=== PATIENT | female | born 1995 | race Caucasian/White ===

== ENCOUNTER 2018-02-27 15:05 | Observation (INO) | payer SELFPAY ==
[2018-02-27] MEDS ORDERED: MORPHINE 4 MG/ML SYR ONE ×2 (15:43→16:41)
[2018-02-27] MEDS ORDERED: ONDANSETRON 4 MG/2 ML VIAL ONE ×2 (15:43→16:41)
[2018-02-27] MEDS ORDERED: NA CHLORIDE 0.9% 1,000 ML ONE ×2 (15:44→17:35)
[2018-02-27 16:03] LABS: Absolute Lymphocytes (CBC) 1.8 K/uL (0.7-4.9); Absolute Monocytes 1.6 K/uL (0.1-1.3); Absolute Neutrophil 11.1 K/uL (1.8-8.0); Basophils % 0.5 % (0-1.3); Eosinophils % 0.8 % (0-4.4); Hematocrit 38.4 % (36.0-45.0); Lymphocytes % 12.3 % (15.3-44.8); MCH 29.2 pg (27.0-35.0); MPV 7.9 fL (7.6-11.3); Monocytes % 11.1 % (3.3-12.3); RBC Red Blood Cell Count 4.51 M/uL (3.86-4.86)
[2018-02-27 16:16] LABS: Albumin 3.3 g/dL (3.4-5.0); Bilirubin Direct 0.2 mg/dL (0-0.2); Bilirubin Total 0.7 mg/dL (0.2-1.0); Potassium 3.7 mmol/L (3.5-5.1); Protein, Total 8.8 g/dL (6.4-8.2)
[2018-02-27 16:34] LABS: Urine Bacteria 20-50 /HPF (<20); Urine Culture Reflex Order NOT NEEDED; Urine RBC 20-50 /HPF (NONE SEEN)
[2018-02-27 16:54] LABS: Urine Blood 2+ (NEG); Urine Glucose TRACE (NEG); Urine Protein 2+ (NEG); Urine Specific Gravity 1.025 (1.005-1.030); Urine pH 6.5 (5.0-7.0)
[2018-02-27] MEDS ORDERED: KETOROLAC 30 MG/ML INJ ONE (18:36)
--- NOTE | 2018-02-27 18:55 | RAD REPORT ---
EXAM DESCRIPTION: CT - Abdomen Pelvis W Contrast - 02/27/2018 6:41 pm CLINICAL HISTORY: Right flank pain for 1 week, difficulty urinating COMPARISON: None. TECHNIQUE: Biphasic, helical CT imaging of the abdomen and pelvis was performed following 100 ml non -ionic IV contrast. Oral contrast was given. All CT scans are performed using dose optimization technique as appropriate and may include automated exposure control or mA/KV adjustment according to patient size. FINDINGS: No suspicious findings in the lung bases. The liver, spleen, and pancreas show no suspicious findings. Gallbladder and biliary tree are also wi thout suspicious finding. Renal parenchymal enhancement is somewhat heterogeneous but not definitive for pyelonephritis. Nonobs tructing calculi are present. Urinary bladder is distended without wall thickening, mass or bladder c alculus. IUD is in place in a normal-sized uterus. A 3.3 centimeter right ovarian cyst is present. Le ft ovary is unremarkable. No gastric dilatation or wall thickening. No dilated large or small bowel loop seen. Cecum is low-lyi ng in the anterior right pelvic floor. Appendix is not optimally imaged. Carrillo of the terminal ileum are mildly prominent. Patient does have some congestion or stranding in the right pericolic gutter ne ar the tip of the liver. This is distant from the appendix location. Small mesenteric lymph nodes are present. Physiologic quantity of free fluid is present in the cul de sac. No free air or pneumatosis . No hernia, mass or bulky lymphadenopathy. No adrenal abnormality. No suspicious bony findings. IMPRESSION: Appendix is not optimally visualized. No definitive evidence for acute appendicitis. Cor relation is needed with laboratory and clinical findings. There is nonspecific congestion or edema in the right pericolic gutter near the liver. The adjacent b owel is unremarkable. This finding is distant from the location of the appendix. Approximately 3.3 centimeter right ovarian cyst without hemorrhage or rupture finding. Renal parenchymal enhancement is somewhat heterogeneous but not definitive for pyelonephritis. Nonspecific mesenteric lymph nodes. Enteritis or mesenteric adenitis are possible.
[2018-02-27] MEDS ORDERED: CEFTRIAXONE/SWI 1gm 1 GM/10 ML SYR ONE (20:24)
--- NOTE | 2018-02-27 20:32 | RAD REPORT ---
EXAM DESCRIPTION: US - Pelvis Complete - 02/27/2018 8:19 pm CLINICAL HISTORY: Abdominal pain, pelvic pain Preliminary findings provided at the time of the study. COMPARISON: CT study August 13 TECHNIQUE: Transabdominal pelvic sonography was performed. FINDINGS: Endometrium is 4 mm in thickness. IUD is in place well positioned in the fundus of the [place]. No focal endometrial or myometrial abnormality. Uterus is 7.5 x 3.5 x 4.7 cm. Both ovaries are identifiable. Right ovary is enlarged due to a 3.6 centimeter cyst with septation. N o soft tissue mass component or hemorrhagic component. Additional small bilateral ovarian cysts are p resent. Doppler evaluation shows normal blood flow in each ovary. No abnormal free fluid. IMPRESSION: Minimally complex 3.6 centimeter right ovarian cyst. No other significant findings. IUD is well positioned in the fundus of the uterus. Follow-up sonography in 3 months could be performed to monitor the right ovarian cyst for growth or i nvolution.
--- NOTE | 2018-02-27 21:03 | ER ---
Nurse's Notes [facility] Name: Jagruti Argueta Age: 23 yrs Sex: Female : 1995 Arrival Date: 02/27/2018 Time: 15:06 Bed 7 Private MD: None, None Diagnosis: Other abdominal pain-Intractable, possible appendicitis Presentation: 02/27 15:12 Presenting complaint: Patient states: Right flank pain x 1 week, worse since last hb night. Denies difficulty urinating/pain with urination. Transition of care: patient was not received from another setting of care. Onset of symptoms is unknown. Risk Assessment: Do you want to hurt yourself or someone else? Patient reports no desire to harm self or others. Care prior to arrival: None. 15:12 Method Of Arrival: Ambulatory hb 15:12 Acuity: LISA 3 hb 22:17 Initial Sepsis Screen: Does the patient meet any 2 criteria? No. Patient's initial jd3 sepsis screen is negative. Does the patient have a suspected source of infection? No. Patient's initial sepsis screen is negative. [employer]: 15:13 LMP N/A - control method hb Historical: - Allergies: 15:14 No Known Allergies; hb - Home Meds: 15:14 None [Active]; hb - PMHx: 15:14 None; hb - PSHx: 15:14 None; hb - Immunization history:: Adult Immunizations up to date. - Social history:: Smoking status: Patient uses tobacco products, smokes one-half pack cigarettes per day. - Ebola Screening: : No symptoms or risks identified at this time. Screenin:00 Abuse screen: Denies threats or abuse. Denies injuries from another. Nutritional jl7 screening: No deficits noted. Tuberculosis screening: No symptoms or risk factors identified. Fall Risk IV access (20 points). Total Guzman Fall Scale indicates No Risk (0-24 pts). Assessment: 15:30 General: Appears in no apparent distress. uncomfortable, unkempt, Behavior is jl7 cooperative, anxious. Pain: Complains of pain in right upper quadrant and right lower quadrant Pain radiates to right scapular area Pain currently is 10 out of 10 on a pain scale. Quality of pain is described as pressure, sharp, Pain began 1 week ago Is intermittent. Neuro: Level of Consciousness is awake, alert, obeys commands, Oriented to person, place, time, situation. Cardiovascular: Patient's skin is warm and dry. Respiratory: Airway is patent Respiratory effort is even, unlabored, Respiratory pattern is regular, symmetrical. GI: Abdomen is flat, non-distended, Bowel sounds present X 4 quads. Abd is soft X 4 quads Abdomen is tender to palpation in right upper quadrant and right lower quadrant Reports nausea. : Urine is cloudy, Denies burning with urination, pain. EENT: No signs and/or symptoms were reported regarding the EENT system. Derm: Skin is pink, warm \T\ dry. Musculoskeletal: No signs and/or symptoms reported regarding the musculoskeletal system. 16:26 Reassessment: Pt finished drinking oral contrast, CT notified. jl7 16:35 Reassessment: Pt c/o increased nausea and pain, ERP notified, see MAR for orders. jl7 17:30 Reassessment: Patient appears in no apparent distress at this time. Patient and/or jl7 family updated on plan of care and expected duration. Pain level reassessed. Patient is alert, oriented x 3, equal unlabored respirations, skin warm/dry/pink. Reports decreased pain at this time. 18:25 Reassessment: Pt c/o increased pain, ERP notified, see MAR for orders. jl7 18:57 Reassessment: Pain rated 5/10 at this time Patient states feeling better. Patient jl7 states symptoms have improved. 19:05 General: Appears in no apparent distress. comfortable, Behavior is calm, cooperative, rr5 appropriate for age. Pain: Complains of pain in abdomen Pain currently is 5 out of 10 on a pain scale. Quality of pain is described as pressure, sharp, Pain began 1 week Is intermittent. Neuro: Level of Consciousness is awake, alert, obeys commands, Oriented to person, place, time, situation. Cardiovascular: Capillary refill < 3 seconds Patient's skin is warm and dry. Respiratory: Airway is patent Respiratory effort is even, unlabored, Respiratory pattern is regular, symmetrical. GI: Abdomen is flat, non-distended, Bowel sounds present X 4 quads. Abd is soft Abdomen is tender to palpation Reports lower abdominal pain, upper abdominal pain. : Denies burning with urination. EENT: No signs and/or symptoms were reported regarding the EENT system. Derm: Skin is pink, warm \T\ dry. Musculoskeletal: Capillary refill < 3 seconds, Range of motion: intact in all extremities. 19:48 Reassessment: Pelvic exam completed, awaiting US. tl2 20:45 Reassessment: patient became agitated awaiting for results, Carol ZHENG at bedside rr5 explaining the plan of care. patient requested to go out for a while accompanied by security staff. 21:30 Reassessment: Patient appears in no apparent distress at this time. Patient and/or rr5 family updated on plan of care and expected duration. Pain level reassessed. 22:38 Reassessment: Patient appears in no apparent distress at this time. Patient is alert, aa1 oriented x 3, equal unlabored respirations, skin warm/dry/pink. Report given to admitting nurse on 2nd floor. Vital Signs: 15:13 BP 126 / 78; Pulse 100; Resp 18; Temp 99.2; Pulse Ox 100% on R/A; Pain 10/10; hb 16:00 BP 127 / 91; Pulse 104; Resp 16 S; Pulse Ox 98% on R/A; Pain 10/10; jl7 16:35 BP 120 / 86; Pulse 115; Resp 18 S; Temp 99.6(O); Pulse Ox 99% on R/A; Pain 10/10; jl7 18:08 BP 128 / 87; Pulse 102; Resp 15; Pulse Ox 98% on R/A; mh5 19:05 BP 122 / 65; Pulse 84; Resp 16; Temp 99; Pulse Ox 98% ; Pain 5/10; rr5 19:47 BP 119 / 71; Pulse 84; Resp 18; Pulse Ox 100% on R/A; tl2 20:30 BP 126 / 70; Pulse 80; Resp 17; Pulse Ox 99% on R/A; rr5 21:20 BP 111 / 80; Pulse 89; Resp 17; Pulse Ox 98% on R/A; rr5 22:47 BP 109 / 89; Pulse 85; Resp 17; Temp 99.3; Pulse Ox 99% on R/A; rr5 ED Course: 15:06 Patient arrived in ED. mr 15:06 None, None is Private Physician. mr 15:13 Triage completed. hb 15:14 Arm band placed on right wrist. hb 15:17 Mac Medina PA is PHCP. cp 15:17 Daniel Schulz MD is Attending Physician. cp 15:30 Awais Devine RN is Primary Nurse. 7 15:52 Patient has correct armband on for positive identification. Bed in low position. Call [facility] light in reach. Side rails up X 1. Adult w/ patient. Warm blanket given. Pulse ox on. NIBP on. 15:52 Urine collected: clean catch specimen, cloudy. [facility] 15:53 Urine Microscopic Only Sent. [facility] 16:00 Initial lab(s) drawn, by ks, sent to lab. Inserted saline lock: 20 gauge in right jl7 antecubital area, using aseptic technique. Blood collected. 18:41 CT Abd/Pelvis - W/Contrast: give oral contrast In Process Unspecified. EDMS 19:47 Assist provider with pelvic exam: Set up pelvic tray. Performed by Mac ZHENG tl2 Specimens sent to lab. Patient tolerated well. 20:17 Ultrasound completed. Other: pt refused tv , pelvic completed. cy 20:21 Pelvis Complete In Process Unspecified. EDMS 21:01 Cholo Kohler MD is Hospitalizing Provider. cp 22:50 Patient admitted, IV remains in place. intact. rr5 Administered Medications: 15:51 Drug: Zofran 4 mg Route: IVP; Site: right antecubital; jl7 16:10 Follow up: Response: No adverse reaction; Nausea is decreased 7 15:52 Drug: NS 0.9% 1000 ml Route: IV; Rate: 1 bolus; Site: right antecubital; jl7 16:00 Follow up: IV Status: Completed infusion [facility] 15:53 Drug: morphine 4 mg Route: IVP; Site: right antecubital; jl7 16:00 Follow up: Response: No adverse reaction; Pain is decreased jl7 16:38 Drug: Zofran 4 mg Route: IVP; Site: right antecubital; jl7 17:00 Follow up: Response: No adverse reaction; Nausea is decreased jl7 16:40 Drug: morphine 4 mg Route: IVP; Site: right antecubital; jl7 17:00 Follow up: Response: No adverse reaction; Pain is decreased jl7 17:30 Drug: NS 0.9% 1000 ml Route: IV; Rate: 125 ml/hr; Site: right antecubital; jl7 18:30 Drug: TORadol 30 mg Route: IVP; Site: right antecubital; jl7 18:57 Follow up: Response: No adverse reaction; Pain is decreased jl7 20:20 Drug: Rocephin - (cefTRIAXone) 1 grams Route: IVPB; Infused Over: 30 mins; Site: right ea antecubital; 22:25 Follow up: Response: No adverse reaction rr5 20:47 CANCELLED (Physician Discretion): Cipro 400 mg 200 ml IVPB once over 60 mins cp 20:47 CANCELLED (Physician Discretion): metroNIDAZOLE 500 mg 100 ml IVPB once over 30 mins cp 21:18 Drug: morphine 4 mg Route: IVP; Site: right antecubital; ea 22:25 Follow up: Response: No adverse reaction rr5 21:19 Drug: Zofran 4 mg Route: IVP; Site: right antecubital; ea 22:25 Follow up: Response: No adverse reaction rr5 Outcome: 21:03 Decision to Hospitalize by Provider. cp 22:30 Admitted to Med/surg accompanied by tech, via wheelchair, with chart. rr5 22:30 Condition: stable rr5 22:30 Instructed on the need for admit. 22:51 Patient left the ED. rr5 Signatures: Dispatcher [facility] EDMI Rachel Reaves RN RN jieDickson Kylie Holman mr Mac Medina PA PA cp Baxter, Heather, RN RN hb Knox, Taylor, RN RN tl2 Dilia Kohler Jahala, RN RN jl7 Samantha Rothman RN RN ea Davies, Jonathon, RN RN jBrennan Hess Raymond RN RN rr5 Corrections: (The following items were deleted from the chart) 20:20 20:18 In radiology for Transvaginal Study (Probe)+US.RAD.BRZ. EVANGELISTMI EDMS 02/28 02:45 02:39 Reassessment: rr5 rr5
--- NOTE | 2018-02-27 21:03 | EDPHYS ---
Physician Documentation [facility] Name: Jagruti Argueta Age: 23 yrs Sex: Female : 1995 Arrival Date: 02/27/2018 Time: 15:06 Bed 7 Private MD: None, None ED Physician Daniel Schulz HPI: 02/27 15:30 This 23 yrs old Female presents to ER via Ambulatory with complaints of Flank cp Pain. 15:30 The patient presents with abdominal pain in the right upper quadrant, right lower cp quadrant. 15:30 Onset: The symptoms/episode began/occurred 1 week(s) ago. cp 15:30 The symptoms do not radiate. Associated signs and symptoms: Pertinent positives: cp anorexia, nausea, Pertinent negatives: blood in stools, chest pain, diarrhea, dysuria, fever, shortness of breath, vomiting. Modifying factors: the symptoms are aggravated by movement, pressure. 15:30 The symptoms are described as sharp, pressure. cp 15:30 Severity of pain: in the emergency department the pain is actually worse. cp [employer]OMAT[employer]MING [employer]ER: 15:13 LMP N/A - control method hb Historical: - Allergies: 15:14 No Known Allergies; hb - Home Meds: 15:14 None [Active]; hb - PMHx: 15:14 None; hb - PSHx: 15:14 None; hb - Immunization history:: Adult Immunizations up to date. - Social history:: Smoking status: Patient uses tobacco products, smokes one-half pack cigarettes per day. - Ebola Screening: : No symptoms or risks identified at this time. ROS: 15:35 Constitutional: Negative for body aches, chills, fever, poor PO intake. cp 15:35 Eyes: Negative for injury, pain, redness, and discharge. cp 15:35 ENT: Negative for drainage from ear(s), ear pain, sore throat, difficulty swallowing, difficulty handling secretions. 15:35 Cardiovascular: Negative for chest pain, palpitations. 15:35 Respiratory: Negative for cough, shortness of breath, wheezing. 15:35 Abdomen/GI: Positive for abdominal pain, nausea, anorexia, Negative for vomiting, diarrhea, constipation, black/tarry stool, rectal bleeding. 15:35 Back: Negative for radiated pain. 15:35 : Negative for urinary symptoms. 15:35 Skin: Negative for cellulitis, rash. 15:35 Neuro: Negative for altered mental status, headache, weakness. 15:35 All other systems are negative. Exam: 15:45 Head/Face: Normocephalic, atraumatic. cp 15:45 Constitutional: The patient appears alert, awake, non-toxic, well developed, well nourished, uncomfortable. 15:45 Eyes: Periorbital structures: appear normal, Conjunctiva: normal, no exudate, no injection, Sclera: no appreciated abnormality, Lids and lashes: appear normal, bilaterally. 15:45 ENT: External ear(s): are unremarkable, Nose: is normal, Mouth: Lips: moist, Oral mucosa: moist, Posterior pharynx: is normal, airway is patent, no erythema, no exudate, Voice: is normal. 15:45 Neck: External neck: is normal, ROM/movement: is normal, is supple, without pain, no range of motions limitations, no nuchal rigidity. 15:45 Chest/axilla: Inspection: normal, Palpation: is normal, no crepitus, no tenderness. 15:45 Cardiovascular: Rate: tachycardic, Rhythm: regular. 15:45 Respiratory: the patient does not display signs of respiratory distress, Respirations: normal, no use of accessory muscles, no retractions, no splinting, no tachypnea, labored breathing, is not present, Breath sounds: are clear throughout, no decreased breath sounds, no stridor, no wheezing. 15:45 Abdomen/GI: Inspection: abdomen appears normal, Bowel sounds: active, all quadrants, Palpation: soft, in all quadrants, severe abdominal tenderness, in the right upper quadrant and right lower quadrant, rebound tenderness, is not appreciated, voluntary guarding, is elicited in the right upper quadrant and right lower quadrant. 15:45 Back: CVA tenderness, is absent. 15:45 Skin: cellulitis, is not appreciated, no rash present. 19:43 : Pelvic Exam: External exam: is normal, Speculum exam: scant bleeding, no cp cervicitis, os that is closed, bimanual exam reveals no cervical motion tenderness, no uterine tenderness, no adnexa tenderness or masses bilaterally, discharge, malodorous, the nurse was present for the exam. Vital Signs: 15:13 BP 126 / 78; Pulse 100; Resp 18; Temp 99.2; Pulse Ox 100% on R/A; Pain 10/10; hb 16:00 BP 127 / 91; Pulse 104; Resp 16 S; Pulse Ox 98% on R/A; Pain 10/10; jl7 16:35 BP 120 / 86; Pulse 115; Resp 18 S; Temp 99.6(O); Pulse Ox 99% on R/A; Pain 10/10; jl7 18:08 BP 128 / 87; Pulse 102; Resp 15; Pulse Ox 98% on R/A; mh5 19:05 BP 122 / 65; Pulse 84; Resp 16; Temp 99; Pulse Ox 98% ; Pain 5/10; rr5 19:47 BP 119 / 71; Pulse 84; Resp 18; Pulse Ox 100% on R/A; tl2 20:30 BP 126 / 70; Pulse 80; Resp 17; Pulse Ox 99% on R/A; rr5 21:20 BP 111 / 80; Pulse 89; Resp 17; Pulse Ox 98% on R/A; rr5 22:47 BP 109 / 89; Pulse 85; Resp 17; Temp 99.3; Pulse Ox 99% on R/A; rr5 MDM: 15:17 Patient medically screened. cp 20:25 Data reviewed: vital signs, nurses notes, lab test result(s), radiologic studies, CT cp scan, ultrasound. Physician consultation: Cholo Kohler MD was called at 20:26, left message on voicemail. 20:45 Physician consultation: Cholo Kohler MD was contacted at 20:45, regarding admission, cp to the medical/surgical unit. patient's condition, wants patient to be npo, IV fluids and will reexamine in morning. No antibiotics to be given. 02/27 15:26 Order name: Basic Metabolic Panel; Complete Time: 16:30 cp 02/27 16:30 Interpretation: Normal except: GFR 78. cp 02/27 15:26 Order name: CBC with Diff; Complete Time: 16:30 cp 02/27 19:05 Interpretation: Normal except: WBC 14.7; PLT 472; DANO% 75.3; LYM% 12.3; NEUT A 11.1; cp MNA 1.6. 02/27 15:26 Order name: Creatinine for Radiology; Complete Time: 16:30 cp 02/27 15:26 Order name: Hepatic Function; Complete Time: 16:30 02/27 19:58 Interpretation: Normal except: AST 7; TP 8.8; ALB 3.3; GLOB 5.5; A/G 0.6. 02/27 15:26 Order name: Lipase; Complete Time: 16:30 02/27 20:47 Interpretation: Normal except: LIP 56. 02/27 15:26 Order name: Urine Microscopic Only; Complete Time: 17:18 02/27 17:18 Interpretation: Normal except: UWBC 5-10; URBC 20-50; UBACT 20-50; SQEPI 20-50. 02/27 15:49 Order name: CT Abd/Pelvis - W/Contrast: give oral contrast; Complete Time: 19:01 02/27 16:05 Order name: Urine Dipstick--Ancillary (enter results); Complete Time: 17:18 02/27 17:18 Interpretation: Normal except: UKET 1+; UBLD 2+; UPROT 2+; UESTR TRACE. 02/27 16:05 Order name: Urine --Ancillary (enter results); Complete Time: 17:18 02/27 19:18 Order name: GC (GONORR/CHLAMYDIA) Probe 02/27 19:18 Order name: Wet Prep; Complete Time: 20:05 02/27 20:05 Interpretation: Reviewed. 02/27 20:20 Order name: Pelvis Complete; Complete Time: 20:33 EDIL 02/27 20:34 Interpretation: Report reviewed. 02/27 15:26 Order name: IV Saline Lock; Complete Time: 15:54 02/27 15:26 Order name: Labs collected and sent; Complete Time: 15:53 02/27 15:26 Order name: Urine Dipstick-Ancillary (obtain specimen); Complete Time: 15:53 02/27 15:26 Order name: Urine Test (obtain specimen); Complete Time: 15:53 02/27 21:09 Order name: NPO EDMS 02/27 19:18 Order name: Pelvic Exam Setup; Complete Time: 19:23 cp Administered Medications: 15:51 Drug: Zofran 4 mg Route: IVP; Site: right antecubital; jl7 16:10 Follow up: Response: No adverse reaction; Nausea is decreased jl7 15:52 Drug: NS 0.9% 1000 ml Route: IV; Rate: 1 bolus; Site: right antecubital; jl7 16:00 Follow up: IV Status: Completed infusion jl7 15:53 Drug: morphine 4 mg Route: IVP; Site: right antecubital; jl7 16:00 Follow up: Response: No adverse reaction; Pain is decreased jl7 16:38 Drug: Zofran 4 mg Route: IVP; Site: right antecubital; jl7 17:00 Follow up: Response: No adverse reaction; Nausea is decreased jl7 16:40 Drug: morphine 4 mg Route: IVP; Site: right antecubital; jl7 17:00 Follow up: Response: No adverse reaction; Pain is decreased jl7 17:30 Drug: NS 0.9% 1000 ml Route: IV; Rate: 125 ml/hr; Site: right antecubital; jl7 18:30 Drug: TORadol 30 mg Route: IVP; Site: right antecubital; jl7 18:57 Follow up: Response: No adverse reaction; Pain is decreased jl7 20:20 Drug: Rocephin - (cefTRIAXone) 1 grams Route: IVPB; Infused Over: 30 mins; Site: right ea antecubital; 22:25 Follow up: Response: No adverse reaction rr5 20:47 CANCELLED (Physician Discretion): Cipro 400 mg 200 ml IVPB once over 60 mins cp 20:47 CANCELLED (Physician Discretion): metroNIDAZOLE 500 mg 100 ml IVPB once over 30 mins cp 21:18 Drug: morphine 4 mg Route: IVP; Site: right antecubital; ea 22:25 Follow up: Response: No adverse reaction rr5 21:19 Drug: Zofran 4 mg Route: IVP; Site: right antecubital; ea 22:25 Follow up: Response: No adverse reaction rr5 Disposition: 02/28 00:12 Co-signature as Attending Physician, Daniel Schulz MD I agree with the assessment and kdr plan of care. Disposition: 02/27/18 21:03 Hospitalization ordered by Cholo Kohler for Observation. Preliminary diagnosis is Other abdominal pain - Intractable, possible appendicitis. - Bed requested for Telemetry/MedSurg (observation). - Status is Observation. rr5 - Condition is Stable. - Problem is new. - Symptoms have improved. UTI on Admission? No Signatures: Dispatcher [employer] EDMS Rachel Reaves, RN RN aa1 Daniel Schulz MD MD [facility] Mac Medina PA PA cp Neha Baugh, RN RN Awais Devine, RN RN jl7 Samantha Rothman, RN RN Jeremy Presley, RN RN rr5 Corrections: (The following items were deleted from the chart) 02/27 19:05 19:04 Normal except: WBC 14.7; PLT 472; DANO% 75.3; LYM% 12.3; NEUT A 11.1. cp cp 20:20 19:28 Transvaginal Study (Probe)+US.RAD.BRZ ordered. EDMS EDMS 20:47 20:44 Cipro 400 mg 200 ml IVPB once over 60 mins ordered. cp cp 20:47 20:44 metroNIDAZOLE 500 mg 100 ml IVPB once over 30 mins ordered. cp cp 20:47 20:47 LIP 56. cp cp 21:06 21:03 Hospitalization Ordered by Cholo Kohler MD for Observation. Preliminary aa1 diagnosis is Other abdominal pain - Intractable, possible appendicitis. Bed requested for Telemetry/MedSurg (observation). Status is Observation. Condition is Stable. Problem is new. Symptoms have improved. UTI on Admission? No. cp 22:51 21:06 02/27/2018 21:03 Hospitalization Ordered by Cholo Kohler MD for Observation. rr5 Preliminary diagnosis is Other abdominal pain - Intractable, possible appendicitis. Bed requested for Telemetry/MedSurg (observation). Status is Observation. Condition is Stable. Problem is new. Symptoms have improved. UTI on Admission? No. aa1
[2018-02-27] MEDS ORDERED: ONDANSETRON 4 MG/2 ML VIAL IV PRN (21:08)
[2018-02-27] MEDS ORDERED: ACETAMINOPHEN 500 MG TAB PO PRN (21:08)
[2018-02-27] MEDS: D5 0.45 NS 1,000 ML IV SCH (23:37)
[2018-02-28] MEDS: MORPHINE 4 MG/ML SYR IV PRN ×6 (00:20→22:47)
[2018-02-28 01:13] VITALS: BMI 18.8
[2018-02-28 05:26] LABS: Absolute Lymphocytes (CBC) 1.3 K/uL (0.7-4.9); Basophils % 0.5 % (0-1.3); Eosinophils % 1.6 % (0-4.4); Hematocrit 31.2 % (36.0-45.0); MCH 29.4 pg (27.0-35.0); MCV 85.5 fL (80-100); MPV 7.9 fL (7.6-11.3); Monocytes % 9.8 % (3.3-12.3); RBC Red Blood Cell Count 3.65 M/uL (3.86-4.86)
[2018-02-28] MEDS: D5 0.45 NS 1,000 ML IV SCH ×3 (05:37→22:47)
[2018-02-28 05:43] LABS: Albumin 2.4 g/dL (3.4-5.0); Bilirubin Direct 0.1 mg/dL (0-0.2); Bilirubin Total 0.3 mg/dL (0.2-1.0); Potassium 3.8 mmol/L (3.5-5.1); Protein, Total 6.5 g/dL (6.4-8.2)
[2018-02-28] MEDS: Levofloxacin 750mg IV 750 MG/150 ML BAG IV SCH (11:20)
[2018-02-28 21:25] VITALS: O2SAT 94
--- NOTE | 2018-02-28 22:51 | HP ---
Date of Admission: 02/27/2018 Diagnosis: Abdominal pain, right upper quadrant. History Of Present Illness: This is a case of a 23-year-old patient comes to us with abdominal pain on and off. Initially, she said for 2 days, but now that she remembers about 2 weeks. She denies any dysuria, hematuria, hematochezia, or melena. Denies any recent traveling out of the country. Denies any family member sick at home. Since the pain was in the right side and sh e has some leukocytosis, even though the CAT scan could not define this properly, we did admit her fo r observation and hydration. She denies any vaginal discharge. Denies any bleeding. Denies any fal l. Denies any recent traveling out of the country. Allergies: NONE. Medications: None. Past Medical History: None. Past Surgical History: None. Social History: The patient smokes half pack a day. She does not drink alcohol. Review of Systems: Ten points otherwise unremarkable. Physical Examination: General: The patient is awake and alert. HEENT: Pupils are equal and reactive, anicteric. Neck: Supple. Chest: Clear. Abdomen: Right upper quadrant tenderness. No Cannon's sign. Mild distention in right lower quadran t and pelvic area with no tenderness. Most of the pain is in the right upper quadrant. Pelvic/Breast/Rectal: Deferred. Extremities: Good capillary refill. Neurologic: Cranial nerves 2 through 12 grossly within normal limits. Laboratory Data: WBC count initially 14.7, hemoglobin 13.2, neutrophils 75.3 with a lipase 56, bicar b 28, potassium 3.7. UA shows some bacteria 20 to 50 and urine rbc's 20-50, nitrite negative. CAT s can of abdomen and pelvis interpreted by Dr. Stephens as appendix is not optimally visualized, no defi nitive evidence of acute appendicitis. There is some congestion of the right paracolic gutter, but n o evidence of appendicitis. This is away from the appendix. This is also a 3-cm ovarian cyst. Assessment: This is a 23-year-old patient with an enteritis of unknown origin. Right now, the right lower quadrant is still negative. We have not given any antibiotics symptoms, but at thi s moment, we should treat the enteritis. So, we are going to give the antibiotics in the form of Cip ro and Flagyl and we are going to start some liquid diet and see how she does clinically and see how she improves. That not only help us with the enteritis, but also help with a urine infection. 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 RONNIE Voice ID: [id number]
[2018-03-01] MEDS: MORPHINE 4 MG/ML SYR IV PRN ×2 (02:26→11:42)
[2018-03-01] MEDS: D5 0.45 NS 1,000 ML IV SCH ×2 (05:53→13:33)
[2018-03-01] MEDS: Levofloxacin 750mg IV 750 MG/150 ML BAG IV SCH (11:31)
[2018-03-01 12:07] LABS: Absolute Lymphocytes (CBC) 1.7 K/uL (0.7-4.9); Absolute Monocytes 0.7 K/uL (0.1-1.3); Absolute Neutrophil 4.6 K/uL (1.8-8.0); Basophils % 0.7 % (0-1.3); Hematocrit 30.9 % (36.0-45.0); Lymphocytes % 22.8 % (15.3-44.8); MCH 29.4 pg (27.0-35.0); MCV 85.9 fL (80-100)
[2018-03-01 12:25] LABS: ALT/SGPT 14 U/L (12-78); AST/SGOT 10 U/L (15-37); Albumin 2.3 g/dL (3.4-5.0); Alkaline Phosphatase 41 U/L (45-117); BUN Blood Urea Nitrogen 1 mg/dL (7-18); Bicarbonate 29 mmol/L (21-32); Bilirubin Total 0.2 mg/dL (0.2-1.0); Glucose Level 100 mg/dL (74-106); Potassium 3.9 mmol/L (3.5-5.1); Protein, Total 6.6 g/dL (6.4-8.2); Sodium Level 140 mmol/L (136-145)
[2018-03-01 13:14] VITALS: BP 117/63; TEMP 97.4
--- NOTE | 2018-03-01 13:19 | P.DS ---
Admission Date: 02/27/18 Discharge Date: 03/01/18 Disposition: ROUTINE DISCHARGE Discharge Condition: GOOD Vital Signs/Physical Exam: Temp Pulse Resp BP Pulse Ox 97.4 F 82 18 117/63 95 03/01/18 12:00 03/01/18 12:00 03/01/18 12:00 03/01/18 12:00 03/01/18 12:00 General: Alert, In no apparent distress, Oriented x3, Cooperative HEENT: PERRLA, EOMI Neck: Supple Respiratory: Normal air movement Cardiovascular: Normal pulses Gastrointestinal: Soft and benign, No rebound, No guarding Integumentary: No erythema, No warmth, No cyanosis Neurological: Normal speech Laboratory Data at Discharge: WBC 7.4 K/uL (4.3-10.9) D 03/01/18 11:18 Hgb 10.6 g/dL (12.0-15.0) L 03/01/18 11:18 Hct 30.9 % (36.0-45.0) L 03/01/18 11:18 Plt Count 397 K/uL (152-406) 03/01/18 11:18 Sodium 140 mmol/L (136-145) 03/01/18 11:18 Potassium 3.9 mmol/L (3.5-5.1) 03/01/18 11:18 BUN 1 mg/dL (7-18) L 03/01/18 11:18 Creatinine 0.70 mg/dL (0.55-1.3) 03/01/18 11:18 Glucose 100 mg/dL (74-106) 03/01/18 11:18 Total Bilirubin 0.2 mg/dL (0.2-1.0) 03/01/18 11:18 AST 10 U/L (15-37) L 03/01/18 11:18 ALT 14 U/L (12-78) 03/01/18 11:18 Alkaline Phosphatase 41 U/L (45-117) L 03/01/18 11:18 Lipase 86 U/L (73-393) 02/28/18 04:57 Home Medications: levoFLOXacin [Levaquin] 750 mg PO DAILY #6 tab 03/01/18 New Medications: levoFLOXacin [Levaquin] 750 mg PO DAILY #6 tab Patient Discharge Instructions: low fat diet. no spicy food. f/u this week with primary and gastroenterologyst Diet: AHA Activity: Ad francisco Followup: Cholo Kohler MD [ACTIVE - CAN ADMIT] - 1 Week
[2018-03-04 10:01] LABS: C.trachomatis RNA,TMA Detected (Not Detected)
== END 2018-03-01 13:38 | disposition home or self-care (01) ==
LOC: ER 15:05 → ERHOLD 21:22 → 2ND 22:41
PROVIDERS: ADMIT Surgery; ATTEND Surgery
DX: K52.9 Noninfective gastroenteritis and colitis, unspecified (principal); N83.209 Unspecified ovarian cyst, unspecified side; F17.210 Nicotine dependence, cigarettes, uncomplicated
CPT/HCPCS: 36415; 74177; 76856; 80048; 80053; 80076; 81003; 81015; 81025; 83690; 85025; 87210; 87490; 87590; 96374; 96375; 99285; G0378; J0696; J2405; J7030; Q9967

== ENCOUNTER 2018-11-10 15:04 | Observation (INO) | payer SELFPAY ==
--- OUTSIDE RECORDS SUMMARY | 2018-11-10 15:07 | XMS REPORT | Continuity of Care Document ---
:1995 Author Organization [facility] Address [address] [place] [address] Phone Unavailable Care Team Providers Name Role Phone PHYSICIAN, NO Primary Care Physician Unavailable Insurance Providers Guarantor Jagruti Hill Address [address] [place] [address] Payer Self Pay Insurance Subscriber's Name Jagruti Hill Relationship Self / Same As Patient Group Number NA Group Name NA Advance Directives No advance directive information available. Chief Complaint and Reason for Visit Chief Complaint Chest Pain Reason for Visit Acute bacterial bronchitis Problems Active ProblemsNo active problem information available. Past Problems Medical Problem Onset Date Status Acute bacterial bronchitis Unknown Acute Medications Current Home Medications Medication Dose Units Route Directions Days Qty Instructions Start Date Doxycycline 100 Mg ORAL Every 12 Hours 7 Days 14 Tablet 10/31/18 Hyclate for Infection (Vibramycin *) 100 Mg Tab Social History Smoking Status Start Date Stop Date Current every day smoker Hospital Discharge Instructions No hospital discharge instruction information available. Plan of Care Discharge Date 10/31/18 1:22pm Instructions/Education Provided Acute Bronchitis, Adult, [id number] Forms Provided Portal Welcome Letter Prescriptions See Medication Section Referrals NO PHYSICIAN Additional Instructions/Education Home Return to ER as needed Follow-up with PASCUAL or tank officer of choice RX Doxcycline Functional Status No functional status information available. Allergies, Adverse Reactions, Alerts No allergy information available. Immunizations No immunization information available. Vital Signs Acute Vital Signs Vital Response Date/Time Blood Pressure 120/67 mm Hg 10/31/2018 1:21pm Pulse Pulse Rate (adult) 89 beats per minute (60 - 100) 10/31/2018 1:21pm Respiratory Rate 16 breaths per minute (10 - 24) 10/31/2018 1:21pm Temperature Source Oral 10/31/2018 1:21pm Height 5 ft 6 in 10/31/2018 11:07am Weight 132 lb 10/31/2018 11:07am Body Mass Index 21.3 kg/m^2 10/31/2018 11:07am Results Laboratory Results Test Name Result Units Flags Reference Collection Result Comments Date/Time Date/Time White Blood 8.8 K/ul 4.0-11.5 10/31/2018 10/31/2018 Count 11:17am 11:27am Red Blood Count 4.42 M/ul 3.80-5.20 10/31/2018 10/31/2018 11:17am 11:27am Hemoglobin 12.6 g/dL 10.5-15.7 10/31/2018 10/31/2018 11:17am 11:27am Hematocrit 39.2 % 34.0-50.0 10/31/2018 10/31/2018 11:17am 11:27am Mean 88.7 fl 86-100 10/31/2018 10/31/2018 Corpuscular 11:17am 11:27am Volume Mean 28.5 pg 26.2-33.4 10/31/2018 10/31/2018 Corpuscular 11:17am 11:27am Hemoglobin Mean 32.1 g/dL 30-34 10/31/2018 10/31/2018 Corpuscular 11:17am 11:27am Hemoglobin Concent Red Cell 12.1 % 12.0-15.5 10/31/2018 10/31/2018 Distribution 11:17am 11:27am Width Platelet Count 307 K/uL 165-450 10/31/2018 10/31/2018 11:17am 11:27am Mean Platelet 9.1 fL L 9.4-12.6 10/31/2018 10/31/2018 Volume 11:17am 11:27am Neutrophils (%) 66.4 % 44.4-80.1 10/31/2018 10/31/2018 (Auto) 11:17am 11:27am Immature 0.5 % H 0.0-0.4 10/31/2018 10/31/2018 Granulocyte % 11:17am 11:27am (Auto) Lymphocytes (%) 21.3 % 10.0-50.0 10/31/2018 10/31/2018 (Auto) 11:17am 11:27am Monocytes (%) 9.2 % 3.6-12.0 10/31/2018 10/31/2018 (Auto) 11:17am 11:27am Eosinophils (%) 1.9 % 0.0-5.4 10/31/2018 10/31/2018 (Auto) 11:17am 11:27am Basophils (%) 0.7 % 0.1-1.2 10/31/2018 10/31/2018 (Auto) 11:17am 11:27am Neutrophils # 5.88 K/uL 1.56-6.13 10/31/2018 10/31/2018 (Auto) 11:17am 11:27am Absolute 0.0 K/uL 0.0-0.03 10/31/2018 10/31/2018 Immature 11:17am 11:27am Granulocyte (auto Lymphocytes # 1.9 K/uL 1.18-3.74 10/31/2018 10/31/2018 (Auto) 11:17am 11:27am Monocytes # 0.81 K/uL 0.24-0.86 10/31/2018 10/31/2018 (Auto) 11:17am 11:27am Eosinophils # 0.17 K/uL 0.04-0.36 10/31/2018 10/31/2018 (Auto) 11:17am 11:27am Basophils # 0.06 K/uL 0.01-0.08 10/31/2018 10/31/2018 (Auto) 11:17am 11:27am Nucleated Red 0 /100 WBC 0-0.2 10/31/2018 10/31/2018 Blood Cells % 11:17am 11:27am Nucleated Red 0 K/uL 0 10/31/2018 10/31/2018 Blood Cells # 11:17am 11:27am Random Glucose 89 mg/dL 74-106 10/31/2018 10/31/2018 11:17am 12:26pm Blood Urea 12 mg/dL 6-20 10/31/2018 10/31/2018 Nitrogen 11:17am 12:26pm Serum 273 L 280-300 10/31/2018 10/31/2018 Osmolality 11:17am 12:26pm Creatinine 0.7 mg/dL 0.50-0.90 10/31/2018 10/31/2018 11:17am 12:26pm Glomerular > 60.00 10/31/2018 10/31/2018 GFR RESULTS ARE REPORTED IN mL/min/1.73m2. Filtration Rate 11:17am 12:26pm Calc Normal GFR: >60mL/min Moderately decreased GFR: 30-59 mL/min Severely decreased GFR: 15-29 mL/min Kidney Failure (or Dialysis): <15 mL/min The calculated eGFR is not valid for patients younger than 18 years or older than 75 years. BUN/Creatinine 17.1 12-10/31/2018 10/31/2018 Ratio 11:17am 12:26pm Sodium Level 137 mmol/L 135-145 10/31/2018 10/31/2018 11:17am 12:26pm Potassium Level 4.7 mmol/L 3.5-5.2 10/31/2018 10/31/2018 11:17am 12:26pm Chloride Level 100 mmol/L 98-108 10/31/2018 10/31/2018 11:17am 12:26pm Carbon Dioxide 26 mmol/L 21-32 10/31/2018 10/31/2018 Level 11:17am 12:26pm Anion Gap 15.7 mEq/L 12-10/31/2018 10/31/2018 11:17am 12:26pm Calcium Level 9.3 mg/dL 8.6-10.0 10/31/2018 10/31/2018 11:17am 12:26pm Procedures Procedure Status Date Provider(s) X-ray of chest, two views Completed 10/31/18 BRENNAN VELASCO MD Encounters Encounter Location Arrival/Admit Date Discharge/Depart Date Attending Provider Departed [place] 10/31/18 11:04am 10/31/18 1:22pm BRENNAN VELASCO Emergency Room José Luis Zaragoza MD [facility] Recent Diagnosis
[2018-11-10] MEDS ORDERED: NA CHLORIDE 0.9% 1,000 ML ONE ×3 (15:27→23:12)
[2018-11-10] MEDS ORDERED: KETOROLAC 30 MG/ML INJ ONE ×2 (15:27→22:53)
[2018-11-10] MEDS ORDERED: ONDANSETRON 4 MG/2 ML VIAL ONE (15:32)
[2018-11-10 15:51] LABS: Absolute Lymphocytes (CBC) 1.5 K/uL (0.7-4.9); Basophils % 0.2 % (0-1.3); Hematocrit 40.2 % (36.0-45.0); Lymphocytes % 7.3 % (15.3-44.8); MPV 7.9 fL (7.6-11.3); RBC Red Blood Cell Count 4.64 M/uL (3.86-4.86)
[2018-11-10] MEDS ORDERED: MORPHINE 4 MG/ML SYR ONE ×2 (15:54→16:57)
[2018-11-10 15:59] LABS: ALT/SGPT 70 U/L (12-78); AST/SGOT 18 U/L (15-37); Albumin 3.8 g/dL (3.4-5.0); Alkaline Phosphatase 54 U/L (45-117); BUN Blood Urea Nitrogen 10 mg/dL (7-18); Bicarbonate 29 mmol/L (21-32); Bilirubin Direct 0.1 mg/dL (0-0.2); Bilirubin Total 0.5 mg/dL (0.2-1.0); Glucose Level 99 mg/dL (74-106); Lipase 73 U/L (73-393); Potassium 3.9 mmol/L (3.5-5.1); Protein, Total 7.7 g/dL (6.4-8.2); Sodium Level 138 mmol/L (136-145)
--- NOTE | 2018-11-10 16:08 | RAD REPORT ---
EXAM DESCRIPTION: RAD - Chest Single View - 11/10/2018 3:43 pm CLINICAL HISTORY: Cough, chest pain COMPARISON: June 2013 TECHNIQUE: AP portable chest image was obtained 1539 hours . FINDINGS: Lungs are clear. Heart and vasculature are normal. No measurable pleural effusion and no p neumothorax. No acute bony abnormality seen. No acute aortic finding. Bilateral nipple shadows overli e lower lateral aspect of each lung field IMPRESSION: No acute cardiopulmonary process.
[2018-11-10 16:09] LABS: Urine Bacteria >50 /HPF (<20); Urine Culture Reflex Order REFLEXED; Urine RBC <5 /HPF (NONE SEEN)
[2018-11-10] MEDS ORDERED: CEFTRIAXONE/SWI 1gm 1 GM/10 ML SYR ONE ×2 (16:09→20:34)
[2018-11-10 16:12] LABS: Urine Blood NEGATIVE (NEG); Urine Glucose NEGATIVE (NEG); Urine Protein NEGATIVE (NEG); Urine Specific Gravity 1.015 (1.005-1.030); Urine pH 7.5 (5.0-7.0)
[2018-11-10 16:17] LABS: Blood Morphology Comment NOT SEEN (NOT SEEN); Platelet Estimate ADEQ
--- NOTE | 2018-11-10 16:44 | RAD REPORT ---
EXAM DESCRIPTION: CT - Abdomen Pelvis W Contrast - 11/10/2018 4:27 pm CLINICAL HISTORY: Cough, back pain, fever COMPARISON: CT study February 2018 TECHNIQUE: Biphasic, helical CT imaging of the abdomen and pelvis was performed following 100 ml non -ionic IV contrast. No oral contrast administered. All CT scans are performed using dose optimization technique as appropriate and may include automated exposure control or mA/KV adjustment according to patient size. FINDINGS: No suspicious findings in the lung bases. No pericardial thickening or effusion. The liver, spleen, and pancreas show no suspicious findings. Gallbladder and biliary tree are also wi thout suspicious finding. Gallstones can be occult on CT imaging. Renal parenchymal opacification is symmetric. It is somewhat heterogeneous but not typical for pyelon ephritis. There are 2 millimeter and 3 millimeter nonobstructing calyx calculi of the left kidney. No hydronephrosis. No obstructing calculus. No solid mass in the parenchyma. No thickening, edema or en hancement of the urinary bladder tyson. No adrenal abnormality seen. IUD is well positioned in a norm al-sized uterus. No left ovary abnormality seen. An involuting 2.5 centimeter right ovarian cyst is p resent. No gastric dilatation or wall thickening. Small bowel loops are not dilated. There are several fluid- filled distal small bowel loops. A normal appendix is not clearly defined. Cecum is low-lying in the midline pelvis. There is a tubular structure along the deep or posterior margin the cecum that shows some evidence for wall thickening or edema. This structure cannot be clearly defined as a loop of sma ll bowel and appendicitis cannot be excluded. In this location, appendicitis may have an atypical pre sentation. No colon wall thickening, mass or dilatation seen. No free air or pneumatosis. No abnormal free fluid collection. No hernia, mass or bulky lymphadenopathy. No suspicious bony findings. IMPRESSION: A normal appendix is not identified. There is a structure along the posterior wall of th e cecum which sits in the low midline pelvis potentially an enlarged abnormal appendix. It is difficu lt to distinguish this structure from the adjacent non opacified small bowel loops. Clinical correlation is needed with any clinical or laboratory findings that may indicate appendiciti s. Repeat imaging with the distal small bowel and proximal colon opacified by contrast may be helpfu l. No obstruction, free air or emergent finding otherwise noted. Incidental note of 2.5 centimeter involuting right ovarian cyst.
[2018-11-10] MEDS ORDERED: HYDROMORPHONE HCL 1 MG/ML INJ ONE ×2 (17:27→19:17)
--- NOTE | 2018-11-10 19:45 | RAD REPORT ---
EXAM DESCRIPTION: CT - Abdomen Pelvis Wo Contrast - 11/10/2018 7:29 pm CLINICAL HISTORY: Abdominal pain, fever, abnormal noncontrast CT study COMPARISON: None. TECHNIQUE: Axial 5 millimeter thick images of the abdomen and pelvis were obtained without IV contra st. Oral contrast was administered with delayed imaging to allow all optimal distal bowel opacificati on. Contrast in the system is from earlier examination. All CT scans are performed using dose optimization technique as appropriate and may include automated exposure control or mA/KV adjustment according to patient size. FINDINGS: No suspicious findings in the lung bases. No new findings to the solid abdominal viscera are of, gallbladder or biliary tree. No new findings to the system. 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 Oral contrast has reached the distal small bowel and extended into the right-side of the colon. Ileoc ecal bowel is normal. The suspicious tubular structure in the midline and right side of the pelvis is still present and continues to show findings suspicious for appendicitis. There is stranding in the adjacent fat. This structure has no contrast opacification were as the adjacent bowel loops are opaci fied. IMPRESSION: Follow-up imaging demonstrates findings of acute appendicitis. The cecum remains positioned low in the anterior pelvic floor with the abnormal appendix positioned p osterior and superior to the cecum. This is not a classic appendix location.
--- NOTE | 2018-11-10 19:58 | ER ---
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 Transition of care: patient was not received from another setting of care. Onset of symptoms was November 10, 2018. Risk Assessment: Do you want to hurt yourself or someone else? Patient reports no desire to harm self or others. Initial Sepsis Screen: Does the patient meet any 2 criteria? No. Patient's initial sepsis screen is negative. Does the patient have a suspected source of infection? No. Patient's initial sepsis screen is negative. Care prior to arrival: None. 15:06 Method Of Arrival: Ambulatory hj 15:06 Acuity: LISA 3 hj MANAGER ETL: 15:08 LMP N/A - control method hj Historical: - Allergies: 15:08 No Known Drug Allergies; hj - Home Meds: 15:08 Zoloft Oral [Active]; hj - PMHx: 15:08 Anxiety; Depression; hj - PSHx: 15:08 None; hj - Immunization history:: Adult Immunizations. - Family history:: not pertinent. - Social history:: Smoking status: Patient uses tobacco products, smokes one pack cigarettes per day. - Ebola Screening: : Patient denies travel to an Ebola-affected area in the 21 days before illness onset. - Hospitalizations: : No recent hospitalization is reported. Screenin:46 Abuse screen: Denies threats or abuse. Nutritional screening: No deficits noted. tw2 Tuberculosis screening: No symptoms or risk factors identified. Fall Risk None identified. Assessment: 15:12 General: Appears uncomfortable, slender, Behavior is cooperative, anxious, fussy, tw2 Smells of cigarette smoke. Pain: Complains of pain in abdomen and right low back. Neuro: Level of Consciousness is awake, alert, obeys commands, Oriented to person, place, time, situation. Cardiovascular: Heart tones S1 S2 Patient's skin is warm and dry. Respiratory: Airway is patent Respiratory effort is even, unlabored, Respiratory pattern is regular, symmetrical, Breath sounds are clear bilaterally. GI: Abdomen is flat, non-distended, Bowel sounds present X 4 quads. Abd is soft X 4 quads Abdomen is tender to palpation in right lower quadrant Reports lower abdominal pain, upper abdominal pain, nausea. : No signs and/or symptoms were reported regarding the genitourinary system. EENT: No signs and/or symptoms were reported regarding the EENT system. Derm: No signs and/or symptoms reported regarding the dermatologic system. Musculoskeletal: Range of motion: intact in all extremities. 16:15 Reassessment: No changes from previously documented assessment. Patient and/or family tw2 updated on plan of care and expected duration. Pain level reassessed. Patient is alert, oriented x 3, equal unlabored respirations, skin warm/dry/pink. Patient states symptoms have not improved. 17:31 Reassessment: Patient and/or family updated on plan of care and expected duration. Pain tw2 level reassessed. Patient is alert/active/playful, equal unlabored respirations, skin warm/dry/pink. pt moaning out in pain at this time, medicated as ordered. Patient states symptoms have not improved. 18:33 Reassessment: Patient and/or family updated on plan of care and expected duration. Pain tw2 level reassessed. Patient is alert, oriented x 3, equal unlabored respirations, skin warm/dry/pink. reports pain a better. 19:30 Reassessment: Patient and/or family updated on plan of care and expected duration. Pain tr5 level reassessed. Patient is alert, oriented x 3, equal unlabored respirations, skin warm/dry/pink. 20:30 Reassessment: Patient appears in no apparent distress at this time. Patient and/or tr5 family updated on plan of care and expected duration. Pain level reassessed. Vital Signs: 15:08 BP 111 / 75; Pulse 101; Resp 18; Temp 98.9(TE); Pulse Ox 100% on R/A; Weight 63.5 kg; hj Height 5 ft. 6 in. (167.64 cm); Pain 10/10; 16:15 BP 115 / 74; Pulse 89; Resp 17; Pulse Ox 100% on R/A; tw2 17:32 BP 118 / 83; Pulse 93; Resp 17; Temp 98(O); Pulse Ox 99% on R/A; Pain 10/10; tw2 18:32 BP 112 / 78; Pulse 99; Resp 17; Pulse Ox 95% on R/A; Pain 7/10; tw2 19:30 BP 126 / 98; Pulse 109; Resp 19; Pulse Ox 95% on R/A; tr5 20:45 BP 122 / 86; Pulse 110; Resp 18; Pulse Ox 97% on R/A; tr5 15:08 Body Mass Index 22.60 (63.50 kg, 167.64 cm) ED Course: 15:05 Patient arrived in ED. hj 15:07 Triage completed. hj 15:08 Arm band placed on right wrist. hj 15:15 Doug Rutledge MD is Attending Physician. rn 15:20 Delia Jaramillo RN is Primary Nurse. tw2 15:32 Patient has correct armband on for positive identification. Bed in low position. Call 5 light in reach. Adult w/ patient. Warm blanket given. Pulse ox on. NIBP on. 15:33 Initial lab(s) drawn, by me, sent to lab. Urine collected: clean catch specimen, renata mh5 colored. Inserted saline lock: 20 gauge in right antecubital area, using aseptic technique. Blood collected. 15:34 Basic Metabolic Panel Sent. 5 15:34 CBC with Diff Sent. 5 15:35 Creatinine for Radiology Sent. mh5 15:35 Hepatic Function Sent. mh5 15:35 Lipase Sent. mh5 15:42 Radiology exam delayed due to lab results not completed at this time. (BUN/Creatinine). sj 15:45 XRAY Chest (1 view) In Process Unspecified. EDMS 15:52 Radiology exam delayed due to lab results not completed at this time. (BUN/Creatinine). sj 16:00 First set of blood cultures drawn by me. mh5 16:00 Inserted saline lock: 22 gauge antecubital area, using aseptic technique. Blood mh5 collected. 16:15 Second set of blood cultures drawn. mh5 16:20 Blood Culture Adult (2) Sent. mh5 16:21 Urine Culture Sent. mh5 16:27 CT Abd/Pelvis - IV Contrast Only In Process Unspecified. EDMS 18:42 [facility] pm1 18:59 Report given to JED Ramos. tw2 19:[address] via wheelchair. tr5 19:33 Abdomen In Process Unspecified. EDMS 19:56 Chano Carrasco MD is Hospitalizing Provider. pm1 21:16 No provider procedures requiring assistance completed. Patient admitted, IV remains in tr5 place. Administered Medications: 15:28 Drug: TORadol - Ketorolac 15 mg Route: IVP; Site: right antecubital; tw2 15:52 Follow up: Response: No adverse reaction; Pain is unchanged, physician notified tw2 15:31 Drug: NS 0.9% 1000 ml Route: IV; Rate: 1000 ml; Site: right antecubital; tw2 16:20 Follow up: Response: No adverse reaction; IV Status: Completed infusion; IV Intake: tw2 1000ml 15:34 Drug: Zofran 4 mg Route: IVP; Site: right antecubital; tw2 17:01 Follow up: Response: No adverse reaction; Nausea is decreased tw2 15:56 Drug: morphine 4 mg {Note: RASS 0.} Route: IVP; Site: right antecubital; tw2 16:37 Follow up: Response: No adverse reaction; Pain is decreased; Pain is decreased "but tw2 only just a little bit, i keep getting sharp pain in my back" 16:37 Follow up: Response: RASS: Alert and Calm (0) tw2 16:36 Drug: Rocephin - (cefTRIAXone) 1 grams {Note: ivp available only.} Route: IVPB; Infused tw2 Over: 5 mins; Site: right antecubital; 16:41 Follow up: Response: No adverse reaction; IV Status: Completed infusion tw2 17:01 Drug: morphine 4 mg {Note: RASS 0.} Route: IVP; Site: right antecubital; tw2 17:25 Follow up: Response: No adverse reaction; Pain is unchanged, physician notified; RASS: tw2 Alert and Calm (0) 17:31 Drug: Dilaudid 1 mg {Note: RASS 0.} Route: IVP; Site: right antecubital; tw2 18:33 Follow up: Response: No adverse reaction; Pain is decreased; RASS: Alert and Calm (0) tw2 19:21 Drug: Dilaudid 1 mg {Note: RAAS: 0.} Route: IVP; Site: right antecubital; tr5 20:43 Follow up: Response: Pain is decreased; RASS: Alert and Calm (0) tr5 20:15 Drug: NS 0.9% 1000 ml Route: IV; Rate: 125 ml/hr; Site: right antecubital; tr5 21:15 Follow up: Response: Medication administered at discharge.; IV Status: Infusion tr5 continued upon admission 20:16 Drug: Flagyl 500 mg Volume: 100 ml; Route: IVPB; Rate: 200 ml/hr; Infused Over: 30 tr5 mins; Site: right antecubital; 21:15 Follow up: Response: No adverse reaction; IV Status: Infusion continued upon admission tr5 20:42 Drug: Rocephin 1 grams Route: IV; Rate: calculated rate; Site: right antecubital; tr5 21:13 Follow up: Response: No adverse reaction; IV Status: Completed infusion tr5 Intake: 16:20 IV: 1000ml; Total: 1000ml. tw2 Outcome: 19:56 Decision to Hospitalize by Provider. pm1 21:16 Admitted to OR accompanied by nurse, via stretcher, with chart. tr5 21:16 Condition: stable tr5 21:16 Instructed on the need for admit. 21:17 Patient left the ED. tr5 Signatures: Dispatcher [employer] Nasima Decker Roman, MD MD rn Joaquin, Henry, RN RN hj Marinas, Patrick, NP SUPERVISOR [employer] pm1 Delia Jaramillo RN RN [address] 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 6 in.; BMI: 22.6; Pain 10/10; hj 20:43 20:00 Response: Pain is unchanged, physician notified tr5 tr5 20:54 20:45 BP 130 / 89; Pulse 81bpm; Resp 18bpm; Pulse Ox 97% RA; tr5 tr5
--- NOTE | 2018-11-10 19:58 | EDPHYS ---
Physician Documentation [facility] Name: Jagruti Argueta Age: 23 yrs Sex: Female : 1995 Arrival Date: 11/10/2018 Time: 15:05 Bed 19 Private MD: ED Physician Doug Rutledge HPI: 11/10 15:23 This 23 yrs old Female presents to ER via Ambulatory with complaints of rn Abdominal Pain. 15:23 The patient complains of pain in the right low back. The pain radiates to the abdomen. rn Onset: The symptoms/episode began/occurred last night. Modifying factors: The symptoms are alleviated by nothing. the symptoms are aggravated by movement, palpation/percussion. Severity of pain: At its worst the pain was moderate in the emergency department the pain is unchanged. The patient has experienced similar episodes in the past. Reports low back/flank pain, radiates around to abdomen, + hx of UTIs, no trauma, also reports subjective fever and nausea. NO diarrhea. Reports cough. . 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 - Family history:: not pertinent. - Social history:: Smoking status: Patient uses tobacco products, smokes one pack cigarettes per day. - Ebola Screening: : Patient denies travel to an Ebola-affected area in the 21 days before illness onset. - Hospitalizations: : No recent hospitalization is reported. 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 Exam: 15:23 Constitutional: This is a well developed, well nourished patient who is awake, alert, rn moaning Head/Face: Normocephalic, atraumatic. Eyes: Pupils equal round and reactive to light, extra-ocular motions intact. Lids and lashes normal. Conjunctiva and sclera are non-icteric and not injected. Cornea within normal limits. Periorbital areas with no swelling, redness, or edema. ENT: Poor dentition and missing teeth Neck: Trachea midline, no thyromegaly or masses palpated, and no cervical lymphadenopathy. Supple, full range of motion without nuchal rigidity, or vertebral point tenderness. No Meningismus. Cardiovascular: Regular rate and rhythm. No pulse deficits. Respiratory: Lungs have equal breath sounds bilaterally, clear to auscultation. No increased work of breathing, no retractions or nasal flaring. Abdomen/GI: Soft, + tender RLQ/suparpubic/LLQ/epigastric area Back: No spinal tenderness. No costovertebral tenderness. Full range of motion. MS/ Extremity: Pulses equal, no cyanosis. Neurovascular intact. Full, normal range of motion. Equal circumference. Neuro: Awake and alert, GCS 15, oriented to person, place, time, and situation. Cranial nerves II-XII grossly intact. Motor strength 5/5 in all extremities. Sensory grossly intact. Cerebellar exam normal. Vital Signs: 15:08 BP 111 / 75; Pulse 101; Resp 18; Temp 98.9(TE); Pulse Ox 100% on R/A; Weight 63.5 kg; hj Height 5 ft. 6 in. (167.64 cm); Pain 10/10; 16:15 BP 115 / 74; Pulse 89; Resp 17; Pulse Ox 100% on R/A; tw2 17:32 BP 118 / 83; Pulse 93; Resp 17; Temp 98(O); Pulse Ox 99% on R/A; Pain 10/10; tw2 18:32 BP 112 / 78; Pulse 99; Resp 17; Pulse Ox 95% on R/A; Pain 7/10; tw2 19:30 BP 126 / 98; Pulse 109; Resp 19; Pulse Ox 95% on R/A; tr5 20:45 BP 122 / 86; Pulse 110; Resp 18; Pulse Ox 97% on R/A; tr5 15:08 Body Mass Index 22.60 (63.50 kg, 167.64 cm) hj MDM: 15:16 Patient medically screened. rn 17:12 ED course: Pt with nitrate positive urine but pain out of proportion for UTI, ct does rn not show appendix and shows possible inflamed structure that could be appendicitis, will repeat with oral contrast. . 19:55 Data reviewed: vital signs. Data interpreted: Pulse oximetry: on room air is 95 %. pm1 Interpretation: normal. Counseling: I had a detailed discussion with the patient and/or guardian regarding: the historical points, exam findings, and any diagnostic results supporting the discharge/admit diagnosis, radiology results, the need for further work-up and treatment in the hospital. 11/10 15:21 Order name: Basic Metabolic Panel; Complete Time: 16:11 rn 11/10 15:21 Order name: CBC with Diff; Complete Time: 16:19 rn 11/10 15:21 Order name: Creatinine for Radiology; Complete Time: 16:11 rn 11/10 15:21 Order name: Hepatic Function; Complete Time: 16:11 rn 11/10 15:21 Order name: Lipase; Complete Time: 16:11 rn 11/10 15:21 Order name: Urine Microscopic Only; Complete Time: 16:11 rn 11/10 15:21 Order name: XRAY Chest (1 view); Complete Time: 18:01 rn 11/10 15:21 Order name: CT Abd/Pelvis - IV Contrast Only; Complete Time: 18:01 rn 11/10 15:28 Order name: Urine Dipstick--Ancillary (enter results); Complete Time: 16:19 bd 11/10 15:28 Order name: Urine --Ancillary (enter results); Complete Time: 16:19 bd 11/10 15:54 Order name: Urine Culture rn 11/10 15:54 Order name: Blood Culture Adult (2) rn 11/10 15:54 Order name: Manual Differential; Complete Time: 16:19 EDMS 11/10 15:21 Order name: IV Saline Lock; Complete Time: 15:35 rn 11/10 15:21 Order name: Labs collected and sent; Complete Time: 15:35 rn 11/10 15:21 Order name: Urine Test (obtain specimen); Complete Time: 15:35 rn 11/10 15:21 Order name: Urine Dipstick-Ancillary (obtain specimen); Complete Time: 15:35 rn 11/10 19:16 Order name: Abdomen ; Complete Time: 19:55 EDMS 11/10 19:59 Order name: NPO; Complete Time: 20:16 pm1 Administered Medications: 15:28 Drug: TORadol - Ketorolac 15 mg Route: IVP; Site: right antecubital; tw2 15:52 Follow up: Response: No adverse reaction; Pain is unchanged, physician notified tw2 15:31 Drug: NS 0.9% 1000 ml Route: IV; Rate: 1000 ml; Site: right antecubital; tw2 16:20 Follow up: Response: No adverse reaction; IV Status: Completed infusion; IV Intake: tw2 1000ml 15:34 Drug: Zofran 4 mg Route: IVP; Site: right antecubital; tw2 17:01 Follow up: Response: No adverse reaction; Nausea is decreased tw2 15:56 Drug: morphine 4 mg {Note: RASS 0.} Route: IVP; Site: right antecubital; tw2 16:37 Follow up: Response: No adverse reaction; Pain is decreased; Pain is decreased "but tw2 only just a little bit, i keep getting sharp pain in my back" 16:37 Follow up: Response: RASS: Alert and Calm (0) tw2 16:36 Drug: Rocephin - (cefTRIAXone) 1 grams {Note: ivp available only.} Route: IVPB; Infused tw2 Over: 5 mins; Site: right antecubital; 16:41 Follow up: Response: No adverse reaction; IV Status: Completed infusion tw2 17:01 Drug: morphine 4 mg {Note: RASS 0.} Route: IVP; Site: right antecubital; tw2 17:25 Follow up: Response: No adverse reaction; Pain is unchanged, physician notified; RASS: tw2 Alert and Calm (0) 17:31 Drug: Dilaudid 1 mg {Note: RASS 0.} Route: IVP; Site: right antecubital; tw2 18:33 Follow up: Response: No adverse reaction; Pain is decreased; RASS: Alert and Calm (0) tw2 19:21 Drug: Dilaudid 1 mg {Note: RAAS: 0.} Route: IVP; Site: right antecubital; tr5 20:43 Follow up: Response: Pain is decreased; RASS: Alert and Calm (0) tr5 20:15 Drug: NS 0.9% 1000 ml Route: IV; Rate: 125 ml/hr; Site: right antecubital; tr5 21:15 Follow up: Response: Medication administered at discharge.; IV Status: Infusion tr5 continued upon admission 20:16 Drug: Flagyl 500 mg Volume: 100 ml; Route: IVPB; Rate: 200 ml/hr; Infused Over: 30 tr5 mins; Site: right antecubital; 21:15 Follow up: Response: No adverse reaction; IV Status: Infusion continued upon admission tr5 20:42 Drug: Rocephin 1 grams Route: IV; Rate: calculated rate; Site: right antecubital; tr5 21:13 Follow up: Response: No adverse reaction; IV Status: Completed infusion tr5 Disposition: 11/11 07:10 Co-signature as Attending Physician, Doug Rutledge MD. rn Disposition: 11/10/18 19:56 Hospitalization ordered by Chano Carrasco for Observation. Preliminary diagnosis is Acute appendicitis. - Bed requested for Telemetry/MedSurg (observation). - Status is Observation. tr5 - Condition is Stable. - Problem is new. - Symptoms have improved. UTI on Admission? No Signatures: Dispatcher [employer] EDDE Doug Rutledge MD MD rn Joaquin, Henry, RN Tomym Berger NP TECHNOLOGY ADVISOR pm1 Delia Jaramillo RN RN tw2 Jeremy Mathews, JED RN rr5 Tim Sotelo, JED RN tr5 Corrections: (The following items were deleted from the chart) 11/10 19:16 17:10 Abdomen Pelvis W Con+CT.RAD.BRZ ordered. [facility] EDDE 20:11 19:56 Hospitalization Ordered by Chano Carrasco MD for Observation. Preliminary pm1 diagnosis is Acute appendicitis. Bed requested for Telemetry/MedSurg (observation). Status is Observation. Condition is Stable. Problem is new. Symptoms have improved. UTI on Admission? No. pm1 21:03 20:11 11/10/2018 19:56 Hospitalization Ordered by Chano Carrasco MD for Observation. rr5 Preliminary diagnosis is Acute appendicitis. Bed requested for Operating Room. Status is Observation. Condition is Stable. Problem is new. Symptoms have improved. UTI on Admission? No. pm1 21:17 21:03 11/10/2018 19:56 Hospitalization Ordered by Chano Carrasco MD for Observation. tr5 Preliminary diagnosis is Acute appendicitis. Bed requested for Telemetry/MedSurg (observation). Status is Observation. Condition is Stable. Problem is new. Symptoms have improved. UTI on Admission? No. rr5
[2018-11-10] MEDS ORDERED: METRONIDAZOLE 500mg IVPB 500 MG/100 ML BAG IV ONE (20:06)
[2018-11-10] MEDS ORDERED: SUCCINYLCHOLINE 20 MG/ML (10 ML) IV ONE (21:31)
[2018-11-10] MEDS ORDERED: MIDAZOLAM HCL 2 MG/2 ML INJ ONE (21:34)
[2018-11-10] MEDS ORDERED: FENTANYL CITR 250 MCG/5 ML ONE (21:34)
[2018-11-10] MEDS ORDERED: PROPOFOL 200 MG/20 ML VIAL IV ONE (21:34)
--- NOTE | 2018-11-10 21:41 | P.HP ---
Date of Service: 11/10/18 PC: This 23-year-old female presents emergency room with severe abdominal pain for diagnosis and treatment. HPC: Patient has been having pain since this morning. Describes it as severe. Was located in her back and lower down in her pelvis. Has intensified throughout the day. PMH: Denies any medical problems PSHx: Denies any prior surgeries SOC: No known allergies SYS REVIEW: No cough, wheeze, shortness of breath. No chest pain or palpitations. Denies any urinary complaints. O/E awake alert vital signs are stable HEENT: Not jaundice Chest: Chest movement equal bilateral ABD: Patient is markedly tender in the lower abdomen has peritoneal signs on the right LOCO: Intact DATA: The white cell count, CT scan demonstrates acute appendicitis IMPRESSION: Acute abdomen with appendicitis PLAN: I will take her to the operating room for laparoscopic possible open appendectomy. The risks of this piece then discussed. The possibility of bleeding, infection, injury to bowel ureters and blood vessels have been described. The possible need for a open and/or further surgeries and procedures was discussed. She understands and wants us to proceed.
[2018-11-10] MEDS ORDERED: ROCURONIUM 50 MG/5 ML VIAL IV ONE (21:49)
[2018-11-10] MEDS ORDERED: GLYCOPYRROLATE 0.2 MG/ML SYR ONE (22:32)
[2018-11-10] MEDS ORDERED: NEOSTIGMINE 1 MG/ML -10 ML VIAL ONE (22:32)
[2018-11-10] MEDS: MORPHINE 4 MG/ML SYR ONE ×4 (22:53→23:17)
--- NOTE | 2018-11-10 22:59 | P.OP ---
Preoperative diagnosis: Acute abdomen Postoperative diagnosis: Acute appendicitis Primary procedure: Laparoscopic appendectomy Anesthesia: General Estimated blood loss: Less than 10 cc Specimen: 1 appendix Operative Technique: The patient was brought to the operating room, placed supine on the table. After the induction of adequate general endotracheal anesthesia, the area of the abdomen was prepped with a DuraPrep solution, and she was draped in the usual aseptic manner. A subumbilical incision was made. This was brought down through the skin and subcutaneous tissue. The Visiport was cavity and created pneumoperitoneum to approximately 12 mm of mercury. Under direct vision a 5 mm trocar was placed in the lower midline and another 5 mm in the right upper quadrant. The patient was then positioned in Trendelenburg and rolled to the left side. We were able to visualize right lower quadrant. We could see that the cecum extended over the pelvic rim and was well down into the true pelvis. A that area there was an inflammatory process and the appendix was identified. It was adherent to the posterior wall of the true pelvis. Gentle dissection allowed us to mobilize this as well as the cecum back up to the brim of the pelvis. The appendix was showed evidence of acute and chronic inflammation with fibrinous exudate. This was freed up and the appendix was identified at its base to the cecum. The cecum was noted be large and somewhat patulous. The appendix was then gently dissected from the surrounding structures. The junction of the appendix with the with the cecum was identified. An opening was made in the mesentery of the appendix. The 10 mm trocar was now converted to a 12 with the camera moved to the right upper port with a 5 mm view. The linear Stapler was introduced into the peritoneal cavity. It was placed across the base of the appendix and fired. A vascular reload was then placed into the Stapler. The mesentery of the appendix was then taken down. The appendix having been was placed into an Endo-Catch, brought out through the umbilical port site. Attention was turned back towards the right lower quadrant. The area was gently irrigated with the saline solution. The effluent was aspirated. 0.25% Marcaine was aerosolize into the right lower quadrant. We were now also able to visualize the pelvis itself. Both left and right ovaries were identified. They were not involved in this inflammatory process. Attention was turned towards the umbilical trocar. Using the endo-close absorbable sutures were placed to close the defect. The patient was now returned to the neutral position on the OR table. The pneumoperitoneum was collapsed, the umbilical sutures tied, and mack applied to the skin. At the end of the procedure the patient was in stable condition and sent to the recovery room. Needle sponge and instrument count were correct. 1 specimen was sent for histopathology. Sterile dressings had been applied. Complications: None Transferred to: Recovery Room Condition: Good
[2018-11-10] MEDS ORDERED: ONDANSETRON 4 MG/2 ML VIAL IV PRN (23:01)
[2018-11-10] MEDS ORDERED: NA CHLORIDE 0.9% 1,000 ML IV SCH (23:01)
[2018-11-10 23:19] VITALS: O2SAT 96
[2018-11-10] MEDS: MEPERIDINE HCL 25 MG/0.5 ML ONE ×2 (23:22→23:27)
[2018-11-10 23:54] VITALS: BMI 22.6
[2018-11-11] MEDS: HYDROCODONE/APAP 7.5/325 MG TAB PO PRN ×3 (00:16→11:57)
[2018-11-11] MEDS ORDERED: PIPER/TAZO/NS 3.375gm 3.375 GM/100 ML BAG ONE (00:37)
[2018-11-11] MEDS: PIPER/TAZO/NS 3.375gm 3.375 GM/100 ML BAG IVPB SCH ×2 (00:42→09:13)
[2018-11-11] MEDS: MORPHINE 4 MG/ML SYR IV PRN ×2 (03:51→07:52)
[2018-11-11 12:37] VITALS: BP 109/56; TEMP 99
== END 2018-11-11 14:04 | disposition home or self-care (01) ==
LOC: ER 15:04 → ERHOLD 20:20 → 2ND 21:19
PROVIDERS: ADMIT Surgery; ATTEND Surgery
PROC: 0DTJ4ZZ Resection of Appendix, Percutaneous Endoscopic Approach (ICD-10-PCS; principal; 2018-11-10 20:50)
DX: K35.80 Unspecified acute appendicitis (principal)
CPT/HCPCS: 36415; 71045; 74176; 74177; 80048; 80076; 81003; 81015; 81025; 83690; 85025; 87040; 87077; 87086; 87088; 87186; 88304; 96361; 96365; 96368; 96375; 99285; G0378; J0330; J0696; J1170; J2175; J2250; J2405; J2543; J2704; J2710; J3010; J7030; Q9967

== ENCOUNTER 2018-11-19 12:01 | Emergency (ER) | payer SELFPAY ==
--- NOTE | 2018-11-19 20:12 | ER ---
Nurse's Notes [facility] Name: Jagruti Argueta Age: 23 yrs Sex: Female : 1995 Arrival Date: 11/19/2018 Time: 12:06 Bed Waiting Private MD: None, None Diagnosis: ED Course: 11/19 12:06 Patient arrived in ED. mr 12:06 None, None is Private Physician. mr 12:30 Patient's name was called from ER lobby. No response. aj1 12:44 Patient's name was called from ER lobby. No response. aj1 13:03 Patient's name was called from ER lobby. No response. Unable to locate patient. Will aj1 disposition as left without being seen by a provider. Administered Medications: No medications were administered Outcome: 13:03 Patient left the ED. aj1 Signatures: Alyce Oquendo RN RN aj1 Kylie Holman mr
== END 2018-11-19 13:03 | disposition left against medical advice (07) ==
LOC: ER 12:01
DX: Z02.9 Encounter for administrative examinations, unspecified (principal)

== ENCOUNTER 2019-09-17 16:50 | Emergency (ER) | payer SELFPAY ==
[2019-09-17] MEDS ORDERED: LORazepam 2 MG/ML VIAL ONE (17:22)
[2019-09-17 17:26] LABS: Absolute Lymphocytes (CBC) 1.7 K/uL (0.7-4.9); Basophils % 0.4 % (0-1.3); Hematocrit 38.9 % (36.0-45.0); Lymphocytes % 12.6 % (15.3-44.8); MPV 8.2 fL (7.6-11.3); RBC Red Blood Cell Count 4.53 M/uL (3.86-4.86)
[2019-09-17 17:42] LABS: Urine Glucose NEGATIVE (NEG)
[2019-09-17 17:43] LABS: Urine Blood 3+ (NEG); Urine Protein 2+ (NEG)
[2019-09-17 17:53] LABS: BUN Blood Urea Nitrogen 8 mg/dL (7-18); Bicarbonate 26 mmol/L (21-32); Glucose Level 108 mg/dL (74-106); Potassium 4.1 mmol/L (3.5-5.1); Sodium Level 139 mmol/L (136-145)
--- NOTE | 2019-09-17 17:57 | RAD REPORT ---
EXAM DESCRIPTION: CT - Stone Protocol - 09/17/2019 5:38 pm CLINICAL HISTORY: Abdominal pain. COMPARISON: 2018 TECHNIQUE: Computed axial tomography of the abdomen pelvis was obtained without oral or IV contrast. Lack of IV and oral contrast limits evaluation of solid organs, bowel, and vessels. Coronal reformat karl images were obtained and reviewed. All CT scans are performed using dose optimization technique as appropriate and may include automated exposure control or mA/KV adjustment according to patient size. FINDINGS: Left renal calculi. 14 millimeter calculus left renal pelvis Hounsfield unit 880. 3 millim eter calculus distal left ureter. Faint parenchymal calcifications within each kidney. The liver,, adrenals and pancreas appear grossly normal. Splenic granulomata. There is no evidence of diverticulitis. IUD place The cecum is distended with stool measuring 6 centimeters IMPRESSION: 3 millimeter calculus distal left ureter. 14 millimeter calculus left renal pelvis with mild left hydronephrosis Nephrocalcinosis
[2019-09-17] MEDS ORDERED: SIMETHICONE 80 MG TAB ONE (18:06)
[2019-09-17] MEDS ORDERED: NA CHLORIDE 0.9% 1,000 ML ONE (18:06)
[2019-09-17] MEDS ORDERED: MORPHINE 4 MG/ML SYR ONE (18:06)
[2019-09-17 18:16] LABS: Urine Bacteria 20-50 /HPF (<20); Urine Culture Reflex Order NOT NEEDED; Urine Mucus MOD /HPF (NONE SEEN); Urine RBC >50 /HPF (NONE SEEN)
--- NOTE | 2019-09-17 18:33 | ER ---
Nurse's Notes [facility] Name: Jagruti Hill Age: 24 yrs Sex: Female : 1995 Arrival Date: 09/17/2019 Time: 16:51 Bed 20 Private MD: Diagnosis: Hydronephrosis with renal and ureteral calculous obstruction Presentation: 09/16 16:51 Chief complaint: Patient states: left low back pain radiating to lower abd since last iw night, worse today, no hx of kidney stones, feels pressure when she urinates, currently on control , +vomiting. Coronavirus screen: Proceed with normal triage. Patient denies a cough. Patient denies shortness of breath or difficulty breathing. Patient denies measured and/or subjective temperature greater than 100.4F prior to today's visit. Patient denies travel on a cruise ship or to a country the [facility] currently lists as an affected area. Patient denies contact with known and/or suspected case of COVID-19. Ebola Screen: Patient negative for fever greater than or equal to 101.5 degrees Fahrenheit, and additional compatible Ebola Virus Disease symptoms Patient denies exposure to infectious person. Patient denies travel to an Ebola-affected area in the 21 days before illness onset. No symptoms or risks identified at this time. Initial Sepsis Screen: Does the patient meet any 2 criteria? No. Patient's initial sepsis screen is negative. Does the patient have a suspected source of infection? No. Patient's initial sepsis screen is negative. Risk Assessment: Do you want to hurt yourself or someone else? Patient reports no desire to harm self or others. Onset of symptoms was September 16, 2019. 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 - Social history:: Smoking status: Patient reports the use of cigarette tobacco products, smokes one-half pack cigarettes per day. Screenin:55 Abuse screen: Denies threats or abuse. Denies injuries from another. Nutritional iw screening: No deficits noted. Tuberculosis screening: No symptoms or risk factors identified. Fall Risk IV access (20 points). Assessment: 16:54 General: Appears uncomfortable, Behavior is calm, cooperative. Pain: Complains of pain iw in left low back. Neuro: Level of Consciousness is awake, alert, obeys commands, Oriented to person, place, time, situation. Cardiovascular: Patient's skin is warm and dry. GI: Reports nausea, vomiting. : Reports pain in left in suprapubic area flank(s), lower quadrant(s) in lower back with urination. Derm: Skin is intact, is healthy with good turgor. Musculoskeletal: Range of motion: intact in all extremities. 18:12 Reassessment: pt still c/o pain 10/10, RONNI Yoder notified, new orders given. iw Vital Signs: 16:51 BP 89 / 75; Pulse 82; Resp 16; Temp 97.8; Pulse Ox 99% on R/A; Weight 77.11 kg; Height iw 5 ft. 6 in. (167.64 cm); Pain 10/10; 18:00 BP 131 / 85; Pulse 84; Resp 16; Pulse Ox 98% on R/A; iw 18:26 BP 115 / 78; Pulse 64; Resp 19; Pulse Ox 100% ; jl7 16:51 Body Mass Index 27.44 (77.11 kg, 167.64 cm) iw ED Course: 16:45 Patient has correct armband on for positive identification. iw 16:51 Patient arrived in ED. iw 16:53 Triage completed. iw 16:54 Yessenia Leal, RN is Primary Nurse. iw 16:54 Arm band placed on. iw 16:55 Maintain EMS IV. Dressing intact. Good blood return noted. Gauge \T\ site: 20 RAC. iw 16:56 Beba Castillo, [facility]. snw 16:56 Mac Vang MD is Attending Physician. snw 17:12 Initial lab(s) drawn, by me, sent to lab. Urine collected: clean catch specimen, cloudy.ca1 17:38 CT Stone Protocol In Process Unspecified. EDMS 19:31 No provider procedures requiring assistance completed. IV discontinued, intact, iw bleeding controlled, No redness/swelling at site. Pressure dressing applied. Administered Medications: 17:18 Drug: Ativan 1 mg Route: IVP; Site: right antecubital; ca1 18:05 Drug: morphine 4 mg Route: IVP; Site: right antecubital; iw 18:06 Drug: Simethicone 240 mg Route: PO; iw 18:06 Drug: NS 0.9% 1000 ml Route: IV; Rate: 1 bolus; Site: right antecubital; iw 19:17 Drug: Flomax 0.4 mg Route: PO; iw 19:32 Drug: Drummonds 10 mg-325 mg 1 tabs Route: PO; iw 19:32 Drug: Rocephin 1 grams Route: IV; Rate: per protocol; Site: right antecubital; iw Outcome: 18:33 Discharge ordered by . snsandi 19:31 Discharged to home ambulatory, with family. iw 19:31 Condition: good 19:31 Discharge instructions given to patient, family, Instructed on discharge instructions, follow up and referral plans. medication usage, Demonstrated understanding of instructions, follow-up care, medications, Prescriptions given X 3. 19:32 Patient left the ED. iw Signatures: Dispatcher [employer] EDMS Beba Castillo, DIRECTOR TREASURER-C DIRECTOR TREASURER-Csnw Yessenia Leal, RN RN iw Awais Devine RN RN jl7 Carolyn Sanford RN RN ca1
--- NOTE | 2019-09-17 18:33 | EDPHYS ---
Physician Documentation [facility] Name: Jagruti Hill Age: 24 yrs Sex: Female : 1995 Arrival Date: 09/17/2019 Time: 16:51 Bed 20 Private MD: ED Physician Mac Vang HPI: 09/16 17:01 This 24 yrs old Female presents to ER via EMS with complaints of Back Pain, snw Abdominal Pain. 17:01 The patient presents with pain that is acute, with no known mechanism of injury. The snw symptoms are located in the low back. Onset: The symptoms/episode began/occurred suddenly, and became worse and became persistent. The pain radiates to the left lower quadrant. The problem was sustained from unknown cause. Severity of symptoms: At their worst the symptoms were incapacitating, in the emergency department the symptoms are unchanged. The patient has not experienced similar symptoms in the past. It is unknown whether or not the patient has recently seen a physician. 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 - Social history:: Smoking status: Patient reports the use of cigarette tobacco products, smokes one-half pack cigarettes per day. ROS: 17:01 Constitutional: Negative for fever, chills, and weight loss, Eyes: Negative for injury, snw pain, redness, and discharge, ENT: Negative for injury, pain, and discharge, Neck: Negative for injury, pain, and swelling, Cardiovascular: Negative for chest pain, palpitations, and edema, Respiratory: Negative for shortness of breath, cough, wheezing, and pleuritic chest pain, : Negative for injury, bleeding, discharge, and swelling, MS/Extremity: Negative for injury and deformity, Skin: Negative for injury, rash, and discoloration, Neuro: Negative for headache, weakness, numbness, tingling, and seizure, Psych: Negative for depression, anxiety, suicide ideation, homicidal ideation, and hallucinations. 17:01 Abdomen/GI: Positive for abdominal pain. 17:01 Back: Positive for flank pain, on the left. Exam: 17:00 Constitutional: This is a well developed, well nourished patient who is awake, alert, snw and in no acute distress. Head/Face: Normocephalic, atraumatic. Eyes: Pupils equal round and reactive to light, extra-ocular motions intact. Lids and lashes normal. Conjunctiva and sclera are non-icteric and not injected. Cornea within normal limits. Periorbital areas with no swelling, redness, or edema. ENT: Nares patent. No nasal discharge, no septal abnormalities noted. Tympanic membranes are normal and external auditory canals are clear. Oropharynx with no redness, swelling, or masses, exudates, or evidence of obstruction, uvula midline. Mucous membranes moist. Neck: Trachea midline, no thyromegaly or masses palpated, and no cervical lymphadenopathy. Supple, full range of motion without nuchal rigidity, or vertebral point tenderness. No Meningismus. Chest/axilla: Normal chest wall appearance and motion. Nontender with no deformity. No lesions are appreciated. Cardiovascular: Regular rate and rhythm with a normal S1 and S2. No gallops, murmurs, or rubs. Normal PMI, no JVD. No pulse deficits. Respiratory: Lungs have equal breath sounds bilaterally, clear to auscultation and percussion. No rales, rhonchi or wheezes noted. No increased work of breathing, no retractions or nasal flaring. Skin: Warm, dry with normal turgor. Normal color with no rashes, no lesions, and no evidence of cellulitis. MS/ Extremity: Pulses equal, no cyanosis. Neurovascular intact. Full, normal range of motion. Neuro: Awake and alert, GCS 15, oriented to person, place, time, and situation. Cranial nerves II-XII grossly intact. Motor strength 5/5 in all extremities. Sensory grossly intact. Cerebellar exam normal. Normal gait. Psych: Awake, alert, with orientation to person, place and time. Behavior, mood, and affect are within normal limits. 17:00 Abdomen/GI: Inspection: abdomen appears normal, Bowel sounds: normal, Palpation: moderate abdominal tenderness, in the left lower quadrant. 17:00 Back: pain, that is moderate, of the left mid back, ROM is painful, with all movement. Vital Signs: 16:51 BP 89 / 75; Pulse 82; Resp 16; Temp 97.8; Pulse Ox 99% on R/A; Weight 77.11 kg; Height iw 5 ft. 6 in. (167.64 cm); Pain 10/10; 18:00 BP 131 / 85; Pulse 84; Resp 16; Pulse Ox 98% on R/A; iw 18:26 BP 115 / 78; Pulse 64; Resp 19; Pulse Ox 100% ; jl7 16:51 Body Mass Index 27.44 (77.11 kg, 167.64 cm) iw MDM: 16:58 Patient medically screened. humberto 18:23 Data reviewed: vital signs, nurses notes. Data interpreted: Pulse oximetry: on room air snw is 98 %. Interpretation: normal. Counseling: I had a detailed discussion with the patient and/or guardian regarding: the historical points, exam findings, and any diagnostic results supporting the discharge/admit diagnosis, the presence of at least one elevated blood pressure reading (>120/80) during this emergency department visit, lab results, radiology results, the need for outpatient follow up, to return to the emergency department if symptoms worsen or persist or if there are any questions or concerns that arise at home. Response to treatment: the patient's symptoms have markedly improved after treatment. Special discussion: Based on the patient's Hx, exam, and Dx evaluation, there is no indication for emergent surgery or inpatient Tx. It is understood by the patient/guardian that if the Sx's persist or worsen they need to return immediately for re-evaluation. I have referred the patient to see his PCP for further evaluation of high blood pressure. Based on the history and exam findings, there is no indication for further emergent testing or inpatient evaluation. I discussed with the patient/guardian the need to see the primary care provider for further evaluation of the symptoms. I discussed with the patient/guardian the need to see the urologist for further evaluation of the symptoms. 09/16 16:57 Order name: CBC with Diff; Complete Time: 17:38 snw 09/16 16:57 Order name: Chem 7; Complete Time: 17:57 snw 09/16 16:57 Order name: Test, Serum; Complete Time: 17:38 snw 09/16 16:59 Order name: Urine Culture snw 09/16 16:59 Order name: Urine Microscopic Only; Complete Time: 18:21 snw 09/16 16:57 Order name: CT Stone Protocol; Complete Time: 18:00 snw 09/16 17:20 Order name: GC (Aditya/Chl) Probe URINE EDMS 09/16 17:33 Order name: Urine Dipstick--Ancillary (enter results); Complete Time: 17:44 eb 09/16 16:59 Order name: Urine Test (obtain specimen); Complete Time: 17:11 snw 09/16 16:59 Order name: Urine Dipstick-Ancillary (obtain specimen); Complete Time: 17:11 snw Administered Medications: 17:18 Drug: Ativan 1 mg Route: IVP; Site: right antecubital; ca1 18:05 Drug: morphine 4 mg Route: IVP; Site: right antecubital; iw 18:06 Drug: Simethicone 240 mg Route: PO; iw 18:06 Drug: NS 0.9% 1000 ml Route: IV; Rate: 1 bolus; Site: right antecubital; iw 19:17 Drug: Flomax 0.4 mg Route: PO; iw 19:32 Drug: [place] 10 mg-325 mg 1 tabs Route: PO; iw 19:32 Drug: Rocephin 1 grams Route: IV; Rate: per protocol; Site: right antecubital; iw Disposition: 09/17 07:14 Co-signature as Attending Physician, Mac Vang MD I agree with the assessment and humberto plan of care. Disposition: 09/17/19 18:33 Discharged to Home. Impression: Hydronephrosis with renal and ureteral calculous obstruction. - Condition is Stable. - Discharge Instructions: Kidney Stones, Renal Colic, Hydronephrosis, Dietary Guidelines to Help Prevent Kidney Stones, Rehydration, Adult. - Prescriptions for Diclofenac Sodium 75 mg Oral Tablet Sustained Release - take 1 tablet by ORAL route 2 times per day; 30 tablet. promethazine 25 mg Oral Tablet - take 1 tablet by ORAL route every 6 hours As needed; 20 tablet. Miralax 17 gram/dose Oral - take 1 packet by ORAL route once daily dilute powder in 8 ounces of water or juice; 1 box. Augmentin 500- 125 mg Oral Tablet - take 1 tablet by ORAL route every 8 hours for 10 days; 30 tablet. - Medication Reconciliation Form, Thank You Letter, Antibiotic Education, Prescription Opioid Use form. - Follow up: Emergency Department; When: As needed; Reason: Worsening of condition. Follow up: Private Physician; When: 2 - 3 days; Reason: Recheck today's complaints, Continuance of care, Re-evaluation by your physician. Signatures: Dispatcher [employer] EDMO Mac Vang MD MD cha Therrien, Shelly, COMPLAINT EVALUATION SUPERVISOR-C COMPLAINT EVALUATION SUPERVISOR-Csnw Yessenia Leal, JED RN iw Carolyn Sanford RN RN ca1 Corrections: (The following items were deleted from the chart) 09/16 17:01 16:58 TEST, SERUM+SC.LAB.BRZ ordered. EDMO EDMS 17:20 16:59 Miscellaneous Lab Test+R.LAB.BRZ ordered. EDMO EDMS 19:32 18:33 09/17/2019 18:33 Discharged to Home. Impression: Hydronephrosis with renal and iw ureteral calculous obstruction. Condition is Stable. Discharge Instructions: Kidney Stones, Renal Colic, Hydronephrosis, Dietary Guidelines to Help Prevent Kidney Stones, Rehydration, Adult. Prescriptions for Diclofenac Sodium 75 mg Oral Tablet Sustained Release - take 1 tablet by ORAL route 2 times per day; 30 tablet, promethazine 25 mg Oral Tablet - take 1 tablet by ORAL route every 6 hours As needed; 20 tablet, Miralax 17 gram/dose Oral - take 1 packet by ORAL route once daily dilute powder in 8 ounces of water or juice; 1 box. and Forms are Medication Reconciliation Form, Thank You Letter, Antibiotic Education, Prescription Opioid Use. Follow up: Emergency Department; When: As needed; Reason: Worsening of condition. Follow up: Private Physician; When: 2 - 3 days; Reason: Recheck today's complaints, Continuance of care, Re-evaluation by your physician. snw
[2019-09-17] MEDS ORDERED: TAMSULOSIN 0.4 MG SR CAP ONE (19:16)
[2019-09-17] MEDS ORDERED: CEFTRIAXONE/SWI 1gm 1 GM/10 ML SYR ONE (19:27)
[2019-09-17] MEDS ORDERED: HYDROCODONE/APAP 10/325 TAB ONE (19:27)
[2019-09-17 20:22] VITALS: TEMP 97.8
[2019-09-17 20:24] VITALS: BP 115/78; O2SAT 100
[2019-09-22 13:37] LABS: C.trachomatis RNA,TMA Not Detected (Not Detected)
== END 2019-09-17 19:32 | disposition home or self-care (01) ==
LOC: ER 16:50
DX: N13.2 Hydronephrosis with renal and ureteral calculous obstruction (principal); F17.210 Nicotine dependence, cigarettes, uncomplicated
CPT/HCPCS: 36415; 74176; 76377; 80048; 81003; 81015; 84703; 85025; 87086; 87088; 87490; 87590; 96374; 96375; 99284; J0696; J7030

== ENCOUNTER 2019-11-15 12:41 | Emergency (ER) | payer SELFPAY ==
--- OUTSIDE RECORDS SUMMARY | 2019-11-15 12:44 | XMS REPORT | Continuity of Care Document ---
:1995 Author Organization [facility] t Address [address] [place] [address] Care Team Providers Name Role Phone Membreno DO Attending Clinician Doctor Unassigned, Name Attending Clinician Unavailable Problems This patient has no known problems. Allergies, Adverse Reactions, Alerts This patient has no known allergies or adverse reactions. Medications This patient has no known medications. Procedures This patient has no known procedures. Encounters Start End Encounter Admission Attending Care Care Encounter Source Date/Time Date/Time Type Type Clinicians Facility Department ID 2018-11-19 2018-11-19 Emergency Singer [facility] [id number] 16:42:19 18:58:00 Aubrey Holloway [id number] [place] [id number] [place] [id number] 2018-11-19 2018-11-19 Orders Doctor MARRERO [id number] 00:00:00 00:00:00 Only UnassignedSAURABH [id number] [place] [facility] [id number] 2018-11-10 2018-11-10 Emergency [facility] [id number] 14:58:26 15:00:00 [place] [id number] [place] [id number] [place] [id number] Results This patient has no known results.
[2019-11-15] MEDS ORDERED: MORPHINE 4 MG/ML SYR ONE (13:05)
[2019-11-15] MEDS ORDERED: NA CHLORIDE 0.9% 1,000 ML ONE (13:05)
[2019-11-15] MEDS ORDERED: ONDANSETRON 4 MG/2 ML VIAL ONE ×3 (13:05→17:45)
[2019-11-15 13:10] LABS: Absolute Lymphocytes (CBC) 2.9 K/uL (0.7-4.9); Basophils % 0.5 % (0-1.3); Hematocrit 42.6 % (36.0-45.0); Lymphocytes % 19.2 % (15.3-44.8); MPV 8.4 fL (7.6-11.3); RBC Red Blood Cell Count 5.06 M/uL (3.86-4.86)
[2019-11-15 13:28] LABS: ALT/SGPT 16 U/L (12-78); AST/SGOT 13 U/L (15-37); Albumin 3.8 g/dL (3.4-5.0); Alkaline Phosphatase 73 U/L (45-117); BUN Blood Urea Nitrogen 16 mg/dL (7-18); Bicarbonate 24 mmol/L (21-32); Bilirubin Direct < 0.1 mg/dL (0-0.2); Bilirubin Total 0.4 mg/dL (0.2-1.0); Glucose Level 101 mg/dL (74-106); Lipase 45 U/L (73-393); Potassium 3.6 mmol/L (3.5-5.1); Protein, Total 8.2 g/dL (6.4-8.2); Sodium Level 137 mmol/L (136-145)
[2019-11-15] MEDS ORDERED: KETOROLAC 30 MG/ML INJ ONE (13:40)
--- NOTE | 2019-11-15 14:16 | RAD REPORT ---
EXAM DESCRIPTION: CT - Stone Protocol - 11/15/2019 1:45 pm CLINICAL HISTORY: Abdominal pain. Left flank pain COMPARISON: August 2019 TECHNIQUE: Computed axial tomography of the abdomen pelvis was obtained without oral or IV contrast. Lack of IV and oral contrast limits evaluation of solid organs, bowel, and vessels. Coronal reformat karl images were obtained and reviewed. All CT scans are performed using dose optimization technique as appropriate and may include automated exposure control or mA/KV adjustment according to patient size. FINDINGS: Multiple left renal calculi. 13 millimeter calculus left UPJ [place]oun[place] unit 802. Mild to moderate hydronephrosis. A right renal calculus is not seen . 2 millimeter calculus proximal left ure ter The liver,, adrenals and pancreas appear grossly normal. Splenic granulomata. There is no evidence of diverticulitis. IUD place IMPRESSION: 13 millimeter calculus left UPJ resulting in mild to moderate hydronephrosis
[2019-11-15 14:47] LABS: Urine Blood NEGATIVE (NEG); Urine Glucose NEGATIVE (NEG); Urine Protein TRACE (NEG)
--- NOTE | 2019-11-15 15:25 | EDPHYS ---
Physician Documentation [facility] Name: Jagruti Hill Age: 24 yrs Sex: Female : 1995 Arrival Date: 11/15/2019 Time: 12:42 Bed 7 Private MD: ED Physician Daniel Schulz HPI: 11/14 16:11 This 24 yrs old Female presents to ER via EMS with complaints of Possible kdr Kidney Stone. 16:11 The patient presents with abdominal pain Left flank pain. Onset: The symptoms/episode kdr began/occurred gradually, yesterday. The symptoms radiate to the left flank. Associated signs and symptoms: Pertinent positives: nausea and vomiting, Pertinent negatives: blood in stools, chest pain, constipation, diarrhea, dysuria, fever, headache, hematuria, palpitations, shortness of breath, vaginal discharge. The symptoms are described as achy, constant, sharp, shooting. Modifying factors: The symptoms are alleviated by nothing, the symptoms are aggravated by nothing. Severity of pain: At its worst the pain was incapacitating in the emergency department the pain is unchanged. The patient has experienced similar episodes in the past, a few times. The patient has been recently seen by a physician: The patient has been recently seen at the [facility] Emergency Department, last month. Historical: - Allergies: 12:47 No Known Allergies; ph - PMHx: 12:47 Anxiety; Depression; Kidney stones; ph - PSHx: 12:47 Appendectomy; ph - Immunization history:: Adult Immunizations unknown. - Social history:: Smoking status: unknown. ROS: 16:11 Constitutional: Negative for fever, chills, and weight loss, Eyes: Negative for injury, kdr pain, redness, and discharge, Neck: Negative for injury, pain, and swelling, Cardiovascular: Negative for chest pain, palpitations, and edema, Respiratory: Negative for shortness of breath, cough, wheezing, and pleuritic chest pain, : Negative for injury, bleeding, discharge, and swelling, MS/Extremity: Negative for injury and deformity, Skin: Negative for injury, rash, and discoloration, Neuro: Negative for headache, weakness, numbness, tingling, and seizure activity. Psych: Negative for depression, anxiety, suicide ideation, homicidal ideation, and hallucinations, Allergy/Immunology: Negative for hives, rash, and allergies, Endocrine: Negative for neck swelling, polydipsia, polyuria, polyphagia, and marked weight changes, Hematologic/Lymphatic: Negative for swollen nodes, abnormal bleeding, and unusual bruising. 16:11 Abdomen/GI: Positive for abdominal pain, nausea and vomiting. 16:11 Back: Positive for pain at rest, pain with movement, of the left mid back. Exam: 16:11 Constitutional: This is a well developed, well nourished patient who is awake, alert, kdr and in severe distress. Head/Face: Normocephalic, atraumatic. Eyes: Pupils equal round and reactive to light, extra-ocular motions intact. Lids and lashes normal. Conjunctiva and sclera are non-icteric and not injected. Cornea within normal limits. Periorbital areas with no swelling, redness, or edema. Neck: Trachea midline, no thyromegaly or masses palpated, and no cervical lymphadenopathy. Supple, full range of motion without nuchal rigidity, or vertebral point tenderness. No Meningismus. Chest/axilla: Normal chest wall appearance and motion. Nontender with no deformity. No lesions are appreciated. Cardiovascular: Regular rate and rhythm with a normal S1 and S2. No gallops, murmurs, or rubs. Normal PMI, no JVD. No pulse deficits. Respiratory: Lungs have equal breath sounds bilaterally, clear to auscultation and percussion. No rales, rhonchi or wheezes noted. No increased work of breathing, no retractions or nasal flaring. Skin: Warm, dry with normal turgor. Normal color with no rashes, no lesions, and no evidence of cellulitis. MS/ Extremity: Pulses equal, no cyanosis. Neurovascular intact. Full, normal range of motion. Neuro: Awake and alert, GCS 15, oriented to person, place, time, and situation. Cranial nerves II-XII grossly intact. Motor strength 5/5 in all extremities. Sensory grossly intact. Cerebellar exam normal. Normal gait. Psych: Awake, alert, with orientation to person, place and time. Behavior, mood, and affect are within normal limits. 16:11 Abdomen/GI: Inspection: abdomen appears normal, Bowel sounds: normal, Palpation: soft, in the posterior aspect of left lateral abdomen and anterior aspect of left lateral abdomen. Vital Signs: 12:43 BP 116 / 89; Pulse 114; Resp 20; Temp 98.9; Pulse Ox 99% on R/A; Weight 72.57 kg; ph Height 5 ft. 6 in. (167.64 cm); Pain 10/10; 14:24 BP 127 / 101; Pulse 104; Resp 18; Pulse Ox 99% on R/A; ph 15:30 BP 129 / 99; Pulse 96; Resp 18; Pulse Ox 98% on R/A; ph 16:30 BP 118 / 92; Pulse 99; Resp 18; Pulse Ox 98% on R/A; ph 17:38 BP 117 / 86; Pulse 97; Resp 18; Temp 98.7; Pulse Ox 99% on R/A; ph 12:43 Body Mass Index 25.82 (72.57 kg, 167.64 cm) ph MDM: 15:25 Patient medically screened. kdr 16:11 Data reviewed: vital signs, lab test result(s), radiologic studies. Counseling: I had a kdr detailed discussion with the patient and/or guardian regarding: the historical points, exam findings, and any diagnostic results supporting the discharge/admit diagnosis, lab results, radiology results, the need for outpatient follow up. 11/14 12:54 Order name: Basic Metabolic Panel; Complete Time: 15:17 kdr 11/14 12:54 Order name: CBC with Diff; Complete Time: 15:17 kdr 11/14 12:54 Order name: Hepatic Function; Complete Time: 15:17 kdr 11/14 12:54 Order name: Lipase; Complete Time: 15:17 kdr 11/14 14:36 Order name: Urine Dipstick--Ancillary (enter results); Complete Time: 15:17 bd 11/14 14:36 Order name: Urine --Ancillary (enter results); Complete Time: 15:17 bd 11/14 12:54 Order name: CT Stone Protocol; Complete Time: 15:17 kdr 11/14 12:54 Order name: IV Saline Lock; Complete Time: 13:00 kdr 11/14 12:54 Order name: Labs collected and sent; Complete Time: 13:00 kdr 11/14 12:54 Order name: Urine Dipstick-Ancillary (obtain specimen); Complete Time: 14:21 kdr 11/14 12:54 Order name: Urine Test (obtain specimen); Complete Time: 14:21 kdr Administered Medications: 12:59 Drug: morphine 4 mg Route: IVP; Site: right antecubital; ph 13:10 Follow up: Response: No adverse reaction; Pain is decreased; RASS: Alert and Calm (0) ph 12:59 Drug: Zofran (Ondansetron) 4 mg Route: IVP; Site: right antecubital; ph 13:15 Follow up: Response: No adverse reaction; Nausea is decreased ph 13:36 Drug: TORadol - Ketorolac 15 mg Route: IVP; Site: right antecubital; ph 13:45 Follow up: Response: No adverse reaction; Pain is decreased ph 15:32 Drug: Zofran (Ondansetron) 4 mg Route: IVP; Site: right antecubital; ph 15:45 Follow up: Response: No adverse reaction; Nausea is decreased ph 15:34 Drug: fentaNYL (PF) 25 mcg Route: IVP; Site: right antecubital; ph 16:00 Follow up: Response: No adverse reaction; Pain is decreased; RASS: Alert and Calm (0) ph 15:35 Drug: Rocephin - (cefTRIAXone) 1 grams Route: IVPB; Infused Over: 30 mins; Site: right ph antecubital; 15:45 Follow up: Response: No adverse reaction; IV Status: Completed infusion ph 17:38 Drug: Zofran (Ondansetron) 4 mg Route: IVP; Site: right antecubital; ph 17:48 Follow up: Response: No adverse reaction ph Disposition: 11/15/19 15:25 Transfer ordered to [facility]. Diagnosis is Left UPJ stone (13mm) left distal ureter (3mm), mild hydronephrosis, intractabvle pain. - Reason for transfer: Higher level of care. - Accepting physician is URology. - Condition is Fair. - Problem is an acute exacerbation. - Symptoms have improved. Signatures: Dispatcher [employer] Daniel Trinidad MD MD kdr Munoz, Edgar, RN RN em Gregoria Angel RN RN ph Corrections: (The following items were deleted from the chart) 18:02 15:25 11/15/2019 15:25 Transfer ordered to [facility]. ph Diagnosis is Left UPJ stone (13mm) left distal ureter (3mm), mild hydronephrosis, intractabvle pain. Reason for transfer: Higher level of care. Accepting physician is URology. Condition is Fair. Problem is an acute exacerbation. Symptoms have improved. kdr
--- NOTE | 2019-11-15 15:25 | ER ---
Nurse's Notes [facility] Name: Jagruti Hill Age: 24 yrs Sex: Female : 1995 Arrival Date: 11/15/2019 Time: 12:42 Bed 7 Private MD: Diagnosis: Left UPJ stone (13mm) left distal ureter (3mm), mild hydronephrosis, intractabvle pain Presentation: 11/14 12:43 Chief complaint: EMS states: States that she was seen here recently and dx w/ kidney ph stones, reports that she was told that she would need sx to pass them, c/o L lower back and flank pain, also reports N/V, VSS. Coronavirus screen: Client denies travel out of the [place] in the last 14 days. Ebola Screen: No symptoms or risks identified at this time. Initial Sepsis Screen: Does the patient meet any 2 criteria? No. Patient's initial sepsis screen is negative. Does the patient have a suspected source of infection? Yes: Dysuria/Frequency/Urgency/UTI. Risk Assessment: Do you want to hurt yourself or someone else? Patient reports no desire to harm self or others. Onset of symptoms was November 15, 2019. 12:43 Method Of Arrival: EMS: [facility] ph 12:43 Acuity: LISA 3 ph Historical: - Allergies: 12:47 No Known Allergies; ph - PMHx: 12:47 Anxiety; Depression; Kidney stones; ph - PSHx: 12:47 Appendectomy; ph - Immunization history:: Adult Immunizations unknown. - Social history:: Smoking status: unknown. Screenin:47 Abuse screen: Denies threats or abuse. Denies injuries from another. Nutritional ph screening: No deficits noted. Tuberculosis screening: No symptoms or risk factors identified. Fall Risk None identified. Assessment: 13:00 General: Appears in no apparent distress. uncomfortable, slender, well groomed, ph Behavior is cooperative, appropriate for age, anxious, crying, restless. Pain: Complains of pain in left low back and left mid back Pain radiates to posterior aspect of left lateral abdomen and anterior aspect of left lateral abdomen Pain currently is 10 out of 10 on a pain scale. Neuro: Level of Consciousness is awake, alert, obeys commands, Oriented to person, place, time, situation. Cardiovascular: Capillary refill < 3 seconds in bilateral fingers Patient's skin is warm and dry. Respiratory: Airway is patent Respiratory effort is even, unlabored, Respiratory pattern is regular, symmetrical. GI: Abdomen is non-distended, Reports lower abdominal pain, nausea, vomiting. : Reports pain in left in lower back decreased urination. Derm: Skin is intact, Skin is pink, warm \T\ dry. Musculoskeletal: Circulation, motion, and sensation intact. Range of motion: intact in all extremities. 14:00 Reassessment: Patient appears in no apparent distress at this time. Patient and/or ph family updated on plan of care and expected duration. Pain level reassessed. Patient is alert, oriented x 3, equal unlabored respirations, skin warm/dry/pink. 15:00 Reassessment: Patient appears in no apparent distress at this time. Patient and/or ph family updated on plan of care and expected duration. Pain level reassessed. Patient is alert, oriented x 3, equal unlabored respirations, skin warm/dry/pink. 16:00 Reassessment: Patient appears in no apparent distress at this time. Patient and/or ph family updated on plan of care and expected duration. Pain level reassessed. Patient is alert, oriented x 3, equal unlabored respirations, skin warm/dry/pink. 17:15 Reassessment: Report given to Cherrie ADKINS at [facility]. ph 17:53 Reassessment: Patient appears in no apparent distress at this time. Patient and/or ph family updated on plan of care and expected duration. Pain level reassessed. Patient is alert, oriented x 3, equal unlabored respirations, skin warm/dry/pink. [facility] at bedside, report given to Neda, EMT, pt transferred to [facility]. Vital Signs: 12:43 BP 116 / 89; Pulse 114; Resp 20; Temp 98.9; Pulse Ox 99% on R/A; Weight 72.57 kg; ph Height 5 ft. 6 in. (167.64 cm); Pain 10/10; 14:24 BP 127 / 101; Pulse 104; Resp 18; Pulse Ox 99% on R/A; ph 15:30 BP 129 / 99; Pulse 96; Resp 18; Pulse Ox 98% on R/A; ph 16:30 BP 118 / 92; Pulse 99; Resp 18; Pulse Ox 98% on R/A; ph 17:38 BP 117 / 86; Pulse 97; Resp 18; Temp 98.7; Pulse Ox 99% on R/A; ph 12:43 Body Mass Index 25.82 (72.57 kg, 167.64 cm) ph ED Course: 12:42 Patient arrived in ED. ph 12:45 Daniel Schulz MD is Attending Physician. kdr 12:46 Triage completed. ph 12:47 Arm band placed on Patient placed in an exam room, on a stretcher. ph 12:50 Inserted saline lock: 20 gauge in right antecubital area, using aseptic technique. dh3 Blood collected. 12:50 Initial lab(s) drawn, by me, sent to lab. dh3 12:59 Gregoria Angel, RN is Primary Nurse. ph 13:46 CT Stone Protocol In Process Unspecified. EDMS 14:16 Patient has correct armband on for positive identification. Placed in gown. Bed in low ph position. Call light in reach. Pulse ox on. NIBP on. Door closed. Noise minimized. Warm blanket given. 14:21 Urine collected: clean catch specimen, cloudy. dh3 18:00 No provider procedures requiring assistance completed. Patient transferred, IV remains ph in place. Administered Medications: 12:59 Drug: morphine 4 mg Route: IVP; Site: right antecubital; ph 13:10 Follow up: Response: No adverse reaction; Pain is decreased; RASS: Alert and Calm (0) ph 12:59 Drug: Zofran (Ondansetron) 4 mg Route: IVP; Site: right antecubital; ph 13:15 Follow up: Response: No adverse reaction; Nausea is decreased ph 13:36 Drug: TORadol - Ketorolac 15 mg Route: IVP; Site: right antecubital; ph 13:45 Follow up: Response: No adverse reaction; Pain is decreased ph 15:32 Drug: Zofran (Ondansetron) 4 mg Route: IVP; Site: right antecubital; ph 15:45 Follow up: Response: No adverse reaction; Nausea is decreased ph 15:34 Drug: fentaNYL (PF) 25 mcg Route: IVP; Site: right antecubital; ph 16:00 Follow up: Response: No adverse reaction; Pain is decreased; RASS: Alert and Calm (0) ph 15:35 Drug: Rocephin - (cefTRIAXone) 1 grams Route: IVPB; Infused Over: 30 mins; Site: right ph antecubital; 15:45 Follow up: Response: No adverse reaction; IV Status: Completed infusion ph 17:38 Drug: Zofran (Ondansetron) 4 mg Route: IVP; Site: right antecubital; ph 17:48 Follow up: Response: No adverse reaction ph Outcome: 15:25 ER care complete, transfer ordered by . clayton 18:01 Transferred by ground EMS [facility] to [facility], Transfer form ph completed. X-rays sent w/ patient. 18:01 Condition: stable 18:01 Instructed on the need for transfer. 18:02 Patient left the ED. ph Signatures: Dispatcher [employer] EDMS Daniel Schulz MD MD kdr Hall, Patricia, RN RN Slime Galvan [facility]
[2019-11-15] MEDS ORDERED: CEFTRIAXONE/SWI 1gm 1 GM/10 ML SYR ONE (15:36)
[2019-11-15] MEDS ORDERED: FENTANYL CITR 100 MCG/2 ML ONE (15:36)
== END 2019-11-15 18:02 | disposition short-term general hospital (02) ==
LOC: ER 12:41
DX: N13.0 Hydronephrosis with ureteropelvic junction obstruction (principal); Z87.442 Personal history of urinary calculi
CPT/HCPCS: 36415; 74176; 76377; 80048; 80076; 81003; 81025; 83690; 85025; 96374; 96375; 99285; J0696; J2405; J3010; J7030

== ENCOUNTER 2019-12-08 15:10 | Inpatient (IN) | payer SELFPAY ==
--- OUTSIDE RECORDS SUMMARY | 2019-12-08 15:13 | XMS REPORT | Clinical Summary ---
:1995 Author Organization [facility] Address [address] [place] [address] Care Team Providers Name Role Phone Unavailable Primary Care Provider Unavailable Allergies No Known Allergies Medications Medication Sig Dispensed Refills Start Date End Date Status tamsulosin (FLOMAX) Take 1 capsule 30 capsule 0 11/20/2019 Active 0.4 mg Cap 24 hr (0.4 mg total) by 0 capsule mouth daily for 30 days. sulfamethoxazole-trim Take 1 tablet (80 10 tablet 0 11/20/2019 ethoprim mg of trimethoprim 0 (BACTRIM,SEPTRA) total) by mouth 2 400-80 mg per tablet (two) times daily for 5 days. oxybutynin Take 2 tablets (10 15 tablet 0 11/20/2019 (DITROPAN-XL) 5 MG 24 mg total) by mouth 0 hr tablet every night as needed (Bladder spasms/stent pain) for up to 15 days. phenazopyridine Take 1 tablet (100 15 tablet 0 11/20/20190 (PYRIDIUM) 100 MG mg total) by mouth 0 tablet 3 (three) times daily as needed for up to 5 days. acetaminophen-codeine Take 1 tablet by 30 tablet 0 11/20/2019 (TYLENOL-CODEINE #3) mouth every 4 0 300-30 mg per tablet (four) hours as needed for Pain for up to 10 days. 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 11/19/2019 Surgery Toni Huang LITHOTRIPSY,PE REJI Banda MD 11/18/2019 Travel 11/15/2019 - Hospital Encounter General Internal [place], Nephr olithiasis (Primary Dx); 11/20/2019 Medicine MD Delvis SANTANA (acute kidney injury) (HCC); Lg Ch Hydronephros is, unspecified hydronephrosis type MD Jeannine Kingston, Sugar Deras MD after 12/07/2018 Social History Tobacco Use Types Packs/Day Years Used Date Never Assessed Sex Assigned at Date Recorded Not on file Job Start Date Occupation Industry Not on file Not on file Not on file Travel History Travel Start Travel End No recent travel history available. Last Filed Vital Signs Vital Sign Reading Time Taken Blood Pressure 112/64 11/20/2019 4:04 PM CDT Pulse 99 11/20/2019 4:04 PM CDT Temperature 37.3 C (99.1 F) 11/20/2019 4:04 PM CDT Respiratory Rate 18 11/20/2019 4:04 PM CDT Oxygen Saturation 95% 11/20/2019 4:04 PM CDT Inhaled Oxygen Concentration - - Weight 73.2 kg (161 lb 6.4 oz) 11/18/2019 2:00 PM CDT Height 167.6 cm (5' 6") 11/18/2019 2:00 PM CDT Body Mass Index 26.05 11/18/2019 2:00 PM CDT Plan of Treatment Health Maintenance Due Date Last Done Comments CERVICAL CANCER SCREENING PAP ONLY (Age 21-65) 02/25/2016 INFLUENZA VACCINE (#1) 2019 Implants Implanted Type Area Box Office Agent Device Shelf Model / Identifier Expiration Serial / Date Lot Stent Nephuretstmy 8.5fr 26 Cm [id number] - [id number] IMPLANTS Left: COOK:PERIPHERAL [id number] 01/09/2020 [id number] / Implanted: Qty: 1 on 11/19/2019 by Toni Huang MD Ureter INTERVENTION / [id number] Explanted Type Area Box Office Agent Device Identifier Shelf Model / Expiration Serial / Date Lot Stent Uret Ult Glynn 7frx24 192-142 - [id number] IMPLANTS Left: [place]ON [id number] 11/17/2021 192-142 / Implanted: Qty: 1 Ureter SCI:UROLOGY/ENDLESS BELT FINISHER / Explanted: Qty: 1 on 11/19/2019 [facility] [id number] Procedures Procedure Name Priority Date/Time Associated Comments Diagnosis VANCOMYCIN LEVEL, Timed 11/19/2019 9:50 Result s for this TROUGH PM CDT procedure are i n the results section. CT ABDOMEN/PELVIS DHEERAJ 11/19/2019 8:20 Result s for this WITHOUT IV CONTRAST PM CDT procedur e are in the results section. HEMOGLOBIN AND STAT 11/19/2019 6:45 Results f or this HEMATOCRIT PM CDT procedure are i n the results section. BASIC METABOLIC PANEL STAT 11/19/2019 6:45 Re sults for this (7) PM CDT procedure are i n the results section. TRANSFUSION SERVICE 11/19/2019 6:00 REPORT - SCAN PM CDT STONE ANALYSIS Routine 11/19/2019 5:51 Results f or this PM CDT procedure are i n the results section. FL FLUORO STAT 11/19/2019 5:35 Results for this NON-SPECIFIC UP TO 1 PM CDT procedu re are in HOUR the results section. POCT , URINE Routine 11/19/2019 2:34 Re sults for this PM CDT procedure are i n the results section. PROCEDURE W/ C-ARM 11/19/2019 1:00 Kidney stone PM CDT Special Needs (C-ARM, FOOT LEG TABLE, AND PRONE POSITION) CYSTOSCOPY,INSERTION URETERAL STENTS 11/19/2019 1:00 PM CDT Kidney stone Special Needs (C-ARM, FOOT LEG TABLE, AND PRONE POSITION) LITHOTRIPSY,PERCUTANEOUS 11/19/2019 1:00 PM CDT Kidne y stone Special Needs (C-ARM, FOOT LEG TABLE, AND PRONE POSITION) APTT Routine 11/19/2019 4:13 AM CDT Resu lts for this procedure are i n the results section . PROTHROMBIN TIME/INR Routine 11/19/2019 4:13 AM CDT Results for this procedure are i n the results section . CBC W/PLT COUNT & AUTO Routine 11/18/2019 6:05 AM CDT Results for this DIFFERENTIAL procedure are i n the results section . CBC W/PLT COUNT & AUTO Routine 11/18/2019 6:05 AM CDT Results for this DIFFERENTIAL procedure are i n the results section . TYPE AND SCREEN, AUTOMATED Routine 11/18/2019 6:04 AM CDT Results for this procedure are i n the results section . BASIC METABOLIC PANEL (7) Routine 11/18/2019 6:04 AM CDT Results for this procedure are i n the results section . CBC W/PLT COUNT & AUTO Routine 11/17/2019 4:36 AM CDT Results for this DIFFERENTIAL procedure are i n the results section . BASIC METABOLIC PANEL (7) Routine 11/17/2019 4:36 AM CDT Results for this procedure are i n the results section . CBC W/PLT COUNT & AUTO Routine 11/17/2019 4:36 AM CDT Results for this DIFFERENTIAL procedure are i n the results section . URINE CULTURE Routine 11/16/2019 6:48 PM CDT Res ults for this procedure are i n the results section . TRANSFUSION SERVICE REPORT 11/16/2019 6:22 PM CDT - SCAN IR PERCUTANEOUS Routine 11/16/2019 11:17 AM CDT R esults for this NEPHROSTOMY TUBE PLACEMENT p rocedure are in the results section . CBC W/PLT COUNT & AUTO Routine 11/16/2019 5:12 AM CDT Results for this DIFFERENTIAL procedure are i n the results section . BASIC METABOLIC PANEL (7) Routine 11/16/2019 5:12 AM CDT Results for this procedure are i n the results section . CBC W/PLT COUNT & AUTO Routine 11/16/2019 5:12 AM CDT Results for this DIFFERENTIAL procedure are i n the results section . ABORH, MANUAL STAT 11/15/2019 9:36 PM CDT Res ults for this procedure are i n the results section . SARS-COV2/RT-PCR ([facility] & Routine 11/15/2019 9:35 PM CDT Results for this REF LABS) procedure are i n the results section . SCREEN, URINE Routine 11/15/2019 9:28 PM CDT Results for this procedure are i n the results section . CBC W/PLT COUNT & AUTO Routine 11/15/2019 9:24 PM CDT Results for this DIFFERENTIAL procedure are i n the results section . TYPE AND SCREEN, AUTOMATED Routine 11/15/2019 9:24 PM CDT Results for this procedure are i n the results section . PROTHROMBIN TIME/INR STAT Add-on 11/15/2019 9:24 PM CDT Results for this procedure are i n the results section . BASIC METABOLIC PANEL (7) Routine 11/15/2019 9:24 PM CDT Results for this procedure are i n the results section . CBC W/PLT COUNT & AUTO Routine 11/15/2019 9:24 PM CDT Results for this DIFFERENTIAL procedure are i n the results section . PT/APTT Routine 11/15/2019 9:24 PM CDT Resu lts for this procedure are i n the results section . after 12/07/2018 Results Vancomycin level, trough (11/19/2019 9:50 PM CDT) Vancomycin Tr 18.2 10.0 - 20.0 ug/mL [facility] Specimen Blood Narrative Performed At Weather Reporter ID - DB [facility] Performing Organization Address City/State/Zipcode Phone Number [facility] [address] [place] [address] abdomen/pelvis without iv contrast (11/19/2019 8:20 PM CDT) Specimen Narrative Performed At FINAL REPORT Retidoc RIS EXAM: CT of the abdomen and pelvis, with out contrast CLINICAL HISTORY:Flank pain, kidney stone suspected TECHNIQUE: CT of the abdomen and pelvis was performed without the intravenous administration of contrast. This exam was performed according to our departmental dose optim ization program which includes automated exposure control, adj ustment of the mA and/or kV according to patient's size and/or use o f iterative reconstructive technique. COMPARISON:Outside CT abdomen and pe lvis 11/15/2019. FINDINGS: Please note study is limited due to lack of intravenous contrast. LOWER CHEST: Bilateral lower lobe depend ent and discoid atelectasis. LIVER: Within normal limits. BILE DUCTS: Within normal limits. GALL BLADDER: Within normal limits. PANCREAS: Within normal limits. SPLEEN: Punctate granulomas. ADRENALS: Within normal limits. KIDNEYS/URETERS: Status post left percut aneous nephroureteral stent placement. Small foci of air within the left collecting system may be due to recent instrumentation. Diffuse l eft perinephric stranding. Contrast is noted within the bilateral r enal collecting systems, due to recent fluoroscopy/nephrostomy placem ent. Small hyperdense fluid in the left pararenal space and left ret roperitoneum, which may represent a urinoma and/or hematoma. Pun ctate nonobstructing left renal stones. URINARY BLADDER: Decompressed around a F oley catheter balloon. Air in the urinary bladder may be due to Nixon instrumentation or infection. REPRODUCTIVE ORGANS: Intrauterine device in place. No adnexal mass. BOWEL/MESENTERY: No bowel obstruction or abnormal wall thickening. Appendix not visualized. PERITONEUM/RETROPERITONEUM: Trace pelvic free fluid. No free air. VESSELS: Within normal limits. LYMPH NODES: No abdominal or pelvic lymp hadenopathy. SOFT TISSUES: Within normal limits. BONES: Within normal limits. IMPRESSION: Status post placement of left percutaneo us nephroureteral stent. Small hyperdense fluid in the left parar enal space and left retroperitoneum, which may represent a u rinoma and/or hematoma. Punctate nonobstructing left renal stone s. Trace pelvic free fluid. The hematoma findings were relayed to Dr Sandy Cunha at 10:35 PM 11/19/2019. Signed: Jean Driscoll MD Report Verified Date/Time:11/19/2019 22:39:03 Procedure Note Interface, External Ris In - 11/19/2019 10:41 PM CDT FINAL REPORT EXAM: CT of the abdomen and pelvis, with out contrast CLINICAL HISTORY: Flank pain, kidney st one suspected TECHNIQUE: CT of the abdomen and pelvis was performed without the intravenous administration of contrast. This exam was performed according to our departmental dose optim ization program which includes automated exposure control, adj ustment of the mA and/or kV according to patient's size and/or use o f iterative reconstructive technique. COMPARISON: Outside CT abdomen and pelv is 11/15/2019. FINDINGS: Please note study is limited due to lack of intravenous contrast. LOWER CHEST: Bilateral lower lobe depend ent and discoid atelectasis. LIVER: Within normal limits. BILE DUCTS: Within normal limits. GALL BLADDER: Within normal limits. PANCREAS: Within normal limits. SPLEEN: Punctate granulomas. ADRENALS: Within normal limits. KIDNEYS/URETERS: Status post left percut aneous nephroureteral stent placement. Small foci of air within the left collecting system may be due to recent instrumentation. Diffuse l eft perinephric stranding. Contrast is noted within the bilateral r enal collecting systems, due to recent fluoroscopy/nephrostomy placem ent. Small hyperdense fluid in the left pararenal space and left ret roperitoneum, which may represent a urinoma and/or hematoma. Pun ctate nonobstructing left renal stones. URINARY BLADDER: Decompressed around a F oley catheter balloon. Air in the urinary bladder may be due to Nixon instrumentation or infection. REPRODUCTIVE ORGANS: Intrauterine device in place. No adnexal mass. BOWEL/MESENTERY: No bowel obstruction or abnormal wall thickening. Appendix not visualized. PERITONEUM/RETROPERITONEUM: Trace pelvic free fluid. No free air. VESSELS: Within normal limits. LYMPH NODES: No abdominal or pelvic lymp hadenopathy. SOFT TISSUES: Within normal limits. BONES: Within normal limits. IMPRESSION: Status post placement of left percutaneo us nephroureteral stent. Small hyperdense fluid in the left parar enal space and left retroperitoneum, which may represent a u rinoma and/or hematoma. Punctate nonobstructing left renal stone s. Trace pelvic free fluid. The hematoma findings were relayed to Dr Sandy Cunha at 10:35 PM 11/19/2019. Signed: Jean Driscoll MD Report Verified Date/Time: 11/19/2019 2 2:39:03 Performing Organization Address City/State/Zipcode Phone Number GE RIS Hemoglobin and hematocrit (11/19/2019 6:45 PM CDT) Hemoglobin 13.3 11.2 - 15.7 GM/DL [facility] Hematocrit 41.7 34.1 - 44.9 % [facility] Specimen Blood Narrative Performed At Weather Reporter ID - [id number] [facility] Performing Organization Address City/State/Zipcode Phone Number [facility] [address] [place] [address] CENTER Basic Metabolic Panel (11/19/2019 6:45 PM CDT)Only the most recent of5 results within the time period is included. Sodium 139 136 - 145 meq/L [facility] Potassium 4.0 3.5 - 5.1 meq/L [facility] Chloride 106 98 - 107 meq/L [facility] CO2 24 22 - 29 meq/L [facility] BUN 6 (L) 7 - 21 mg/dL [facility] Creatinine 0.79 0.57 - 1.25 mg/dL [facility] Glucose 143 (H) 70 - 105 mg/dL [facility] Calcium 8.9 8.4 - 10.2 mg/dL [facility] EGFR 89Comment: ESTIMATED GFR IS mL/min/1.73 sq m [facility] NOT ACCURATE CREATININE [facility] CLEARANCE IN PREDICTING GLOMERULAR FILTRATION RATE. ESTIMATED GFR IS NOT APPLICABLE FOR DIALYSIS PATIENTS. Specimen Blood Narrative Performed At Weather Reporter ID - [id number] B [facility] Performing Organization Address City/State/Zipcode Phone Number [facility] [address] [place] [address] CENTER TRANSFUSION SERVICE REPORT - SCAN (11/19/2019 6:00 PM CDT)Only the most recent of2 resultswithin the time period is included. Narrative Performed At This result has an attachment that is no t available. STONE ANALYSIS (11/19/2019 5:51 PM CDT) SPECIMEN SOURCE([facility]) STONE [facility] COMPONENT 1 (QUEST) See Below [facility] Comment: [facility] Cystine 80% Carbonate Apatite (Dahllite) 20% This test was developed and its analytical perfo rmance characteristics have been determined by [employer]. It has not been cleared or approved by the FDA. This assay has been validated pursuant to he CLIA regulations and is used for clinical purposes. COMPONENT 2 ([facility]) DNR [facility] Stone Weight 0.267 g [facility] Specimen Tissue Narrative Performed At Performing Lab [facility] *KELSIE [employer] [facility], [address] [place] [phone] Miquel Smith MD, PhD Performing Organization Address City/State/Zipcode Phone Number [facility] [facility], [place] [address] INC[facility]PORATED [id number] [facility] fluoro non-specific up to 1 hour (11/19/2019 5:35 PM CDT) Specimen Narrative Performed At Fluoroscopic unit utilized for a procedure performed i n the OR.No GE RIS interpretation was requested.Refer to the operativ e report for findings.Refer to PACS for patient radiation dose information. Procedure Note Interface, External Ris In - 11/19/2019 6:10 PM CDT Fluoroscopic unit utilized for a procedu re performed in the OR. No interpretation was requested. Refer to the operative r eport for findings. Refer to PACS for patient radiation dose information. Performing Organization Address City/State/Zipcode Phone Number GE RIS POCT , urine (11/19/2019 2:34 PM CDT) Test Urine, POC Negative Control line present?, POC Yes Background clear?, POC Yes UPT Cassette Lot #, POC [id number] UPT Cassette Expiration Date, POC 2021-02-20 Specimen Urine aPTT (11/19/2019 4:13 AM CDT) PTT 31.8 22.5 - 36.0 seconds [facility] Specimen Blood Performing Organization Address City/State/Zipcode Phone Number [place] [phone] [place] [address] CENTER Prothrombin time/INR (11/19/2019 4:13 AM CDT)Only the most recent of2 results within the time period is included. Protime 13.2 11.9 - 14.2 seconds [facility] INR 1.03 <=5.90 [facility] Specimen Blood Narrative Performed At Effective 08/19/2018: PT Reference Range [facility] Change New: 11.9-14.2Previous: 11.7-14.7 RECOMMENDED COUMADIN/WARFARIN INR THERAPY RANGES STANDARD DOSE: 2.0-3.0Includes: PROPHYLAXIS for venous thrombosis, systemic embolization; TREATMENT for venous thrombosis and/or pulmonary embolus. HIGH RISK: Target INR is 2.5-3.5 for patients wiht mechanical heart valves. Performing Organization Address City/State/Zipcode Phone Number [facility] [address] [place] [address] CENTER CBC with platelet count + automated diff (11/18/2019 6:05 AM CDT)Only the most recent of4 resultswithin the time period is included. WBC 6.8 3.5 - 10.5 K/L [facility] RBC 4.10 3.93 - 5.22 M/L [facility] Hemoglobin 11.4 11.2 - 15.7 GM/DL [facility] Hematocrit 36.2 34.1 - 44.9 % [facility] MCV 88.3 79.4 - 94.8 fL [facility] MCH 27.8 25.6 - 32.2 pg [facility] MCHC 31.5 (L) 32.2 - 35.5 GM/DL [facility] RDW 13.2 11.7 - 14.4 % [facility] Platelets 284 150 - 450 K/CU MM [facility] MPV 9.5 9.4 - 12.3 fL [facility] nRBC 0 0 - 0 /100 WBC [facility] % Neutros 54 % [facility] % Lymphs 32 % [facility] % Monos 10 % [facility] % Eos 3 % [facility] % Baso 1 % [facility] # Neutros 3.66 1.56 - 6.13 K/L [facility] # Lymphs 2.21 1.18 - 3.74 K/L [facility] # Monos 0.67 (H) 0.24 - 0.36 K/L [facility] # Eos 0.23 0.04 - 0.36 K/L [facility] # Baso 0.05 0.01 - 0.08 K/L [facility] Immature Granulocytes-Relative 0 0 - 1 % C [facility] Specimen Blood Performing Organization Address City/[facility] Cent[facility] Phone Number [address] [address] CENTER Type and screen, automated (11/18/2019 6:04 AM CDT)Only the most recent of2 resultswithin the time period is included. ABO/RH AUTOMATED (BEAKER) A POSITIVE [facility] Ab Scrn NEGATIVE [facility] Specimen Blood Performing Organization Address City/[facility] Centercode Phone Number [address] [phone] Urine culture (11/16/2019 6:48 PM CDT) Result No growth [facility] Specimen Urine - Urine, Nephrostomy Performing Organization Address [facility] Centercofl Phone Number [address] [phone] CENTER IR Percutaneous Nephrostomy - Ext. Drain Placement (11/16/2019 11:17 AM CDT) Specimen Narrative Performed At FINAL REPORT [facility] Fluoroscopic guided left nephrostomy tub e placement. Clinical History: Left UPJ obstructing s tone. Modality: Sonography and fluoroscopy Concrete Curer:Dio Elmore MD. Velvet Cutter:Luis Colby. Sedation: Versed 3.5 mg and fentanyl 75 mcg was given intravenously for conscious sedation.Vital signs w ere monitored throughout the procedure by a nurse, and remained stabl e. Physician intra-service time was 30 minutes. Estimated Blood Loss:Less than 5 cc. Specimen: None. Fluoroscopy Time: 5.5 min. Reference Air Kerma (Ka, r): 127.4 mGy. Technique: Discussion of risks, benefits, and alter natives were made with the patient. The patient expressed understan ding and agreed to proceed. After informed consent was obtained, whi ch included the risks of bleeding, infection, injury to adjacent structures/bowel, adverse medication reaction, the patient's abdom en was prepped and draped in the usual sterile manner. All elements m aximal sterile barrier technique was utilized for this procedur e, including utilization of sterile scrub solution for skin prep, a large sterile sheet to cover the areas of the patient that were not p repped, and hand hygiene, mask, head covering, and sterile gown fo r performing radiologist and scrub technologist. Local anesthesia was achieved with 1% li docaine, the left lower lower pole calyx was visualized with ultrasoun d. Using ultrasound guidance, a 21-gauge Accustick needle was advanced into the calyx. Contrast injection confirmed placement within the calyx. A 0.018 inch wire was advanced through the needle a curled wit hin the pelvis. The Accustick sheath was advanced over the wire and an Amplatz wire was advanced down the ureter. After a small skin inci marilyn was made, the soft tissue tract was dilated with 8 Tunisian d ilators. A 8.5 Tunisian drainage catheter was placed into the le ft renal pelvis. The wire was then removed, and the pigtail of the cat heter was locked.The catheter was then secured onto the skin with 2-0 Prolene. The patient tolerated the procedure well, without im mediate complications. The patient's vital signs remained stable th roughout the procedure. Patient disposition: The patient was dis charged from the department in stable condition. Impression: Successful and uncomplicated fluoroscopi c guided left nephrostomy tube placement. Signed: Dio Elmore MD Report Verified Date/Time:11/16/2019 12:32:44 Reading Location: [place] [address] Angio Body Reading Room Procedure Note Interface, External Ris In - 11/16/2019 12:34 PM CDT FINAL REPORT Fluoroscopic guided left nephrostomy tub e placement. Clinical History: Left UPJ obstructing s tone. Modality: Sonography and fluoroscopy Concrete Curer: Dio Elmore MD. Velvet Cutter: Luis Colby. Sedation: Versed 3.5 mg and fentanyl 75 mcg was given intravenously for conscious sedation. Vital signs wer e monitored throughout the procedure by a nurse, and remained stabl e. Physician intra-service time was 30 minutes. Estimated Blood Loss: Less than 5 cc. Specimen: None. Fluoroscopy Time: 5.5 min. Reference Air Kerma (Ka, r): 127.4 mGy. Technique: Discussion of risks, benefits, and alter natives were made with the patient. The patient expressed understan ding and agreed to proceed. After informed consent was obtained, whi ch included the risks of bleeding, infection, injury to adjacent structures/bowel, adverse medication reaction, the patient's abdom en was prepped and draped in the usual sterile manner. All elements m aximal sterile barrier technique was utilized for this procedur e, including utilization of sterile scrub solution for skin prep, a large sterile sheet to cover the areas of the patient that were not p repped, and hand hygiene, mask, head covering, and sterile gown fo r performing radiologist and scrub technologist. Local anesthesia was achieved with 1% li docaine, the left lower lower pole calyx was visualized with ultrasoun d. Using ultrasound guidance, a 21-gauge Accustick needle was advanced into the calyx. Contrast injection confirmed placement within the calyx. A 0.018 inch wire was advanced through the needle a curled wit hin the pelvis. The Accustick sheath was advanced over the wire and an Amplatz wire was advanced down the ureter. After a small skin inci marilyn was made, the soft tissue tract was dilated with 8 Tunisian d ilators. A 8.5 Tunisian drainage catheter was placed into the le ft renal pelvis. The wire was then removed, and the pigtail of the cat heter was locked. The catheter was then secured onto the skin with 2-0 Prolene. The patient tolerated the procedure well, without im mediate complications. The patient's vital signs remained stable th roughout the procedure. Patient disposition: The patient was dis charged from the department in stable condition. Impression: Successful and uncomplicated fluoroscopi c guided left nephrostomy tube placement. Signed: Dio Elmore MD Report Verified Date/Time: 11/16/2019 1 2:32:44 Reading Location: [facility] B1 P048 Angio Body Reading Room Performing Organization Address City/State/Zipcode Phone Number monalisa MATA (11/15/2019 9:36 PM CDT) Rh Factor POS [facility] ABO Grouping A [facility] Specimen Blood Performing Organization Address City/[facility]/Zipcode Phone Number [facility] [address] [place] [address] SARS-CoV2/RT-PCR (Asymptomatic ONLY) (11/15/2019 9:35 PM CDT) SARS-COV2/RT-PCR Negative Not Detected, Negative, [facility] See external report for MEDICAL CENTER linked test SARS-COV-2 PERFORMING LAB [facility] Specimen Other Narrative Performed At Negative result for this test determines that [facility] SARS-CoV-2 RNA was not present in the specimen above the Limit of Detection (LOD).However, Negative results do not preclude SARS-CoV-2 infection and should not be used as the sole basis for treatment or patient management decisions. Negative results must be combined with clinical observations, patient history, and epidemiological information. A false negative result may occur if a specimen is improperly collected, transported or handled.A false negative result should be considered if patient's recent exposures or clinical presentation indicate that COVID-19 (SARS-CoV-2) is likely and diagnostic tests for other causes of illness are negative.Re-testing should be considered in cases of suspected false negatives. The limit of detection for this assay is 800 copies/mL. This SARS CoV-2 test is a real-time RT-PCR test intended for the qualitative detection of nucleic acid from SARS-CoV-2 in a nasopharyngeal swab specimen collected from individuals suspected of COVID-19 by their healthcare provider. This test has not been Food and Drug Administration (FDA) cleared or approved.This is a modified version of an approved Emergency Use Authorization (EUA) and is in the process of review by the FDA. Once authorized by the FDA, the issued EUA will be effective until the declaration that circumstances exist justifying the authorization of the emergency use of in vitro diagnostic tests for detection and/or diagnosis of COVID-19 is terminated under Section 564(b)(2) of the Act or the EUA is revoked under Section 564(g) of the Act. Fact Sheet for Healthcare Providers: https://www.Channel[employer]/sites/default/files/pro duct/documents/Fact_Sheet_HC_Providers_Lyra_SA RS-CoV-2.pdf Fact Sheet for Healthcare Patients: https://www.Channelkit/sites/default/files/pro duct/documents/Fact_Sheet_Patients_Lyra_SARS-C oV-2.pdf Performing Laboratory: [address] [place] [address] Performing Organization Address City/[facility]/[place] [address] AMENIA Screen, urine (11/15/2019 9:28 PM CDT) Preg Test, Ur Negative [facility] Specimen Urine Performing Organization Address [facility]/Zipcode Phone Number [address] [address] AMENIA PT/aPTT (11/15/2019 9:24 PM CDT) Protime 14.5 (H) 11.9 - 14.2 seconds [facility] INR 1.16 <=5.90 [facility] PTT 31.1 22.5 - 36.0 seconds [facility] Specimen Blood Narrative Performed At Effective 08/19/2018: PT Reference Range [facility] Change New: 11.9-14.2Previous: 11.7-14.7 RECOMMENDED COUMADIN/WARFARIN INR THERAPY RANGES STANDARD DOSE: 2.0-3.0Includes: PROPHYLAXIS for venous thrombosis, systemic embolization; TREATMENT for venous thrombosis and/or pulmonary embolus. HIGH RISK: Target INR is 2.5-3.5 for patients wiht mechanical heart valves. Performing Organization Address City/State/Zipcode Phone Number [facility] [address] [place], [place] [phone] CENTER after 12/07/2018 Insurance Payer Benefit Plan / Group Subscriber ID Type Phone A ddress CDC REVIEW CDC REVIEW xxxxxxxx [address], [place] [phone] Guarantor Name Account Type Relation to Date of Phone Billing Address Patient Jagruti Edouard Personal/Family Self 1995 [address] ([place]) [address] [place] [phone] Advance Directives For more information, please contact:[place] [phone] [place], [place] [phone] Code Status Date Activated Date Inactivated Comments Full Code 11/15/2019 8:01 PM 11/20/2019 8:39 PM This code status was determined by: Patient
--- OUTSIDE RECORDS SUMMARY | 2019-12-08 15:13 | XMS REPORT | Continuity of Care Document ---
:1995 Author Organization [facility] t Address [address] [place] [address] Care Team Providers Name Role Phone Grey ARMAS Attending Clinician Thee Ch MD Attending Clinician Augusta Hector MD Attending Clinician [phone] Keke Mi CRNA Attending Clinician Solo Huang MD Attending Clinician GREY Attending Clinician Unavailable Singer GUDINO Attending Clinician Doctor Unassigned, Name Attending Clinician Unavailable THEE CH Admitting Clinician Unavailable Payers Payer Name Policy Type Policy Number Effective Date Expiration Date S chayo CDC REVIEWCDC xxxxxxxx [facility] REVIEW[facility] [id number] Center Problems Condition Condition Condition Status Onset Resolution Last Treating Co mments Source Name Details Category Date Date Treatment Clinician Date Nephrolith Nephrolith Disease Active C [facility] Allergies, Adverse Reactions, Alerts This patient has no known allergies or adverse reactions. Social History Social Habit Start Date Stop Date Quantity Comments Source Sex Assigned At [facility] Medications Ordered Filled Start Stop Current Ordering Indication Dosage Frequency Signature Comments Components Source Medication Medication Date Date Medication? Clinician (SIG) Name Name tamsulosin 2020- Yes .4mg QD Take [address] [facility] (FLOMAX) 11-19 capsule [facility] - 0.4 mg Cap 00:00: 23:59 (0.4 mg Med ical 24 hr 00 :00 total) by Center capsule mouth daily for 30 days. oxybutynin 2019- No 10mg Take [address] [facility] (DITROPAN-X 11-19 tablets Luke s - L) 5 MG 24 00:00: 23:59 (10 mg Medi leny hr tablet 00 :00 total) by Cente r mouth every night as needed (Bladder spasms/ibeth nt pain) for up to 15 days. acetaminoph 2019- No 1{tbl} Take [address] en-codeine 11-19 tablet by [facility] es - (TYLENOL-CO 00:00: 23:59 mouth Medi leny DEINE #3) 00 :00 every 4 Center 300-30 mg (four) per tablet hours as needed for Pain for up to 10 days. Max Daily Amount: 6 tablets sulfamethox 2019- No 80mg{tr Q.5D Take [address] azole-trime 11-19 imethop tablet (80 [facility] - thoprim 00:00: 23:59 rim} mg of Medical (BACTRIM,SE 00 :00 trimethopr Ce nter PTRA) im total) 400-80 mg by mouth 2 per tablet (two) times daily for 5 days. phenazopyri 2019- No 100mg Take [address] dine 11-19 tablet [facility] - (PYRIDIUM) 00:00: 23:59 (100 mg Med ical 100 MG 00 :00 total) by Center tablet mouth 3 (three) times daily as needed for up to 5 days. Vital Signs Vital Name Observation Time Observation Value Comments Source Systolic blood 2019-11-20 16:04:00 112 mm[Hg] [facility] Diastolic blood 2019-11-20 16:04:00 64 mm[Hg] [facility] Heart rate 2019-11-20 16:04:00 99 /min [facility] Body temperature 2019-11-20 16:04:00 37.28 Shea [facility] Respiratory rate 2019-11-20 16:04:00 18 /min [facility] Oxygen saturation in 2019-11-20 16:04:00 95 /min [facility] Arterial blood by Medical Ce nter Pulse oximetry Body height 2019-11-18 14:00:00 167.6 cm [facility] Body weight Measured 2019-11-18 14:00:00 73.211 kg [facility] BMI 2019-11-18 14:00:00 26.05 kg/m2 [facility] Procedures Procedure Date / Time Performed Performing Clinician Sourc e VANCOMYCIN LEVEL, TROUGH 2019-11-19 21:50:00 Eleni Urrutia [facility] CT ABDOMEN/PELVIS 2019-11-19 20:20:00 [facility] es - WITHOUT IV CONTRAST Medical Cent er BASIC METABOLIC PANEL 2019-11-19 18:45:00 [facility] (7) [facility] HEMOGLOBIN AND 2019-11-19 18:45:00 [facility] HEMATOCRIT [facility] TRANSFUSION SERVICE 2019-11-19 18:00:41 Provider, Default [facility] - REPORT - SCAN Scanning [facility] STONE ANALYSIS 2019-11-19 17:51:53 Toni Huang [facility] [place] FLUORO NON-SPECIFIC 2019-11-19 17:35:00 T[address] [facility] - UP TO 1 HOUR [facility] POCT , URINE 2019-11-19 14:34:00 Adolph Saldivar [facility] LITHOTRIPSY,PERCUTANEOUS 2019-11-19 13:00:00 Toni Huang [facility] CYSTOSCOPY,INSERTION 2019-11-19 13:00:[address] [facility] URETERAL STENTS [facility] PROCEDURE W/ C-ARM 2019-11-19 13:00:00 HuangToni [facility] PROTHROMBIN TIME/INR 2019-11-19 04:13:00 Jocelynn Coello [facility] APTT 2019-11-19 04:13:00 Jocelynn Coello [facility] CBC W/PLT COUNT & AUTO 2019-11-18 06:05:[address] [facility] DIFFERENTIAL [facility] BASIC METABOLIC PANEL 2019-11-18 06:04:00 Estrella Cunha [facility] () [facility] TYPE AND SCREEN, 2019-11-18 06:04:[address] [facility] AUTOMATED [facility] BASIC METABOLIC PANEL 2019-11-17 04:36:00 Estrella Cunha [facility] () [facility] CBC W/PLT COUNT & AUTO 2019-11-17 04:36:[address] [facility] DIFFERENTIAL [facility] URINE CULTURE 2019-11-16 18:48:00 PopFatoumata mei [facility] TRANSFUSION SERVICE 2019-11-16 18:22:[address] [facility] REPORT - SCAN Scanning [facility] IR PERCUTANEOUS 2019-11-16 11:17:[address] [facility] NEPHROSTOMY TUBE [facility] PLACEMENT BASIC METABOLIC PANEL 2019-11-16 05:12:00 Estrella Cunha [facility] () [facility] CBC W/PLT COUNT & AUTO 2019-11-16 05:12:[address] [facility] DIFFERENTIAL [facility] ABORH, MANUAL 2019-11-15 21:36:00 Dorene Snow [facility] SARS-COV2/RT-PCR ([facility] & 2019-11-15 21:35:00 Estrella Cunha [facility] - REF LABS) [facility] SCREEN, URINE 2019-11-15 21:28:00 Estrella Cunha [facility] BASIC METABOLIC PANEL 2019-11-15 21:24:00 Estrella Cunha [facility] - (7) Medical Center PROTHROMBIN TIME/INR 2019-11-15 21:24:00 Amrik Pedro [facility] TYPE AND SCREEN, 2019-11-15 21:24:[address] [facility] AUTOMATED [facility] CBC W/PLT COUNT & AUTO 2019-11-15 21:24:[address] [facility] DIFFERENTIAL [facility] Plan of Care Planned Activity Planned Date Details Comments Source Future Scheduled 2019-11-23 [facility] (#1[facility] [code = Medical Center INFLUENZA VACCINE (#1)] Future Scheduled 2016-02-25 Screening for [facility] es - Test 00:00:00 malignant neoplasm Medical C enter of cervix (procedure) [code = 781849362] Encounters Start End Encounter Admission Attending Care Care Encounter Source Date/Time Date/Time Type Type Clinicians Facility Department ID 2018-11-19 2018-11-19 Emergency [facility] [id number] 16:42:19 18:58:00 Aubrey Holloway [id number] [place] [id number] [place] [id number] 2018-11-19 2018-11-19 Orders Doctor ELIDA [id number] 00:00:00 00:00:00 Only Unassigned, SAURABH [id number] [place] [id number] 2018-11-10 2018-11-10 Emergency [facility] [id number] 14:58:26 15:00:00 Amie [id number] [place] [id number] [place] [id number] Results Test Description Test Time Test Comments Results Result Comments Source STONE ANALYSIS 2019-11-25 10:22:00 Test Item Value Reference Range Interpretation Comme nts SPECIMEN SOURCE(QUEST) MARGARITA (test code = 7628314) COMPONENT 1 (QUEST) (test See Below Cy shruthi 80% Carbonate code = 1597070) Apatite (Dah llite) 20% This test was d eveloped and its analytical performance characteristics have been determined by [employer]. It has not been cleared or appr deanna by theFDA. This as say has been validated pursu ant to the CLIA regulation s and is used for clinical pu rposes. COMPONENT 2 (QUEST) (test DNR code = 2498) Stone Weight (test code = 0.267 g 2654) SAPPHIRE (test code = SAPPHIRE) Performing Lab *KELSIE [employer] [facility], [address] [place] [phone] Miquel Smith MD, PhD [facility], [id number] 22:39:00Unlisted Reason for Exam - Click Yes and Enter Reason Below->NoPlease specify:->Renal Stone ProtocolFINAL REPORT EXAM: CT of the abdomen and pelvis, without contrast CLINICAL HISTORY: Flank pain, kidney stone suspected TECHNIQUE: CT of the abdomen and pelvis was performed without the intravenous administration of contrast. This exam was performed according to our departmental dose optimization program which includes automated exposure control, adjustment of the mA and/or kVaccording to patient's size and/or use of iterative reconstructive technique. COMPARISON: Outside CT abdomen and pelvis 11/15/2019. FINDINGS: Please note study is limited due to lack of intravenous contrast. LOWER CHEST: Bilateral lower lobe dependent and discoid atelectasis.LIVER: Within normal limits.BILE DUCTS: Within normal limits.GALL BLADDER: Within normal limits.PANCREAS: Within normal limits.SPLEEN: Punctate granulomas.ADRENALS: Within normal limits.KIDNEYS/URETERS: Status post left percutaneous nephroureteral stent placement. Small foci of air within the left collecting system may be due to recent instrumentation. Diffuse left perinephric stranding. Contrast is noted within the bilateral renal collecting systems, due to recent fluoroscopy/nephrostomy placement. Small hyperdense fluid in the left pararenal space and left retroperitoneum, which may represent a urinoma and/or hematoma. Punctate nonobstructing left renal stones. URINARY BLADDER: Decompressed around a Nixon catheter balloon. Air in the urinary bladder may be due to Nixon instrumentation or infection. REPRODUCTIVE ORGANS: Intrauterine device in place. No adnexal mass. BOWEL/MESENTERY: No bowel obstruction or abnormal wall thickening. Appendix not visualized.PERITONEUM/RETROPERITONEUM: Trace pelvic free fluid. No free air. VESSELS: Within normal limits. LYMPH NODES: No abdominal or pelvic lymphadenopathy.SOFT TISSUES: Within normal limits.BONES: Within normal limits. IMPRESSION:Status post placement of left percutaneous nephroureteral stent. Small hyperdense fluid in the left pararenal space and left retroperitoneum,which may represent a urinoma and/or hematoma. Punctate nonobstructing left renal stones. Trace pelvic free fluid. The hematoma findings were relayed to Dr. Cunha at 10:35 PM 11/19/2019. Signed: Jean Driscoll MDReport Verified Date/Time: 11/19/2019 22:39:03 CT abdomen/pelvis without iv [id number] 22:39:00Interface, External Ris In - 11/19/2019 10:41 PM CDTFINAL REPORT EXAM: CT of the abdomen and pelvis, without contrast CLINICAL HISTORY: Flank pain, kidney stone suspected TECHNIQ UE: CT of the abdomen and pelvis was performed without the intravenous administration of contrast. This exam was performed according to our departmental dose optimization program which includes automated exposure control, adjustment of the mA and/or kV according to patient's size and/or use of iterative reconstructive technique. COMPARISON: Outside CT abdomen and pelvis 11/15/2019. FINDINGS: Please note study is limited due to lack of intravenous contrast. LOWER CHEST: Bilateral lower lobe dependent and discoid atelectasis.LIVER: Within normal limits.BILE DUCTS: Within normal limits.GALL BLADDER: Within normal limits.PANCREAS: Within normal limits.SPLEEN: Punctate granulomas.ADRENALS: Within normal limits.KIDNEYS/URETERS: Status post left percutaneous nephroureteral stent placement. Small foci of air within the left collecting system may be due to recent instrumentation. Diffuse left perinephric stranding. Contrast is noted within the bilateral renal collecting systems, due to recent fluoroscopy/nephrostomy placement. Small hyperdense fluid in the left pararenal space and left retroperitoneum, which may represent a urinoma and/or hematoma. Punctate nonobstructing left renal stones. URINARY BLADDER: Decompressed around a Nixon catheter balloon. Air in the urinary bladder may be due to Nixon instrumentation or infection. REPRODUCTIVE ORGANS: Intrauterine device in place. No adnexal mass. BOWEL/MESENTERY: No bowel obstruction or abnormal wall thickening. Appendix not visualized.PERITONEUM/RETROPERITONEUM: Trace pelvic free fluid. No free air. VESSELS: Within normal limits. LYMPH NODES: No abdominal or pelvic lymphadenopathy.SOFT TISSUES: Within normal limits.BONES: Within normal limits. IMPRESSION:Status post placement of left percutaneous nephroureteral stent. Small hyperdense fluid in the left pararenal space and left retroperitoneum, which may represent a urinoma and/or hematoma. Punctate nonobstructing left renal stones. Trace pelvic free fluid. The hematoma findings were relayedto Dr. Cunha at 10:35 PM 11/19/2019. Signed: Jean Driscolleport Verified Date/Time: 11/19/2019 22:39:03 [facility] Vancomycin level, [id number] 22:23:00 Test Item Value Reference Range Interpretation Comments Vancomycin Tr (test code = 18.2 ug/mL 10-20 4092-3) SAPPHIRE (test code = SAPPHIRE) Polish [employer]ounder ID - DB Lab Interpretation (test Normal code = 22273-4) [facility] CenterVANCOMYCIN LEVEL, [id number] 22:23:00 Test Item Value Reference Range Interpretation Comments VANCOMYCIN TROUGH (BEAKER) (test 18.2 ug/mL 10.0-20.0 code = 522) [employer] ID - DBBasic Metabolic [id number] 19:16:00 Test Item Value Reference Range Interpretation Comments Sodium (test code = 139 meq/L 116-681 2935-2) Potassium (test code = 4.0 meq/L 3.5-5.1 2823-3) Chloride (test code = 106 meq/L 98-107 2075-0) CO2 (test code = 24 meq/L 22-29 8-9) BUN (test code = 6 mg/dL 7-21 L 3094-0) Creatinine (test code 0.79 mg/dL 0.57-1.25 = 2160-0) Glucose (test code = 143 mg/dL 70-105 H 2345-7) Calcium (test code = 8.9 mg/dL 8.4-10.2 14476-8) EGFR (test code = 89 mL/min/1.73 [place] [address]-6) NOT ACCURATE CREATININE CLEARANCE IN PREDICTING GLOMERULAR FILTRATION RATE . ESTIMATED GFR I S NOT APPLICABLE FOR DIALYSIS PATIENTS. SAPPHIRE (test code = SAPPHIRE) [employer]ounder ID - NEREYDA B Lab Interpretation Abnormal (test code = 63424-0) [facility] CenterBASIC METABOLIC [id number] 19:16:00 Test Item Value Reference Range Interpretation Comments SODIUM (BEAKER) 139 meq/L 136-145 (test code = 381) POTASSIUM (BEAKER) 4.0 meq/L 3.5-5.1 (test code = 379) CHLORIDE (BEAKER) 106 meq/L 98-107 (test code = 382) CO2 (BEAKER) (test 24 meq/L 22-29 code = 355) BLOOD UREA NITROGEN 6 mg/dL 7-21 L (BEAKER) (test code = 354) CREATININE (BEAKER) 0.79 mg/dL 0.57-1.25 (test code = 358) GLUCOSE RANDOM 143 mg/dL 70-105 H (BEAKER) (test code = 652) CALCIUM (BEAKER) 8.9 mg/dL 8.4-10.2 (test code = 697) EGFR (BEAKER) (test 89 mL/min/1.73 ESTIMA ANGIE GFR IS code = 1092) sq m NOT ACCURATE CREATININE CLEARANCE IN PREDICTING GLOMERULAR FILTRATION RATE . ESTIMATED GFR I S NOT APPLICABLE FOR DIALYSIS PATIEN TS. Polish Compounder ID - NEREYDA BHemoglobin and [id number] 18:58:00 Test Item Value Reference Range Interpretation Comments Hemoglobin (test code = 13.3 11.2- 15.7 GM/DL 786-4) Hematocrit (test code = 41.7 % 34.1-44.9 4544-3) SAPPHIRE (test code = SAPPHIRE) Polish Compounder ID - [id number] Lab Interpretation (test Normal code = 21259-8) [facility] CenterHEMOGLOBIN AND [id number] 18:58:00 Test Item Value Reference Range Interpretation Comments HEMOGLOBIN (BEAKER) (test code = 13.3 GM/DL 11.2-15.7 410) HEMATOCRIT (BEAKER) (test code = 41.7 % 34.1-44.9 411) Polish Compounder ID - [id number], FLUORO, NON-SPECIFIC, UP TO 1 [id number] 17:35:00 Reason for exam:->Percutaneous LithotripsyFluoroscopic unit utilized for a procedure performed in the OR. No interpretation was requested. Refer to the operative report for findings. Refer to PACS for patient radiation dose information.FL fluoro non-specific up to 1 [id number] 17:35:00Interface, External Ris In - 11/19/2019 6:10 PM CDTFluoroscopic unit utilized for a procedure performed in the OR. No interpretation was requested. Refer to the operative report for findings. [place]erto PACS for patient radiation dose information.[facility] CenterPOCT , [id number] 14:34:00 Test Item Value Reference Range Interpretation Comments Test Urine, POC (test Negative code = 3536499) Control line present?, POC (test Yes code = 2928514) Background clear?, POC (test code Yes = 8823542) UPT Cassette Lot #, POC (test code [id number] = 7917595) UPT Cassette Expiration Date, POC 2021-02-20 (test code = 5869599) [facility] CenterProthrombin time/[id number] 05:20:00 Test Item Value Reference Range Interpretation Comments Protime (test code = 13.2 11.9- 14.2 5902-2) seconds INR (test code = 1.03 <=5.90 6301-6) SAPPHIRE (test code = SAPPHIRE) Effective 08/19/2018: PT Reference Range ChangeNew: 11.9-14.2 Previous: 11.7-14.7 RECOMMENDED COUMADIN/WARFARIN INR THERAPY RANGESSTANDARD DOSE: 2.0-3.0 Includes: PROPHYLAXIS for venous thrombosis, systemic embolization; TREATMENT for venous thrombosis and/or pulmonary embolus.HIGH RISK: Target INR is 2.5-3.5 for patients wiht mechanical heart valves. Lab Interpretation Normal (test code = 50471-5) [facility] CenterPROTHROMBIN TIME/[id number] 05:20:00 Test Item Value Reference Range Interpretation Comments PROTIME (BEAKER) (test code = 13.2 seconds 11.9-14.2 759) INR (BEAKER) (test code = 370) 1.03 <=5.90 Effective 08/19/2018: PT Reference Range ChangeNew: 11.9-14.2 Previous: 11.7- 14.7RECOMMENDED COUMADIN/WARFARIN INR THERAPY RANGESSTANDARD DOSE: 2.0-3.0 Includes: PROPHYLAXIS for venous thrombosis, systemic embolization; TREATMENT for venous thrombosis and/or pulmonary embolus.HIGH RISK: Target INR is2.5-3.5 for patients wiht mechanical heart valves.[id number] 05:14:00 Test Item Value Reference Range Interpretation Comments PTT (test code = 70172-4) 31.8 22.5- 36.0 seconds Lab Interpretation (test code = Normal 17414-8) [facility] [id number] 05:14:00 Test Item Value Reference Range Interpretation Comments PARTIAL THROMBOPLASTIN TIME 31.8 seconds 22.5-36.0 (BEAKER) (test code = 760) Urine [id number] 12:38:00 Test Item Value Reference Range Interpretation Comments Result (test code = 6463-4) No growth [facility] CenterURINE [id number] 12:38:00 Test Item Value Reference Range Interpretation Comments CULTURE (BEAKER) (test code = 1095) No growth Type and screen, [id number] 07:07:00 Test Item Value Reference Range Interpretation Comments ABO/RH AUTOMATED (BEAKER) (test A POSITIVE code = 2260) Ab Scrn (test code = 890-4) NEGATIVE [facility] CenterBASIC METABOLIC [id number] 06:53:00 Test Item Value Reference Range Interpretation Comments SODIUM (BEAKER) 139 meq/L 136-145 (test code = 381) POTASSIUM (BEAKER) 4.0 meq/L 3.5-5.1 (test code = 379) CHLORIDE (BEAKER) 106 meq/L 98-107 (test code = 382) CO2 (BEAKER) (test 28 meq/L 22-29 code = 355) BLOOD UREA NITROGEN 6 mg/dL 7-21 L (BEAKER) (test code = 354) CREATININE (BEAKER) 0.81 mg/dL 0.57-1.25 (test code = 358) GLUCOSE RANDOM 98 mg/dL 70-105 (BEAKER) (test code = 652) CALCIUM (BEAKER) 8.8 mg/dL 8.4-10.2 (test code = 697) EGFR (BEAKER) (test 87 mL/min/1.73 ESTIMA ANGIE GFR IS code = 1092) sq m NOT ACCURATE CREATININE CLEARANCE IN PREDICTING GLOMERULAR FILTRATION RATE . ESTIMATED GFR I S NOT APPLICABLE FOR DIALYSIS PATIEN TS. Polish Compounder ID - NTPCBC with platelet count + automated [id number] 06:25:00 Test Item Value Reference Range Interpretation Comments WBC (test code = 6690-2) 6.8 3.5- 10.5 K/L RBC (test code = 789-8) 4.10 3.93- 5.22 M/L MCHC (test code = 786-4) 31.5 32.2- 35.5 GM/DL L Hematocrit (test code = 4544-3) 36.2 % 34.1-44.9 MCV (test code = 787-2) 88.3 fL 79.4-94.8 MCH (test code = 785-6) 27.8 pg 25.6-32.2 RDW (test code = 788-0) 13.2 % 11.7-14.4 Platelets (test code = 777-3) 284 150- 450 K/CU MM MPV (test code = 92572-8) 9.5 fL 9.4-12.3 nRBC (test code = 413) 0 0- 0 /100 WBC % Neutros (test code = 429) 54 % % Lymphs (test code = 430) 32 % % Monos (test code = 431) 10 % % Eos (test code = 432) 3 % % Baso (test code = 437) 1 % # Neutros (test code = 670) 3.66 1.56- 6.13 K/L # Lymphs (test code = 414) 2.21 1.18- 3.74 K/L # Monos (test code = 415) 0.67 0.24- 0.36 K/L H # Eos (test code = 416) 0.23 0.04- 0.36 K/L # Baso (test code = 417) 0.05 0.01- 0.08 K/L Immature Granulocytes-Relative 0 % 0-1 (test code = 2801) Lab Interpretation (test code = Abnormal 38138-3) [facility] W/PLT COUNT & AUTO [id number] 06:25:00 Test Item Value Reference Range Interpretation Comments WHITE BLOOD CELL COUNT (BEAKER) 6.8 K/ L 3.5-10.5 (test code = 775) RED BLOOD CELL COUNT (BEAKER) 4.10 M/ L 3.93-5.22 (test code = 761) HEMOGLOBIN (BEAKER) (test code = 11.4 GM/DL 11.2-15.7 410) HEMATOCRIT (BEAKER) (test code = 36.2 % 34.1-44.9 411) MEAN CORPUSCULAR VOLUME (BEAKER) 88.3 fL 79.4-94.8 (test code = 753) MEAN CORPUSCULAR HEMOGLOBIN 27.8 pg 25.6-32.2 (BEAKER) (test code = 751) MEAN CORPUSCULAR HEMOGLOBIN CONC 31.5 GM/DL 32.2-35.5 L (BEAKER) (test code = 752) RED CELL DISTRIBUTION WIDTH 13.2 % 11.7-14.4 (BEAKER) (test code = 412) PLATELET COUNT (BEAKER) (test 284 K/CU MM 150-450 code = 756) MEAN PLATELET VOLUME (BEAKER) 9.5 fL 9.4-12.3 (test code = 754) NUCLEATED RED BLOOD CELLS 0 /100 WBC 0-0 (BEAKER) (test code = 413) NEUTROPHILS RELATIVE PERCENT 54 % (BEAKER) (test code = 429) LYMPHOCYTES RELATIVE PERCENT 32 % (BEAKER) (test code = 430) MONOCYTES RELATIVE PERCENT 10 % (BEAKER) (test code = 431) EOSINOPHILS RELATIVE PERCENT 3 % (BEAKER) (test code = 432) BASOPHILS RELATIVE PERCENT 1 % (BEAKER) (test code = 437) NEUTROPHILS ABSOLUTE COUNT 3.66 K/ L 1.56-6.13 (BEAKER) (test code = 670) LYMPHOCYTES ABSOLUTE COUNT 2.21 K/ L 1.18-3.74 (BEAKER) (test code = 414) MONOCYTES ABSOLUTE COUNT (BEAKER) 0.67 K/ L 0.24-0.36 H (test code = 415) EOSINOPHILS ABSOLUTE COUNT 0.23 K/ L 0.04-0.36 (BEAKER) (test code = 416) BASOPHILS ABSOLUTE COUNT (BEAKER) 0.05 K/ L 0.01-0.08 (test code = 417) IMMATURE GRANULOCYTES-RELATIVE 0 % 0-1 PERCENT (BEAKER) (test code = 2801) BASIC METABOLIC [id number] 05:53:00 Test Item Value Reference Range Interpretation Comments SODIUM (BEAKER) 137 meq/L 136-145 (test code = 381) POTASSIUM (BEAKER) 3.6 meq/L 3.5-5.1 (test code = 379) CHLORIDE (BEAKER) 106 meq/L 98-107 (test code = 382) CO2 (BEAKER) (test 26 meq/L 22-29 code = 355) BLOOD UREA NITROGEN 6 mg/dL 7-21 L (BEAKER) (test code = 354) CREATININE (BEAKER) 0.77 mg/dL 0.57-1.25 (test code = 358) GLUCOSE RANDOM 101 mg/dL 70-105 (BEAKER) (test code = 652) CALCIUM (BEAKER) 8.0 mg/dL 8.4-10.2 L (test code = 697) EGFR (BEAKER) (test 92 mL/min/1.73 ESTIMA ANGIE GFR IS code = 1092) sq m NOT ACCURATE CREATININE CLEARANCE IN PREDICTING GLOMERULAR FILTRATION RATE . ESTIMATED GFR I S NOT APPLICABLE FOR DIALYSIS PATIEN TS. Polish Compounder ID - PIAYA LCBC W/PLT COUNT & AUTO [id number] 05:18:00 Test Item Value Reference Range Interpretation Comments WHITE BLOOD CELL COUNT (BEAKER) 6.3 K/ L 3.5-10.5 (test code = 775) RED BLOOD CELL COUNT (BEAKER) 4.08 M/ L 3.93-5.22 (test code = 761) HEMOGLOBIN (BEAKER) (test code = 11.5 GM/DL 11.2-15.7 410) HEMATOCRIT (BEAKER) (test code = 36.2 % 34.1-44.9 411) MEAN CORPUSCULAR VOLUME (BEAKER) 88.7 fL 79.4-94.8 (test code = 753) MEAN CORPUSCULAR HEMOGLOBIN 28.2 pg 25.6-32.2 (BEAKER) (test code = 751) MEAN CORPUSCULAR HEMOGLOBIN CONC 31.8 GM/DL 32.2-35.5 L (BEAKER) (test code = 752) RED CELL DISTRIBUTION WIDTH 13.1 % 11.7-14.4 (BEAKER) (test code = 412) PLATELET COUNT (BEAKER) (test 267 K/CU MM 150-450 code = 756) MEAN PLATELET VOLUME (BEAKER) 9.6 fL 9.4-12.3 (test code = 754) NUCLEATED RED BLOOD CELLS 0 /100 WBC 0-0 (BEAKER) (test code = 413) NEUTROPHILS RELATIVE PERCENT 49 % (BEAKER) (test code = 429) LYMPHOCYTES RELATIVE PERCENT 35 % (BEAKER) (test code = 430) MONOCYTES RELATIVE PERCENT 12 % (BEAKER) (test code = 431) EOSINOPHILS RELATIVE PERCENT 3 % (BEAKER) (test code = 432) BASOPHILS RELATIVE PERCENT 1 % (BEAKER) (test code = 437) NEUTROPHILS ABSOLUTE COUNT 3.09 K/ L 1.56-6.13 (BEAKER) (test code = 670) LYMPHOCYTES ABSOLUTE COUNT 2.21 K/ L 1.18-3.74 (BEAKER) (test code = 414) MONOCYTES ABSOLUTE COUNT (BEAKER) 0.74 K/ L 0.24-0.36 H (test code = 415) EOSINOPHILS ABSOLUTE COUNT 0.19 K/ L 0.04-0.36 (BEAKER) (test code = 416) BASOPHILS ABSOLUTE COUNT (BEAKER) 0.05 K/ L 0.01-0.08 (test code = 417) IMMATURE GRANULOCYTES-RELATIVE 0 % 0-1 PERCENT (BEAKER) (test code = 2801) SARS-CoV2/RT-PCR (Asymptomatic ONLY)2019-11-16 17:16:00 Test Item Value Reference Range Interpretation Comments SARS-COV2/RT-PCR Negative Not Detected, (test code = Negative, See 24638-6) external report for linked test SARS-COV-2 [facility] PERFORMING LAB (test code = 35507-3) SAPPHIRE (test code = Negative result for this SAPPHIRE) test determines that SARS-CoV-2 RNA was not present in the specimen above the Limit of Detection (LOD). However, Negative results do not preclude SARS-CoV-2 infection and should not be used as the sole basis for treatment or patient management decisions. Negative results must be combined with clinical observations, patient history, and epidemiological information. A false negative result may occur if a specimen is improperly collected, transported or handled. A false negative result should be considered if patient's recent exposures or clinical presentation indicate that COVID-19 (SARS-CoV-2) is likely and diagnostic tests for other causes of illness are negative. Re-testing should be considered in cases of suspected [...] Food and Drug Administration (FDA) cleared or approved. This is a modified version of an approved [...] of the Act. Fact Sheet for Healthcare Providers:https://www.[employer]/sites/default/f raven/product/documents/F act_Sheet_HC_Providers_L pzx_ZYHP-UrR-3.pdf Fact Sheet for Healthcare Patients:https://www.[employer]/sites/default/fi les/product/documents/Fa ct_Sheet_Patients_Lyra_S ARS-CoV-2.pdf Performing Laboratory:[facility] [place] [address] [facility] ([facility])2019-11-16 17:16:00 Test Item Value Reference Range Interpretation Comments SARS-COV2/RT-PCR (test Negative Not Detected, Negative, code = 3742375) See external report for linked test SARS-COV-2 PERFORMING LAB [facility] (test code = 7846566) Negative result for this test determines that SARS-CoV-2 RNA was not present in the specimen above the Limit of Detection (LOD). However, Negative results do not preclude SARS-CoV-2 infection and should not be used as the sole basis for treatment or patient management decisions. Negative results mustbe combined with clinical observations, patient history, and epidemiological information. A false negative result may occur if a specimen is improperly collected, transported or handled. A false negative result should be considered if patient's recent exposures or clinical presentation indicate that COVID-19 (SARS-CoV-2) is likely and diagnostic tests for other causes of illness are negative. Re-testing should be considered in cases of suspected false negatives.The limit of detection for this assay is 800 copies/mL.This SARS CoV-2 test is a real-time RT-PCR test intended for the qualitative detection of nucleic acid from SARS-CoV-2 in a nasopharyngeal swab specimen collected from individuals susp ected of COVID-19 by their healthcare provider.This test has not been Food and Drug Administration (FDA) cleared or approved. This is a modified version of an approved [...] is revoked under Section 564(g) of the Act.Fact Sheet for Healthcare Providers:https://www.[employer]/sites/default/files/product/documents/Fact_Shee j_ZF_Nuyzakwtx_Zjhk_SRAL-TvM-3.pdfFact Sheet for Healthcare Patients:https://www.[employer]/sites/default/files/product/ documents/Scvr_Ocrnh_Gwhlfhyj_Njei_COYE-UsR-7.pdfPerforming Laboratory:[facility], [place] [address]KTD, NEPHROSTOMY, PERC, EXTERNAL [id number] 12:32:00Reason for exam:->Left Obstructing Kidney Stone - Recommend Left PCN placementFINAL REPORT Fluoroscopic guided left nephrostomy tube placement. Clinical History: Left UPJ obstructing stone. Modality: Sonography and fluoroscopy Frame Cleaner: Dio Elmore MD. Production Staff Worker: Luis Colby. Sedation: Versed 3.5 mg and fentanyl 75 mcg was given intravenously for conscious sedation. Vital signs were monitored throughout the procedure by a nurse, and remained stable. Physician intra-service time was 30 minutes. Estimated Blood Loss: Less than 5 cc. Specimen: None. Fluoroscopy Time: 5.5 min.Reference Air Kerma (Ka, r): 127.4 mGy. Technique:Discussion of risks, benefits, and alternatives were made with the patient. The patient expressed understanding and agreed to proceed. After informed consent was obtained, which included the risks of bleeding, infection, injury to adjacent structures/bowel, adverse medication reaction, the patient's abdomen was prepped and draped in the usual sterile manner. All elements maximal sterile barrier technique was utilized for this procedure, including utilization of sterile scrub solution for skinprep, a large sterile sheet to cover the areas of the patient that were not prepped, and hand hygiene, mask, head covering, and sterile gown for performing radiologist and scrub technologist. Local anesthesia was achieved with 1% lidocaine, the left lower lower pole calyx was visualized with ultrasound. Using ultrasound guidance, a 21-gauge Accustick needle was advanced into the calyx. Contrast inj ection confirmed placement within the calyx. A 0.018 inch wire was advanced through the needle a curled within the pelvis. The Accustick sheath was advanced over the wire and an Amplatz wire was advanced down the ureter. After a small skin incision was made, the soft tissue tract was dilated with 8 Faroese dilators. A 8.5 Faroese drainage catheter was placed into the left renal pelvis. The wire was then removed, and the pigtail of the catheter was locked. The catheter was then secured onto the skin with 2-0 Prolene. The patient tolerated the procedure well, without immediate complications. The patient's vital signs remained stable throughout the procedure. Patient disposition: The patient was discharged from the department in stable condition. Impression:Successful and uncomplicated fluoroscopicguided left nephrostomy tube placement. Signed: Dio Elmore MDReport Verified Date/Time: 11/16/2019 12:32:44 Reading Location: [address] Body Reading Room IR Percutaneous Nephrostomy - Ext. Drain Placement 2019-11-16 12:32:00Interface, External Ris In - 11/16/2019 12:34 PM CDTFINAL REPORT Fluoroscopic guided left nephrostomy tube placement. Clinical History: Left UPJ obstructing stone. Modality: Sonography and fluoroscopy Frame Cleaner: Dio Elmore MD. Production Staff Worker: Luis Colby. Sedation: Versed 3.5 mg and fentanyl 75 mcg was given intravenously for conscious sedation. Vitalsigns were monitored throughout the procedure by a nurse, and remained stable. Physician intra-service time was 30 minutes. Estimated Blood Loss: Less than 5 cc. Specimen: None. Fluoroscopy Time:5.5 min.Reference Air Kerma (Ka, r): 127.4 mGy. Technique:Discussion of risks, benefits, and alternatives were made with the patient. The patient expressed understanding and agreed to proceed. After informed consent was obtained, which included the risks of bleeding, infection, injury to adjacent structures/bowel, adverse medication reaction, the patient's abdomen was prepped and draped in the usualsterile manner. All elements maximal sterile barrier technique was utilized for this procedure, including utilization of sterile scrub solution for skin prep, a large sterile sheet to cover the areas of the patient that were not prepped, and hand hygiene, mask, head covering, and sterile gown for performing radiologist and scrub technologist. Local anesthesia was achieved with 1% lidocaine, the left lower lower pole calyx was visualized with ultrasound. Using ultrasound guidance, a 21-gauge Accustick needle was advanced into the calyx. Contrast injection confirmed placement within the calyx. A 0.018 inch wire was advanced through the needle a curled within the pelvis. The Accustick sheath was advanced over the wire and an Amplatz wire was advanced down the ureter. After a small skin incision was made, the soft tissue tract was dilated with 8 Faroese dilators. A 8.5 Faroese drainage catheter wasplaced into the left renal pelvis. The wire was then removed, and the pigtail of the catheter was locked. The catheter was then secured onto the skin with 2-0 Prolene. The patient tolerated the procedure well, without immediate complications. The patient's vital signs remained stable throughout the procedure. Patient disposition: The patient was discharged from the department in stable condition. Impression:Successful and uncomplicated fluoroscopic guided left nephrostomy tube placement. Signed: Dio Elmore MDReport Verified Date/Time: 11/16/2019 12:32:44 Reading Location: [facility] P[address] Angio Body Reading Room [facility] [id number] 06:52:00 Test Item Value Reference Range Interpretation Comments SODIUM (BEAKER) 136 meq/L 136-145 (test code = 381) POTASSIUM (BEAKER) 3.8 meq/L 3.5-5.1 (test code = 379) CHLORIDE (BEAKER) 107 meq/L 98-107 (test code = 382) CO2 (BEAKER) (test 22 meq/L 22-29 code = 355) BLOOD UREA NITROGEN 14 mg/dL 7-21 (BEAKER) (test code = 354) CREATININE (BEAKER) 1.22 mg/dL 0.57-1.25 (test code = 358) GLUCOSE RANDOM 81 mg/dL 70-105 (BEAKER) (test code = 652) CALCIUM (BEAKER) 8.0 mg/dL 8.4-10.2 L (test code = 697) EGFR (BEAKER) (test 54 mL/min/1.73 ESTIMA ANGIE GFR IS code = 1092) sq m NOT ACCURATE CREATININE CLEARANCE IN PREDICTING GLOMERULAR FILTRATION RATE . ESTIMATED GFR I S NOT APPLICABLE FOR DIALYSIS PATIEN TS. Polish Compounder ID - JACIEL WCBC W/PLT COUNT & AUTO [id number] 05:59:00 Test Item Value Reference Range Interpretation Comments WHITE BLOOD CELL COUNT (BEAKER) 8.6 K/ L 3.5-10.5 (test code = 775) RED BLOOD CELL COUNT (BEAKER) 4.30 M/ L 3.93-5.22 (test code = 761) HEMOGLOBIN (BEAKER) (test code = 11.9 GM/DL 11.2-15.7 410) HEMATOCRIT (BEAKER) (test code = 37.8 % 34.1-44.9 411) MEAN CORPUSCULAR VOLUME (BEAKER) 87.9 fL 79.4-94.8 (test code = 753) MEAN CORPUSCULAR HEMOGLOBIN 27.7 pg 25.6-32.2 (BEAKER) (test code = 751) MEAN CORPUSCULAR HEMOGLOBIN CONC 31.5 GM/DL 32.2-35.5 L (BEAKER) (test code = 752) RED CELL DISTRIBUTION WIDTH 13.2 % 11.7-14.4 (BEAKER) (test code = 412) PLATELET COUNT (BEAKER) (test 277 K/CU MM 150-450 code = 756) MEAN PLATELET VOLUME (BEAKER) 9.7 fL 9.4-12.3 (test code = 754) NUCLEATED RED BLOOD CELLS 0 /100 WBC 0-0 (BEAKER) (test code = 413) NEUTROPHILS RELATIVE PERCENT 54 % (BEAKER) (test code = 429) LYMPHOCYTES RELATIVE PERCENT 31 % (BEAKER) (test code = 430) MONOCYTES RELATIVE PERCENT 12 % (BEAKER) (test code = 431) EOSINOPHILS RELATIVE PERCENT 2 % (BEAKER) (test code = 432) BASOPHILS RELATIVE PERCENT 1 % (BEAKER) (test code = 437) NEUTROPHILS ABSOLUTE COUNT 4.66 K/ L 1.56-6.13 (BEAKER) (test code = 670) LYMPHOCYTES ABSOLUTE COUNT 2.70 K/ L 1.18-3.74 (BEAKER) (test code = 414) MONOCYTES ABSOLUTE COUNT (BEAKER) 1.05 K/ L 0.24-0.36 H (test code = 415) EOSINOPHILS ABSOLUTE COUNT 0.14 K/ L 0.04-0.36 (BEAKER) (test code = 416) BASOPHILS ABSOLUTE COUNT (BEAKER) 0.05 K/ L 0.01-0.08 (test code = 417) IMMATURE GRANULOCYTES-RELATIVE 0 % 0-1 PERCENT (BEAKER) (test code = 2801) BASIC METABOLIC [id number] 22:02:00 Test Item Value Reference Range Interpretation Comments SODIUM (BEAKER) 136 meq/L 136-145 (test code = 381) POTASSIUM (BEAKER) 3.8 meq/L 3.5-5.1 (test code = 379) CHLORIDE (BEAKER) 104 meq/L 98-107 (test code = 382) CO2 (BEAKER) (test 23 meq/L 22-29 code = 355) BLOOD UREA NITROGEN 16 mg/dL 7-21 (BEAKER) (test code = 354) CREATININE (BEAKER) 1.29 mg/dL 0.57-1.25 H (test code = 358) GLUCOSE RANDOM 85 mg/dL 70-105 (BEAKER) (test code = 652) CALCIUM (BEAKER) 8.6 mg/dL 8.4-10.2 (test code = 697) EGFR (BEAKER) (test 51 mL/min/1.73 ESTIMA ANGIE GFR IS code = 1092) sq m NOT ACCURATE CREATININE CLEARANCE IN PREDICTING GLOMERULAR FILTRATION RATE . ESTIMATED GFR I S NOT APPLICABLE FOR DIALYSIS PATIEN TS. Polish Compounder ID - [id number] 21:57:00 Test Item Value Reference Range Interpretation Comments Protime (test code = 14.5 11.9- 14.2 H 5902-2) seconds INR (test code = 1.16 <=5.90 6301-6) PTT (test code = 31.1 22.5- 36.0 99306-4) seconds SAPPHIRE (test code = SAPPHIRE) Effective 08/19/2018: PT Reference Range ChangeNew: 11.9-14.2 Previous: 11.7-14.7 RECOMMENDED COUMADIN/WARFARIN INR THERAPY RANGESSTANDARD DOSE: 2.0-3.0 Includes: PROPHYLAXIS for venous thrombosis, systemic embolization; TREATMENT for venous thrombosis and/or pulmonary embolus.HIGH RISK: Target INR is 2.5-3.5 for patients wiht mechanical heart valves. Lab Interpretation Abnormal (test code = 35448-2) [facility][id number] 21:57:00 Test Item Value Reference Range Interpretation Comments PROTIME (BEAKER) (test code = 14.5 seconds 11.9-14.2 H 759) INR (BEAKER) (test code = 370) 1.16 <=5.90 PARTIAL THROMBOPLASTIN TIME 31.1 seconds 22.5-36.0 (BEAKER) (test code = 760) Effective 08/19/2018: PT Reference Range ChangeNew: 11.9-14.2 Previous: 11.7- 14.7RECOMMENDED COUMADIN/WARFARIN INR THERAPY RANGESSTANDARD DOSE: 2.0-3.0 Includes: PROPHYLAXIS for venous thrombosis, systemic embolization; TREATMENT for venous thrombosis and/or pulmonary embolus.HIGH RISK: Target INR is2.5-3.5 for patients wiht mechanical heart valves.PROTHROMBIN TIME/[id number] 21:57:00 Test Item Value Reference Range Interpretation Comments PROTIME (BEAKER) (test code = 14.5 seconds 11.9-14.2 H 759) INR (BEAKER) (test code = 370) 1.16 <=5.90 Effective 08/19/2018: PT Reference Range ChangeNew: 11.9-14.2 Previous: 11.7- 14.7RECOMMENDED COUMADIN/WARFARIN INR THERAPY RANGESSTANDARD DOSE: 2.0-3.0 Includes: PROPHYLAXIS for venous thrombosis, systemic embolization; TREATMENT for venous thrombosis and/or pulmonary embolus.HIGH RISK: Target INR is2.5-3.5 for patients wiht mechanical heart valves.ABORH, [id number] 21:54:00 Test Item Value Reference Range Interpretation Comments Rh Factor (test code = 2589) POS ABO Grouping (test code = 2588) A [facility] CenterPregnancy Screen, [id number] 21:46:00 Test Item Value Reference Range Interpretation Comments Preg Test, Ur (test code = 2112-1) Negative [facility] CenterPREGNANCY SCREEN, [id number] 21:46:00 Test Item Value Reference Range Interpretation Comments TEST URINE (BEAKER) (test Negative code = 583) CBC W/PLT COUNT & AUTO [id number] 21:41:00 Test Item Value Reference Range Interpretation Comments WHITE BLOOD CELL COUNT (BEAKER) 11.2 K/ L 3.5-10.5 H (test code = 775) RED BLOOD CELL COUNT (BEAKER) 4.50 M/ L 3.93-5.22 (test code = 761) HEMOGLOBIN (BEAKER) (test code = 12.8 GM/DL 11.2-15.7 410) HEMATOCRIT (BEAKER) (test code = 39.3 % 34.1-44.9 411) MEAN CORPUSCULAR VOLUME (BEAKER) 87.3 fL 79.4-94.8 (test code = 753) MEAN CORPUSCULAR HEMOGLOBIN 28.4 pg 25.6-32.2 (BEAKER) (test code = 751) MEAN CORPUSCULAR HEMOGLOBIN CONC 32.6 GM/DL 32.2-35.5 (BEAKER) (test code = 752) RED CELL DISTRIBUTION WIDTH 13.2 % 11.7-14.4 (BEAKER) (test code = 412) PLATELET COUNT (BEAKER) (test 339 K/CU MM 150-450 code = 756) MEAN PLATELET VOLUME (BEAKER) 9.7 fL 9.4-12.3 (test code = 754) NUCLEATED RED BLOOD CELLS 0 /100 WBC 0-0 (BEAKER) (test code = 413) NEUTROPHILS RELATIVE PERCENT 56 % (BEAKER) (test code = 429) LYMPHOCYTES RELATIVE PERCENT 31 % (BEAKER) (test code = 430) MONOCYTES RELATIVE PERCENT 11 % (BEAKER) (test code = 431) EOSINOPHILS RELATIVE PERCENT 1 % (BEAKER) (test code = 432) BASOPHILS RELATIVE PERCENT 1 % (BEAKER) (test code = 437) NEUTROPHILS ABSOLUTE COUNT 6.25 K/ L 1.56-6.13 H (BEAKER) (test code = 670) LYMPHOCYTES ABSOLUTE COUNT 3.46 K/ L 1.18-3.74 (BEAKER) (test code = 414) MONOCYTES ABSOLUTE COUNT (BEAKER) 1.22 K/ L 0.24-0.36 H (test code = 415) EOSINOPHILS ABSOLUTE COUNT 0.15 K/ L 0.04-0.36 (BEAKER) (test code = 416) BASOPHILS ABSOLUTE COUNT (BEAKER) 0.07 K/ L 0.01-0.08 (test code = 417) IMMATURE GRANULOCYTES-RELATIVE 0 % 0-1 PERCENT (BEAKER) (test code = 6584)
[2019-12-08] MEDS ORDERED: PIPER/TAZO/NS 3.375gm 3.375 GM/100 ML BAG ONE (15:42)
[2019-12-08] MEDS ORDERED: PROMETHAZINE INJ 25 MG/ML AMP ONE ×2 (15:42→17:57)
[2019-12-08] MEDS ORDERED: NA CHLORIDE 0.9% 500 ML ONE ×2 (15:42→23:05)
[2019-12-08 15:52] LABS: Basophils % 0.3 % (0-1.3); Hematocrit 33.9 % (36.0-45.0); Lymphocytes % 4.8 % (15.3-44.8); MPV 7.5 fL (7.6-11.3); RBC Red Blood Cell Count 4.09 M/uL (3.86-4.86)
[2019-12-08 16:12] LABS: Blood Morphology Comment NOT SEEN (NOT SEEN); Platelet Estimate ADEQ; White Blood Cell Scan OK (OK)
[2019-12-08] MEDS ORDERED: FENTANYL CITR 100 MCG/2 ML ONE ×2 (16:12→17:57)
[2019-12-08 16:16] LABS: BUN Blood Urea Nitrogen 9 mg/dL (7-18); Bicarbonate 23 mmol/L (21-32); Glucose Level 96 mg/dL (74-106); Magnesium 1.9 mg/dL (1.8-2.4); Phosphorus 2.2 mg/dL (2.5-4.9); Potassium 3.6 mmol/L (3.5-5.1); Sodium Level 135 mmol/L (136-145); Thyroid Stimulating Hormone 0.606 uIU/mL (0.360-3.740)
[2019-12-08 16:34] LABS: Urine Blood TRACE (NEG); Urine Glucose NEGATIVE (NEG); Urine Protein NEGATIVE (NEG); Urine pH 6.5 (5.0-7.0)
--- NOTE | 2019-12-08 16:48 | RAD REPORT ---
EXAM DESCRIPTION: CT - Stone Protocol - 12/08/2019 4:26 pm CLINICAL HISTORY: Abdominal pain. COMPARISON: October 2019 TECHNIQUE: Computed axial tomography of the abdomen pelvis was obtained without oral or IV contrast. Lack of IV and oral contrast limits evaluation of solid organs, bowel, and vessels. Coronal reformat karl images were obtained and reviewed. All CT scans are performed using dose optimization technique as appropriate and may include automated exposure control or mA/KV adjustment according to patient size. FINDINGS: Left nephrostomy tube and ureteral stent have been placed. No hydronephrosis. Tiny left re nal calculi. A ureteral calculus is not seen. A bladder calculus is not noted. No right sided calculus. The liver, spleen, pancreas and adrenals appear grossly normal There is no evidence of diverticulitis. ICD in place IMPRESSION: Placement of a left nephrostomy tube/left ureteral stent. No hydronephrosis
[2019-12-08 16:58] LABS: Urine Bacteria >50 /HPF (<20); Urine Culture Reflex Order NOT NEEDED; Urine RBC <5 /HPF (NONE SEEN)
[2019-12-08] MEDS ORDERED: ONDANSETRON 4 MG/2 ML VIAL ONE (18:58)
[2019-12-08] MEDS ORDERED: NA CHLORIDE 0.9% 1,000 ML ONE (18:58)
[2019-12-08] MEDS ORDERED: HYDROMORPHONE HCL 1 MG/ML INJ ONE (19:03)
--- NOTE | 2019-12-08 19:32 | EDPHYS ---
Physician Documentation [facility] [place] Name: Jagruti Hill Age: 24 yrs Sex: Female : 1995 Arrival Date: 12/08/2019 Time: 15:16 Bed 3 Private MD: ED Physician Doug Rutledge HPI: 12/07 15:30 This 24 yrs old Female presents to ER via EMS with complaints of low abd pain.snw 15:30 The patient presents with abdominal pain right lower quadrant, abdominal distention snw that is diffuse. mild. Onset: The symptoms/episode began/occurred gradually, 2 day(s) ago. The symptoms do not radiate. Associated signs and symptoms: Pertinent positives: nausea and vomiting. The symptoms are described as constant. Modifying factors: the symptoms are aggravated by movement. Severity of pain: At its worst the pain was incapacitating in the emergency department the pain is unchanged despite EMS interventions. The patient has not experienced similar symptoms in the past. pt had left nephrostomy tube placed 2 weeks ago at [facility]. Was supposed to have removed yesterday but urine was infected and they were awaiting culture results prior to abx and removal. Pt right lower quad pain intense x 2 days. +N/V since nephrostomy placed. 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 - Social history:: Smoking status: Patient denies any tobacco usage or history of. ROS: 15:25 Constitutional: Negative for fever, chills, and weight loss, Eyes: Negative for injury, snw pain, redness, and discharge, ENT: Negative for injury, pain, and discharge, Neck: Negative for injury, pain, and swelling, Cardiovascular: Negative for chest pain, palpitations, and edema, Respiratory: Negative for shortness of breath, cough, wheezing, and pleuritic chest pain, Back: Negative for injury and pain, : Negative for injury, bleeding, discharge, and swelling, MS/Extremity: Negative for injury and deformity, Skin: Negative for injury, rash, and discoloration, Neuro: Negative for headache, weakness, numbness, tingling, and seizure, Psych: Negative for depression, anxiety, suicide ideation, homicidal ideation, and hallucinations. 15:25 Abdomen/GI: Positive for abdominal pain, nausea, vomiting, of the right lower quadrant. Exam: 15:25 Head/Face: Normocephalic, atraumatic. Eyes: Pupils equal round and reactive to light, snw extra-ocular motions intact. Lids and lashes normal. Conjunctiva and sclera are non-icteric and not injected. Cornea within normal limits. Periorbital areas with no swelling, redness, or edema. ENT: Nares patent. No nasal discharge, no septal abnormalities noted. Tympanic membranes are normal and external auditory canals are clear. Oropharynx with no redness, swelling, or masses, exudates, or evidence of obstruction, uvula midline. Mucous membranes moist. Neck: Trachea midline, no thyromegaly or masses palpated, and no cervical lymphadenopathy. Supple, full range of motion without nuchal rigidity, or vertebral point tenderness. No Meningismus. Chest/axilla: Normal chest wall appearance and motion. Nontender with no deformity. No lesions are appreciated. 15:25 Respiratory: Lungs have equal breath sounds bilaterally, clear to auscultation and percussion. No rales, rhonchi or wheezes noted. No increased work of breathing, no retractions or nasal flaring. 15:25 Skin: Warm, dry with normal turgor. Normal color with no rashes, no lesions, and no evidence of cellulitis. MS/ Extremity: Pulses equal, no cyanosis. Neurovascular intact. Full, normal range of motion. Neuro: Awake and alert, GCS 15, oriented to person, place, time, and situation. Cranial nerves II-XII grossly intact. Motor strength 5/5 in all extremities. Sensory grossly intact. Cerebellar exam normal. Normal gait. Psych: Awake, alert, with orientation to person, place and time. Behavior, mood, and affect are within normal limits. 15:25 Constitutional: The patient appears alert, awake, anxious, in obvious pain. 15:25 Cardiovascular: Rate: tachycardic, Rhythm: regular, Pulses: no pulse deficits are appreciated, Heart sounds: normal, Edema: mild facial edema. 15:25 Abdomen/GI: Inspection: abdomen appears normal, Bowel sounds: diminished, Palpation: severe abdominal tenderness, in the right lower quadrant, Indicators: McBurney's point is tender, nephrostomy tube to left flank draining mildly cloudy, yellow urine. 15:25 Back: nephrostomy tube intact to left flank. Vital Signs: 15:24 BP 122 / 42; Pulse 110; Resp 20; Temp 99.0; Pulse Ox 97% ; Pain 8/10; ll1 16:00 BP 111 / 71; Pulse 106; Resp 20; Pulse Ox 97% ; sv 17:45 BP 109 / 76; Pulse 116; Resp 15; Pulse Ox 97% on R/A; Pain 8/10; hb 18:27 BP 107 / 76; Pulse 107; Resp 15; Pulse Ox 97% ; hb 20:00 BP 93 / 79; Pulse 118; Resp 15; Pulse Ox 98% on R/A; vc 20:09 Weight 72.57 kg; rr5 20:51 BP 106 / 76; Pulse 115; Resp 15; Pulse Ox 95% on R/A; vc 20:53 Weight 72.57 kg (R); Height 5 ft. 6 in. (167.64 cm) (R); bb 20:53 Body Mass Index 25.82 (72.57 kg, 167.64 cm) bb MDM: 15:17 Patient medically screened. snw 16:03 Data reviewed: vital signs, nurses notes. Data interpreted: Pulse oximetry: on room air snw is 97 %. Interpretation: acceptable. Counseling: I had a detailed discussion with the patient and/or guardian regarding: the historical points, exam findings, and any diagnostic results supporting the discharge/admit diagnosis, lab results. Response to treatment: nausea resolved, pain continues, will medicate with fentanyl. WBC 20, pt already rec'd Zosyn. 18:31 Physician consultation: Dr Graham was called at 18:31, was contacted at 18:32, regarding snw consult, would like medications started, Potassium Citrate 10meq po BID, hyperhydration, broad spectrum abx, please have hard copy of scan given to pt so she can bring to f/u. 18:50 Physician consultation: Brendon NEWMAN was called at 18:50, was contacted at 18:50, snw regarding admission, to the telemetry unit. 12/07 15:20 Order name: Urine Culture [facility] 12/07 15:20 Order name: Urine Microscopic Only [facility] 12/07 15:20 Order name: CBC with Diff [facility] 12/07 15:20 Order name: Chem 7 [facility] 12/07 15:20 Order name: Blood Culture Adult (2) [facility] 12/07 15:20 Order name: Calcium [facility] 12/07 15:20 Order name: Magnesium; Complete Time: 16:20 [facility] 12/07 15:20 Order name: Phosphorus; Complete Time: 16:20 [facility] 12/07 15:21 Order name: Pth,Intact; Complete Time: 17:24 [facility] 12/07 15:21 Order name: TSH; Complete Time: 16:20 [facility] 12/07 15:22 Order name: Urine Culture [facility] 12/07 15:22 Order name: Urine Microscopic Only; Complete Time: 17:23 [facility] 12/07 15:22 Order name: CBC with Automated Diff; Complete Time: 16:14 [facility] 12/07 15:22 Order name: Basic Metabolic Panel; Complete Time: 16:20 [facility] 12/07 15:20 Order name: CT Stone Protocol; Complete Time: 17:24 [facility] 12/07 15:22 Order name: Blood Culture [facility] 12/07 16:12 Order name: CBC Smear Scan; Complete Time: 16:14 [facility] 12/07 16:21 Order name: Urine Dipstick--Ancillary (enter results); Complete Time: 17:24 12/07 16:21 Order name: Urine --Ancillary (enter results); Complete Time: 17:24 12/07 19:47 Order name: Procalcitonin [facility] 12/07 19:47 Order name: Lactate [facility] 12/07 15:20 Order name: Urine Test (obtain specimen); Complete Time: 16:04 [facility] 12/07 15:20 Order name: Urine Dipstick-Ancillary (obtain specimen); Complete Time: 16:04 snw Administered Medications: 15:40 Drug: NS 0.9% 500 ml Route: IV; Rate: bolus; Site: left antecubital; hb 16:12 Follow up: Response: No adverse reaction; IV Status: Completed infusion; IV Intake: hb 500ml 15:40 Drug: Phenergan 12.5 mg Route: IVP; Site: left antecubital; hb 16:10 Follow up: Response: No adverse reaction hb 16:03 Drug: fentaNYL (PF) 50 mcg {Note: RASS +2.} Route: IVP; Site: left antecubital; hb 16:31 Follow up: Response: No adverse reaction hb 16:30 Drug: Zosyn 3.375 grams Route: IVPB; Infused Over: 60 mins; Site: left antecubital; hb 17:35 Follow up: Response: No adverse reaction; IV Status: Completed infusion; IV Intake: hb 100ml 17:50 Drug: fentaNYL (PF) 50 mcg Route: IVP; Site: left antecubital; hb 18:28 Follow up: Response: No adverse reaction hb 17:50 Drug: Phenergan 12.5 mg Route: IVP; Site: left antecubital; hb 18:28 Follow up: Response: No adverse reaction hb 18:55 Drug: Zofran (Ondansetron) 4 mg Route: IVP; Site: left antecubital; hb 20:52 Follow up: Response: No adverse reaction vc 18:55 Drug: Dilaudid 1 mg Route: IM; Site: left deltoid; hb 20:52 Follow up: Response: No adverse reaction; Pain is decreased vc 20:25 Drug: NS 0.9% (30 ml/kg) 30 ml/kg Route: IV; Rate: bolus; Site: left antecubital; rr5 20:52 Follow up: IV Status: Completed infusion; Infusion continued upon transfer vc Disposition: 12/08/19 19:31 Hospitalization ordered by Jassi Neal for Inpatient Admission. Preliminary diagnosis is Acute pyelonephritis, urosepsis. - Bed requested for Telemetry/MedSurg (Inpatient). - Status is Inpatient Admission. vc - Condition is Stable. - Problem is an acute exacerbation. - Symptoms have worsened. Addendum: 12/13/2019 07:03 Co-signature as Attending Physician, Doug Rutledge MD. r n Signatures: Dispatcher [employer] Beba Boss, STEAM CLEAN MACHINE OPERATOR-C STEAM CLEAN MACHINE OPERATOR-Csnw Doug Rutledge MD MD rn Lasagna, Tonya, RN RN tl1 Neha Baugh RN RN Jeremy Goss RN RN rr5 Temi Collazo RN RN vc Corrections: (The following items were deleted from the chart) 12/07 19:38 19:31 Hospitalization Ordered by Jassi Neal DO for Inpatient Admission. Preliminary tl1 diagnosis is Acute pyelonephritis, urosepsis. Bed requested for Telemetry/MedSurg (Inpatient). Status is Inpatient Admission. Condition is Stable. Problem is an acute exacerbation. Symptoms have worsened. snw 21:07 19:38 12/08/2019 19:31 Hospitalization Ordered by Jassi Neal DO for Inpatient vc Admission. Preliminary diagnosis is Acute pyelonephritis, urosepsis. Bed requested for Telemetry/MedSurg (Inpatient). Status is Inpatient Admission. Condition is Stable. Problem is an acute exacerbation. Symptoms have worsened. tl1
--- NOTE | 2019-12-08 19:32 | ER ---
Nurse's Notes [facility] Name: Jagruti Hill Age: 24 yrs Sex: Female : 1995 Arrival Date: 12/08/2019 Time: 15:16 Bed 3 Private MD: Diagnosis: Acute pyelonephritis, urosepsis Presentation: 12/07 15:16 Chief complaint: Patient states: Right lower back pain for 2 days. + N/V. Has had a hb nephrostomy tube to left kidney for calcium build-up. States it feels similar to this problem. EMS states: Fentanyl 50mcg and zofran 4mg IV given en route. 20 L AC. Coronavirus screen: Client denies travel out of the [place] in the last 14 days. At this time, the client does not indicate any symptoms associated with coronavirus-19. Ebola Screen: Patient denies travel to an Ebola-affected area in the 21 days before illness onset. Risk Assessment: Do you want to hurt yourself or someone else? Patient reports no desire to harm self or others. Onset of symptoms was December 07, 2019. 15:16 Method Of Arrival: EMS: [facility] hb 15:16 Acuity: LISA 3 hb 15:31 Initial Sepsis Screen: Does the patient meet any 2 criteria? HR > 90 bpm. No. Patient's hb initial sepsis screen is negative. Does the patient have a suspected source of infection? No. Patient's initial sepsis screen is negative. 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 - Social history:: Smoking status: Patient denies any tobacco usage or history of. Screenin:10 Abuse screen: Denies threats or abuse. Denies injuries from another. Nutritional hb screening: No deficits noted. Tuberculosis screening: No symptoms or risk factors identified. Fall Risk None identified. Assessment: 15:20 General: Appears in no apparent distress. uncomfortable, Behavior is cooperative, hb crying, restless. Pain: Pain currently is 10 out of 10 on a pain scale. Neuro: Level of Consciousness is awake, alert, obeys commands, Oriented to person, place, time, situation. Cardiovascular: Capillary refill < 3 seconds Patient's skin is warm and dry. Respiratory: Airway is patent Respiratory effort is even, unlabored, Respiratory pattern is regular, symmetrical. GI: No signs and/or symptoms were reported involving the gastrointestinal system. : Reports pain in lower back recent kidney sx + urostomy, appliance is intact with cloudy pale yellow output in bag noted. EENT: No signs and/or symptoms were reported regarding the EENT system. Derm: Skin is pink, warm \\T\\ dry. Musculoskeletal: Reports mid and low back pain that radiates to legs. 16:00 Reassessment: No changes from previously documented assessment. Patient and/or family hb updated on plan of care and expected duration. Pain level reassessed. 16:21 Reassessment: Pt to CT via stretcher. hb 16:54 Reassessment: Patient appears in no apparent distress at this time. Patient and/or hb family updated on plan of care and expected duration. Pain level reassessed. Patient is alert, oriented x 3, equal unlabored respirations, skin warm/dry/pink. 17:51 Reassessment: Pt c/o nausea and pain 8/10. TEACHER LIP READING Beba notified, repeat phenergan and hb fentanyl administered as ordered. VSS, awaiting CT reread at this time. 18:27 Reassessment: Patient appears in no apparent distress at this time. Patient and/or hb family updated on plan of care and expected duration. Pain level reassessed. Patient is alert, oriented x 3, equal unlabored respirations, skin warm/dry/pink. 19:02 Reassessment: Pt actively vomiting, reports pain 9/10. TEACHER LIP READING Beba notified, zofran and hb dilaudid administered as ordered. 20:30 Reassessment: Patient states she's nauseous but it feels different, " I think it is vc because I'm hungry." Patient given jello and a sprite, will monitor nauseousness. 20:40 Reassessment: Called 2nd floor for report, receiving nurse JED Vickers to return call vc for report. Vital Signs: 15:24 BP 122 / 42; Pulse 110; Resp 20; Temp 99.0; Pulse Ox 97% ; Pain 8/10; ll1 16:00 BP 111 / 71; Pulse 106; Resp 20; Pulse Ox 97% ; sv 17:45 BP 109 / 76; Pulse 116; Resp 15; Pulse Ox 97% on R/A; Pain 8/10; hb 18:27 BP 107 / 76; Pulse 107; Resp 15; Pulse Ox 97% ; hb 20:00 BP 93 / 79; Pulse 118; Resp 15; Pulse Ox 98% on R/A; vc 20:09 Weight 72.57 kg; rr5 20:51 BP 106 / 76; Pulse 115; Resp 15; Pulse Ox 95% on R/A; vc 20:53 Weight 72.57 kg (R); Height 5 ft. 6 in. (167.64 cm) (R); bb 20:53 Body Mass Index 25.82 (72.57 kg, 167.64 cm) bb ED Course: 15:16 Patient arrived in ED. hb 15:17 Beba Mendoza FNP-C [facility]. snw 15:17 Doug Rutledge MD is Attending Physician. snw 15:18 Triage completed. hb 15:18 Arm band placed on Patient placed in an exam room, on a stretcher. hb 15:44 Maintain EMS IV. Dressing intact. Good blood return noted. Site clean \\T\\ dry. Gauge \\T\\ hb site: 20g LAC. 15:52 Radiology exam delayed due to test not completed at this time. vm2 16:03 Neha Baugh, RN is Primary Nurse. hb 16:10 Patient has correct armband on for positive identification. Bed in low position. Call light in reach. Side rails up X 1. 16:26 CT Stone Protocol In Process Unspecified. EDMS 16:30 Urine Culture Sent. hb 16:30 Urine Microscopic Only Sent. hb 19:09 Primary Nurse role handed off by Neha Baugh, RN vc 19:09 Temi Collazo, JED is Primary Nurse. vc 19:31 Jassi Neal DO is Hospitalizing Provider. snw 21:06 No provider procedures requiring assistance completed. Patient admitted, IV remains in vc place. Administered Medications: 15:40 Drug: NS 0.9% 500 ml Route: IV; Rate: bolus; Site: left antecubital; hb 16:12 Follow up: Response: No adverse reaction; IV Status: Completed infusion; IV Intake: hb 500ml 15:40 Drug: Phenergan 12.5 mg Route: IVP; Site: left antecubital; hb 16:10 Follow up: Response: No adverse reaction hb 16:03 Drug: fentaNYL (PF) 50 mcg {Note: RASS +2.} Route: IVP; Site: left antecubital; hb 16:31 Follow up: Response: No adverse reaction hb 16:30 Drug: Zosyn 3.375 grams Route: IVPB; Infused Over: 60 mins; Site: left antecubital; hb 17:35 Follow up: Response: No adverse reaction; IV Status: Completed infusion; IV Intake: hb 100ml 17:50 Drug: fentaNYL (PF) 50 mcg Route: IVP; Site: left antecubital; hb 18:28 Follow up: Response: No adverse reaction hb 17:50 Drug: Phenergan 12.5 mg Route: IVP; Site: left antecubital; hb 18:28 Follow up: Response: No adverse reaction hb 18:55 Drug: Zofran (Ondansetron) 4 mg Route: IVP; Site: left antecubital; hb 20:52 Follow up: Response: No adverse reaction vc 18:55 Drug: Dilaudid 1 mg Route: IM; Site: left deltoid; hb 20:52 Follow up: Response: No adverse reaction; Pain is decreased vc 20:25 Drug: NS 0.9% (30 ml/kg) 30 ml/kg Route: IV; Rate: bolus; Site: left antecubital; rr5 20:52 Follow up: IV Status: Completed infusion; Infusion continued upon transfer vc Intake: 16:12 IV: 500ml; Total: 500ml. hb 17:35 IV: 100ml; Total: 600ml. hb Outcome: 19:31 Decision to Hospitalize by Provider. snw 21:06 Admitted to Med/surg accompanied by tech, via stretcher, room 206. vc 21:06 Condition: good 21:06 Instructed on the need for admit. 21:07 Patient left the ED. vc Signatures: Dispatcher [facility] Adriane Mccabe RN RN sv Waters, Shelly, BLOW MOLD MACHINE OPERATOR-C BLOW MOLD MACHINE OPERATOR-Shonw Hayde Tolbert RN RN bb Baxter, Heather, RN RN hb McGuire, [facility] Jeremy Mathews RN RN rr5 Temi Collazo RN RN vc Lewis, Lynsay, RN RN ll1 Corrections: (The following items were deleted from the chart) 15:26 15:16 Chief complaint: Patient states: Right lower back pain for 2 days. Has had a ll1 nephrostomy tube to left kidney for calcium build-up. States it feels similar to this problem. hb
[2019-12-08] MEDS ORDERED: NA CHLORIDE 0.9% 2,000 ML ONE (20:22)
[2019-12-08] MEDS: NA CHLORIDE 0.9% 1,000 ML IV SCH (20:27)
--- NOTE | 2019-12-08 20:27 | P.HP ---
Certification for Inpatient Patient admitted to: Inpatient With expected LOS: >2 Midnights Patient will require the following post-hospital care: None Practitioner: I am a practitioner with admitting privileges, knowledge of patient current condition, hospital course, and medical plan of care. Services: Services provided to patient in accordance with Admission requirements found in Title 42 Section 412.3 of the Code of Federal Regulations <Brendon Falk - Last Filed: 12/08/19 20:22> Patient History Date of Service: 12/08/19 Primary Care Provider: Urology- Dr. Graham [phone] Reason for admission: Urosepsis History of Present Illness: 24-year-old female with history of kidney stones and cystinuria presents emergency department for back pain and vomiting. Patient reports that approximately 2 weeks ago she had a percutaneous nephrostomy tube placed to left kidney for treatment of cystinuria stone. Patient had a follow up appointment yesterday, a culture was obtained the results are not back. Urologist stated that patient had not been taking great care of her nephrostomy tube and at that time he capped it. Patient was empirically prescribed Levaquin at that time. Today patient reports that pain became much worse and she began having uncontrollable vomiting. Patient presented to the emergency department for further evaluation. During her evaluation in the emergency department patient is found to have elevated white blood cell count at 20.6, patient was tachycardic around 120, blood pressure within normal limits at this time. CT was obtained which showed no hydronephrosis or obstruction. No complications with nephrostomy tube at this time. Dr. Graham urologist from [facility] was contacted by ER provider and recommended at this time that she can be kept here for management of urosepsis. Urologist stated that if patient becomes unstable or is requiring aggressive vasopressor therapy he will gladly accept her to [facility]. ED provider wishes to admit patient for further evaluation and management. When I saw the patient in the emergency department she is awake, alert, oriented x4. Patient blood pressure within normal limits, was tachycardic around 115. Patient with low-grade fever at this time. Lactate and pro calcitonin currently pending. I again call the urologist Dr. Graham to discuss plan of care. Urologist recommended vancomycin and meropenem at this time until cultures from urine and blood have returned. Recommending continuation of Flomax for toleration of stent placement and pain control. Also recommended hyper hydration with IV fluids. Urology also recommended potassium citrate 10 mEq twice daily but unfortunately we do not have this medication. Patient be admitted for further evaluation and management. Case was also discussed with attending hospitalist. - Past Medical/Surgical History Diabetic: No -: depression -: anxiety -: Cystinuria -: Kidney stones -: Left nephrostomy tube with stent placement -: Appendectomy Psychosocial/ Personal History: Patient lives at home with the family and is emp loyed. - Family History Mother -: Heart disease, Diabetes, Stroke, Cancer Sister -: Heart disease Father -: Heart disease, Stroke - Social History Smoking Status: Current every day smoker Alcohol use: No CD- Drugs: No Caffeine use: Yes Place of Residence: Home <Brendon Falk - Last Filed: 12/08/19 20:22> Date of Service: 12/09/19 <Jassi Neal - Last Filed: 12/09/19 14:10> Allergies No Known Drug Allergies Allergy (Verified 02/28/18 01:04) Unknown Home Medications: Unobtainable 11/10/18 Review of Systems 10-point ROS is otherwise unremarkable General: Fever, Chills, Malaise Gastrointestinal: Nausea, Vomiting Musculoskeletal: Back Pain <Brendon Falk - Last Filed: 12/08/19 20:22> Physical Examination - Physical Exam General: Alert, In no apparent distress, Oriented x3 HEENT: Atraumatic, Normocephalic, PERRLA, Other (Mucous membranes dry) Neck: Supple Respiratory: Clear to auscultation bilaterally, Normal air movement Cardiovascular: No edema, Regular rate/rhythm (Sinus tachycardia), Normal S1 S2 Capillary refill: <2 Seconds Gastrointestinal: Normal bowel sounds, Soft and benign Musculoskeletal: No contractures, No erythema, No tenderness Integumentary: No breakdown, No significant lesion, No tenderness/swelling Neurological: Normal speech, Normal strength at 5/5 x4 extr, Normal tone, Normal affect - Studies Laboratory Data (last 24 hrs) 12/08/19 15:39: Sodium 135 L, Potassium 3.6, BUN 9, Creatinine 0.78, Glucose 96, Phosphorus 2.2 L, Magnesium 1.9 12/08/19 15:39: WBC 20.6 H*, Hgb 11.3 L, Hct 33.9 L, Plt Count 341 <Brendon Falk - Last Filed: 12/08/19 20:22> - Studies Laboratory Data (last 24 hrs) 12/08/19 15:39: Sodium 135 L, Potassium 3.6, BUN 9, Creatinine 0.78, Glucose 96, Phosphorus 2.2 L, Magnesium 1.9 12/08/19 15:39: WBC 20.6 H*, Hgb 11.3 L, Hct 33.9 L, Plt Count 341 <Jassi Neal - Last Filed: 12/09/19 14:10> Assessment and Plan - Plan Assessment Urosepsis complicated by indwelling left percutaneous nephrostomy tube with ureteral stent Plan Urosepsis complicated by indwelling left percutaneous nephrostomy tube with ureteral stent: Blood in urine cultures obtained in the emergency department, patient did receive sepsis fluids in the emergency department. Case discussed with urologist Dr. Graham [phone] who states that he will be available by phone any time to discuss case as needed. Continue with vancomycin and meropenem as recommended by a urologist given recent hospital stay while cultures are pending. Continue patient's Flomax. Pain and nausea medications as needed. Will obtain morning labs including CBC, pro calcitonin, lactate. Continue with aggressive fluid hydration. Urologist recommended the potassium citrate 10 mEq p.o. b.i.d. for the purpose of alkalinization the urine, unfortunately this medication is not available at our facility. Will need to discuss this further with pharmacy/nephrology. Plan will be to treat patient here for urosepsis. If patient develops any complications or becomes critically ill requiring ICU or vasopressor therapy Dr. Graham will gladly accept the patient to [facility]. Discharge Plan: Home Plan to discharge in: Greater than 2 days - Advance Directives Does patient have a Living Will: No Does patient have a Durable POA for Healthcare: No - Code Status/Comfort Care Code Status Assessed: Yes (Patient is full code) Critical Care: No Time Spent Managing Pts Care (In Minutes): 55 <Brendon Falk - Last Filed: 12/08/19 20:22> - Plan Discuss with Brendon Falk NP. Agree with evaluation and plan of care. Patient has done well. Continue broad-spectrum antibiotic therapy. Await urine and blood culture results. Please review progress note for details. <Jassi Neal - Last Filed: 12/09/19 14:10>
[2019-12-08] MEDS: HYDROMORPHONE HCL 1 MG/ML INJ IV PRN (21:57)
[2019-12-08] MEDS ORDERED: VANCOMYCIN 1 GM in NA CHLORIDE 0.9% 500 ML IVPB SCH (22:00)
[2019-12-08] MEDS ORDERED: VANCOMYCIN 1 GM/VIAL ONE (22:54)
[2019-12-08] MEDS: Meropenem 1,000 MG in NA CHLORIDE 0.9% 100 ML IV SCH (23:18)
[2019-12-08] MEDS: PROMETHAZINE INJ 25 MG/ML AMP IV PRN (23:26)
[2019-12-09] MEDS ORDERED: Meropenem 1000 MG/VIAL IV SCH (01:00)
[2019-12-09] MEDS: HYDROMORPHONE HCL 1 MG/ML INJ IV PRN ×5 (02:41→20:48)
[2019-12-09] MEDS: NA CHLORIDE 0.9% 1,000 ML IV SCH ×5 (02:44→23:07)
[2019-12-09] MEDS: ACETAMINOPHEN 500 MG TAB PO PRN ×2 (02:52→13:47)
[2019-12-09 04:36] VITALS: BMI 26.6
[2019-12-09] MEDS: Meropenem 1,000 MG in NA CHLORIDE 0.9% 100 ML IV SCH ×3 (05:30→20:48)
--- NOTE | 2019-12-09 05:36 | P.INFCA ---
Sepsis Focused Assessment - Focused Assessment Complete? Sepsis Focused Assessment Completed?: Yes - Sepsis Screen Result Severe Sepsis: Negative Septic Shock: Negative - Evaluation Current stage of sepsis: Ruled out Reason for ruling out sepsis: Tachycardia, fever, elev. WBC - Vital Signs Reviewed: Yes Temperature: 98.6 F Heart rate: 101 Blood Pressure: 118/61 Respiratory Rate: 18 O2 Sat by Pulse Oximetry: 99 - Examination Date exam was performed: 12/09/19 Time exam was performed: 01:00 Heart: Regular rate/rhythm, Tachycardia Lungs: Clear bilaterally Peripheral pulses: 3+ Normal Peripheral pulse location: Radial Capillary refill: <2 Seconds Skin examination: Normal turgor
[2019-12-09 05:42] LABS: Absolute Lymphocytes (CBC) 1.6 K/uL (0.7-4.9); Basophils % 0.3 % (0-1.3); Hematocrit 29.6 % (36.0-45.0); Lymphocytes % 10.1 % (15.3-44.8); MPV 7.7 fL (7.6-11.3); RBC Red Blood Cell Count 3.55 M/uL (3.86-4.86)
[2019-12-09 05:49] LABS: BUN Blood Urea Nitrogen 5 mg/dL (7-18); Bicarbonate 22 mmol/L (21-32); Glucose Level 101 mg/dL (74-106); Magnesium 1.9 mg/dL (1.8-2.4); Potassium 3.3 mmol/L (3.5-5.1); Sodium Level 140 mmol/L (136-145)
[2019-12-09] MEDS ORDERED: POTASSIUM 25 MEQ EFFERV TAB PO ONE ×2 (06:30→19:00)
[2019-12-09] MEDS: PROMETHAZINE INJ 25 MG/ML AMP IV PRN ×3 (07:02→20:49)
[2019-12-09] MEDS: TAMSULOSIN 0.4 MG SR CAP PO SCH (09:14)
[2019-12-09] MEDS: ENOXAPARIN 40 MG/0.4 ML SQ SCH (09:15)
[2019-12-09] MEDS: VANCOMYCIN 1.25 GM in NA CHLORIDE 0.9% 250 ML IVPB SCH ×2 (10:31→23:18)
[2019-12-09] MEDS: ONDANSETRON 4 MG/2 ML VIAL IV PRN (11:05)
--- NOTE | 2019-12-09 14:09 | P.PN ---
Subjective Date of Service: 12/09/19 Primary Care Provider: Urology- Dr. Graham [phone] Chief Complaint: Urosepsis Subjective: Improving, Doing well Physical Examination - Vital Signs Temperature: 100.9 F Blood Pressure: 107/63 Pulse: 116 Respirations: 18 Pulse Ox (%): 99 - Physical Exam General: Alert, Cooperative HEENT: Atraumatic Neck: Supple Respiratory: Clear to auscultation bilaterally, Normal air movement Cardiovascular: Normal pulses, Regular rate/rhythm Gastrointestinal: Normal bowel sounds, Soft and benign, Non-distended, No masses, No rebound, No guarding Integumentary: Other (Nephrostomy tube in place) Neurological: Normal speech, Normal strength at 5/5 x4 extr, Normal tone, Normal affect - Studies Laboratory Data (last 24 hrs) 12/08/19 15:39: Sodium 135 L, Potassium 3.6, BUN 9, Creatinine 0.78, Glucose 96, Phosphorus 2.2 L, Magnesium 1.9 12/08/19 15:39: WBC 20.6 H*, Hgb 11.3 L, Hct 33.9 L, Plt Count 341 Medications List Reviewed: Yes Assessment & Plan Discharge Plan: Home Plan to discharge in: 48 Hours Physician Review Additional Text: Assessment Urosepsis complicated by indwelling left percutaneous nephrostomy tube with ureteral stent due to recent kidney stone Anemia Plan Urosepsis complicated by indwelling left percutaneous nephrostomy tube with ureteral stent due to recent kidney stone: Continue with IV fluids and antibiotic therapy. Continue monitor closely. Continue electrolyte protocol. Continue with plan of care. Await urine culture results. Will discuss further with Urology once cultures have come back. Encourage ambulation. Will provide incentive spirometer. Will monitor lab closely. Patient sees urologist Dr. Graham [phone] Anemia: Etiology unknown. Will check iron and B12 studies. Will monitor closely. Time Spent Managing Pts Care (In Minutes): 55
[2019-12-09] MEDS ORDERED: IBUPROFEN 400 MG TAB PO PRN (14:18)
[2019-12-09] MEDS ORDERED: NA CHLORIDE 0.9% 500 ML IV ONE (15:00)
[2019-12-09 17:04] LABS: Ferritin 148.5 ng/mL (8-388); Transferrin 143 mg/dL (200-360)
[2019-12-09] MEDS: HYDROCODONE/APAP 7.5/325 MG TAB PO PRN (18:33)
[2019-12-10] MEDS: HYDROMORPHONE HCL 1 MG/ML INJ IV PRN ×2 (02:20→20:54)
[2019-12-10] MEDS: PROMETHAZINE INJ 25 MG/ML AMP IV PRN ×3 (04:02→16:47)
[2019-12-10] MEDS: NA CHLORIDE 0.9% 1,000 ML IV SCH ×3 (04:07→20:55)
[2019-12-10] MEDS: ACETAMINOPHEN 500 MG TAB PO PRN ×2 (04:07→09:47)
[2019-12-10] MEDS: Meropenem 1,000 MG in NA CHLORIDE 0.9% 100 ML IV SCH (04:08)
[2019-12-10 05:20] LABS: Absolute Lymphocytes (CBC) 1.7 K/uL (0.7-4.9); Basophils % 0.5 % (0-1.3); Hematocrit 28.1 % (36.0-45.0); Lymphocytes % 14.7 % (15.3-44.8); MPV 7.9 fL (7.6-11.3); RBC Red Blood Cell Count 3.31 M/uL (3.86-4.86)
[2019-12-10 05:24] LABS: BUN Blood Urea Nitrogen 6 mg/dL (7-18); Bicarbonate 25 mmol/L (21-32); Glucose Level 105 mg/dL (74-106); Magnesium 1.9 mg/dL (1.8-2.4); Potassium 3.6 mmol/L (3.5-5.1); Sodium Level 138 mmol/L (136-145)
[2019-12-10] MEDS: HYDROCODONE/APAP 7.5/325 MG TAB PO PRN ×2 (07:19→13:10)
[2019-12-10] MEDS: ONDANSETRON 4 MG/2 ML VIAL IV PRN ×2 (07:19→20:54)
[2019-12-10] MEDS: TAMSULOSIN 0.4 MG SR CAP PO SCH (07:35)
[2019-12-10] MEDS: ENOXAPARIN 40 MG/0.4 ML SQ SCH (07:35)
[2019-12-10 07:40] VITALS: O2SAT 98
[2019-12-10] MEDS ORDERED: KCL 20 MEQ/100 mL IVPB 20 MEQ/100 ML BAG IV SCH (08:00)
--- NOTE | 2019-12-10 08:34 | P.PN ---
Subjective Date of Service: 12/10/19 Primary Care Provider: Urology- Dr. Graham [phone] Chief Complaint: Urosepsis Subjective: Improving Physical Examination - Vital Signs Temperature: 98.0 F Blood Pressure: 118/61 Pulse: 102 Respirations: 16 Pulse Ox (%): 97 - Physical Exam General: Alert, In no apparent distress, Cooperative HEENT: Atraumatic Neck: Supple Respiratory: Clear to auscultation bilaterally, Normal air movement Cardiovascular: Normal pulses, Regular rate/rhythm Gastrointestinal: Normal bowel sounds, No tenderness, No masses, No rebound, No guarding Musculoskeletal: No erythema, No tenderness, No warmth Integumentary: No erythema, No warmth, No cyanosis Neurological: Normal speech, Normal strength at 5/5 x4 extr, Normal tone, Normal affect - Studies Microbiology Data (last 24 hrs): 12/08/19 16:06 Catheterized Urine [place] Count - Final >100,000 CFU/ML. 12/08/19 16:06 Catheterized Urine - Final Enterobacter Cloacae Medications List Reviewed: Yes Assessment & Plan Discharge Plan: Home Plan to discharge in: 24 Hours Physician Review Additional Text: Assessment Urosepsis complicated by indwelling left percutaneous nephrostomy tube with ureteral stent due to recent kidney stone, Urine culture-E. coli Anemia with Iron/B12 def Plan Urosepsis complicated by indwelling left percutaneous nephrostomy tube with ureteral stent due to recent kidney stone, Urine culture-E. coli: Continue with IV fluids. Will change to Levaquin PO. If doing better and no fever for 34 hours then DC home tomorrow. Encourage ambulation. Will provide incentive spirom eter. Will monitor lab closely. Patient sees urologist Dr. Graham [phone] Anemia with Iron/B12 def: Start Iron and B12. Will monitor closely. Time Spent Managing Pts Care (In Minutes): 55
[2019-12-10] MEDS: levoFLOXacin 750 MG TAB PO SCH (09:00)
[2019-12-10] MEDS: CYANOCOBALAMIN 1,000 MCG TAB PO SCH (09:44)
[2019-12-10] MEDS: FERROUS SULFATE 325 MG TAB PO SCH ×2 (09:49→20:55)
[2019-12-10] MEDS: TRAMADOL HCL 50 MG TAB PO PRN (16:46)
[2019-12-11] MEDS: ACETAMINOPHEN 500 MG TAB PO PRN (01:41)
[2019-12-11] MEDS: PROMETHAZINE INJ 25 MG/ML AMP IV PRN (01:50)
[2019-12-11] MEDS: NA CHLORIDE 0.9% 1,000 ML IV SCH (03:23)
[2019-12-11 05:05] VITALS: BP 118/62; TEMP 97.9
[2019-12-11] MEDS: TRAMADOL HCL 50 MG TAB PO PRN (06:10)
[2019-12-11 06:34] LABS: Absolute Lymphocytes (CBC) 1.9 K/uL (0.7-4.9); Basophils % 0.7 % (0-1.3); Hematocrit 26.2 % (36.0-45.0); Lymphocytes % 26.3 % (15.3-44.8); MPV 7.5 fL (7.6-11.3); RBC Red Blood Cell Count 3.16 M/uL (3.86-4.86)
[2019-12-11 06:47] LABS: BUN Blood Urea Nitrogen 3 mg/dL (7-18); Bicarbonate 24 mmol/L (21-32); Glucose Level 83 mg/dL (74-106); Potassium 3.7 mmol/L (3.5-5.1); Sodium Level 140 mmol/L (136-145)
--- NOTE | 2019-12-11 07:31 | P.DS ---
Admission Date: 12/08/19 Discharge Date: 12/11/19 Primary Care Provider: Urology- Dr. Graham [phone] Disposition: ROUTINE DISCHARGE Discharge Condition: GOOD Reason for Admission: Urosepsis Consultations: none Procedures: CT AB(11/15/2019): FINDINGS: Multiple left renal calculi. 13 millimeter calculus left UPJ [place] unit 802. Mild to moderate hydronephrosis. A right renal calculus is not seen . 2 millimeter calculus proximal left ureter The liver,, adrenals and pancreas appear grossly normal. Splenic granulomata. There is no evidence of diverticulitis. IUD place IMPRESSION: 13 millimeter calculus left UPJ resulting in mild to moderate hydronephrosis CT AB: FINDINGS: Left nephrostomy tube and ureteral stent have been placed. No hydronephrosis. Tiny left renal calculi. A ureteral calculus is not seen. A bladder calculus is not noted. No right sided calculus. The liver, spleen, pancreas and adrenals appear grossly normal There is no evidence of diverticulitis. ICD in place IMPRESSION: Placement of a left nephrostomy tube/left ureteral stent. No hydronephrosis Medical Problem List: Severe Sepsis secondary to left pyelonephritis complicated with recent hospitalization related to 13 mm calculus to the left UPJ status post left nephrostomy tube/left ureteral stent, urine culture positive for Enterobacter cloacae Chronic Anemia with Iron/B12 deficiency Brief History of Present Illness: 24-year-old female presented with increased flank pain, nausea and vomiting. Patient also had fever. Patient recently hospitalized at [facility] due to a 13 mm calculus to the left UPJ with noted hydronephrosis on 11/15/2019. The patient had a nephrostomy tube and left ureteral stent placed. Patient had recent follow up. Patient had reported some complaints at that time. Patient was empirically started on Levaquin. Her flank plain increased. Patient was seen in the ER. She was found to have severe sepsis. Case was discussed with Neurology. Patient admitted to further treat. Sepsis protocol initiated. Hospital Course: Patient presented with severe sepsis secondary to left pyelonephritis complicated with recent hospitalization(11/15/2019) at [facility] for 13 mm calculus to the left UPJ. Hydronephrosis was noted at that time. Patient was hospitalized at that time. Left percutaneous nephrostomy tube and ureteral stent was placed. Prior to this admission patient reported left flank pain, nausea, vomiting and fever. Patient had recently seen Urology. Her symptoms persisted. Patient was seen in the ER for further evaluation. Patient found to have left pyelonephritis. Patient was in severe sepsis. Sepsis protocol initiated. Case was discussed with urology. Urology felt patient could remain in the hospital to continue her care. CT scan upon admission showed no hydronephrosis. Left nephrostomy tube and left ureteral stent in place. Patient has done well. Sepsis resolved. Urine culture positive for Enterobacter cloacae. Patient without significant pain, nausea or vomiting. No fever for greater than 32 hr. Patient transitioned to oral medication without problems. Nephrostomy tube in place. At discharge patient will continue with Levaquin 750 mg daily for 7 days. Patient may continue with Flomax 0.4 mg daily. Patient will also be provided lactobacillus 1 pill twice daily for 14 days. A limited supply of tramadol 50 mg 1 pill twice daily as needed for pain will be provided. Patient may take Tylenol or ibuprofen as needed over the counter for pain. Patient has follow up with urology tomorrow. Information on hospitalization will be provided. Education on left pyelonephritis noted. Recommend follow up with PCP within 1 week to follow up this hospitalization. Patient also found to be anemic. This is likely chronic. Patient noted to have iron and B12 deficiency. Supplementation has been added. At discharge she will continue with iron 325 mg 1 pill twice daily and vitamin-B 12 1000 mg daily. Recommend to recheck lab-CBC in 1-2 weeks to monitor her progress. Vital Signs/Physical Exam: Temp Pulse Resp BP Pulse Ox 97.9 F 86 16 118/62 94 12/11/19 04:00 12/11/19 04:00 12/11/19 04:00 12/11/19 04:00 12/11/19 04:00 General: Alert, In no apparent distress, Oriented x3, Cooperative HEENT: Atraumatic Neck: Supple Respiratory: Clear to auscultation bilaterally, Normal air movement Cardiovascular: Normal pulses, Regular rate/rhythm Gastrointestinal: Normal bowel sounds, Soft and benign, Non-distended, No masses, No rebound, No guarding Neurological: Normal speech, Normal strength at 5/5 x4 extr, Normal tone, Normal affect Other Physical/Emotional Findings: Nephrostomy tube in place Laboratory Data at Discharge: WBC 7.4 K/uL (4.3-10.9) D 12/11/19 06:23 Hgb 9.0 g/dL (12.0-15.0) L 12/11/19 06:23 Hct 26.2 % (36.0-45.0) L 12/11/19 06:23 Plt Count 261 K/uL (152-406) 12/11/19 06:23 Sodium 140 mmol/L (136-145) 12/11/19 06:23 Potassium 3.7 mmol/L (3.5-5.1) 12/11/19 06:23 BUN 3 mg/dL (7-18) L 12/11/19 06:23 Creatinine 0.54 mg/dL (0.55-1.3) L 12/11/19 06:23 Glucose 83 mg/dL (74-106) 12/11/19 06:23 Phosphorus 2.2 mg/dL (2.5-4.9) L 12/08/19 15:39 Magnesium 2.0 mg/dL (1.8-2.4) 12/11/19 06:23 Home Medications: Tamsulosin [Flomax*] 1 cap PO DAILY 12/09/19 Cyanocobalamin [Vitamin B-12*] 1,000 mcg PO DAILY #90 tab 12/11/19 Ferrous Sulfate [Ferrous Sulfate*] 325 mg PO BID #60 tab 12/11/19 Lactobacillus Acidophilus [Acidophilus Lactobacilli] 1 each PO BID #14 capsule 12/11/19 levoFLOXacin [Levaquin*] 750 mg PO DAILY #7 tab 12/11/19 traMADol HCL [Ultram*] 50 mg PO TID PRN #10 tab 12/11/19 New Medications: Lactobacillus Acidophilus [Acidophilus Lactobacilli] 1 each PO BID #14 capsule Ferrous Sulfate [Ferrous Sulfate*] 325 mg PO BID #60 tab levoFLOXacin [Levaquin*] 750 mg PO DAILY #7 tab traMADol HCL [Ultram*] 50 mg PO TID PRN #10 tab PRN Reason: PAIN Cyanocobalamin [Vitamin B-12*] 1,000 mcg PO DAILY #90 tab Patient Discharge Instructions: 1. Recommend follow up with PCP in 1 week to follow up this hospitalization. 2. Patient presented with severe sepsis secondary to left pyelonephritis complicated with recent hospitalization(11/15/2019) at [facility] for 13 mm calculus to the left UPJ. Hydronephrosis was noted at that time. Patient was hospitalized at that time. Left percutaneous nephrostomy tube and ureteral stent was placed. Prior to this admission patient reported left flank pain, nausea, vomiting and fever. Patient had recently seen Urology. Her symptoms persisted. Patient was seen in the ER for further evaluation. Patient found to have left pyelonephritis. Patient was in severe sepsis. Sepsis protocol initiated. Case was discussed with urology. Urology felt patient could remain in the hospital to continue her care. CT scan upon admission showed no hydronephrosis. Left nephrostomy tube and left ureteral stent in place. Patient has done well. Sep sis resolved. Urine culture positive for Enterobacter cloacae. Patient without significant pain, nausea or vomiting. No fever for greater than 32 hr. Patient transitioned to oral medication without problems. Nephrostomy tube in place. At discharge patient will continue with Levaquin 750 mg daily for 7 days. Patient may continue with Flomax 0.4 mg daily. Patient will also be provided lactobacillus 1 pill twice daily for 14 days. A limited supply of tramadol 50 mg 1 pill twice daily as needed for pain will be provided. Patient may take Tylenol or ibuprofen as needed over the counter for pain. Patient has follow up with urology tomorrow. Information on hospitalization will be provided. Education on left pyelonephritis noted. Recommend follow up with PCP within 1 week to follow up this hospitalization. 3. Patient also found to be anemic. This is likely chronic. Patient noted to have iron and B12 deficiency. Supplementation has been added. At discharge she will continue with iron 325 mg 1 pill twice daily and vitamin-B 12 1000 mg daily. Recommend to recheck lab-CBC in 1-2 weeks to monitor her progress. Diet: Regular Activity: Ad francisco Time spent managing pt's care (in minutes): 55
[2019-12-11] MEDS: FERROUS SULFATE 325 MG TAB PO SCH (08:25)
[2019-12-11] MEDS: HYDROCODONE/APAP 7.5/325 MG TAB PO PRN (08:25)
[2019-12-11] MEDS: TAMSULOSIN 0.4 MG SR CAP PO SCH (08:26)
[2019-12-11] MEDS: CYANOCOBALAMIN 1,000 MCG TAB PO SCH (08:26)
[2019-12-11] MEDS: levoFLOXacin 750 MG TAB PO SCH (08:27)
[2019-12-11] MEDS: ENOXAPARIN 40 MG/0.4 ML SQ SCH (08:27)
== END 2019-12-11 09:10 | disposition home or self-care (01) | DRG 698 ==
LOC: ER 15:10 → ERHOLD 19:27 → 2ND 20:58
PROVIDERS: ADMIT Family Medicine; ATTEND Family Medicine
DX: T83.592A Infection and inflammatory reaction due to indwelling ureteral stent, initial encounter (principal); A41.9 Sepsis, unspecified organism; R65.20 Severe sepsis without septic shock; N12 Tubulo-interstitial nephritis, not specified as acute or chronic; D50.9 Iron deficiency anemia, unspecified; D51.9 Vitamin B12 deficiency anemia, unspecified; B96.89 Other specified bacterial agents as the cause of diseases classified elsewhere; F17.200 Nicotine dependence, unspecified, uncomplicated; Z90.49 Acquired absence of other specified parts of digestive tract
CPT/HCPCS: 36415; 74176; 76377; 80048; 80202; 81003; 81015; 81025; 82607; 82728; 83540; 83605; 83735; 83970; 84100; 84132; 84145; 84443; 84466; 85025; 87040; 87077; 87086; 87088; 87186; 96361; 96365; 96367; 96372; 96375; 99285; J1170; J1650; J2185; J2405; J2543; J2550; J3010; J3370; J3480; J7030; J7040; J7050

== ENCOUNTER 2020-07-03 00:43 | Emergency (ER) | payer SELFPAY ==
--- OUTSIDE RECORDS SUMMARY | 2020-07-03 00:48 | XMS REPORT | Continuity of Care Document ---
:1995 Author Organization [facility] t Address [address] [place] [address] Care Team Providers Name Role Phone Grey ARMAS Attending Clinician Thee Ch MD Attending Clinician Jeannine Mi MD, [place] Attending Clinician [phone] Jarret ARMAS, Cheikh Attending Clinician Keke Mi CRNA Attending Clinician Solo Huang MD Attending Clinician GREY Attending Clinician Unavailable Singer GUDINO Attending Clinician Doctor Unassigned, Name Attending Clinician Unavailable THEE CH Admitting Clinician Unavailable Problems Condition Condition Condition Status Onset Resolution Last Treating Co mments Source Name Details Category Date Date Treatment Clinician Date Nephrolith Nephrolith Disease Active [facility] Allergies, Adverse Reactions, Alerts This patient has no known allergies or adverse reactions. Social History Social Habit Start Date Stop Date Quantity Comments Source Sex Assigned At [facility] Medications Ordered Filled Start Stop Current Ordering Indication Dosage Frequency Signature Comments Components Source Medication Medication Date Date Medication? Clinician (SIG) Name Name tamsulosin 2019-2019- No .4mg QD Take [address] [facility] [address] (FLOMAX) [...] pain) for up to 15 days. acetaminoph 2019-2019- No 1{tbl} Take [address] [...] (two) times daily for 5 days. phenazopyri 2019-2019- No 100mg Take [address] [facility] 11-19 tablet [facility] - (PYRIDIUM) 00:00: 23:59 (100 mg Med ical 100 MG 00 :00 total) by Center tablet mouth 3 (three) times daily as needed for up to 5 days. Vital Signs Vital Name Observation Time Observation Value Comments Source Systolic blood 2019-11-20 16:04:00 112 mm[Hg] [facility] Diastolic blood 2019-11-20 16:04:00 64 mm[Hg] [facility] Heart rate 2019-11-20 16:04:00 99 /min [facility] Body temperature 2019-11-20 16:04:00 37.28 Shea [facility] Respiratory rate 2019-11-20 16:04:00 18 /min [facility] Oxygen saturation in 2019-11-20 16:04:00 95 /min [facility] Arterial blood by Medical Ce nter Pulse oximetry Body height 2019-11-18 14:00:[address] [facility] Body weight 2019-11-18 14:00:[address] [facility] BMI 2019-11-18 14:00:00 26.05 kg/m2 [facility] Procedures Procedure Date / Time Performed Performing Clinician Sour e VANCOMYCIN LEVEL, TROUGH 2019-11-19 21:50:00 Eleni Urrutia [facility] CT ABDOMEN/PELVIS 2019-11-19 20:20:00 [facility] es - WITHOUT IV CONTRAST Medical Cent er BASIC METABOLIC PANEL 2019-11-19 18:45:00 [facility] (7) [facility] HEMOGLOBIN AND 2019-11-19 18:45:00 [facility] HEMATOCRIT [facility] TRANSFUSION SERVICE 2019-11-19 18:00:41 Provider, Default [facility] - REPORT - SCAN Scanning [facility] STONE ANALYSIS 2019-11-19 17:51:53 Toni Huang [facility] FL FLUORO NON-SPECIFIC 2019-11-19 17:35:00 Toni Huang [facility] - UP TO 1 HOUR [facility] Center POCT , URINE 2019-11-19 14:34:00 Adolph Saldivar [facility] LITHOTRIPSY,PERCUTANEOUS 2019-11-19 14:21:00 Toni Huang [facility] CYSTOSCOPY,INSERTION 2019-11-19 14:21:00 Toni Huang [facility] URETERAL STENTS [facility] PROCEDURE W/ C-ARM 2019-11-19 14:21:00 Toni Huang [facility] APTT 2019-11-19 04:13:[address] [facility] PROTHROMBIN TIME/INR 2019-11-19 04:13:00 Jocelynn Coello [facility] CBC W/PLT COUNT & AUTO 2019-11-18 06:05:00 Estrella Cunha [facility] BASIC METABOLIC PANEL 2019-11-18 06:04:00 Estrella Cunha [facility] () [facility] TYPE AND SCREEN, 2019-11-18 06:04:00 Jocelynn Coello [facility] AUTOMATED [facility] CBC W/PLT COUNT & AUTO 2019-11-17 04:36:00 sEtrella Cunha [facility] BASIC METABOLIC PANEL 2019-11-17 04:36:00 Estrella Cunha [facility] () [facility] URINE CULTURE 2019-11-16 18:48:00 Fatoumata Eric [facility] TRANSFUSION SERVICE 2019-11-16 18:22:24 ProviderQuita [facility] REPORT - SCAN Scanning [facility] IR PERCUTANEOUS 2019-11-16 11:17:00 KyleunDelvis mccarty [facility] NEPHROSTOMY TUBE [facility] PLACEMENT CBC W/PLT COUNT & AUTO 2019-11-16 05:12:00 Estrella Cunha [facility] BASIC METABOLIC PANEL 2019-11-16 05:12:00 Estrella Cunha [facility] () [facility] ABORH, MANUAL 2019-11-15 21:36:00 Dorene Snow [facility] SARS-COV2/RT-PCR ([facility] & 2019-11-15 21:35:00 Estrella Cunha [facility] - REF LABS) [facility] SCREEN, URINE 2019-11-15 21:28:00 Estrella Cunha [facility] PT/APTT 2019-11-15 21:24:00 Estrella Cunha [facility] CBC W/PLT COUNT & AUTO 2019-11-15 21:24:00 Estrella Cunha [facility] BASIC METABOLIC PANEL 2019-11-15 21:24:00 Estrella Cunha [facility] - (7) Medical Center TYPE AND SCREEN, 2019-11-15 21:24:00 Estrella Cunha [facility] Plan of Care Planned Activity Planned Date Details Comments Source Future Scheduled 2019-11-[address] [facility] - Test 00:00:00 (#1) [code = [facility] INFLUENZA VACCINE (#1)] Future Scheduled 2019-03-[address] [facility] - Test 00:00:00 (12+) [code = [facility] DEPRESSION SCREENING (12+)] Future Scheduled 2016-02-25 Screening for [facility] - Test 00:00:00 malignant neoplasm of Medica l Center cervix (procedure) [code = 246979519] Encounters Start End Encounter Admission Attending Care Care Encounter Source Date/Time Date/Time Type Type Clinicians Facility Department ID 2018-11-19 2018-11-19 Emergency , [facility] [id number] 16:42:19 18:58:00 Aubrey Holloway [id number] [place] 4.2.7.2.686 [place] [id number] 2018-11-19 2018-11-19 Orders Doctor ELIDA [id number] 00:00:00 00:00:00 Only Unassigned, SAURABH 350.1.13.10 [place] [facility] [id number] 2018-11-10 2018-11-10 Emergency [facility] [id number] 14:58:26 15:00:00 Amie 350.1.13.10 [place] 4.2.7.2.686 [place] [address] [id number] Results Test Description Test Time Test Comments Results Result Comments Source STONE ANALYSIS 2019-11-25 10:22:00 Test Item Value Reference Range Interpretation Comme nts SPECIMEN SOURCE(QUEST) MARGARITA (test code = 5839203) COMPONENT 1 (QUEST) (test See Below Cy shruthi 80% Carbonate code = 0043083) Apatite (Dah llite) 20% This test was d eveloped and its analytical performance characteristics have been determined by [employer]. It has not been cleared or appr deanna by theFDA. This as say has been validated pursu ant to the CLIA regulation s and is used for clinical pu rposes. COMPONENT 2 (QUEST) (test DNR code = 2498) Stone Weight (test code = 0.267 g 2654) SAPPHIRE (test code = SAPPHIRE) Performing Lab *KELSIE Sle[facility], [address] [place] [phone] Miquel Smith MD, PhD [facility], [id number] 22:39:00Unlisted Reason for Exam - Click Yes [...] Date/Time: 11/19/2019 22:39:03 CT abdomen/pelvis without iv [id number] 22:39:00Interface, External Ris In - 11/19/2019 10:41 [...] Signed: Jean Driscolleport Verified Date/Time: 11/19/2019 22:39:03 [facility] Vancomycin level, [id number] 22:23:00 Test Item Value Reference Range Interpretation Comments Vancomycin Tr (test code = 18.2 ug/mL 10-20 4092-3) SAPPHIRE (test code = SAPPHIRE) Food Service Ambassador ID - DB Lab Interpretation (test Normal code = 11614-7) [facility] L[facility], [id number] 22:23:00 Test Item Value Reference Range Interpretation Comments VANCOMYCIN TROUGH (BEAKER) (test 18.2 ug/mL 10.0-20.0 code = 522) [employer] Service Ambassador ID - DBBasic Metabolic [id number] 19:16:00 Test Item Value Reference Range Interpretation Comments Sodium (test code = 139 meq/L 421-512 2933-2) Potassium (test code = 4.0 meq/L 3.5-5.1 2823-3) Chloride (test code = 106 meq/L 98-107 2075-0) CO2 (test code = 24 meq/L 22-29 8-9) BUN (test code = 6 mg/dL 7-21 L 3094-0) Creatinine (test code 0.79 mg/dL 0.57-1.25 = 2160-0) Glucose (test code = 143 mg/dL 70-105 H 2345-7) Calcium (test code = 8.9 mg/dL 8.4-10.2 07351-0) EGFR (test code = 89 mL/min/1.73 [place] [address]-0) NOT ACCURATE CREATININE CLEARANCE IN PREDICTING GLOMERULAR FILTRATION RATE . ESTIMATED GFR I S NOT APPLICABLE FOR DIALYSIS PATIENTS. SAPPHIRE (test code = SAPPHIRE) Food Service Ambassador ID - NEREYDA B Lab Interpretation Abnormal (test code = 20455-9) [facility] METABOLIC [id number] 19:16:00 Test Item Value Reference Range Interpretation [...] S NOT APPLICABLE FOR DIALYSIS PATIEN TS. Food Service Ambassador ID - NEREYDA BHemoglobin and [id number] 18:58:00 Test Item Value Reference Range Interpretation Comments Hemoglobin (test code 13.3 See_Comment [Auto mated = 786-4) message] The system which generated this result transmit angie reference range : 11.2 - 15.7 GM/ DL. The reference range was not u sed to interpret th is result as normal/abnormal . Hematocrit (test code 41.7 % 34.1-44.9 = 4544-3) SAPPHIRE (test code = SAPPHIRE) Food Service Ambassador ID - [id number] Lab Interpretation Normal (test code = 74866-8) [facility] CenterHEMOGLOBIN AND [id number] 18:58:00 Test Item Value Reference Range Interpretation Comments HEMOGLOBIN (BEAKER) (test code = 13.3 GM/DL 11.2-15.7 410) HEMATOCRIT (BEAKER) (test code = 41.7 % 34.1-44.9 411) Food Service Ambassador ID - [id number], FLUORO, NON-SPECIFIC, UP TO 1 [id number] 17:35:00 Reason for exam:->Percutaneous LithotripsyFluoroscopic unit utilized for a procedure performed in the OR. No interpretation was requested. Refer to the operative report for findings. Refer to PACS for patient radiation dose information.FL fluoro non-specific up to 1 [id number] 17:35:00Interface, External Ris In - 11/19/2019 6:10 PM CDTFluoroscopic unit utilized for a procedure performed in the OR. No interpretation was requested. Refer to the operative report for findings. Referto PACS for patient radiation dose information.[facility] CenterPOCT , [id number] 14:34:00 Test Item Value Reference Range Interpretation Comments Test Urine, POC (test Negative code = 2637990) Control line present?, POC (test Yes code = 1960986) Background clear?, POC (test code Yes = 3392624) UPT Cassette Lot #, POC (test code ixe1222528 = 4594361) UPT Cassette Expiration Date, POC 2021-02-20 (test code = 3191332) [facility] CenterProthrombin time/[id number] 05:20:00 Test Item Value Reference Interpretation Comments Range Protime (test code = 13.2 See_Comment [Autom ated 2532-2) message] The system which generated this result transmitted reference range : 11.9 - 14.2 seconds. The reference range was not used to interpret this result as normal/abnormal . INR (test code = 1.03 See_Comment [Automated 8691-6) message] The system which generated this result transmitted reference range : <=5.90. The reference range was not used to interpret this result as normal/abnormal . SAPPHIRE (test code = Effective 08/19/2018: SAPPHIRE) PT Reference Range ChangeNew: 11.9-14.2 Previous: 11.7-14.7 RECOMMENDED COUMADIN/WARFARIN INR THERAPY RANGESSTANDARD DOSE: 2.0-3.0 Includes: PROPHYLAXIS for venous thrombosis, systemic embolization; TREATMENT for venous thrombosis and/or pulmonary embolus.HIGH RISK: Target INR is 2.5-3.5 for patients wiht mechanical heart valves. Lab Interpretation Normal (test code = 47720-8) [facility] CenterPROTHROMBIN TIME/[id number] 05:20:00 Test Item Value Reference Range Interpretation [...] INR is2.5-3.5 for patients wiht mechanical heart valves.[id number] 05:14:00 Test Item Value Reference Range Interpretation Comments PTT (test code = 15152-0) 31.8 See_Comment [ Automated message] The system [employer] generated this result transmitted ref erence range: 22.5 - 3 6.0 seconds. The re ference range was not u sed to interpret this result as normal/abnor mal. Lab Interpretation (test Normal code = 21974-6) [facility] CenterAPTT2020-08-28 05:14:00 Test Item Value Reference Range Interpretation Comments PARTIAL THROMBOPLASTIN TIME 31.8 seconds 22.5-36.0 (BEAKER) (test code = 760) Urine [id number] 12:38:00 Test Item Value Reference Range Interpretation Comments Result (test code = 6463-4) No growth [facility] CenterURINE [id number] 12:38:00 Test Item Value Reference Range Interpretation Comments CULTURE (BEAKER) (test code = 1095) No growth Type and screen, [id number] 07:07:00 Test Item Value Reference Range Interpretation Comments ABO/RH AUTOMATED (BEAKER) (test A POSITIVE code = 2260) Ab Scrn (test code = 890-4) NEGATIVE [facility] METABOLIC [id number] 06:53:00 Test Item Value Reference Range Interpretation [...] S NOT APPLICABLE FOR DIALYSIS PATIEN TS. Food Service Ambassador ID - NTPCBC with platelet count + automated [id number] 06:25:00 Test Item Value Reference Range Interpretation Comments WBC (test code = 6690-2) 6.8 See_Comment [A utomated message] The system [employer] generated this result transmitted ref erence range: 3.5 - 10 .5 K/L. The refe rence range was not u sed to interpret this result as normal/abnor mal. RBC (test code = 789-8) 4.10 See_Comment [Au tomated message] The system [employer] generated this result transmitted ref erence range: 3.93 - 5 .22 M/L. The refe rence range was not u sed to interpret this result as normal/abnor mal. MCHC (test code = 786-4) 31.5 See_Comment L [A utomated message] The system [employer] generated this result transmitted ref erence range: 32.2 - 3 5.5 GM/DL. The refe rence range was not u sed to interpret this result as normal/abnor mal. Hematocrit (test code = 36.2 % 34.1-44.9 4544-3) MCV (test code = 787-2) 88.3 fL 79.4-94.8 MCH (test code = 785-6) 27.8 pg 25.6-32.2 RDW (test code = 788-0) 13.2 % 11.7-14.4 Platelets (test code = 284 See_Comment [Aut omated message] 777-3) The system [employer] generated this result transmitted ref erence range: 150 - 45 0 K/CU MM. The referen ce range was not u sed to interpret this result as normal/abnor mal. MPV (test code = 9.5 fL 9.4-12.3 29690-9) nRBC (test code = 413) 0 See_Comment [Aut omated message] The system [employer] generated this result transmitted ref erence range: 0 - 0 /1 00 WBC. The refere nce range was not u sed to interpret this result as normal/abnor mal. % Neutros (test code = 54 % 429) % Lymphs (test code = 32 % 430) % Monos (test code = 10 % 431) % Eos (test code = 432) 3 % % Baso (test code = 437) 1 % # Neutros (test code = 3.66 See_Comment [Aut omated message] 670) The system [employer] generated this result transmitted ref erence range: 1.56 - 6 .13 K/L. The refe rence range was not u sed to interpret this result as normal/abnor mal. # Lymphs (test code = 2.21 See_Comment [Auto mated message] 414) The system [employer] generated this result transmitted ref erence range: 1.18 - 3 .74 K/L. The refe rence range was not u sed to interpret this result as normal/abnor mal. # Monos (test code = 0.67 See_Comment H [Autom ated message] 415) The system [employer] generated this result transmitted ref erence range: 0.24 - 0 .36 K/L. The refe rence range was not u sed to interpret this result as normal/abnor mal. # Eos (test code = 416) 0.23 See_Comment [Au tomated message] The system [employer] generated this result transmitted ref erence range: 0.04 - 0 .36 K/L. The refe rence range was not u sed to interpret this result as normal/abnor mal. # Baso (test code = 417) 0.05 See_Comment [A utomated message] The system [employer] generated this result transmitted ref erence range: 0.01 - 0 .08 K/L. The refe rence range was not u sed to interpret this result as normal/abnor mal. Immature 0 % 0-1 Granulocytes-Relative (test code = 2801) Lab Interpretation (test Abnormal code = 25571-7) [facility] W/PLT COUNT & AUTO [id number] 06:25:00 Test Item Value Reference Range Interpretation [...] (BEAKER) (test code = 2801) BASIC METABOLIC [id number] 05:53:00 Test Item Value Reference Range Interpretation [...] S NOT APPLICABLE FOR DIALYSIS PATIEN TS. Food Service Ambassador ID - PIAYA LCBC W/PLT COUNT & AUTO [id number] 05:18:00 Test Item Value Reference Range Interpretation [...] 417) IMMATURE GRANULOCYTES-RELATIVE 0 % 0-1 PERCENT (DICK) (test code = 2801) SARS-CoV2/RT-PCR (Asymptomatic ONLY)2019-11-16 17:16:00 Test Item Value Reference Range Interpretation Comments SARS-COV2/RT-PCR Negative Not Detected, (test code = Negative, See 07861-0) external report for linked test SARS-COV-2 [facility] PERFORM[facility] (test code = 90031-2) SAPPHIRE (test code = Negative result for [...] of the Act. Fact Sheet for Healthcare Providers:https://www.POS on CLOUD.Opara/sites/default/f raven/product/documents/F act_Sheet_HC_Providers_L cwx_RLFL-UaP-0.pdf Fact Sheet for Healthcare Patients:https://www.SnapTell.com/sites/default/fi les/product/documents/Fa ct_Sheet_Patients_Lyra_S ARS-CoV-2.pdf Performing Laboratory:[facility] [place] [address] [facility] ([facility] REF [facility])2019-11-16 17:16:00 Test Item Value Reference Range Interpretation Comments SARS-COV2/RT-PCR (test Negative Not Detected, Negative, code = 3404177) See external report for linked test SARS-COV-2 PERFORMING LAB [facility] (test code = 8554796) Negative result for this test determines that [...] 564(g) of the Act.Fact Sheet for Healthcare Providers:https://www.Xdynia.Opara/sites/default/files/product/documents/Fact_Shee d_CD_Cghomslwk_Sxcn_HSOV-GsR-1.pdfFact Sheet for Healthcare Patients:https://www.Xdynia.Opara/sites/default/files/product/ documents/Ycul_Dfltt_Lmeglspu_Dyfs_KWIY-VrX-0.pdfPerforming Laboratory:[facility], [place] [address]YJF, NEPHROSTOMY, PERC, EXTERNAL [id number] 12:32:00Reason for exam:->Left Obstructing Kidney Stone - Recommend Left PCN placementFINAL REPORT Fluoroscopic guided left nephrostomy tube placement. Clinical History: Left UPJ obstructing stone. Modality: Sonography and fluoroscopy Housing Installer: Dio Elmore MD. Safety Glass Installer: Luis Cobly. Sedation: Versed 3.5 mg and fentanyl 75 [...] soft tissue tract was dilated with 8 Mongolian dilators. A 8.5 Mongolian drainage catheter was placed into the left [...] MDReport Verified Date/Time: 11/16/2019 12:32:44 Reading Location: [place] [address] Angio Body Reading Room IR Percutaneous Nephrostomy - Ext. Drain Placement 2019-11-16 12:32:00Interface, External Ris In - 11/16/2019 12:34 PM CDTFINAL REPORT Fluoroscopic guided left nephrostomy tube placement. Clinical History: Left UPJ obstructing stone. Modality: Sonography and fluoroscopy Housing Installer: Dio Elmore MD. Safety Glass Installer: Luis Colby. Sedation: Versed 3.5 mg and [...] soft tissue tract was dilated with 8 Mongolian dilators. A 8.5 Mongolian drainage catheter wasplaced into the left renal [...] MDReport Verified Date/Time: 11/16/2019 12:32:44 Reading Location: [place] [address] Angio Body Reading Room [facility] [id number] 06:52:00 Test Item Value Reference Range Interpretation [...] S NOT APPLICABLE FOR DIALYSIS PATIEN TS. Food Service Ambassador ID - JACIEL WCBC W/PLT COUNT & AUTO [id number] 05:59:00 Test Item Value Reference Range Interpretation [...] (BEAKER) (test code = 2801) BASIC METABOLIC [id number] 22:02:00 Test Item Value Reference Range Interpretation [...] S NOT APPLICABLE FOR DIALYSIS PATIEN TS. Food Service Ambassador ID - [id number] 21:57:00 Test Item Value Reference Interpretation Comments Range Protime (test code = 14.5 See_Comment H [Autom ated 4002-2) message] The system which generated this result transmitted reference range : 11.9 - 14.2 seconds. The reference range was not used to interpret this result as normal/abnormal . INR (test code = 1.16 See_Comment [Automated 1881-6) message] The system which generated this result transmitted reference range : <=5.90. The reference range was not used to interpret this result as normal/abnormal . PTT (test code = 31.1 See_Comment [Automated 73050-7) message] The system which generated this result transmitted reference range : 22.5 - 36.0 seconds. The reference range was not used to interpret this result as normal/abnormal . SAPPHIRE (test code = Effective 08/19/2018: SAPPHIRE) PT Reference Range ChangeNew: 11.9-14.2 Previous: 11.7-14.7 RECOMMENDED COUMADIN/WARFARIN INR THERAPY RANGESSTANDARD DOSE: 2.0-3.0 Includes: PROPHYLAXIS for venous thrombosis, systemic embolization; TREATMENT for venous thrombosis and/or pulmonary embolus.HIGH RISK: Target INR is 2.5-3.5 for patients wiht mechanical heart valves. Lab Interpretation Abnormal (test code = 59596-4) [facility] Center[facility]/[id number] 21:57:00 Test Item Value Reference Range Interpretation [...] is2.5-3.5 for patients wiht mechanical heart valves.PROTHROMBIN TIME/[id number] 21:57:00 Test Item Value Reference Range Interpretation [...] is2.5-3.5 for patients wiht mechanical heart valves.ABORH, [id number] 21:54:00 Test Item Value Reference Range Interpretation Comments Rh Factor (test code = 2589) POS ABO Grouping (test code = 2588) A [facility] CenterPregnancy Screen, [id number] 21:46:00 Test Item Value Reference Range Interpretation Comments Preg Test, Ur (test code = 2112-1) Negative [facility], [id number] 21:46:00 Test Item Value Reference Range Interpretation Comments TEST URINE (BEAKER) (test Negative code = 583) CBC W/PLT COUNT & AUTO [id number] 21:41:00 Test Item Value Reference Range Interpretation [...]
[2020-07-03] MEDS ORDERED: CEFTRIAXONE/SWI 1gm 1 GM/10 ML SYR ONE (01:16)
[2020-07-03] MEDS ORDERED: MORPHINE 4 MG/ML SYR ONE (01:16)
[2020-07-03] MEDS ORDERED: LORazepam 2 MG/ML VIAL ONE (01:16)
[2020-07-03] MEDS ORDERED: NA CHLORIDE 0.9% 1,000 ML ONE (01:16)
[2020-07-03] MEDS ORDERED: ONDANSETRON 4 MG/2 ML VIAL ONE (01:16)
[2020-07-03 01:19] LABS: Absolute Lymphocytes (CBC) 2.4 K/uL (0.7-4.9); Basophils % 0.5 % (0-1.3); Hematocrit 41.2 % (36.0-45.0); MPV 7.7 fL (7.6-11.3); RBC Red Blood Cell Count 4.78 M/uL (3.86-4.86)
[2020-07-03 01:28] LABS: Albumin 3.6 g/dL (3.4-5.0); Bilirubin Direct 0.1 mg/dL (0-0.2); Bilirubin Total 0.4 mg/dL (0.2-1.0); Potassium 3.6 mmol/L (3.5-5.1); Protein, Total 7.6 g/dL (6.4-8.2)
[2020-07-03 02:48] LABS: Urine Blood Negative (Negative); Urine Glucose Negative (Negative); Urine Protein 1+ (Negative); Urine Specific Gravity >=1.030 (1.005-1.030)
[2020-07-03 02:58] LABS: Urine Bacteria <20 /HPF (<20)
[2020-07-03 02:59] LABS: Urine RBC NONE SEEN /HPF (NONE SEEN)
[2020-07-03 03:24] LABS: Urine Specific Gravity/Preg >1.030 (1.005-1.030)
--- NOTE | 2020-07-03 03:46 | ER ---
Nurse's Notes [facility] Name: Jagruti Hill Age: 25 yrs Sex: Female : 1995 Arrival Date: 07/03/2020 Time: 00:45 Bed 2 Private MD: Diagnosis: Cystitis, unspecified without hematuria-right pyelonephritis Presentation: 07/03 00:45 Chief complaint: EMS states: C/O low back pain, Pt states Hx of kidney stones and wh kidney infection. Coronavirus screen: Client denies travel out of the [place] in the last 14 days. nausea, Client presents with at least one sign or symptom that may indicate coronavirus-19. Ebola Screen: Patient negative for fever greater than or equal to 101.5 degrees Fahrenheit, and additional compatible Ebola Virus Disease symptoms Patient denies exposure to infectious person. Initial Sepsis Screen: Does the patient meet any 2 criteria? No. Patient's initial sepsis screen is negative. Does the patient have a suspected source of infection? No. Patient's initial sepsis screen is negative. Risk Assessment: Do you want to hurt yourself or someone else? Patient reports no desire to harm self or others. Onset of symptoms was July 03, 2020. 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 - Social history:: Patient/guardian denies using alcohol, street drugs, The patient lives with spouse, Smoking status: Patient/guardian denies using. Screenin:45 Abuse screen: Denies threats or abuse. Denies injuries from another. Nutritional screening: No deficits noted. Tuberculosis screening: No symptoms or risk factors identified. Fall Risk None identified. Assessment: 01:12 General: Appears in no apparent distress. uncomfortable, Behavior is crying. Pain: Complains of pain in right mid back Pain currently is 9 out of 10 on a pain scale. Neuro: Level of Consciousness is awake, alert, obeys commands, Oriented to person, place, time, situation, Appropriate for age. Cardiovascular: Capillary refill < 3 seconds. Respiratory: Airway is patent Respiratory effort is even, unlabored, Respiratory pattern is regular, symmetrical. GI: Abdomen is flat, non-distended. : No signs and/or symptoms were reported regarding the genitourinary system. EENT: No signs and/or symptoms were reported regarding the EENT system. Derm: Skin is intact, is healthy with good turgor, Skin is pink, warm \T\ dry. normal. Musculoskeletal: Circulation, motion, and sensation intact. 02:22 Reassessment: Patient appears in no apparent distress at this time. No changes from previously documented assessment. Patient and/or family updated on plan of care and expected duration. Pain level reassessed. Patient is alert, oriented x 3, equal unlabored respirations, skin warm/dry/pink. 03:30 Reassessment: Patient appears in no apparent distress at this time. Patient and/or family updated on plan of care and expected duration. Pain level reassessed. Patient is alert, oriented x 3, equal unlabored respirations, skin warm/dry/pink. Patient states feeling better. Patient states symptoms have improved. Vital Signs: 00:45 BP 110 / 78; Pulse 66; Resp 18; Temp 98.2; Pulse Ox 98% ; Weight 63.5 kg; Height 5 ft. 6 in. (167.64 cm); Pain 9/10; 02:22 BP 97 / 66; Pulse 59; Resp 18; Pulse Ox 99% on R/A; 03:30 BP 103 / 75; Pulse 86; Resp 18; Pulse Ox 99% on R/A; 00:45 Body Mass Index 22.60 (63.50 kg, 167.64 cm) ED Course: 00:45 Patient arrived in ED. mw2 00:45 Dieudonne Hart MD is Attending Physician. ma2 00:45 Haven Zapata, JED is Primary Nurse. 00:50 Patient has correct armband on for positive identification. Bed in low position. Call light in reach. Side rails up X 1. Pulse ox on. NIBP on. 00:50 Inserted saline lock: 20 gauge in right antecubital area, using aseptic technique. Blood collected. 01:11 Triage completed. 01:13 Arm band placed on right wrist. 03:10 CT Stone Protocol In Process Unspecified. EDSD 04:01 No provider procedures requiring assistance completed. IV discontinued, intact, bleeding controlled, No redness/swelling at site. Administered Medications: 00:56 Drug: NS 0.9% 1000 ml Route: IV; Rate: 1000 ml; Site: right antecubital; 01:59 Follow up: Response: No adverse reaction; IV Status: Completed infusion 00:58 Drug: morphine 4 mg Route: IVP; Site: right antecubital; 01:59 Follow up: Response: No adverse reaction; Pain is decreased; RASS: Alert and Calm (0) 01:00 Drug: Zofran (Ondansetron) 4 mg Route: IVP; Site: right antecubital; 01:59 Follow up: Response: No adverse reaction; Nausea is decreased 01:02 Drug: Ativan 1 mg {Note: RASS 0.} Route: IVP; Site: right antecubital; 01:58 Follow up: Response: No adverse reaction; Pain is decreased; RASS: Alert and Calm (0) 01:04 Drug: Rocephin (cefTRIAXone) 1 grams Route: IV; Rate: calculated rate; Site: right antecubital; :58 Follow up: Response: No adverse reaction; IV Status: Completed infusion Outcome: 03:46 Discharge ordered by MD. jin 04:01 Discharged to home via wheelchair, with family. 04:01 Condition: stable 04:01 Discharge instructions given to patient, family, Instructed on discharge instructions, follow up and referral plans. medication usage, POC Demonstrated understanding of instructions, follow-up care, medications, POC Prescriptions given X 2. 04:02 Patient left the ED. Signatures: Dispatcher [employer] EDMS Haven Zapata RN RN Dieudonne Hart MD MD ma2 Bhargavi Massey mw2
--- NOTE | 2020-07-03 03:47 | EDPHYS ---
Physician Documentation [facility] Name: Jagruti Hill Age: 25 yrs Sex: Female : 1995 Arrival Date: 07/03/2020 Time: 00:45 Bed 2 Private MD: ED Physician Dieudonne Hart HPI: 07/03 00:52 This 25 yrs old Female presents to ER via Unassigned with complaints of right ma2 flank pain. 00:52 The patient complains of pain in the right mid back. Onset: The symptoms/episode ma2 began/occurred gradually, 1 day(s) ago. Associated signs and symptoms: Pertinent negatives: dizziness, fever, headache, nausea. Severity of pain: At its worst the pain was moderate in the emergency department the pain is unchanged. The patient has experienced similar episodes in the past. 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 - Social history:: Patient/guardian denies using alcohol, street drugs, The patient lives with spouse, Smoking status: Patient/guardian denies using. ROS: 00:52 Constitutional: Negative for fever, chills, and weight loss. ma2 00:52 All other systems are negative. Exam: 00:52 Constitutional: This is a well developed, well nourished patient who is awake, alert, ma2 and in no acute distress. Chest/axilla: Normal chest wall appearance and motion. Nontender with no deformity. No lesions are appreciated. Cardiovascular: Regular rate and rhythm with a normal S1 and S2. No gallops, murmurs, or rubs. Normal PMI, no JVD. No pulse deficits. Respiratory: Lungs have equal breath sounds bilaterally, clear to auscultation and percussion. No rales, rhonchi or wheezes noted. No increased work of breathing, no retractions or nasal flaring. Abdomen/GI: Soft, non-tender, with normal bowel sounds. No distension or tympany. No guarding or rebound. No evidence of tenderness throughout. Back: no spinal tenderness. right costovertebral tenderness. Full range of motion. Skin: Warm, dry with normal turgor. Normal color with no rashes, no lesions, and no evidence of cellulitis. MS/ Extremity: Pulses equal, no cyanosis. Neurovascular intact. Full, normal range of motion. Vital Signs: 00:45 BP 110 / 78; Pulse 66; Resp 18; Temp 98.2; Pulse Ox 98% ; Weight 63.5 kg; Height 5 ft. wh 6 in. (167.64 cm); Pain 9/10; 02:22 BP 97 / 66; Pulse 59; Resp 18; Pulse Ox 99% on R/A; wh 03:30 BP 103 / 75; Pulse 86; Resp 18; Pulse Ox 99% on R/A; wh 00:45 Body Mass Index 22.60 (63.50 kg, 167.64 cm) MDM: 00:52 Patient medically screened. [facility] 00:52 Differential diagnosis: nephrolithiasis, pyelonephritis, UTI. [facility] 03:45 Data reviewed: vital signs, nurses notes. Counseling: I had a detailed discussion with [facility] the patient and/or guardian regarding: the historical points, exam findings, and any diagnostic results supporting the discharge/admit diagnosis, the presence of at least one elevated blood pressure reading (>120/80) during this emergency department visit, the need for outpatient follow up. Response to treatment: the patient's symptoms have markedly improved after treatment. 07/03 00:46 Order name: Basic Metabolic Panel; Complete Time: 01:52 [facility] 07/03 00:46 Order name: CBC with Diff; Complete Time: :52 la2 07/03 00:46 Order name: Hepatic Function; Complete Time: :52 la2 07/03 00:46 Order name: Lipase; Complete Time: :52 la2 07/03 00:46 Order name: Urine Microscopic Only; Complete Time: 03:40 ma2 07/03 02:48 Order name: Urine Dipstick-Ancillary; Complete Time: 03:40 EDMD 07/03 00:46 Order name: Urine Test (obtain specimen); Complete Time: 02:19 la2 07/03 00:46 Order name: CT Stone Protocol [facility] 07/03 02:49 Order name: Urine --Ancillary (enter results); Complete Time: 03:40 oe 04 00:46 Order name: IV Saline Lock; Complete Time: 00:53 ma2 07/03 00:46 Order name: NPO; Complete Time: 00:53 ma2 07/03 00:46 Order name: Urine Dipstick-Ancillary (obtain specimen); Complete Time: 02:19 ma2 Administered Medications: 00:56 Drug: NS 0.9% 1000 ml Route: IV; Rate: 1000 ml; Site: right antecubital; 01:59 Follow up: Response: No adverse reaction; IV Status: Completed infusion 00:58 Drug: morphine 4 mg Route: IVP; Site: right antecubital; 01:59 Follow up: Response: No adverse reaction; Pain is decreased; RASS: Alert and Calm (0) 01:00 Drug: Zofran (Ondansetron) 4 mg Route: IVP; Site: right antecubital; 01:59 Follow up: Response: No adverse reaction; Nausea is decreased 01:02 Drug: Ativan 1 mg {Note: RASS 0.} Route: IVP; Site: right antecubital; 01:58 Follow up: Response: No adverse reaction; Pain is decreased; RASS: Alert and Calm (0) 01:04 Drug: Rocephin (cefTRIAXone) 1 grams Route: IV; Rate: calculated rate; Site: right antecubital; 01:58 Follow up: Response: No adverse reaction; IV Status: Completed infusion Disposition: 07/03/20 03:46 Discharged to Home. Impression: Cystitis, unspecified without hematuria - right pyelonephritis. - Condition is Stable. - Discharge Instructions: Urinary Tract Infection, Adult. - Prescriptions for Diclofenac Sodium 75 mg Oral Tablet Sustained Release - take 1 tablet by ORAL route 2 times per day; 30 tablet. Bactrim DS 800- 160 mg Oral Tablet - take 1 tablet by ORAL route every 12 hours for 10 days; 20 tablet. - Medication Reconciliation Form, Thank You Letter, Antibiotic Education, Prescription Opioid Use form. - Follow up: Private Physician; When: Tomorrow; Reason: If symptoms return, Continuance of care. Signatures: Dispatcher [employer] Haven Garza RN RN Dieudonne Hart MD MD ma2 Corrections: (The following items were deleted from the chart) 04:02 03:46 07/03/2020 03:46 Discharged to Home. Impression: Cystitis, unspecified without wh hematuria - right pyelonephritis. Condition is Stable. Prescriptions for Flomax 0.4 mg Oral Capsule, Sust. Release 24 hr - take 1 capsule by ORAL route once daily 1/2 hour following the same meal each day; 30 capsule, Diclofenac Sodium 75 mg Oral Tablet Sustained Release - take 1 tablet by ORAL route 2 times per day; 30 tablet, Bactrim DS 800-160 mg Oral Tablet - take 1 tablet by ORAL route every 12 hours for 10 days; 20 tablet. and Forms are Medication Reconciliation Form, Thank You Letter, Antibiotic Education, Prescription Opioid Use. Follow up: Private Physician; When: Tomorrow; Reason: If symptoms return, Continuance of care. ma2
--- NOTE | 2020-07-03 12:42 | RAD REPORT ---
EXAM DESCRIPTION: CT - Stone Protocol - 07/03/2020 3:33 am CLINICAL HISTORY: The patient is 25 years old and is Female; FLANK PAIN TECHNIQUE: Axial computed tomography images of the abdomen and pelvis without intravenous contrast. Sagittal and coronal reformatted images were created and reviewed. This CT exam was performed usi ng one or more of the following dose reduction techniques: automated exposure control, adjustment o f the mA and/or kV according to patient size, and/or use of iterative reconstruction technique. COMPARISON: No relevant prior studies available. FINDINGS: Lung bases: Unremarkable. No mass. No consolidation. ABDOMEN: Liver: Unremarkable. Gallbladder and bile ducts: Unremarkable. No calcified stones. No ductal dilation. Pancreas: Unremarkable. No ductal dilation. Spleen: Unremarkable. No splenomegaly. Adrenals: Unremarkable. No mass. Kidneys and ureters: Unremarkable. No obstructing stones. No hydronephrosis. Stomach and bowel: Unremarkable. No obstruction. No mucosal thickening. PELVIS: Appendix: Evidence of prior appendectomy. Bladder: Unremarkable. No stones. Reproductive: IUD in the uterus. ABDOMEN and PELVIS: Intraperitoneal space: Unremarkable. No free air. No significant fluid collection. Bones/joints: No acute fracture. No dislocation. Soft tissues: Unremarkable. Vasculature: Unremarkable. No abdominal aortic aneurysm. Lymph nodes: Unremarkable. No enlarged lymph nodes. IMPRESSION: No acute findings in the abdomen or pelvis. Electronically signed by: Rhys Valdez MD 07/03/2020 3:26 AM CDT Due to temporary technical issues with the PACS/Fluency reporting system, reports are being signed by the in house radiologist without review as a courtesy to ensure prompt reporting. The interpreting r adiologist is fully responsible for the content of the report.
== END 2020-07-03 04:02 | disposition home or self-care (01) ==
LOC: ER 00:43
DX: N30.90 Cystitis, unspecified without hematuria (principal); N12 Tubulo-interstitial nephritis, not specified as acute or chronic; Z88.8 Allergy status to other drugs, medicaments and biological substances
CPT/HCPCS: 36415; 74176; 76377; 80048; 80076; 81003; 81015; 81025; 83690; 85025; 96365; 96375; 99284; J0696; J2405; J7030

== ENCOUNTER 2020-09-12 19:50 | Emergency (ER) | payer SELFPAY ==
--- OUTSIDE RECORDS SUMMARY | 2020-09-12 19:53 | XMS REPORT | Continuity of Care Document ---
:1995 Author Organization [facility] t Address [address] [place] [address] Care Team Providers Name Role Phone Rico ARMAS Attending Clinician RICO Attending Clinician Unavailable Grey ARMAS Attending Clinician Thee Ch MD Attending Clinician Augusta Hector MD Attending Clinician [phone] Jarret ARMAS, Cheikh Attending Clinician Keke [...] Disease Active C [facility]24 [facility] 00 Center Allergies, Adverse Reactions, Alerts This patient has no known allergies or adverse reactions. Social History Social Habit Start Date Stop Date Quantity Comments Source [facility] Std Drinks Medica l Center History [facility] - Alcohol Binge Medical Ivan [facility] Sex Assigned At [facility] Tobacco use and 2020-07-03 2020-07-03 Never used [facility] - exposure 00:00:00 00:00:00 [facility] Alcohol intake 2020-07-03 2020-07-03 [facility] - 00:00:00 00:00:00 non-drinker Medical Cente r (finding) History [facility] 2020-07-03 2020-07-03 1 [facility] - Alcohol Frequency 00:00:00 00:00:00 [facility] Smoking Status Start Date Stop Date Source Current every day smoker 2020-07-03 00:00:00 [facility] Medications Ordered Filled Start Stop Current Ordering Indication Dosage Frequency Signature Comments Components Source Medication Medication Date Date Medication? Clinician (SIG) Name Name levoFLOXaci 2020- No 500mg Take [address] [facility] [address] [facility] 9-16 04-12 mg by [facility] - (LEVAQUIN) 00:00: 00:00 mouth. Medi leny 500 MG 00 :00 [place] tablet oxybutynin Yes 10mg Take [address] (DITROPAN-X 9-15 by mouth. Ambar es - L) 10 MG 24 00:00: Medica l hr tablet 00 Center phenazopyri 2020- No 100mg Take [address] dine 9-15 04-12 mg by [facility] - (PYRIDIUM) 00:00: 00:00 mouth. Medi leny 100 MG 00 :00 Center tablet tamsulosin 2019- No .4mg QD Take [address] (FLOMAX) 11-19 09-28 capsule [facility] - 0.4 mg Cap 00:00: [...] Time Observation Value Comments Source Systolic blood 2020-07-03 18:12:00 141 mm[Hg] [facility] Diastolic blood 2020-07-03 18:12:00 86 mm[Hg] [facility] Heart rate 2020-07-03 18:12:00 116 /min [facility] Body temperature 2020-07-03 18:12:00 36.78 Shea [facility] Respiratory rate 2020-07-03 18:12:00 20 /min [facility] Body weight 2020-07-03 18:12:00 47.628 kg [facility] BMI 2020-07-03 18:12:00 16.95 kg/m2 [facility] Oxygen saturation in 2020-07-03 18:12:00 99 /min [facility] - Arterial blood by Medical Ce nter Pulse oximetry Body height 2019-11-18 14:00:00 167.6 cm [facility] Procedures Procedure Date / Time Performed Performing Clinician Sour e URINALYSIS W/ REFLEX 2020-07-03 18:27:00 [facility] SCREEN, URINE 2020-07-03 18:27[facility] V[facility]EV[facility], TROUGH 2019-11-19 21:50:[address] [facility] CT ABDOMEN/PELVIS 2019-11-19 20:20:00 Mayela [facility] - WITHOUT IV CONTRAST Medical Cent er BASIC METABOLIC PANEL 2019-11-19 18:45:00 [facility] (7) [facility] HEMOGLOBIN AND 2019-11-19 18:45:00 [facility] HEMATOCRIT [facility] TRANSFUSION SERVICE 2019-11-19 18:00:41 Provider, Default [facility] - REPORT - SCAN Scanning [facility] STONE ANALYSIS 2019-11-19 17:51:53 Toni Huang [facility] FL FLUORO NON-SPECIFIC 2019-11-19 17:35:00 Toni Huang [facility] - UP TO 1 HOUR [facility] POCT , URINE 2019-11-19 14:34:00 Adolph Saldivar [facility] LITHOTRIPSY,PERCUTANEOUS 2019-11-19 14:21:00 Toni Huang [facility] CYSTOSCOPY,INSERTION 2019-11-19 14:21:00 Toni Huang [facility] URETERAL STENTS [facility] PROCEDURE W/ C-ARM 2019-11-19 14:21:00 Toni Huang [facility] PROTHROMBIN TIME/INR 2019-11-19 04:13:00 Jocelynn Coello [facility] APTT 2019-11-19 04:13:00 Jocelynn Coello [facility] CBC W/PLT COUNT & AUTO 2019-11-18 06:05:00 Estrella Cunha [facility] BASIC METABOLIC PANEL 2019-11-18 06:04:00 Estrella Cunha [facility] () [facility] TYPE AND SCREEN, 2019-11-18 06:04:00 Jocelynn Coellole [facility] AUTOMATED [facility] CBC W/PLT COUNT & AUTO 2019-11-17 04:36:00 Estrella Cunha [facility] BASIC METABOLIC PANEL 2019-11-17 04:36:00 Estrella Cunha [facility] () [facility] URINE CULTURE 2019-11-16 18:48:00 Fatoumata Eric [facility] TRANSFUSION SERVICE 2019-11-16 18:22:24 ProviderQuita [facility] REPORT - SCAN Scanning [facility] IR PERCUTANEOUS 2019-11-16 11:17:00 KyleunromeontDelvis figueroa [facility] NEPHROSTOMY TUBE [facility] PLACEMENT CBC W/PLT COUNT & AUTO 2019-11-16 05:12:00 Estrella Cunha [facility] BASIC METABOLIC PANEL 2019-11-16 05:12:00 Estrella Cunha [facility] () [facility] ABORH, MANUAL 2019-11-15 21:36:00 Dorene Snow [facility] SARS-COV2/RT-PCR ([facility] & 2019-11-15 21:35:00 Estrella Cunha [facility] - REF LABS) [facility] SCREEN, URINE 2019-11-15 21:28:00 Estrella Cunha [facility] PT/APTT 2019-11-15 21:24:00 Estrella Cunha [facility] CBC W/PLT COUNT & AUTO 2019-11-15 21:24:00 Estrella Cunha [facility] BASIC METABOLIC PANEL 2019-11-15 21:24:00 Estrella Cunha [facility] () [facility] TYPE AND SCREEN, 2019-11-15 21:24:[address] [facility] - AUTOMATED Medical Center Plan of Care Planned Activity Planned Date Details Comments Source Future Scheduled 2025-01-03 DTAP/TDAP/TD VACCINES [facility] Test 00:00:00 (2 - Td) [code = Medical Ivan ter DTAP/TDAP/TD VACCINES (2 - Td)] Future Scheduled 2020-11-[address] [facility] - Test 00:00:00 (Season Ended) [code = Medic sc Center INFLUENZA VACCINE (Season Ended)] Future Scheduled 2020-03-[address] [facility] - Test 00:00:00 (12+) [code = Medical Center DEPRESSION SCREENING (12+)] Future Scheduled 2016-02-[address] [facility] - Test 00:00:00 malignant neoplasm of [facility] cervix (procedure) [code = 541988908] Future Scheduled [address] [facility] - Test 00:00:00 (procedure) [code = Medical Center 31111757] Future Scheduled 2013 HEPATITIS C SCRE[facility]ING [facility] Test 00:00:00 [code = HEPATITIS C Medical Center SCREENING] Future Scheduled [address] [facility] - Test 00:00:00 0-64 YRS (1 of 1 - Medical C enter PPSV23) [code = PNEUMOCOCCAL VACCINE 0-64 YRS (1 of 1 - PPSV23)] Encounters Start End Encounter Admission Attending Care Care Encounter Source Date/Time Date/Time Type Type Clinicians Facility Department ID 2018-11-19 2018-11-19 Emergency [facility] [id number] 16:42:19 18:58:00 Aubrey Holloway [id number] [place] [id number] [place] [id number] 2018-11-19 2018-11-19 Orders Doctor MARRERO [id number] 00:00:00 00:00:00 Only Unassigned, SAURABH [id number] [place] [facility] [id number] 2018-11-10 2018-11-10 Emergency [facility] [id number] 14:58:26 15:00:00 [place] [id number] [place] [id number] [place] [id number] Results Test Description Test Time Test Comments Results Result Comments Source Urinalysis w/Microscopic + Reflex to Culture 2020-07-03 18:4 0:00 Test Item Value Reference Range Interpretation Comme nts Color, UA (test code = Yellow 5778-6) Clarity, UA (test code = Slightly Cloudy 5767-9) Specific [place], UA (test 1.025 1.001-1.035 code = 5811-5) pH, UA (test code = 5803-2) 6.0 5.0-8.0 Protein, UA (test code = 30 mg/dL Negative A 37177-7) Glucose, UA (test code = 365) Negative Negative Ketones, UA (test code = 40 mg/dL Negative A 2514-8) Bilirubin, UA (test code = Negative Negative 98501-5) Blood, UA (test code = Negative Negative 13109-5) Nitrite, UA (test code = Negative Negative 5802-4) Leukocytes, UA (test code = Negative Negative 5799-2) Urobilinogen, UA (test code = 1.0 mg/dL 0.2-1 72006-1) Bacteria, UA (test code = Few 37804-4) Mucus (test code = 8247-9) Occasional RBC, UA (test code = 799-7) <5 See_Comment [Automated message] The system which ge nerated this result tra nsmitted reference range : /HPF. The reference range was not used to interpr et this result as sergio l/abnormal. WBC, UA (test code = 63737-3) 5-10 See_Comment [Automated message] The system which ge nerated this result tra nsmitted reference range : /HPF. The reference range was not used to interpr et this result as sergio l/abnormal. SQUAMOUS EPITHELIAL (test 10-20 See_Comment [ Automated message] The code = 95639-9) system which generated this result tra nsmitted reference range : /HPF. The reference range was not used to interpr et this result as sergio l/abnormal. Specimen Source (test code = 2795) Lab Interpretation (test code Abnormal = 74657-9) [facility] REFLEX URINE [id number] 18:40:00 Test Item Value Reference Range Interpretation Comments COLOR (BEAKER) (test code = Yellow 470) CLARITY (BEAKER) (test code = Slightly Cloudy 469) SPECIFIC GRAVITY UA (BEAKER) 1.025 1.001-1.035 (test code = 468) PH UA (BEAKER) (test code = 6.0 5.0-8.0 467) PROTEIN UA (BEAKER) (test 30 mg/dL Negative A code = 464) GLUCOSE UA (BEAKER) (test Negative Negative code = 365) KETONES UA (BEAKER) (test 40 mg/dL Negative A code = 371) BILIRUBIN UA (BEAKER) (test Negative Negative code = 462) BLOOD UA (BEAKER) (test code Negative Negative = 461) NITRITE UA (BEAKER) (test Negative Negative code = 465) LEUKOCYTE ESTERASE UA Negative Negative (BEAKER) (test code = 466) UROBILINOGEN UA (BEAKER) 1.0 mg/dL 0.2-1.0 (test code = 463) BACTERIA (BEAKER) (test code Few = 517) MUCUS (BEAKER) (test code = Occasional 1574) RBC UA-MANUAL (BEAKER) (test <5 /HPF code = 1659) WBC UA-MANUAL (BEAKER) (test 5-10 /HPF code = 1661) SQUAMOUS EPITHELIAL MANUAL 10-20 /HPF (BEAKER) (test code = 1663) SOURCE(BEAKER) (test code = 2795) Screen, [id number] 18:36:00 Test Item Value Reference Range Interpretation Comments Preg Test, Ur (test code = 2112-1) Negative [facility] S[facility], [id number] 18:36:00 Test Item Value Reference Range Interpretation Comments TEST URINE (BEAKER) (test Negative code = 583) STONE [id number] 10:22:00 Test Item Value Reference Range Interpretation Comments SPECIMEN STONE SOURCE(QUEST) (test code = 4205471) COMPONENT 1 See Below Cystine 80% (QUEST) (test Carbonate Apat ite code = 2863121) ([place]) 2 0% This test was developed and i ts analytical performance characteristics have been determined by [employer]. It has not been cl eared or approved by theA. This as say has been valida angie pursuant to the CLIA regulations and is used for clinic al purposes. COMPONENT 2 DNR (QUEST) (test code = 2498) Stone Weight 0.267 g (test code = 2654) SAPPHIRE (test code = Performing Lab SAPPHIRE) *KEL[employer]E [employer] [facility], [address] [place] [phone] Miquel Smith MD, PhD [facility] DiegoCT, [id number] 22:39:00Unlisted Reason for Exam - Click Yes [...] Date/Time: 11/19/2019 22:39:03 CT abdomen/pelvis without iv [id number] 22:39:00Interface, External Ris In - 11/19/2019 10:41 [...] Signed: Jean Driscolleport Verified Date/Time: 11/19/2019 22:39:03 [facility] Vancomycin level, [id number] 22:23:00 Test Item Value Reference Range Interpretation Comments Vancomycin Tr (test code = 18.2 ug/mL 10-20 4092-3) SAPPHIRE (test code = SAPPHIRE) [employer] Soft Sugar Operator ID - DB Lab Interpretation (test Normal code = 38701-1) [facility] Diego[facility]ANCOMYCIN LEVEL, [id number] 22:23:00 Test Item Value Reference Range Interpretation Comments VANCOMYCIN TROUGH (BEAKER) (test 18.2 ug/mL 10.0-20.0 code = 522) Head Soft Sugar Operator ID - DBBasic Metabolic [id number] 19:16:00 Test Item Value Reference Range Interpretation Comments Sodium (test code = 139 meq/L 706-517 6654-2) Potassium (test code = 4.0 meq/L 3.5-5.1 2823-3) Chloride (test code = 106 meq/L 98-107 5-0) CO2 (test code = 24 meq/L -29 8-9) BUN (test code = 6 mg/dL 7-21 L 3094-0) Creatinine (test code 0.79 mg/dL 0.57-1.25 = 2160-0) Glucose (test code = 143 mg/dL 70-105 H 2345-7) Calcium (test code = 8.9 mg/dL 8.4-10.2 28255-6) EGFR (test code = 89 mL/min/1.73 [place] [address]-7) NOT ACCURATE CREATININE CLEARANCE IN PREDICTING GLOMERULAR FILTRATION RATE . ESTIMATED GFR I S NOT APPLICABLE FOR DIALYSIS PATIENTS. SAPPHIRE (test code = SAPPHIRE) Head Soft Sugar Operator ID - NEREYDA B Lab Interpretation Abnormal (test code = 53965-4) [facility] Diego[facility]IC METABOLIC [id number] 19:16:00 Test Item Value Reference Range Interpretation [...] S NOT APPLICABLE FOR DIALYSIS PATIEN TS. Head Soft Sugar Operator ID - NEREYDA BHemoglobin and [id number] 18:58:00 Test Item Value Reference Range Interpretation Comments Hemoglobin (test code 13.3 See_Comment [Auto mated = 786-4) message] The system which generated this result transmit angie reference range : 11.2 - 15.7 GM/ DL. The reference range was not u sed to interpret th is result as normal/abnormal . Hematocrit (test code 41.7 % 34.1-44.9 = 4544-3) SAPPHIRE (test code = SAPPHIRE) Head Soft Sugar Operator ID - [id number] Lab Interpretation Normal (test code = 25657-5) [facility] DiegoHEMOGLOBIN AND [id number] 18:58:00 Test Item Value Reference Range Interpretation Comments HEMOGLOBIN (BEAKER) (test code = 13.3 GM/DL 11.2-15.7 410) HEMATOCRIT (BEAKER) (test code = 41.7 % 34.1-44.9 411) Head Soft Sugar Operator ID - [id number], FLUORO, NON-SPECIFIC, UP TO 1 [id number] 17:35:00 Reason for exam:->Percutaneous LithotripsyFluoroscopic unit utilized for a procedure performed in the OR. No interpretation was requested. Refer to the operative report for findings. Refer to PACS for patient radiation dose information.FL fluoro non-specific up to 1 [id number] 17:35:00Interface, External Ris In - 11/19/2019 6:10 PM CDTFluoroscopic unit utilized for a procedure performed in the OR. No interpretation was requested. Refer to the operative report for findings. Referto PACS for patient radiation dose information.[facility] DiegoPOCT , [id number] 14:34:00 Test Item Value Reference Range Interpretation Comments Test Urine, POC (test Negative code = 0599683) Control line present?, POC (test Yes code = 3779464) Background clear?, POC (test code Yes = 7100055) UPT Cassette Lot #, POC (test code [id number] = 9956790) UPT Cassette Expiration Date, POC 2021-02-20 (test code = 9913665) [facility] DiegoProthrombin time/[id number] 05:20:00 Test Item Value Reference Interpretation Comments Range Protime (test code = 13.2 See_Comment [Autom ated 5902-2) message] The system which generated this result transmitted reference range : 11.9 - 14.2 seconds. The reference range was not used to interpret this result as normal/abnormal . INR (test code = 1.03 See_Comment [Automated 6301-6) message] The system which generated this result [...] valves. Lab Interpretation Normal (test code = 43401-0) [facility] DiegoPROTHROMBIN TIME/[id number] 05:20:00 Test Item Value Reference Range Interpretation [...] INR is2.5-3.5 for patients wiht mechanical heart valves.[id number] 05:14:00 Test Item Value Reference Range Interpretation Comments PTT (test code = 19438-9) 31.8 See_Comment [ Automated message] The system [employer] generated this result transmitted ref erence range: 22.5 - 3 6.0 seconds. The re ference range was not u sed to interpret this result as normal/abnor mal. Lab Interpretation (test Normal code = 85463-9) [facility] DiegoAPTT2020-08-28 05:14:00 Test Item Value Reference Range Interpretation Comments PARTIAL THROMBOPLASTIN TIME 31.8 seconds 22.5-36.0 (BEAKER) (test code = 760) Urine [id number] 12:38:00 Test Item Value Reference Range Interpretation Comments Result (test code = 6463-4) No growth [facility] DiegoURINE [id number] 12:38:00 Test Item Value Reference Range Interpretation Comments CULTURE (BEAKER) (test code = 1095) No growth Type and screen, [id number] 07:07:00 Test Item Value Reference Range Interpretation Comments ABO/RH AUTOMATED (BEAKER) (test A POSITIVE code = 2260) Ab Scrn (test code = 890-4) NEGATIVE [facility] METABOLIC [id number] 06:53:00 Test Item Value Reference Range Interpretation [...] S NOT APPLICABLE FOR DIALYSIS PATIEN TS. Head Soft Sugar Operator ID - NTPCBC with platelet count + automated [id number] 06:25:00 Test Item Value Reference Range Interpretation Comments WBC (test code = 6690-2) 6.8 See_Comment [A utomated message] The system [employer] generated this result transmitted ref erence range: 3.5 - 10 .5 K/L. The refe rence range was not u sed to interpret this result as normal/abnor mal. RBC (test code = 789-8) 4.10 See_Comment [Au tomated message] The system [employer] generated this result transmitted ref erence range: 3.93 - 5 .22 M/L. The refe rence range was not u sed to interpret this result as normal/abnor mal. MCHC (test code = 786-4) 31.5 See_Comment L [A utomated message] The system [employer] generated this result transmitted ref erence range: [...] See_Comment [Aut omated message] 777-3) The system [employer] generated this result transmitted ref erence range: 150 - 45 0 K/CU MM. The referen ce range was not u sed to interpret this result as normal/abnor mal. MPV (test code = 9.5 fL 9.4-12.3 76685-7) nRBC (test code = 413) 0 See_Comment [Aut omated message] The system [employer] generated this result transmitted ref erence range: [...] See_Comment [Aut omated message] 670) The system [employer] generated this result transmitted ref erence range: 1.56 - 6 .13 K/L. The refe rence range was not u sed to interpret this result as normal/abnor mal. # Lymphs (test code = 2.21 See_Comment [Auto mated message] 414) The system [employer] generated this result transmitted ref erence range: 1.18 - 3 .74 K/L. The refe rence range was not u sed to interpret this result as normal/abnor mal. # Monos (test code = 0.67 See_Comment H [Autom ated message] 415) The system [employer] generated this result transmitted ref erence range: 0.24 - 0 .36 K/L. The refe rence range was not u sed to interpret this result as normal/abnor mal. # Eos (test code = 416) 0.23 See_Comment [Au tomated message] The system [employer] generated this result transmitted ref erence range: 0.04 - 0 .36 K/L. The refe rence range was not u sed to interpret this result as normal/abnor mal. # Baso (test code = 417) 0.05 See_Comment [A utomated message] The system [employer] generated this result transmitted ref erence range: 0.01 - 0 .08 K/L. The refe rence range was not u sed to interpret this result as normal/abnor mal. Immature 0 % 0-1 Granulocytes-Relative (test code = 2801) Lab Interpretation (test Abnormal code = 63549-7) [facility] W/PLT COUNT & AUTO [id number] 06:25:00 Test Item Value Reference Range Interpretation [...] (BEAKER) (test code = 2801) BASIC METABOLIC [id number] 05:53:00 Test Item Value Reference Range Interpretation [...] S NOT APPLICABLE FOR DIALYSIS PATIEN TS. Head Soft Sugar Operator ID - PIAYA LCBC W/PLT COUNT & AUTO [id number] 05:18:00 Test Item Value Reference Range Interpretation [...] Not Detected, (test code = Negative, See 06948-7) external report for linked test SARS-COV-2 [facility] PERFORMING LAB (test code = 51148-7) SAPPHIRE (test code = Negative result for [...] of the Act. Fact Sheet for Healthcare Providers:https://www.[employer] ideWeLab[employer]/sites/default/f raven/product/documents/F act_Sheet_HC_Providers_L kmz_AMJG-WjO-9.pdf Fact Sheet for Healthcare Patients:https://www.KeepIdeas.[employer]/sites/default/fi les/product/documents/Fa ct_Sheet_Patients_Lyra_S ARS-CoV-2.pdf Performing Laboratory:[place] [address] [place] [address] [facility])2019-11-16 17:16:00 Test Item Value Reference Range Interpretation Comments SARS-COV2/RT-PCR (test Negative Not Detected, Negative, code = 4116969) See external report for linked test SARS-COV-2 PERFORMING LAB [facility]ITA (test code = 3193196) Negative result for this test determines that [...] 564(g) of the Act.Fact Sheet for Healthcare Providers:https://www.[employer]/sites/default/files/product/documents/Fact_Shee q_EY_Lzoiuzcye_Egjc_PWED-QjD-0.pdfFact Sheet for Healthcare Patients:https://www.[employer].com/sites/default/files/product/ documents/Bydr_Zyitq_Zmjblrbb_Udoa_ODXR-EsX-6.pdfPerforming Laboratory:[facility], [place] [address]SDI, NEPHROSTOMY, PERC, EXTERNAL [id number] 12:32:00Reason for exam:->Left Obstructing Kidney Stone - Recommend Left PCN placementFINAL REPORT Fluoroscopic guided left nephrostomy tube placement. Clinical History: Left UPJ obstructing stone. Modality: Sonography and fluoroscopy Change Attendant: Dio Elmore MD. Loan Officer Assistant: Luis Colby. Sedation: Versed 3.5 mg and [...] soft tissue tract was dilated with 8 Sri Lankan dilators. A 8.5 Sri Lankan drainage catheter was placed into the left [...] MDReport Verified Date/Time: 11/16/2019 12:32:44 Reading Location: [place] [address] Angio Body Reading Room IR Percutaneous Nephrostomy - Ext. Drain Placement 2019-11-16 12:32:00Interface, External Ris In - 11/16/2019 12:34 PM CDTFINAL REPORT Fluoroscopic guided left nephrostomy tube placement. Clinical History: Left UPJ obstructing stone. Modality: Sonography and fluoroscopy Change Attendant: Dio Elmore MD. Loan Officer Assistant: Luis Colby. Sedation: Versed 3.5 mg and [...] soft tissue tract was dilated with 8 Sri Lankan dilators. A 8.5 [place]ankan drainage catheter wasplaced into the left renal [...] MDReport Verified Date/Time: 11/16/2019 12:32:44 Reading Location: [place] [id number] Angio Body Reading Room [facility] METABOLIC [id number] 06:52:00 Test Item Value Reference Range Interpretation [...] S NOT APPLICABLE FOR DIALYSIS PATIEN TS. Head Soft Sugar Operator ID - JACIEL WCBC W/PLT COUNT & AUTO [id number] 05:59:00 Test Item Value Reference Range Interpretation [...] (BEAKER) (test code = 2801) BASIC METABOLIC [id number] 22:02:00 Test Item Value Reference Range Interpretation Comments SODIUM (BEAKER) 136 meq/L 136-145 (test code = 381) POTASSIUM (BEAKER) 3.8 meq/L 3.5-5.1 (test code = 379) CHLORIDE (BEAKER) 104 meq/L 98-107 (test code = 382) CO2 (BEAKER) (test 23 meq/L - code = 355) BLOOD UREA NITROGEN 16 [...] S NOT APPLICABLE FOR DIALYSIS PATIEN TS. Head Soft Sugar Operator ID - DBPT/[id number] 21:57:00 Test Item Value Reference Interpretation Comments Range Protime (test code = 14.5 See_Comment H [Autom ated 1992-2) message] The system which generated this result transmitted reference range : 11.9 - 14.2 seconds. The reference range was not used to interpret this result as normal/abnormal . INR (test code = 1.16 See_Comment [Automated 1726-6) message] The system which generated this result transmitted reference range : <=5.90. The reference range was not used to interpret this result as normal/abnormal . PTT (test code = 31.1 See_Comment [Automated 47454-3) message] The system which generated this result [...] valves. Lab Interpretation Abnormal (test code = 32441-5) [id number]:57[facility]00 Test Item Value Reference Range Interpretation [...] is2.5-3.5 for patients wiht mechanical heart valves.PROTHROMBIN TIME/[id number] 21:57:00 Test Item Value Reference Range Interpretation [...] is2.5-3.5 for patients wiht mechanical heart valves.ABORH, [id number] 21:54:00 Test Item Value Reference Range Interpretation Comments Rh Factor (test code = 2589) POS ABO Grouping (test code = 2588) [facility] S[facility], [id number] 21:46:00 Test Item Value Reference Range Interpretation Comments TEST URINE (BEAKER) (test Negative code = 583) CBC W/PLT COUNT & AUTO [id number] 21:41:00 Test Item Value Reference Range Interpretation [...]
[2020-09-12 21:06] LABS: Urine Blood Negative (Negative); Urine Glucose Negative (Negative); Urine Protein Negative (Negative); Urine Specific Gravity 1.025 (1.005-1.030)
[2020-09-12] MEDS ORDERED: NA CHLORIDE 0.9% 1,000 ML ONE ×2 (21:09→22:21)
[2020-09-12] MEDS ORDERED: ONDANSETRON 4 MG/2 ML VIAL ONE (21:09)
[2020-09-12] MEDS ORDERED: MORPHINE 4 MG/ML SYR ONE ×2 (21:09→22:21)
[2020-09-12 21:26] LABS: Absolute Lymphocytes (CBC) 1.7 K/uL (0.7-4.9); Basophils % 0.2 % (0-1.3); MPV 8.4 fL (7.6-11.3); RBC Red Blood Cell Count 3.87 M/uL (3.86-4.86)
[2020-09-12 21:41] LABS: ALT/SGPT 31 U/L (12-78); AST/SGOT 15 U/L (15-37); Albumin 3.6 g/dL (3.4-5.0); Alkaline Phosphatase 51 U/L (45-117); BUN Blood Urea Nitrogen 13 mg/dL (7-18); Bicarbonate 26 mmol/L (21-32); Bilirubin Direct 0.1 mg/dL (0-0.2); Bilirubin Total 0.5 mg/dL (0.2-1.0); Glucose Level 96 mg/dL (74-106); Lipase 80 U/L (73-393); Potassium 3.7 mmol/L (3.5-5.1); Protein, Total 7.2 g/dL (6.4-8.2); Sodium Level 139 mmol/L (136-145)
[2020-09-12 22:10] LABS: Barbiturates NEGATIVE (NEGATIVE); Benzodiazepines NEGATIVE (NEGATIVE); Cocaine NEGATIVE (NEGATIVE); METHAMPHETAM NEGATIVE (NEGATIVE); Methadone NEGATIVE (NEGATIVE); Opiates NEGATIVE (NEGATIVE); Phencyclidine NEGATIVE (NEGATIVE); THC Cannibis NEGATIVE (NEGATIVE)
[2020-09-12 22:19] LABS: Urine Specific Gravity/Preg 1.025 (1.005-1.030)
[2020-09-12] MEDS ORDERED: CLINDAMYCIN 600MG/D5W 600 MG/50 ML BAG IV ONE (23:46)
[2020-09-12] MEDS ORDERED: KETOROLAC 30 MG/ML INJ ONE (23:46)
--- NOTE | 2020-09-13 00:29 | EDPHYS ---
Physician Documentation [facility] Name: Jagruti Hill Age: 25 yrs Sex: Female : 1995 Arrival Date: 09/12/2020 Time: 19:53 Bed 14 Private MD: ED Physician Sarmad Ochoa HPI: 09/12 22:00 This 25 yrs old Female presents to ER via EMS with complaints of Right Facial mh7 Pain. Abdominal Pain. 22:07 The patient presents with abdominal pain right lower quadrant. Onset: The mh7 symptoms/episode began/occurred 2 week(s) ago, Intermittent for 2-3 months. The symptoms radiate to the right flank. 22:08 Associated signs and symptoms: Pertinent positives: nausea, Pertinent negatives: mh7 anorexia, blood in stools, chest pain, constipation, diarrhea, dysuria, fever, headache, hematuria, palpitations, shortness of breath, vomiting, vomiting blood. The symptoms are described as intermittent, vague, waxing/waning. Modifying factors: The symptoms are alleviated by nothing, the symptoms are aggravated by movement. Severity of pain: At its worst the pain was moderate 4 day(s) ago, in the emergency department the pain is unchanged. Also states right facial pain and swelling that started yesterday. Denies any injuries.. [employer]: 20:10 LMP 08/13/2020 [facility] Historical: - Allergies: 20:10 Mirena; 8 - Home Meds: 20:10 Unable to obtain [Active]; 8 - PMHx: 20:10 Anxiety; cystinuria; Depression; Kidney stones; 8 - PSHx: 20:10 None; 8 - Immunization history:: Adult Immunizations up to date. - Social history:: Smoking status: unknown. ROS: 22:08 Constitutional: Negative for fever, chills, and weight loss, Eyes: Negative for injury, mh7 pain, redness, and discharge, Neck: Negative for injury, pain, and swelling, Cardiovascular: Negative for chest pain, palpitations, and edema, Respiratory: Negative for shortness of breath, cough, wheezing, and pleuritic chest pain, : Negative for injury, bleeding, discharge, and swelling, MS/Extremity: Negative for injury and deformity, Skin: Negative for injury, rash, and discoloration, Neuro: Negative for headache, weakness, numbness, tingling, and seizure, Psych: Negative for depression, anxiety, suicide ideation, homicidal ideation, and hallucinations, Allergy/Immunology: Negative for hives, rash, and allergies, Endocrine: Negative for neck swelling, polydipsia, polyuria, polyphagia, and marked weight changes, Hematologic/Lymphatic: Negative for swollen nodes, abnormal bleeding, and unusual bruising. Exam: 22:08 Constitutional: This is a well developed, well nourished patient who is awake, alert, mh7 and in no acute distress. 22:08 Eyes: Pupils equal round and reactive to light, extra-ocular motions intact. Lids and lashes normal. Conjunctiva and sclera are non-icteric and not injected. Cornea within normal limits. Periorbital areas with no swelling, redness, or edema. 22:08 Neck: Trachea midline, no thyromegaly or masses palpated, and no cervical lymphadenopathy. Supple, full range of motion without nuchal rigidity, or vertebral point tenderness. No Meningismus. Chest/axilla: Normal chest wall appearance and motion. Nontender with no deformity. No lesions are appreciated. 22:08 Respiratory: Lungs have equal breath sounds bilaterally, clear to auscultation and percussion. No rales, rhonchi or wheezes noted. No increased work of breathing, no retractions or nasal flaring. 22:08 Skin: Warm, dry with normal turgor. Normal color with no rashes, no lesions, and no evidence of cellulitis. MS/ Extremity: Pulses equal, no cyanosis. Neurovascular intact. Full, normal range of motion. Neuro: Awake and alert, GCS 15, oriented to person, place, time, and situation. Cranial nerves II-XII grossly intact. Motor strength 5/5 in all extremities. Sensory grossly intact. Cerebellar exam normal. Normal gait. Psych: Awake, alert, with orientation to person, place and time. Behavior, mood, and affect are within normal limits. 22:08 Head/face: Noted is swelling, that is mild, of the right cheek, tenderness, that is moderate, of the right cheek. 22:08 ENT: Mouth: is normal, Posterior pharynx: is normal, Dental exam: dental caries, that is moderate, specifically in the upper right second molar (#2) and upper right first molar (#3), Voice: is normal. 22:08 Cardiovascular: Rate: tachycardic, Rhythm: regular, Pulses: no pulse deficits are appreciated, Heart sounds: normal, normal S1and S2, Edema: is not appreciated, JVD: is not appreciated. 22:08 Abdomen/GI: Inspection: abdomen appears normal, Bowel sounds: normal, in all quadrants, Palpation: moderate abdominal tenderness, in the right lower quadrant, mass, is not appreciated, rebound tenderness, is not appreciated, voluntary guarding, is not appreciated, involuntary guarding, is not appreciated, no appreciated organomegaly, Rectal exam: the exam is deferred, because of patient request, Indicators: McBurney's point is not tender, Cannon's sign is negative, Rovsing's sign is negative, Obturator sign is negative, Psoas sign is negative, Liver: no appreciated palpable abnormalities, Hernia: not appreciated. 22:08 Back: normal spinal alignment noted, CVA tenderness, that is moderate, is noted on the right, muscle spasm, is not present. Vital Signs: 19:57 BP 122 / 85; Pulse 113; Resp 18; Temp 98.6; Pulse Ox 98% on R/A; Weight 65.77 kg; dh4 Height 5 ft. 6 in. (167.64 cm); 22:00 BP 126 / 100; Pulse 123; Resp 24; Pulse Ox 99% on R/A; jm8 23:00 BP 120 / 85; Pulse 105; Resp 16; Pulse Ox 100% on R/A; 09/13 00:08 BP 114 / 77; Pulse 109; Resp 16; Pulse Ox 100% on R/A; 8 01:23 BP 114 / 77; Pulse 102; Resp 16; Pulse Ox 100% on R/A; 09/12 19:57 Body Mass Index 23.40 (65.77 kg, 167.64 cm) 4 MDM: 00:24 Differential diagnosis: bowel obstruction, non-specific abd pain, pancreatitis, mh7 Pyelonephritis, Ureterolithiasis, urinary tract infection, Dental Abscess, Facial Cellulitis. Data reviewed: vital signs, nurses notes, old medical records, lab test result(s), CBC, electrolytes, urinalysis, UPT: negative radiologic studies, CT scan. Counseling: I had a detailed discussion with the patient and/or guardian regarding: the historical points, exam findings, and any diagnostic results supporting the discharge/admit diagnosis, lab results, radiology results, the need to transfer to another facility, [facility] does not immediately have the required specialist. Response to treatment: the patient's symptoms have markedly improved after treatment. 00:28 Patient medically screened. [facility] 09/12 20:43 Order name: Basic Metabolic Panel [facility] 09/12 20:43 Order name: CBC with Diff [facility] 09/12 20:43 Order name: Hepatic Function [facility] 09/12 20:43 Order name: Lipase [facility] 09/12 20:43 Order name: Blood Culture Adult (2) [facility] 09/12 21:06 Order name: Urine Dipstick-Ancillary; Complete Time: 21:56 EDMS 09/12 21:06 Order name: Urine --Ancillary (enter results) [facility] 09/12 21:27 Order name: CBC with Automated Diff; Complete Time: 21:56 EDMS 09/12 21:41 Order name: Basic Metabolic Panel; Complete Time: 22:25 EDMS 09/12 21:41 Order name: Liver (Hepatic) Function; Complete Time: 22:25 MS 09/12 21:41 Order name: Lipase; Complete Time: 22:25 EDMS 09/12 21:49 Order name: UDS [facility] 09/12 21:56 Order name: Salicylate [facility] 09/12 21:56 Order name: Acetaminophen [facility] 09/12 20:43 Order name: CT Facial Bones W/ Con \\T\\ Mpr [facility] 09/12 20:43 Order name: CT Abd/Pelvis - IV Contrast Only [facility] 09/12 22:10 Order name: Urine Drug Screen; Complete Time: 22:25 EDMS 09/12 22:15 Order name: Acetaminophen Level; Complete Time: 22:25 EDMS 09/12 22:20 Order name: Urine --Ancillary; Complete Time: 22:25 EDMS 09/12 22:29 Order name: Salicylates Level; Complete Time: 23:27 EDMS 09/13 00:56 Order name: COVID-19 : Document "Date of Symptom Onset" if Symptomatic. tt3 09/12 20:43 Order name: IV Saline Lock; Complete Time: 20:44 [facility] 09/12 20:43 Order name: Labs collected and sent; Complete Time: 21:07 [facility] 09/12 20:43 Order name: Urine Dipstick-Ancillary (obtain specimen); Complete Time: 21: [facility] 09/12 20:43 Order name: Urine Test (obtain specimen); Complete Time: 21: [facility] 09/13 00:39 Order name: NPO; Complete Time: 00:42 7 Administered Medications: 09/12 21:06 Drug: morphine 4 mg Route: IVP; Site: right antecubital; 8 22:11 Follow up: Response: No adverse reaction [facility] 21:06 Drug: Zofran (Ondansetron) 4 mg Route: IVP; Site: right antecubital; 8 22:10 Follow up: Response: No adverse reaction [facility] 21:07 Drug: NS 0.9% 1000 ml Route: IV; Rate: 1000 ml; Site: right antecubital; 8 22:11 Follow up: IV Status: Completed infusion [facility] 22:10 Drug: NS 0.9% 1000 ml Route: IV; Rate: 1 bolus; Site: right antecubital; [facility] 09/13 01:24 Follow up: IV Status: Completed infusion [facility] 09/12 22:10 Drug: morphine 4 mg Route: IVP; Site: right antecubital; [facility] 09/13 01:24 Follow up: Response: No adverse reaction [facility] 09/12 23:30 Drug: TORadol (ketorolac) 30 mg Route: IVP; Site: right antecubital; [facility] 09/13 01:23 Follow up: Response: No adverse reaction [facility] 09/12 23:31 Drug: Clindamycin 600 mg Route: IVPB; Infused Over: 30 mins; Site: right antecubital; [facility] 09/13 01:24 Follow up: Response: No adverse reaction; IV Status: Completed infusion [facility] 00:32 Drug: Unasyn (ampicillin-sulbactam) 3 grams Route: IVPB; Infused Over: 30 mins; Site: [facility] right antecubital; 01:24 Follow up: Response: No adverse reaction; IV Status: Completed infusion [facility] 01:14 Drug: Dilaudid (HYDROmorphone) 1 mg Route: IVP; Site: right antecubital; [facility] 01:23 Follow up: Response: No adverse reaction; Medication administered at discharge. jm8 Disposition: 09/13/20 00:28 Transfer ordered to [facility]. Diagnosis is Facial Abscess, Facial Cellulitis, Dental Abscess. - Reason for transfer: Higher level of care. - Accepting physician is Dr. Adams. - Condition is Stable. - Problem is new. - Symptoms have improved. Signatures: Dispatcher [employer] EDSarmad Denney MD MD 7 Bart Banda RN RN jm8 Corrections: (The following items were deleted from the chart) 09/12 22:01 21:59 This 25 yrs old Female presents to ER via EMS with complaints of Facial mh7 Swelling. Abdominal Pain. [facility] 09/13 01:25 00:28 09/13/2020 00:28 Transfer ordered to [facility]. Diagnosis is Facial Abscess, jm8 Facial Cellulitis, Dental Abscess. Reason for transfer: Higher level of care. Accepting physician is Dr. Adams. Condition is Stable. Problem is new. Symptoms have improved. [facility]
--- NOTE | 2020-09-13 00:29 | ER ---
Nurse's Notes [facility] Name: Jagruti Hill Age: 25 yrs Sex: Female : 1995 Arrival Date: 09/12/2020 Time: 19:53 Bed 14 Private MD: Diagnosis: Facial Abscess, Facial Cellulitis, Dental Abscess Presentation: 09/12 20:04 Chief complaint: EMS states: patient has been complaining of right sided facial jm8 swelling, itching in chest, and abdominal pain that radiates to the back. Has taken 24 aleve, 10 advil, and 4 tylenol in the past 24 hours. Coronavirus screen: Client denies travel out of the [place] in the last 14 days. At this time, the client does not indicate any symptoms associated with coronavirus-19. Ebola Screen: Patient negative for fever greater than or equal to 101.5 degrees Fahrenheit, and additional compatible Ebola Virus Disease symptoms Patient denies exposure to infectious person. Patient denies travel to an Ebola-affected area in the 21 days before illness onset. Initial Sepsis Screen: Does the patient meet any 2 criteria? No. Patient's initial sepsis screen is negative. Does the patient have a suspected source of infection? No. Patient's initial sepsis screen is negative. Risk Assessment: Do you want to hurt yourself or someone else? Patient reports no desire to harm self or others. Onset of symptoms was September 11, 2020. 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 - Social history:: Smoking status: unknown. Screenin:12 Abuse screen: Denies threats or abuse. Denies injuries from another. Nutritional [facility] screening: No deficits noted. Tuberculosis screening: No symptoms or risk factors identified. Fall Risk None identified. Assessment: 21:09 General: Appears in no apparent distress. comfortable, Behavior is calm, cooperative, 8 appropriate for age. Pain: Complains of pain in face and head Pain currently is 10 out of 10 on a pain scale. Noted to be grimacing, guarding, moaning, Also complains of no other associated symptoms. Neuro: No deficits noted. Level of Consciousness is awake, alert, obeys commands, Oriented to person, place, time. Neuro: Reports headache in entire. Cardiovascular: No deficits noted. Respiratory: No deficits noted. GI: No deficits noted. No signs and/or symptoms were reported involving the gastrointestinal system. : No deficits noted. No signs and/or symptoms were reported regarding the genitourinary system. EENT: No deficits noted. No signs and/or symptoms were reported regarding the EENT system. Derm: Skin is intact, is healthy with good turgor, Skin is dry, Skin is pink, warm \T\ dry. Skin temperature is warm right side facial swelling. Musculoskeletal: No deficits noted. No signs and/or symptoms reported regarding the musculoskeletal system. Vital Signs: 19:57 BP 122 / 85; Pulse 113; Resp 18; Temp 98.6; Pulse Ox 98% on R/A; Weight 65.77 kg; 4 Height 5 ft. 6 in. (167.64 cm); 22:00 BP 126 / 100; Pulse 123; Resp 24; Pulse Ox 99% on R/A; 8 23:00 BP 120 / 85; Pulse 105; Resp 16; Pulse Ox 100% on R/A; 8 09/13 00:08 BP 114 / 77; Pulse 109; Resp 16; Pulse Ox 100% on R/A; [facility] 01:23 BP 114 / 77; Pulse 102; Resp 16; Pulse Ox 100% on R/A; 8 09/12 19:57 Body Mass Index 23.40 (65.77 kg, 167.64 cm) [facility] ED Course: 09/12 19:53 Patient arrived in ED. bp1 19:56 Inserted saline lock: 20 gauge in right antecubital area, using aseptic technique. 4 Blood collected. 20:05 Sarmad Ochoa MD is Attending Physician. [facility] 20:09 Triage completed. 8 20:13 Patient has correct armband on for positive identification. Bed in low position. Call [facility] light in reach. Side rails up X2. 20:13 Arm band placed on right wrist. 8 23:32 Tried to initiate transfer at [facility] with Gilda Llanes. Was informed they do not have tt3 the services required that [facility] and [facility] have the services. 23:34 Initiated transfer at [facility] with Naldo Salazar. Stated he would pass tt3 information along and call back. 23:47 Naldo Salazar with [facility] called back and stated they would have to deny due to tt3 being on diversion. 23:48 Initiated transfer at [facility] with Irene. Stated she would do a capacity check and call tt3 back. Information passed on to Dr. Ochoa. 09/13 00:12 Irene with [facility] called back with their oral surgeon to speak with Dr. Ochoa regarding tt3 the transfer request. 00:32 Irene Shankar gave admin approval to Hayde Tolbert, RN, Charge Nurse. The accepting tt3 physician is Dr. Cruz. The pt is going to [facility] [id number]. Nurse to call report to . Face sheet and MOT faxed to per Irene's request. 01:25 No provider procedures requiring assistance completed. Patient transferred, IV remains [facility] in place. Administered Medications: 09/12 21:06 Drug: morphine 4 mg Route: IVP; Site: right antecubital; 8 22:11 Follow up: Response: No adverse reaction [facility] 21:06 Drug: Zofran (Ondansetron) 4 mg Route: IVP; Site: right antecubital; jm8 22:10 Follow up: Response: No adverse reaction 8 21:07 Drug: NS 0.9% 1000 ml Route: IV; Rate: 1000 ml; Site: right antecubital; jm8 22:11 Follow up: IV Status: Completed infusion 8 22:10 Drug: NS 0.9% 1000 ml Route: IV; Rate: 1 bolus; Site: right antecubital; 8 09/13 01:24 Follow up: IV Status: Completed infusion [facility] 09/12 22:10 Drug: morphine 4 mg Route: IVP; Site: right antecubital; 8 09/13 01:24 Follow up: Response: No adverse reaction [facility] 09/12 23:30 Drug: TORadol (ketorolac) 30 mg Route: IVP; Site: right antecubital; jm8 09/13 01:23 Follow up: Response: No adverse reaction 8 09/12 23:31 Drug: Clindamycin 600 mg Route: IVPB; Infused Over: 30 mins; Site: right antecubital; 8 09/13 01:24 Follow up: Response: No adverse reaction; IV Status: Completed infusion 8 00:32 Drug: Unasyn (ampicillin-sulbactam) 3 grams Route: IVPB; Infused Over: 30 mins; Site: 8 right antecubital; 01:24 Follow up: Response: No adverse reaction; IV Status: Completed infusion 8 01:14 Drug: Dilaudid (HYDROmorphone) 1 mg Route: IVP; Site: right antecubital; 8 01:23 Follow up: Response: No adverse reaction; Medication administered at discharge. jm8 Outcome: 00:28 ER care complete, transfer ordered by . 7 01:25 Transferred by ground EMS to [facility]. 8 01:25 Condition: good 01:25 Instructed on the need for transfer. 01:25 Patient left the ED. jm8 Signatures: Frank Brush dh4 Fabi Mathur Maurice, MD MD 7 Joao Mclaughlin tt3 Bart Banda RN RN jm8 Corrections: (The following items were deleted from the chart) 09/12 23:52 23:34 Naldo Salazar with [facility] called back and stated they would have to deny tt3 due to being on diversion. tt3 23:53 23:48 Called [facility] to initiate transfer with them. tt3 tt3 23:55 23:48 Called [facility] to initiate transfer with them. tt3 tt3
[2020-09-13] MEDS ORDERED: NA CHLORIDE 0.9% 100 ML ONE (00:43)
[2020-09-13] MEDS ORDERED: AMPICILLIN/SULBACTAM 3GM/VIAL ONE (00:43)
[2020-09-13] MEDS ORDERED: HYDROMORPHONE HCL 1 MG/ML INJ ONE (01:32)
[2020-09-13 01:52] VITALS: TEMP 98.6
[2020-09-13 01:54] VITALS: O2SAT 100
[2020-09-13 01:56] VITALS: BP 114/77
--- NOTE | 2020-09-13 14:28 | RAD REPORT ---
EXAM DESCRIPTION: CT ABDOMEN AND PELVIS WITH CONTRAST CLINICAL HISTORY: Abd pain;Flank pain COMPARISON: 07/03/2020 TECHNIQUE: CT of the abdomen and pelvis performed following IV administration of iodinated contras t.. This exam was performed according to our departmental dose-optimization program, which includes a utomated exposure control, adjustment of the mA and/or kV according to patient size and/or use of ite rative reconstruction technique. FINDINGS: Lung Bases: The visualized lung bases are clear. Bones: No destructive bone lesions identified. Abdomen: Liver: The liver has normal size and density. No intrahepatic biliary dilatation. Gallbladder: No calcified gallstones. Spleen, Pancreas, and Adrenal Glands: Calcified splenic granulomas. Pancreas and adrenal glands are unremarkable. Kidneys: No hydronephrosis or obstructing calculus. Vasculature: The aorta and IVC have normal caliber and position. Retroaortic left renal vein. The por germain vein is patent. The proximal visceral and renal arteries are patent. Stomach: The stomach and duodenum have normal course. Other: No free intraperitoneal air. Trace free fluid. Pelvis: Bladder: Urinary bladder is unremarkable. Bowel: No dilated loops of large or small bowel. Large amount stool. Appendix: Prior appendectomy. Pelvis: Uterus is not enlarged. IMPRESSION: 1. No acute inflammatory or obstructive process identified. Electronically signed by: Jori Real 09/12/2020 11:05 PM CDT Due to temporary technical issues with the PACS/Fluency reporting system, reports are being signed by the in house radiologists without review as a courtesy to insure prompt reporting. The interpreting radiologist is fully responsible for the content of the report.
--- NOTE | 2020-09-13 14:28 | RAD REPORT ---
EXAM DESCRIPTION: Facial Bones W Con Mpr CLINICAL HISTORY: Facial pain; Swelling COMPARISON: None available TECHNIQUE: Axial CT of the facial bone obtained without contrast. Coronal and sagittal reformatted i mages available. This exam was performed according to our departmental dose-optimization program, [facility] includes automated exposure control, adjustment of the mA and/or kV according to patient size and/ or use of iterative reconstruction technique. FINDINGS: Orbits: Orbital floors and tyson are intact. Intraorbital contents: The globes are intact. Extraocular muscles are symmetric. No intraconal fat st randing. Nasal bones: Intact. Maxilla: The maxillary hard palate is intact. Maxillary antral tyson are intact. Multiple dental graeme es and periapical lucencies of the maxillary teeth. Sinuses: Mild mucosal thickening of the ethmoid air cells and maxillary sinuses. Zygomatic processes: Intact Pterygoid plates: Intact Mandible: Intact. No mandibular condylar dislocation. Multiple dental caries of the mandibular teeth. Skull base/cervical spine: Visualized portions of the skull base and cervical spine are intact. Visua lized mastoid air cells are well aerated. No acute abnormalities identified in the visualized intracr anial contents. Subcutaneous soft tissues: Edema in the right facial soft tissues. There is a well-circumscribed flui d collection overlying the right anterior aspect of the maxilla at the level of the right maxillary i ncisors, canines, and right first premolar, measuring 1.8 x 1.0 x 0.9 cm. Neck soft tissues: No definite abnormality involving the nasopharynx, oropharynx, or hypopharynx. Fos sa of Rosenm[place]er are clear. Parotid glands and submandibular glands are unremarkable. Mildly promine nt cervical lymphadenopathy is likely reactive. IMPRESSION: 1. There is a 1.8 cm likely abscess overlying the anterior aspect of the right maxilla . Adjacent inflammatory change of the subcutaneous soft tissues of the right face compatible with danilo lulitis. 2. 2. Numerous dental caries and periapical lucency of the maxillary teeth. Numerous dental caries of the mandibular teeth. Electronically signed by: Jori Real 09/12/2020 11:14 PM CDT Due to temporary technical issues with the PACS/Fluency reporting system, reports are being signed by the in house radiologists without review as a courtesy to insure prompt reporting. The interpreting radiologist is fully responsible for the content of the report.
== END 2020-09-13 01:25 | disposition short-term general hospital (02) ==
LOC: ER 19:50
DX: K04.7 Periapical abscess without sinus (principal); L02.01 Cutaneous abscess of face; Z88.8 Allergy status to other drugs, medicaments and biological substances
CPT/HCPCS: 36415; 70487; 74177; 76377; 80048; 80076; 80307; 80329; 81003; 81025; 83690; 85025; 87040; 96361; 96365; 96375; 99285; J0295; J1170; J2405; J7030; Q9967

== ENCOUNTER 2020-09-20 22:58 | Emergency (ER) | payer SELFPAY ==
--- OUTSIDE RECORDS SUMMARY | 2020-09-20 23:04 | XMS REPORT | Continuity of Care Document ---
:1995 Author Organization [facility] t Address [address] [place] [address] Care Team Providers Name Role Phone Italian DMD, H Attending Clinician [place] Attending Clinician Ara Cruz DDS Attending Clinician Miquel Warner DDS Attending Clinician Rico ARMAS Attending Clinician RICO Attending Clinician Unavailable Grey ARMAS Attending Clinician Thee Ch MD Attending Clinician Augusta Hector MD Attending Clinician [phone] Cheikh Wheat MD Attending Clinician Keke Mi CRNA Attending Clinician Solo Huang MD Attending Clinician GREY Attending Clinician Unavailable Singer GUDINO Attending Clinician Doctor Unassigned, Name Attending Clinician Unavailable Ara Cruz DDS Admitting Clinician THEE CH Admitting Clinician Unavailable Problems Condition [...] Date Stop Date Quantity Comments Source [facility] Binge [facility] ter Sex Assigned At [facility] Tobacco use and 2020-07-03 2020-07-03 Never used [facility] - exposure 00:00:00 00:00:00 [facility] Alcohol intake 2020-07-03 2020-07-03 [facility]00 non-drinker [facility] (finding) History AKOH 2020-07-03 2020-07-[address] [facility] - Alcohol Frequency 00:00:00 00:00:00 [facility] Smoking Status Start Date Stop Date Source Current every day smoker 2020-07-03 00:00:00 [facility] Medications Ordered Filled Start Stop Current Ordering Indication Dosage Frequency Signature Comments Components Source Medication Medication Date Date Medication? Clinician (SIG) Name Name levoFLOXaci 2020- No 500mg Take [address] [facility] [facility] 9[facility]16 04-12 [facility] (LEVAQUIN) 00:00: 00:00 mouth. Medi leny 500 MG 00 :00 [place] tablet oxybutynin Yes 10mg Take 10 mg [...] Source Systolic blood 2020-07-03 18:12:00 141 mm[Hg] [facility] Diastolic blood 2020-07-03 18:12:00 86 mm[Hg] [facility] Heart rate 2020-07-03 18:12:00 116 /min [facility] Body temperature 2020-07-03 18:12:00 36.78 Shea [facility] Respiratory rate 2020-07-03 18:12:00 20 /min [facility] Body weight 2020-07-03 18:12:00 47.628 kg [facility] BMI 2020-07-03 18:12:00 16.95 kg/m2 [facility] Oxygen saturation in 2020-07-03 18:12:00 99 /min [facility] Arterial blood by Medical Ce nter Pulse oximetry Body height 2019-11-18 14:00:00 167.6 cm [facility] Procedures Procedure Date / Time Performed Performing Clinician Sour e URINALYSIS W/ REFLEX 2020-07-03 18:27:00 Rico [facility] URINE CULTURE [facility] SCREEN, URINE 2020-07-03 18:27:00 Rico [facility] VANCOMYCIN LEVEL, TROUGH 2019-11-19 21:50:00 [facility]BD[facility]EN[facility]PELVIS 2019-11-19 20:[facility]00 [facility] - WITHOUT IV CONTRAST Medical Cent er BASIC METABOLIC PANEL 2019-11-19 18:45:00 [facility] (7) [facility] HEMOGLOBIN AND 2019-11-19 18:45:00 [facility] HEMATOCRIT [facility] TRANSFUSION SERVICE 2019-11-19 18:00:41 Provider, Default [facility] - REPORT - SCAN Scanning [facility] STONE ANALYSIS 2019-11-19 17:51:53 Toni Huang [facility] [place] FLUORO NON-SPECIFIC 2019-11-19 17:35:00 Toni Huang [facility] - UP TO 1 HOUR [facility] POCT , URINE 2019-11-19 14:34:00 Adolph Saldivar [facility] LITHOTRIPSY,PERCUTANEOUS 2019-11-19 14:21:00 Toni Huang [facility] CYSTOSCOPY,INSERTION 2019-11-19 14:21:00 Toni Huang [facility] URETERAL STENTS [facility] PROCEDURE W/ C-ARM 2019-11-19 14:21:00 Toni Huang [facility] PROTHROMBIN TIME/INR 2019-11-19 04:13:00 Nickie Coellona Jessica [facility] APTT 2019-11-19 04:13:00 Jocelynn Coello [facility] CBC W/PLT COUNT & AUTO 2019-11-18 06:05:00 Estrella Cunha [facility] BASIC METABOLIC PANEL 2019-11-18 06:04:[address] [facility] (7) [facility] TYPE AND SCREEN, 2019-11-18 06:04:00 Jocelynn Coello [facility] AUTOMATED [facility] CBC W/PLT COUNT & AUTO 2019-11-17 04:36:00 Estrella Cunha [facility] BASIC METABOLIC PANEL 2019-11-17 04:36:[address] [facility] () [facility] URINE CULTURE 2019-11-16 18:48:00 PopFatoumata mei [facility] TRANSFUSION SERVICE 2019-11-16 18:22:24 ProvideruQita [facility] - REPORT - SCAN Scanning [facility] IR PERCUTANEOUS 2019-11-16 11:17:00 CivuniguntDelvis figueroa [facility] NEPHROSTOMY TUBE [facility] PLACEMENT CBC W/PLT COUNT & AUTO 2019-11-16 05:12:00 Estrella Cunha [facility] BASIC METABOLIC PANEL 2019-11-16 05:12:[address] [facility] (7) [facility] ABORH, MANUAL 2019-11-15 21:36:00 Dorene Snow [facility] SARS-COV2/RT-PCR ([facility] & 2019-11-15 21:35:00 Estrella Cunha [facility] - REF LABS) [facility] SCREEN, URINE 2019-11-15 21:28:00 Estrella Cunha [facility] PT/APTT 2019-11-15 21:24:00 Estrella Cunha [facility] CBC W/PLT COUNT & AUTO 2019-11-15 21:24:00 Estrella Cunha [facility] DIFFERENTIAL [facility] BASIC METABOLIC PANEL 2019-11-15 21:24:[address] [facility] - (7) Medical Center TYPE AND SCREEN, 2019-11-15 21:24:00 Estrella Cunha [facility] AUTOMATED [facility] Plan of Care Planned Activity Planned Date Details Comments Source Future Scheduled 2025-01-03 DTAP/TDAP/TD VACCINES [facility] Test 00:[facility]00 (2 - Td) [code = [facility] DTAP/TDAP/TD VACCINES (2 - Td)] Future Scheduled 2020-11-[address] [facility] - Test 00:00:00 (Season Ended) [code = [facility] INFLUENZA VACCINE (Season Ended)] Future Scheduled 2020-03-[address] [facility] - Test 00:00:00 (12+) [code = [facility] DEPRESSION SCREENING (12+)] Future Scheduled 2016-02-[address] [facility] - Test 00:00:00 malignant neoplasm of [facility] cervix (procedure) [code = 241408350] Future Scheduled [address] - Test 00:00:00 (procedure) [code = [facility] 76896913] Future Scheduled 2013 HEPATITIS C SCRE[facility]ING [facility] Test 00:00:00 [code = HEPATITIS C [facility] SCREENING] Future Scheduled [address] [facility] - Test 00:00:00 0-64 YRS (1 of 1 - Medical C enter PPSV23) [code = PNEUMOCOCCAL VACCINE 0-64 YRS (1 of 1 - PPSV23)] Encounters Start End Encounter Admission Attending Care Care Encounter Source Date/Time Date/Time Type Type Clinicians Facility Department ID 2020-09-16 2020-09-16 ELIDA Elizabeth [id number] 00:00:00 00:00:00 Management Jori WILEY [id number] H [facility] [id number] [id number] 2020-09-15 2020-09-15 Transition Linda Perry [id number] 00:00:00 00:00:00 of Care Ness Cordova [id number] [place] 4.2.7.2.686 [id number] 2020-09-13 2020-09-14 [facility] Easton Cruz 1.2.84 0.114 [id number] 02:26:00 09:58:00 Encounter Leonel Warner 350.1.13.[address] [id number] 2020-09-13 2020-09-13 Surgery Dee [id number] 13:30:00 15:01:00 [place] 350[address]1.13.[address]686 [id number] 2018-11-19 2018-11-19 Emergency [facility] [id number] 16:42:19 18:58:00 Aubrey Holloway 350.1.13.10 [place] [address].2.7.2.686 [place] [id number] 2018-11-19 2018-11-19 Orders Doctor ELIDA [id number] 00:00:00 00:00:00 Only Unassigned, SAURABH 350.1.13.10 [place] [address]686 [id number] 2018-11-10 2018-11-10 Emergency [facility] [id number] 14:58:26 15:00:00 Amie [address].1.13.[address]686 [place] [id number] [id number] Results Test Description Test Time Test Comments Results Result Comments Source Urinalysis w/Microscopic + Reflex to Culture 2020-07-03 18:4 0:00 Test Item Value Reference Range Interpretation Comme nts Color, UA (test code = Yellow 5778-6) Clarity, UA (test code = Slightly Cloudy 5767-9) Specific Corona, UA (test 1.025 1.001-1.035 code = 5811-5) pH, UA (test code = 5803-2) 6.0 5.0-8.0 Protein, UA (test code = 30 mg/dL Negative A 22437-3) Glucose, UA (test code = 365) Negative Negative Ketones, UA (test code = 40 mg/dL Negative A 2514-8) Bilirubin, UA (test code = Negative Negative 47760-2) Blood, UA (test code = Negative Negative 25009-8) Nitrite, UA (test code = Negative Negative 5802-4) Leukocytes, UA (test code = Negative Negative 5799-2) Urobilinogen, UA (test code = 1.0 mg/dL 0.2-1 58350-7) Bacteria, UA (test code = Few 90737-8) Mucus (test code = 8247-9) Occasional RBC, UA (test code = 799-7) <5 See_Comment [Automated message] The system which ge nerated this result tra nsmitted reference range : /HPF. The reference range was not used to interpr et this result as sergio l/abnormal. WBC, UA (test code = 96667-5) 5-10 See_Comment [Automated message] The system which ge nerated this result tra nsmitted reference range : /HPF. The reference range was not used to interpr et this result as sergio l/abnormal. SQUAMOUS EPITHELIAL (test 10-20 See_Comment [ Automated message] The code = 48260-9) system which generated this result tra nsmitted reference range : /HPF. The reference range was not used to interpr et this result as sergio l/abnormal. Specimen Source (test code = 2795) Lab Interpretation (test code Abnormal = 64847-6) [facility] REFLEX URINE [id number] 18:40:00 Test Item Value Reference Range Interpretation [...] 1663) SOURCE(BEAKER) (test code = 2795) Screen, [id number] 18:36:00 Test Item Value Reference Range Interpretation Comments Preg Test, Ur (test code = 2112-1) Negative [facility] [id number] 18:36:00 Test Item Value Reference Range Interpretation Comments TEST URINE (BEAKER) (test Negative code = 583) STONE [id number] 10:22:00 Test Item Value Reference Range Interpretation Comments SPECIMEN STONE SOURCE(QUEST) (test code = 1342482) COMPONENT 1 See Below Cystine 80% (QUEST) (test Carbonate Apat ite code = 3278644) ([place]ahllite) 2 0% This test was developed and i ts analytical performance characteristics have been determined by [employer]. It has not been cl eared or approved by theA. This as say has been valida angie pursuant to the CLIA regulations and is used for clinic al purposes. COMPONENT 2 DNR (QUEST) (test code = 2498) Stone Weight 0.267 g (test code = 2654) SAPPHIRE (test code = Performing Lab SAPPHIRE) *[facility] [employer] [facility], [address] [place] [phone] Miqeul Smith MD, PhD [facility] HospitalCT, [id number] 22:39:00Unlisted Reason for Exam - Click Yes [...] Date/Time: 11/19/2019 22:39:03 CT abdomen/pelvis without iv [id number] 22:39:00Interface, External Ris In - 11/19/2019 10:41 [...] Cunha at 10:35 PM 11/19/2019. Signed: Jean Driscollort Verified Date/Time: 11/19/2019 22:39:03 [facility] Vancomycin level, [id number] 22:23:00 Test Item Value Reference Range Interpretation Comments Vancomycin Tr (test code = 18.2 ug/mL 10-20 4092-3) SAPPHIRE (test code = SAPPHIRE) Ironing Machine Operator ID - DB Lab Interpretation (test Normal code = 35099-2) [facility] HospitalVANCOMYCIN LEVEL, [id number] 22:23:00 Test Item Value Reference Range Interpretation Comments VANCOMYCIN TROUGH (BEAKER) (test 18.2 ug/mL 10.0-20.0 code = 522) Ironing Machine Operator ID - DBBasic Metabolic [id number] 19:16:00 Test Item Value Reference Range Interpretation Comments Sodium (test code = 139 meq/L 872-210 9735-2) Potassium (test code = 4.0 meq/L 3.5-5.1 2823-3) Chloride (test code = 106 meq/L 98-107 2075-0) CO2 (test code = 24 meq/L 22-29 2028-9) BUN (test code = 6 mg/dL 7-21 L 3094-0) Creatinine (test code 0.79 mg/dL 0.57-1.25 = 2160-0) Glucose (test code = 143 mg/dL 70-105 H 2345-7) Calcium (test code = 8.9 mg/dL 8.4-10.2 40940-8) EGFR (test code = 89 mL/min/1.73 [place] [address]-7) NOT ACCURATE CREATININE CLEARANCE IN PREDICTING GLOMERULAR FILTRATION RATE . ESTIMATED GFR I S NOT APPLICABLE FOR DIALYSIS PATIENTS. SAPPHIRE (test code = SAPPHIRE) Ironing Machine Operator ID - NEREYDA B Lab Interpretation Abnormal (test code = 30743-9) [facility] HospitalBASIC METABOLIC [id number] 19:16:00 Test Item Value Reference Range Interpretation [...] S NOT APPLICABLE FOR DIALYSIS PATIEN TS. Ironing Machine Operator ID - NEREYDA BHemoglobin and [id number] 18:58:00 Test Item Value Reference Range Interpretation Comments Hemoglobin (test code 13.3 See_Comment [Auto mated = 786-4) message] The system which generated this result transmit angie reference range : 11.2 - 15.7 GM/ DL. The reference range was not u sed to interpret th is result as normal/abnormal . Hematocrit (test code 41.7 % 34.1-44.9 = 4544-3) SAPPHIRE (test code = SAPPHIRE) Ironing Machine Operator ID - [id number] Lab Interpretation Normal (test code = 95094-5) [facility] HospitalHEMOGLOBIN AND [id number] 18:58:00 Test Item Value Reference Range Interpretation Comments HEMOGLOBIN (BEAKER) (test code = 13.3 GM/DL 11.2-15.7 410) HEMATOCRIT (BEAKER) (test code = 41.7 % 34.1-44.9 411) Ironing Machine Operator ID - [id number], FLUORO, NON-SPECIFIC, UP TO 1 [id number] 17:35:00 Reason for exam:->Percutaneous LithotripsyFluoroscopic unit utilized for a procedure performed in the OR. No interpretation was requested. Refer to the operative report for findings. Refer to PACS for patient radiation dose information.FL fluoro non-specific up to 1 [id number] 17:35:00Interface, External Ris In - 11/19/2019 6:10 PM CDTFluoroscopic unit utilized for a procedure performed in the OR. No interpretation was requested. Refer to the operative report for findings. Referto PACS for patient radiation dose information.[facility] HospitalPOCT , [id number] 14:34:00 Test Item Value Reference Range Interpretation Comments Test Urine, POC (test Negative code = 3082716) Control line present?, POC (test Yes code = 0713748) Background clear?, POC (test code Yes = 6737948) UPT Cassette Lot #, POC (test code tbl1979210 = 3254875) UPT Cassette Expiration Date, POC 2021-02-20 (test code = 9587442) [facility] HospitalProthrombin time/[id number] 05:20:00 Test Item Value Reference Interpretation Comments [...] valves. Lab Interpretation Normal (test code = 47465-8) [facility] HospitalPROTHROMBIN TIME/[id number] 05:20:00 Test Item Value Reference Range Interpretation [...] INR is2.5-3.5 for patients wiht mechanical heart valves.[id number] 05:14:00 Test Item Value Reference Range Interpretation Comments PTT (test code = 16788-0) 31.8 See_Comment [ Automated message] The system [employer] generated this result transmitted ref erence range: 22.5 - 3 6.0 seconds. The re ference range was not u sed to interpret this result as normal/abnor mal. Lab Interpretation (test Normal code = 65981-1) [facility] HospitalAPTT2020-08-28 05:14:00 Test Item Value Reference Range Interpretation Comments PARTIAL THROMBOPLASTIN TIME 31.8 seconds 22.5-36.0 (BEAKER) (test code = 760) Urine [id number] 12:38:00 Test Item Value Reference Range Interpretation Comments Result (test code = 6463-4) No growth [facility] HospitalURINE [id number] 12:38:00 Test Item Value Reference Range Interpretation Comments CULTURE (BEAKER) (test code = 1095) No growth Type and screen, [id number] 07:07:00 Test Item Value Reference Range Interpretation Comments ABO/RH AUTOMATED (BEAKER) (test A POSITIVE code = 2260) Ab Scrn (test code = 890-4) NEGATIVE [facility] HospitalBASIC METABOLIC [id number] 06:53:00 Test Item Value Reference Range Interpretation Comments SODIUM (BEAKER) 139 meq/L 136-145 (test code = 381) POTASSIUM (BEAKER) 4.0 meq/L 3.5-5.1 (test code = 379) CHLORIDE (BEAKER) 106 meq/L 98-107 (test code = 382) CO2 (BEAKER) (test 28 meq/L code = 355) BLOOD UREA NITROGEN 6 [...] S NOT APPLICABLE FOR DIALYSIS PATIEN TS. Ironing Machine Operator ID - NTPCBC with platelet count + automated [id number] 06:25:00 Test Item Value Reference Range Interpretation Comments WBC (test code = 6690-2) 6.8 See_Comment [A utomated message] The system [employer] generated this result transmitted ref erence range: 3.5 - 10 .5 K/L. The refe rence range was not u sed to interpret this result as normal/abnor mal. RBC (test code = 789-8) 4.10 See_Comment [Au tomated message] The system Enjo[employer] generated this result transmitted ref erence range: 3.93 - 5 .22 M/L. The refe rence range was not u sed to interpret this result as normal/abnor mal. MCHC (test code = 786-4) 31.5 See_Comment L [A utomated message] The system Enjo[employer] generated this result transmitted ref erence range: [...] code = 284 See_Comment [Aut omated message] 027-3) The system [employer]jo[employer] generated this result transmitted ref erence range: 150 - 45 0 K/CU MM. The referen ce range was not u sed to interpret this result as normal/abnor mal. MPV (test code = 9.5 fL 9.4-12.3 98430-1) nRBC (test code = 413) 0 See_Comment [Aut omated message] The system [employer] generated this result transmitted ref erence range: [...] See_Comment [Aut omated message] 670) The system Enjo[employer] generated this result transmitted ref erence range: 1.56 - 6 .13 K/L. The refe rence range was not u sed to interpret this result as normal/abnor mal. # Lymphs (test code = 2.21 See_Comment [Auto mated message] 414) The system [employer] generated this result transmitted ref erence range: 1.18 - 3 .74 K/L. The refe rence range was not u sed to interpret this result as normal/abnor mal. # Monos (test code = 0.67 See_Comment H [Autom ated message] 415) The system Enjo[employer] generated this result transmitted ref erence range: 0.24 - 0 .36 K/L. The refe rence range was not u sed to interpret this result as normal/abnor mal. # Eos (test code = 416) 0.23 See_Comment [Au tomated message] The system Enjo[employer] generated this result transmitted ref erence range: 0.04 - 0 .36 K/L. The refe rence range was not u sed to interpret this result as normal/abnor mal. # Baso (test code = 417) 0.05 See_Comment [A utomated message] The system Enjo[employer] generated this result transmitted ref erence range: 0.01 - 0 .08 K/L. The refe rence range was not u sed to interpret this result as normal/abnor mal. Immature 0 % 0-1 Granulocytes-Relative (test code = 2801) Lab Interpretation (test Abnormal code = 62638-8) [facility] W/PLT COUNT & AUTO [id number] 06:25:00 Test Item Value Reference Range Interpretation [...] (BEAKER) (test code = 2801) BASIC METABOLIC [id number] 05:53:00 Test Item Value Reference Range Interpretation [...] S NOT APPLICABLE FOR DIALYSIS PATIEN TS. Ironing Machine Operator ID - PIAYA LCBC W/PLT COUNT & AUTO [id number] 05:18:00 Test Item Value Reference Range Interpretation [...] Not Detected, (test code = Negative, See 93541-6) external report for linked test SARS-COV-2 [facility] PERFORMING LAB (test code = 78287-6) SAPPHIRE (test code = Negative result for [...] of the Act. Fact Sheet for Healthcare Providers:https://www.[employer]/sites/default/f raven/product/documents/F act_Sheet_HC_Providers_L okj_TFVJ-HdV-6.pdf Fact Sheet for Healthcare Patients:https://www.[employer]/sites/default/fi les/product/documents/Fa ct_Sheet_Patients_Lyra_S ARS-CoV-2.pdf Performing Laboratory:[facility] [place] [address] [facility] ([facility])2019-11-16 17:16:00 Test Item Value Reference Range Interpretation Comments SARS-COV2/RT-PCR (test Negative Not Detected, Negative, code = 6986954) See external report for linked test SARS-COV-2 PERFORMING LAB [facility] (test code = 1323743) Negative result for this test determines that [...] 564(g) of the Act.Fact Sheet for Healthcare Providers:https://www.[employer]/sites/default/files/product/documents/Fact_Shee i_GH_Vzevycbdj_Zgbk_HFSB-FiU-2.pdfFact Sheet for Healthcare Patients:https://www.[employer]/sites/default/files/product/ documents/Wnsi_Irikc_Qtxmitsa_Edcp_FMDA-MeP-6.pdfPerforming Laboratory:[facility], [place] [address]OYX, NEPHROSTOMY, PERC, EXTERNAL [id number] 12:32:00Reason for exam:->Left Obstructing Kidney Stone - Recommend Left PCN placementFINAL REPORT Fluoroscopic guided left nephrostomy tube placement. Clinical History: Left UPJ obstructing stone. Modality: Sonography and fluoroscopy Spa Concierge: Dio Elmore MD. Metal Punch Press Operator: Luis Colby. Sedation: Versed 3.5 mg and [...] soft tissue tract was dilated with 8 Belarusian dilators. A 8.5 Belarusian drainage catheter was placed into the left [...] MDReport Verified Date/Time: 11/16/2019 12:32:44 Reading Location: [address] Body Reading Room IR Percutaneous Nephrostomy - Ext. Drain Placement 2019-11-16 12:32:00Interface, External Ris In - 11/16/2019 12:34 PM CDTFINAL REPORT Fluoroscopic guided left nephrostomy tube placement. Clinical History: Left UPJ obstructing stone. Modality: Sonography and fluoroscopy Spa Concierge: Dio Elmore MD. Metal Punch Press Operator: Luis Colby. Sedation: Versed 3.5 mg and [...] soft tissue tract was dilated with 8 Belarusian dilators. A 8.5 Belarusian drainage catheter wasplaced into the left renal [...] MDReport Verified Date/Time: 11/16/2019 12:32:44 Reading Location: [facility] P048 Angio Body Reading Room [facility] [id number] 06:52:00 Test Item Value Reference Range Interpretation [...] S NOT APPLICABLE FOR DIALYSIS PATIEN TS. Ironing Machine Operator ID - JACIEL WCBC W/PLT COUNT & AUTO [id number] 05:59:00 Test Item Value Reference Range Interpretation [...] (BEAKER) (test code = 2801) BASIC METABOLIC [id number] 22:02:00 Test Item Value Reference Range Interpretation [...] S NOT APPLICABLE FOR DIALYSIS PATIEN TS. Ironing Machine Operator ID - [id number] 21:57:00 Test Item Value Reference Interpretation Comments Range Protime (test code = 14.5 See_Comment H [Autom ated 1422-2) message] The system which generated this result transmitted reference range : 11.9 - 14.2 seconds. The reference range was not used to interpret this result as normal/abnormal . INR (test code = 1.16 See_Comment [Automated 8606-6) message] The system which generated this result transmitted reference range : <=5.90. The reference range was not used to interpret this result as normal/abnormal . PTT (test code = 31.1 See_Comment [Automated 95963-9) message] The system which generated this result [...] valves. Lab Interpretation Abnormal (test code = 96367-8) [facility] HospitalPT/[id number] 21:57:00 Test Item Value Reference Range Interpretation [...] is2.5-3.5 for patients wiht mechanical heart valves.PROTHROMBIN TIME/[id number] 21:57:00 Test Item Value Reference Range Interpretation [...] is2.5-3.5 for patients wiht mechanical heart valves.ABORH, [id number] 21:54:00 Test Item Value Reference Range Interpretation Comments Rh Factor (test code = 2589) POS ABO Grouping (test code = 2588) A [facility] HospitalPREGNANCY SCREEN, [id number] 21:46:00 Test Item Value Reference Range Interpretation Comments TEST URINE (BEAKER) (test Negative code = 583) CBC W/PLT COUNT & AUTO [id number] 21:41:00 Test Item Value Reference Range Interpretation [...] % 0-1 PERCENT (BEAKER) (test code = 6725)
[2020-09-21 00:52] LABS: Urine Blood Negative (Negative); Urine Glucose Negative (Negative); Urine Protein Negative (Negative); Urine Specific Gravity 1.025 (1.005-1.030)
[2020-09-21 01:33] LABS: Urine Bacteria <20 /HPF (<20); Urine RBC NONE SEEN /HPF (NONE SEEN); Urine Yeast FEW (NONE SEEN)
[2020-09-21 01:56] LABS: Absolute Lymphocytes (CBC) 3.2 K/uL (0.7-4.9); Basophils % 0.6 % (0-1.3); Hematocrit 35.6 % (36.0-45.0); Lymphocytes % 28.8 % (15.3-44.8); MPV 7.2 fL (7.6-11.3); RBC Red Blood Cell Count 4.21 M/uL (3.86-4.86)
[2020-09-21 02:08] LABS: Potassium 4.2 mmol/L (3.5-5.1)
[2020-09-21] MEDS ORDERED: AMOX/K CLAV 875 MG TAB ONE (02:57)
--- NOTE | 2020-09-21 03:18 | EDPHYS ---
Physician Documentation [facility] Name: Jagruti Hill Age: 25 yrs Sex: Female : 1995 Arrival Date: 09/20/2020 Time: 23:02 Bed 17 Private MD: ED Physician Dieudonne Hart HPI: 09/21 01:35 This 25 yrs old Female presents to ER via Ambulatory with complaints of ma2 Abdominal Pain, + Preg Unknown Weeks, Sent by [facility]. 01:35 Onset: The symptoms/episode began/occurred gradually, 2 day(s) ago. Associated signs ma2 and symptoms: Pertinent negatives: nausea and vomiting, chest pain, diarrhea, fever, shortness of breath, vomiting. Severity of pain: At its worst the pain was mild in the emergency department the pain is unchanged. The patient has not experienced similar symptoms in the past. Historical: - Allergies: 09/20 23:20 No Known Allergies; bs2 - Home Meds: 23:20 hydrocodone-acetaminophen 5-325 mg oral tab 1 tab every 4-6 hours for pain [Active]; bs2 - PMHx: 23:20 Anxiety; cystinuria; Depression; Kidney stones; bs2 - PSHx: 23:20 Appendectomy; Oral; Renal; bs2 - Immunization history:: Client reports having NOT received the Covid vaccine. Flu vaccine is not up to date. - Social history:: Smoking status: Patient reports the use of cigarette tobacco products, smokes one pack cigarettes per day. - Family history:: not pertinent. ROS: 09/21 01:35 Constitutional: Negative for fever, chills, and weight loss. ma2 All other systems are negative. Exam: 01:35 Constitutional: This is a well developed, well nourished patient who is awake, alert, ma2 and in no acute distress. Head/Face: Normocephalic, atraumatic. Eyes: Pupils equal round and reactive to light, extra-ocular motions intact. Lids and lashes normal. Conjunctiva and sclera are non-icteric and not injected. Cornea within normal limits. Periorbital areas with no swelling, redness, or edema. ENT: Nares patent. No nasal discharge, no septal abnormalities noted. Tympanic membranes are normal and external auditory canals are clear. Oropharynx with no redness, swelling, or masses, exudates, or evidence of obstruction, uvula midline. Mucous membranes moist. Neck: Trachea midline, no thyromegaly or masses palpated, and no cervical lymphadenopathy. Supple, full range of motion without nuchal rigidity, or vertebral point tenderness. No Meningismus. Chest/axilla: Normal chest wall appearance and motion. Nontender with no deformity. No lesions are appreciated. Cardiovascular: Regular rate and rhythm with a normal S1 and S2. No gallops, murmurs, or rubs. Normal PMI, no JVD. No pulse deficits. Respiratory: Lungs have equal breath sounds bilaterally, clear to auscultation and percussion. No rales, rhonchi or wheezes noted. No increased work of breathing, no retractions or nasal flaring. Abdomen/GI: Soft, non-tender, with normal bowel sounds. No distension or tympany. No guarding or rebound. No evidence of tenderness throughout. Back: No spinal tenderness. No costovertebral tenderness. Full range of motion. Skin: Warm, dry with normal turgor. Normal color with no rashes, no lesions, and no evidence of cellulitis. MS/ Extremity: Pulses equal, no cyanosis. Neurovascular intact. Full, normal range of motion. Neuro: Awake and alert, GCS 15, oriented to person, place, time, and situation. Cranial nerves II-XII grossly intact. Motor strength 5/5 in all extremities. Sensory grossly intact. Cerebellar exam normal. Normal gait. Vital Signs: 09/20 23:17 BP 113 / 91; Pulse 114; Resp 18; Temp 98.6(T); Pulse Ox 99% on R/A; Weight 72.57 kg bs2 (R); Height 5 ft. 6 in. (167.64 cm) (R); Pain 7/10; 23:17 Body Mass Index 25.82 (72.57 kg, 167.64 cm) bs2 MDM: 09/21 01:[address] [facility] 01:35 Differential diagnosis: gastritis, gastroesophageal reflux disease, pancreatitis, ma2 urinary tract infection. 03:16 Data reviewed: vital signs, nurses notes. Counseling: I had a detailed discussion with [facility] the patient and/or guardian regarding: the historical points, exam findings, and any diagnostic results supporting the discharge/admit diagnosis, the presence of at least one elevated blood pressure reading (>120/80) during this emergency department visit, the need for outpatient follow up, repeat bhcg in 2 days afn repeat us in 2 days . Response to treatment: the patient's symptoms have markedly improved after treatment. 09/21 00:43 Order name: Abo/rh Typing [facility] 09/21 00:43 Order name: Basic Metabolic Panel; Complete Time: 02:30 [facility] 09/21 00:43 Order name: CBC with Diff; Complete Time: 02:30 [facility] 09/21 00:43 Order name: Quantitative Hcg; Complete Time: 02:30 [facility] 09/21 00:51 Order name: Urine Dipstick-Ancillary; Complete Time: 01:19 [facility] 09/21 00:53 Order name: Urine --Ancillary (enter results) [facility] 09/21 00:38 Order name: Urine Dipstick-Ancillary (obtain specimen); Complete Time: 01:07 [facility] 09/21 00:38 Order name: Urine Test (obtain specimen); Complete Time: 01:07 [facility] 09/21 00:53 Order name: Urine Culture [facility] 09/21 00:53 Order name: Urine Microscopic Only; Complete Time: 02:30 [facility] 09/21 03:15 Order name: TRANSVAG OB [facility] 09/21 00:43 Order name: Labs collected and sent; Complete Time: 01:36 [facility] 09/21 00:43 Order name: NPO; Complete Time: 01:08 ma2 Administered Medications: 02:38 Not Given (changed d/t no IV): Rocephin (cefTRIAXone) 1 grams IV at calculated rate bs2 once; Given slow IV push per pharmacy instructions 02:38 Drug: Augmentin (Amoxicillin-Clavulanate) 875 mg Route: PO; bs2 03:27 Follow up: Response: No adverse reaction bs2 Disposition Summary: 09/21/20 03:17 Discharge Ordered Location: Home ma2 Condition: Stable ma2 Diagnosis - Lower abdominal pain, unspecified - in ma2 Followup: ma2 - With: Ellis Duarte MD - When: 48 Hours - Reason: If symptoms return Discharge Instructions: - Discharge Summary Sheet ma2 - Ectopic , [id number] [facility] Forms: - Medication Reconciliation Form ma2 - Thank You Letter ma2 - Antibiotic Education ma2 - Prescription Opioid Use ma2 Prescriptions: - Augmentin 875-125 mg Oral Tablet - take 1 tablet by ORAL route every 12 hours for 10 days; 20 tablet; Refills: 0, ma2 Product Selection Permitted Signatures: Dispatcher [employer] EDMS Dieudonne Hart MD MD ma2 Bhargavi Massey2 Luz Cardenas bs2 Corrections: (The following items were deleted from the chart) 09/20 23:22 23:20 Allergies: Mirena; bs2 bs2 09/21 03:15 01:21 OB Complete+US.RAD.BRZ ordered. EDMS EDMS 03:27 00:43 IV Saline Lock ordered. ma2 bs2
--- NOTE | 2020-09-21 03:18 | ER ---
Nurse's Notes [facility] Name: Jagruti Hill Age: 25 yrs Sex: Female : 1995 Arrival Date: 09/20/2020 Time: 23:02 Bed 17 Private MD: Diagnosis: Lower abdominal pain, unspecified-in Presentation: 09/20 23:17 Chief complaint: Patient states: pt has preg test around 5 weeks and 2 days, had bs2 negative preg test at [facility] last week, pt states hurting RT flank and RLQ. Coronavirus screen: Client denies travel out of the [place] in the last 14 days. At this time, the client does not indicate any symptoms associated with coronavirus-19. Ebola Screen: Patient negative for fever greater than or equal to 101.5 degrees Fahrenheit, and additional compatible Ebola Virus Disease symptoms Patient denies exposure to infectious person. Patient denies travel to an Ebola-affected area in the 21 days before illness onset. Initial Sepsis Screen: Does the patient meet any 2 criteria? No. Patient's initial sepsis screen is negative. Does the patient have a suspected source of infection? No. Patient's initial sepsis screen is negative. Risk Assessment: Do you want to hurt yourself or someone else? Patient reports no desire to harm self or others. Onset of symptoms was September 17, 2020. 23:17 Method Of Arrival: Ambulatory bs2 23:17 Acuity: LISA 3 bs2 Triage Assessment: 23:20 General: Appears in no apparent distress. comfortable, well groomed, well developed, bs2 well nourished, Behavior is cooperative, appropriate for age, anxious. Pain: Complains of pain in anterior aspect of right lateral abdomen and right lower quadrant. GI: Reports constipation, cramping, diarrhea, nausea, vomiting. Historical: - Allergies: 23:20 No Known Allergies; bs2 - Home Meds: 23:20 hydrocodone-acetaminophen 5-325 mg oral tab 1 tab every 4-6 hours for pain [Active]; bs2 - PMHx: 23:20 Anxiety; cystinuria; Depression; Kidney stones; bs2 - PSHx: 23:20 Appendectomy; Oral; Renal; bs2 - Immunization history:: Client reports having NOT received the Covid vaccine. Flu vaccine is not up to date. - Social history:: Smoking status: Patient reports the use of cigarette tobacco products, smokes one pack cigarettes per day. - Family history:: not pertinent. Screenin/01 01:08 Abuse screen: Denies threats or abuse. Denies injuries from another. Nutritional bs2 screening: No deficits noted. Tuberculosis screening: No symptoms or risk factors identified. Fall Risk None identified. Assessment: 01:08 General: Appears in no apparent distress. comfortable, well groomed, well developed, bs2 well nourished, Behavior is calm, cooperative, appropriate for age. Pain: Complains of pain in right femoral area and right inguinal area Pain currently is 6 out of 10 on a pain scale. : No deficits noted. No signs and/or symptoms were reported regarding the genitourinary system. Reports pain in right in suprapubic area lower quadrant(s) Denies burning with urination, discharge, inability to void, urinary frequency, vaginal bleeding, vaginal itching. 01:10 GI: Bowel sounds present X 4 quads. Abd is soft and non tender X 4 quads. bs2 Vital Signs: 09/20 23:17 BP 113 / 91; Pulse 114; Resp 18; Temp 98.6(T); Pulse Ox 99% on R/A; Weight 72.57 kg bs2 (R); Height 5 ft. 6 in. (167.64 cm) (R); Pain 7/10; 23:17 Body Mass Index 25.82 (72.57 kg, 167.64 cm) bs2 ED Course: 23:02 Patient arrived in ED. bp1 23:20 Triage completed. bs2 23:20 Arm band placed on right wrist. bs2 09/21 01:06 Dieudonne Hart MD is Attending Physician. ma2 01:08 Patient has correct armband on for positive identification. Bed in low position. Call bs2 light in reach. Side rails up X 1. 01:36 Abo/rh Typing Sent. bs2 01:36 Basic Metabolic Panel Sent. bs2 01:36 CBC with Diff Sent. bs2 01:36 Quantitative Hcg Sent. bs2 01:36 Urine Culture Sent. bs2 03:15 TRANSVAG OB In Process Unspecified. EDMS 03:17 Ellis Duarte MD is Referral Physician. ma2 04:03 No provider procedures requiring assistance completed. Patient did not have IV access ad5 during this emergency room visit. Administered Medications: 02:38 Not Given (changed d/t no IV): Rocephin (cefTRIAXone) 1 grams IV at calculated rate bs2 once; Given slow IV push per pharmacy instructions 02:38 Drug: Augmentin (Amoxicillin-Clavulanate) 875 mg Route: PO; bs2 03:27 Follow up: Response: No adverse reaction bs2 Outcome: 03:17 Discharge ordered by MD. jin 04:03 Discharged to home ambulatory, with significant other. ad5 04:03 Condition: stable 04:03 Discharge instructions given to patient, Instructed on discharge instructions, follow up and referral plans. medication usage, Demonstrated understanding of instructions, follow-up care, medications, Prescriptions given X 1. 04:04 Patient left the ED. ad5 Signatures: Dispatcher [employer] EDMS Dieudonne Hatr MD MD ma2 Fabi Mathur Andrea ad5 Luz Cardenas bs2 Corrections: (The following items were deleted from the chart) 09/20 23:22 23:20 Allergies: Mirena; bs2 bs2
[2020-09-21 04:10] VITALS: BP 113/91; TEMP 98.6; O2SAT 99
[2020-09-21 04:56] LABS: Urine Specific Gravity/Preg 1.025 (1.005-1.030)
--- NOTE | 2020-09-21 09:11 | RAD REPORT ---
EXAM DESCRIPTION: US - TRANSVAG OB - 09/21/2020 3:24 am CLINICAL HISTORY: ABD PAIN Pelvic pain COMPARISON: No comparisons FINDINGS: No IUP is seen in the uterus. Uterus is normal in size. Endometrium is thin measuring 1-2 mm. Left ovary is not identified, probably obscured by bowel gas. Right ovary measures 2.8 x 2.0 x 1.7 cm . Normal blood flow seen to the right ovary. Trace fluid is seen in the cul de sac. IMPRESSION: No IUP is visualized. In the setting of a positive HCG level, this would indicate a preg renata of unknown location. Follow-up serial HCG levels and pelvic sonography would be advised in 7-10 days.
== END 2020-09-21 04:04 | disposition home or self-care (01) ==
LOC: ER 22:58
DX: O26.891 Other specified pregnancy related conditions, first trimester (principal); Z3A.00 Weeks of gestation of pregnancy not specified
CPT/HCPCS: 36415; 76813; 80048; 81003; 81015; 81025; 84702; 85025; 86900; 86901; 87086; 87088; 99284

== ENCOUNTER 2021-03-14 23:10 | Emergency (ER) | payer OTHER ==
--- OUTSIDE RECORDS SUMMARY | 2021-03-14 23:18 | XMS REPORT | Continuity of Care Document ---
:1995 Author Organization [facility] t Address [address] [place] [address] Care Team Providers Name Role Phone GREY Attending Clinician Unavailable Ara CRUZ Attending Clinician Unavailable Timmy MARROQUIN J Attending Clinician Miquel WARNER Attending Clinician Unavailable Doctor Unassigned, Name Attending Clinician Unavailable Greek DMD, H Attending Clinician Orlando Attending Clinician Nancy CRAFTS, R Attending Clinician UBALDO Attending Clinician Unavailable Singer GUDINO Attending Clinician GREY Admitting Clinician Unavailable Ara CRUZ Admitting Clinician Unavailable Nancy CRAFTS, R Admitting Clinician BOGDAN HIGGINS Admitting Clinician Unavailable Payers Payer Name Policy Type Policy Number Effective Date Expiration Date S ource Problems Condition Condition Condition Status Onset Resolution Last Treating Co mments Source Name Details Category Date Date Treatment Clinician Date Facial Facial Disease Active Univers swelling swelling 09-13 ity of 00:00: [address] Abscess of Abscess of Disease Active Overview : Univers canine canine 6- Formattin ity of space of space of 00:00: g of this [place] mouth mouth 00 note Medical might be Branch different from the original. Added automatic ally from request for surgery [id number] Depression Depression Disease Active U nivers 2 ity of 00:00: [address] Presence Presence Disease Active Unive rs of of 52 of of 52 04-26 ity of mg mg 00:00: [place] levonorges levonorges 00 Me dical trel-relea trel-relea Br anch sing sing intrauteri intrauteri ne device ne device (IUD) (IUD) Rubella Rubella Disease Active 2014-03 Univers immune immune 05-16 ity of 00:00: [address] Chlamydia Chlamydia Disease Active Overview: Univers trachomati trachomati 5-20 Formattin ity of s s 00:00: g of this [place] infection infection 00 note Medi leny of lower of lower might be Bran ch genitourin genitourin different marlena sites marlena sites from the original. [place] negative Tobacco Tobacco Disease Active Overview: Univ ers use use 5-19 Formattin ity of disorder disorder 00:00: g of this [place] as complicati complicati 00 note Me dical ng ng might be Branch , , different childbirth childbirth from the , or , or original. 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 Allergies, Adverse Reactions, Alerts Allergy Allergy Status Severity Reaction(s) Onset Inactive Treating Comm ents Source Name Type Date Date Clinician NO KNOWN Allergy Active [facility] NO KNOWN Drug Active Univers ALLERGIE Class ity of S [facility] Social History Social Habit Start Date Stop Date Quantity Comments Source History of tobacco 2013-08-09 Cigarette Smoker University of use 00:00:00 [facility] Exposure to Not sure University of SARS-CoV-2 (event) [facility] Tobacco use and 2020-09-14 2020-09-14 Never used Universit y of exposure 00:00:00 00:00:00 [facility] Cigarettes smoked 2020-09-14 2020-09-14 Univers ity of current (pack per 00:00:00 00:00:00 ) - Reported Branch Alcohol intake 2020-09-14 2020-09-14 Current University of 00:00:00 00:00:00 non-drinker of [facility] alcohol Branch (finding) History SDOH 2020-09-13 2020-09-13 8 University o f Education 00:00:00 00:00:00 [facility] Tobacco Comment 2020-09-13 2020-09-13 1/2 pack daily Unive rsity of 00:00:00 00:00:00 [facility] Sex Ass[birth year] At [birth year] Universit y of 00:00:00 00:00:00 [facility] Smoking Status Start Date Stop Date Source Current every day smoker 2020-09-14 [facility] Current some day smoker 2018-11-19 00:00:00 Univ ersity [facility] [place] [facility] Medications Ordered Filled Start Stop Current Ordering Indication Dosage Frequency Signature Comments Components Source Medication Medication Date Date Medication? Clinician (SIG) Name Name PNV WITH Yes Take by Unive rs CA,NO.71/IR 6-24 mouth. ity of ON/FA 14:58: [place] ( 23 Medical VITAMIN 1+1 Branch ORAL) acetaminoph Yes Take by Un deb en 6-24 mouth ity of (TYLENOL) 14:58: every 6 [place] 325 mg 23 (six) Medical tablet hours as Branch needed. PNV WITH Yes Take by Unive rs CA,NO.71/IR 6-24 mouth. ity of ON/FA 14:58: [place] ( 23 Medical VITAMIN 1+1 Branch ORAL) acetaminoph Yes Take by Un deb en 6-24 mouth ity of (TYLENOL) 14:58: every 6 [place] 325 mg 23 (six) Medical tablet hours as Branch needed. PNV WITH Yes Take by Unive rs CA,NO.71/IR 6-24 mouth. ity of ON/FA 14:58: [place] ( 23 Medical VITAMIN 1+1 Branch ORAL) acetaminoph Yes Take by Un deb en 6-24 mouth ity of (TYLENOL) 14:58: every 6 [place] 325 mg 23 (six) Medical tablet hours as Branch needed. PNV WITH Yes Take by Unive rs CA,NO.71/IR 6-24 mouth. ity of ON/FA 14:58: [place] ( 23 Medical VITAMIN 1+1 Branch ORAL) acetaminoph Yes Take by Un deb en 6-24 mouth ity of (TYLENOL) 14:58: every 6 [place] 325 mg 23 (six) Medical tablet hours as Branch needed. PNV WITH Yes Take by Unive rs CA,NO.71/IR 6-24 mouth. ity of ON/FA 14:58: [place] ( 23 Medical VITAMIN 1+1 Branch ORAL) acetaminoph Yes Take by Un deb en 6-24 mouth ity of (TYLENOL) 14:58: every 6 [place] 325 mg 23 (six) Medical tablet hours as Branch needed. PNV WITH Yes Take by CENTERSONICe rs CA,NO.71/IR 6-24 mouth. ity of ON/FA 14:58: [place] ( 23 Medical VITAMIN 1+1 Branch ORAL) acetaminoph Yes Take by Un deb en 6-24 mouth ity of (TYLENOL) 14:58: every 6 [place] 325 mg 23 (six) Medical tablet hours as Branch needed. PNV WITH Yes Take by CENTERSONICe rs CA,NO.71/IR 6-24 mouth. ity of ON/FA 14:58: [place] ( 23 Medical VITAMIN 1+1 Branch ORAL) acetaminoph Yes Take by Un deb en 6-24 mouth ity of (TYLENOL) 14:58: every 6 [place] 325 mg 23 (six) Medical tablet hours as Branch needed. PNV WITH Yes Take by CENTERSONICe rs CA,NO.71/IR 6-24 mouth. ity of ON/FA 14:58: [place] ( 23 Medical VITAMIN 1+1 Branch ORAL) acetaminoph Yes Take by Un deb en 6-24 mouth ity of (TYLENOL) 14:58: every 6 [place] 325 mg 23 (six) Medical tablet hours as Branch needed. dexamethaso No 10mg 10 mg, IV Univers ne 6-24 06-24 Piggyback, ity of (DECADRON) 03:00: 04:11 Q8H, 1 [place] 10 mg in 00 :00 dose, Medical NaCl 0.9% First dose Bran ch (NS) 50 mL (after piggyback last modificati on) on Fri09/13/20 at 2200, 50 mL chlorhexidi 2020-0 Yes [id number] 15mL Swish and Univers ne 0.12 % 6-24 spit out ity of mouthwash 00:00: 15 mL 2 [place] 00 (two) Medical times Branch daily. chlorhexidi 2020-0 Yes [id number] 15mL Swish and Univers ne 0.12 % 6-24 spit out ity of mouthwash 00:00: 15 mL 2 [place] (two) Medical times Branch daily. chlorhexidi 2020-0 Yes [id number] 15mL Swish and Univers ne 0.12 % 6-24 spit out ity of mouthwash 00:00: 15 mL 2 [place] 00 (two) Medical times Branch daily. chlorhexidi 2020-0 Yes [id number] 15mL Swish and Univers ne 0.12 % 6-24 spit out ity of mouthwash 00:00: 15 mL 2 [place] 00 (two) Medical times Branch daily. chlorhexidi 2020-0 Yes [id number] 15mL Swish and Univers ne 0.12 % 6-24 spit out ity of mouthwash 00:00: 15 mL 2 [place] 00 (two) Medical times Branch daily. chlorhexidi 2020-0 Yes [id number] 15mL Swish and Univers ne 0.12 % 6-24 spit out ity of mouthwash 00:00: 15 mL 2 [place] 00 (two) Medical times Branch daily. chlorhexidi 2020-0 Yes [id number] 15mL Swish and Univers ne 0.12 % 6-24 spit out ity of mouthwash 00:00: 15 mL 2 [place] 00 (two) Medical times Branch daily. chlorhexidi 2020-0 Yes [id number] 15mL Swish and Univers ne 0.12 % 6-24 spit out ity of mouthwash 00:00: 15 mL 2 [place] 00 (two) Medical times Branch daily. ibuprofen 2020- No [id number] 600mg Take 30 mL Univers 100 mg/5 mL 09-14- by mouth ity of oral 00:00: 04:59 every 6 [place] suspension 00 :00 (six) Medical hours as Branch needed for Pain (scale 1-3) for up to 7 days. amoxicillin 2020- No [id number] 1{tbl} Take 1 Univers -clavulanat 09-14- tablet by it y of e 00:00: 04:59 mouth 2 [place] (AUGMENTIN) 00 :00 (two) Medical 875-125 mg times Branch per tablet daily for 7 days. ibuprofen 2020- No [id number] 600mg Take 30 mL Univers 100 mg/5 mL 09-14 by mouth ity of oral 00:00: 04:59 every 6 [place] suspension 00 :00 (six) Medical hours as Branch needed for Pain (scale 1-3) for up to 7 days. amoxicillin 2020- No [id number] 1{tbl} Take 1 Univers -clavulanat 09-14- tablet by it y of e 00:00: 04:59 mouth 2 [place] (AUGMENTIN) 00 :00 (two) Medical 875-125 mg times Branch per tablet daily for 7 days. ibuprofen 2020- No [id number] 600mg Take 30 mL Univers 100 mg/5 mL 09-14- by mouth ity of oral 00:00: 04:59 every 6 [place] suspension 00 :00 (six) Medical hours as Branch needed for Pain (scale 1-3) for up to 7 days. amoxicillin 2020- No [id number] 1{tbl} Take 1 Univers -clavulanat 09-14-02 tablet by it y of e 00:00: 04:59 mouth 2 [place] (AUGMENTIN) 00 :00 (two) Medical 875-125 mg times Branch per tablet daily for 7 days. ibuprofen 2020- No [id number] 600mg Take 30 mL Univers 100 mg/5 mL 09-14-02 by mouth ity of oral 00:00: 04:59 every 6 [place] suspension 00 :00 (six) Medical hours as Branch needed for Pain (scale 1-3) for up to 7 days. amoxicillin 2020- No [id number] 1{tbl} Take 1 Univers -clavulanat -24 -02 tablet by it y of e 00:00: 04:59 mouth 2 [place] (AUGMENTIN) 00 :00 (two) Medical 875-125 mg times Branch per tablet daily for 7 days. ibuprofen 2020- No [id number] 600mg Take 30 mL Univers 100 mg/5 mL 09-14 by mouth ity of oral 00:00: 04:59 every 6 [place] suspension 00 :00 (six) Medical hours as Branch needed for Pain (scale 1-3) for up to 7 days. amoxicillin 2020- No [id number] 1{tbl} Take 1 Univers -clavulanat -24 -02 tablet by it y of e 00:00: 04:59 mouth 2 [place] (AUGMENTIN) 00 :00 (two) Medical 875-125 mg times Branch per tablet daily for 7 days. amoxicillin 2020- No [id number] 1{tbl} Take 1 Univers -clavulanat -24 -02 tablet by it y of e 00:00: 04:59 mouth 2 [place] (AUGMENTIN) 00 :00 (two) Medical 875-125 mg times Branch per tablet daily for 7 days. amoxicillin 2020- No [id number] 1{tbl} Take 1 Univers -clavulanat -24 -02 tablet by it y of e 00:00: 04:59 mouth 2 [place] (AUGMENTIN) 00 :00 (two) Medical 875-125 mg times Branch per tablet daily for 7 days. amoxicillin 2020- No [id number] 1{tbl} Take 1 Univers -clavulanat -24 -02 tablet by it y of e 00:00: 04:59 mouth 2 [place] (AUGMENTIN) 00 :00 (two) Medical 875-125 mg times Branch per tablet daily for 7 days. ibuprofen 2020- No [id number] 600mg Take 30 mL Univers 100 mg/5 mL 09-14 by mouth ity of oral 00:00: 00:00 every 6 [place] suspension 00 :00 (six) Medical hours as Branch needed for Pain (scale 1-3) for up to 7 days. ibuprofen 2020- No [id number] 600mg Take 30 mL Univers 100 mg/5 mL 09-14 by mouth ity of oral 00:00: 00:00 every 6 [place] suspension 00 :00 (six) Medical hours as Branch needed for Pain (scale 1-3) for up to 7 days. ibuprofen 2020- No [id number] 600mg Take 30 mL Univers 100 mg/5 mL 09-14 by mouth ity of oral 00:00: 00:00 every 6 [place] suspension 00 :00 (six) Medical hours as Branch needed for Pain (scale 1-3) for up to 7 days. HYDROcodone 2020- No [id number] 1{tbl} Take 1 U nivers -acetaminop 6-24 06-29 tablet by it y of hen 5-325 00:00: 04:59 mouth [place] mg tablet 00 :00 every 6 Medical (six) Branch hours as needed for Pain (scale 4-6) for up to 4 days. Indication s: acute pain HYDROcodone 2020- No [id number] 1{tbl} Take 1 U nivers -acetaminop 6-24 06-29 tablet by it y of hen 5-325 00:00: 04:59 mouth [place] mg tablet 00 :00 every 6 Medical (six) Branch hours as needed for Pain (scale 4-6) for up to 4 days. Indication s: acute pain HYDROcodone 2020- No [id number] 1{tbl} Take 1 U nivers -acetaminop 6-24 06-29 tablet by it y of hen 5-325 00:00: 04:59 mouth [place] mg tablet 00 :00 every 6 Medical (six) Branch hours as needed for Pain (scale 4-6) for up to 4 days. Indication s: acute pain HYDROcodone 2020-2020- No [id number] 1{tbl} Take 1 U nivers -acetaminop 6-24 06-29 tablet by it y of hen 5-325 00:00: 04:59 mouth [place] mg tablet 00 :00 every 6 Medical (six) Branch hours as needed for Pain (scale 4-6) for up to 4 days. Indication s: acute pain bupivacaine 2021-0 2021- No PRN, Unive rs (preserv 09-13 Starting ity of free) 19:30: 21:00 [facility] (SENSORCAIN 00 :24 09/13/20 at Hi dical E MPF) 0.25 1430, Branch % (2.5 Until Fri mg/mL) 09/13/20 at injection 1600, Routine, Intra-op lidocaine 2020- No PRN, Univers 2% - 09-13 Starting ity of epinephrine 19:24: 21:00 [facility] 1:100,000 00 :24 09/13/20 at [facility] leny syringe 1424, Branch Until Fri09/13/20 at 1600, Routine, Intra-op chlorhexidi Yes 15mL 15 mL, Univ ers ne 09-13 Oral ity of (PERIDEX) 13:00: ([place] 0.12 % 00 Spit Out), Medical mouthwash BID, First Bran ch 15 mL dose on Fri09/13/20 at 0800, Until Discontinu ed, Routine chlorhexidi 2020- No 15mL 15 mL, Uni vers ne 09-13 Oral ity of (PERIDEX) 13:00: 17:03 ([place] 0.12 % 00 :28 Spit Out), Medical mouthwash BID, First Bran ch 15 mL dose on Fri09/13/20 at 0800, Until Discontinu ed, Routine ketorolac Yes 10mg 10 mg, Univer s (TORADOL) 09-13 Oral, Q6H, ity of tablet 10 11:00: First dose [place] mg 00 on Fri09/13/20 at Branch 0600, Until Discontinu ed, Routine ketorolac 2020- No 10mg 10 mg, Unive rs (TORADOL) 09-13 Oral, Q6H, ity of tablet 10 11:00: 17:03 First dose [place] mg 00 :28 on Fri09/13/20 at Branch 0600, Until Discontinu ed, Routine dexamethaso No 10mg 10 mg, IV Univers ne 10 mg in 09-13 Piggyback, i ty of 0.9% NaCl 11:00: 23:06 Q8H, 3 [place] 50 mL IV 00 :24 doses, Medical piggyback First dose Bran ch (CNR) on Fri09/13/20 at 0600, Last dose on Fri09/13/20 at 2200, 50 mL ampicillin- Yes 3g 3 g, IV Uni vers sulbactam 09-13 Piggyback, ity of (UNASYN) 3 08:00: Q6H ABX, [place] as g in NaCl 00 First dose Medi leny 0.9% (NS) on Fri Branch 100 mL 09/13/20 at MINI-BAG 0300, Until Discontinu ed, 100 mL
Reas on for Anti-Infec tive: Surgical Prophylaxi s
Surgi leny Prophylaxi s: Oral and/or Maxillofac ial
Dur ation of therapy: within 24 hours of surgery lactated Yes 1000mL at 100 Unive rs ringers IV 6- mL/hr, ity of infusion 08:00: 1,000 mL, [place] 1,000 mL 00 IV Medical Infusion, Branch CONTINUOUS , Starting Fri09/13/20 at 0300, Until Discontinu ed, Routine ampicillin- 2020- No 3g 3 g, IV Un deb sulbactam 09-13 Piggyback, ity of (UNASYN) 3 08:00: 17:03 Q6H ABX, [place] g in NaCl 00 :28 First dose Medi leny 0.9% (NS) on Fri Branch 100 mL 09/13/20 at MINI-BAG 0300, Until Discontinu ed, 100 mL
Reas on for Anti-Infec tive: Surgical Prophylaxi s
Surgi leny Prophylaxi s: Oral and/or Maxillofac ial
Dur ation of therapy: within 24 hours of surgery lactated 2020- No 1000mL at 100 Univ ers ringers IV 09-13-24 mL/hr, ity of infusion 08:00: 17:03 1,000 mL, [place] as 1,000 mL 00 :28 IV Medical Infusion, Branch CONTINUOUS , Starting Fri09/13/20 at 0300, Until Michelle 09/14/20 at 1203, Routine naloxone Yes .1mg 0.1 mg, Univer s (NARCAN) 09-13 Slow IV ity of injection 07:49: Push, PRN [place] as 0.1 mg 04 - SEE [facility] NS, Starting Fri09/13/20 at 0249, Until Discontinu ed, Routine, Sedation/R espiratory Depression , See admin instructio ns. morpHINE 2020- No 2mg 2 mg, Slow Un deb injection 2 09-13 IV Push, ity of mg 07:49: 07:48 Q3HPRN, [place] 04 :04 Starting [facility] 09/13/20 at 0249, Until Fri09/15/20 at 0248, Routine, Pain (scale 7-10) naloxone 2020- No .1mg 0.1 mg, Unive rs (NARCAN) 09-13 Slow IV ity of injection 07:49: 17:03 Push, PRN [place] 0.1 mg 04 :28 - SEE [facility] NS, Starting Fri09/13/20 at 0249, Until [place] 09/14/20 at 1203, Routine, Sedation/R espiratory Depression , See admin instructio ns. morpHINE 2020- No 2mg 2 mg, Slow Un deb injection 2 09-13 IV Push, ity of mg 07:49: 17:03 Q3HPRN, [place] 04 :28 Starting [facility] 09/13/20 at 0249, Until [place] 09/14/20 at 1203, Routine, Pain (scale 7-10) HYDROcodone Yes 1{tbl} 1 tablet, Univers -acetaminop 09-13 Oral, ity of hen (NORCO 07:48: Q6HPRN, [place] 5) 5-325 mg 58 Starting Medi leny tablet 1 [facility] tablet 09/13/20 at 0248, Until Discontinu ed, Routine, Pain (scale 4-6) HYDROcodone 2020-0 2020- No 1{tbl} 1 tablet, Univers -acetaminop 09-13 Oral, ity of hen (NORCO 07:48: 17:03 Q6HPRN, [place] 5) 5-325 mg 58 :28 Starting Medi leny tablet 1 Wed Branch tablet 09/13/20 at 0248, Until [place] 09/14/20 at 1203, Routine, Pain (scale 4-6) ibuprofen Yes 600mg 600 mg, Univ ers (ADVIL 6-23 Oral, ity of CHILDREN'S) 07:48: Q6HPRN, [place] 100 mg/5 mL 46 Starting Medi leny oral Wed Branch suspension 09/13/20 at 600 mg 0248, Until Discontinu ed, Routine, Pain (scale 1-3) ibuprofen 2020- No 600mg 600 mg, Uni vers (ADVIL 09-13 06-24 Oral, ity of CHILDREN'S) 07:48: 17:03 Q6HPRN, [place] 100 mg/5 mL 46 :28 Starting Medi leny oral Wed Branch suspension 09/13/20 at 600 mg 0248, Until [place] 09/14/20 at 1203, Routine, Pain (scale 1-3) ondansetron Yes 4mg 4 mg, Slow Univers (ZOFRAN 6-23 IV Push, ity of (PF)) 07:48: Q4HPRN, [place] injection 4 42 Starting Medi leny mg Wed Branch 09/13/20 at 0248, Until Discontinu ed, Routine, Nausea and Vomiting (N/V) ondansetron 2020- No 4mg 4 mg, Slow Univers (ZOFRAN 6-23 06-24 IV Push, ity of (PF)) 07:48: 17:03 Q4HPRN, [place] injection 4 42 :28 Starting Medi leny mg Wed Branch 09/13/20 at 0248, Until [place] 09/14/20 at 1203, Routine, Nausea and Vomiting (N/V) traMADOL 2018- No 50mg Take 50 mg Un deb (ULTRAM) 50 11-19 by mouth ity of mg tablet 23:45: 00:00 every 6 [place] 36 :00 (six) Medical hours as Branch needed (Dental Issues). iohexol 2018- No 120mL 120 mL, Unive rs (OMNIPAQUE 11-19 Intravenou it y of 350 23:30: 23:09 s, ONCE, 1 [place] BULK-150 00 :00 dose, [place] Medica l mL) 11/19/18 at Branch injection 1830, 120 mL Routine traMADol 50 Yes [id number] 50mg Take 1 Univers mg tablet - tablet by ity o f 00:00: mouth [place] 00 every 6 Medical (six) Branch hours as needed for Pain (scale 7-10). traMADol 50 2020- No [id number] 50mg Take 1 Univers mg tablet 11-19-24 tablet by ity of 00:00: 00:00 mouth [place] 00 :00 every 6 Medical (six) Branch hours as needed for Pain (scale 7-10). traMADol 50 2020- No [id number] 50mg Take 1 Univers mg tablet 11-19-24 tablet by ity of 00:00: 00:00 mouth [place] 00 :00 every 6 Medical (six) Branch hours as needed for Pain (scale 7-10). acetaminoph Yes Take by Un deb en 3-10 mouth ity of (TYLENOL) 20:33: every 6 [place] 325 mg 18 (six) Medical tablet hours as Branch needed. acetaminoph 0 Yes Take by Un deb en 3-10 mouth ity of (TYLENOL) 20:33: every 6 [place] 325 mg 18 (six) Medical tablet hours as Branch needed. acetaminoph 0 Yes Take by Un deb en 3-10 mouth ity of (TYLENOL) 20:33: every 6 [place] 325 mg 18 (six) Medical tablet hours as Branch needed. traMADOL 2015-0 Yes 50mg Take 50 mg Uni vers (ULTRAM) 50 3-10 by mouth ity of mg tablet 20:33: every 6 [place] 17 (six) Medical hours as Branch needed (Dental Issues). traMADOL 2016-0 Yes 50mg Take 50 mg Uni vers (ULTRAM) 50 3-10 by mouth ity of mg tablet 20:33: every 6 [place] 17 (six) Medical hours as Branch needed (Dental Issues). PNV WITH 0 Yes Take by Sensiotec rs CA,NO.71/IR 1- mouth. ity of ON/FA 20:57: [place] ( 51 Medical VITAMIN 1+1 Branch ORAL) PNV WITH 0 Yes Take by CENTERSONICe rs CA,NO.71/IR 1-27 mouth. ity of ON/FA 20:57: [place] ( 51 Medical VITAMIN 1+1 Branch ORAL) PNV WITH 2015-0 Yes [facility]/IR 1-27 mouth. ity of ON/FA 20:57: [place] ( 51 Medical VITAMIN 1+1 Branch ORAL) cyclobenzap Yes [id number] 5mg Take 1 Tab Univers rine 1-27 by mouth 3 ity of (FLEXERIL) 00:00: (three) [place] 5 mg tablet 00 times Medical daily as Branch needed for Muscle Spasms. cyclobenzap Yes [id number] 5mg Take 1 Tab Univers rine 1-27 by mouth 3 ity of (FLEXERIL) 00:00: (three) [place] 5 mg tablet 00 times Medical daily as Branch needed for Muscle Spasms. cyclobenzap Yes [id number] 5mg Take 1 Tab Univers rine 1-27 by mouth 3 ity of (FLEXERIL) 00:00: (three) [place] 5 mg tablet 00 times Medical daily as Branch needed for Muscle Spasms. cyclobenzap Yes [id number] 5mg Take 1 Tab Univers rine 1-27 by mouth 3 ity of (FLEXERIL) 00:00: (three) [place] 5 mg tablet 00 times Medical daily as Branch needed for Muscle Spasms. cyclobenzap Yes [id number] 5mg Take 1 Tab Univers rine 1-27 by mouth 3 ity of (FLEXERIL) 00:00: (three) [place] 5 mg tablet 00 times Medical daily as Branch needed for Muscle Spasms. cyclobenzap Yes [id number] 5mg Take 1 Tab Univers rine 1-27 by mouth 3 ity of (FLEXERIL) 00:00: (three) [place] 5 mg tablet 00 times Medical daily as Branch needed for Muscle Spasms. cyclobenzap Yes [id number] 5mg Take 1 Tab Univers rine 1-27 by mouth 3 ity of (FLEXERIL) 00:00: (three) [place] 5 mg tablet 00 times Medical daily as Branch needed for Muscle Spasms. cyclobenzap Yes [id number] 5mg Take 1 Tab Univers rine 1-27 by mouth 3 ity of (FLEXERIL) 00:00: (three) [place] 5 mg tablet 00 times Medical daily as Branch needed for Muscle Spasms. cyclobenzap Yes [id number] 5mg Take 1 Tab Univers rine 1-27 by mouth 3 ity of (FLEXERIL) 00:00: (three) [place] 5 mg tablet 00 times Medical daily as Branch needed for Muscle Spasms. cyclobenzap Yes [id number] 5mg Take 1 Tab Univers rine 1-27 by mouth 3 ity of (FLEXERIL) 00:00: (three) [place] 5 mg tablet 00 times Medical daily as Branch needed for Muscle Spasms. cyclobenzap Yes [id number] 5mg Take 1 Tab Univers rine 1-27 by mouth 3 ity of (FLEXERIL) 00:00: (three) [place] 5 mg tablet 00 times Medical daily as Branch needed for Muscle Spasms. Yes 1{tbl} Take 1 Tab U nivers vitamin 1-06 by mouth ity of w/FA 00:00: daily. [place] (PRENATABS 00 Medical RX) tablet Branch docusate Yes 240mg Take 1 Cap Un deb calcium 1-06 by mouth ity of (SURFAK) 00:00: once daily [place] 240 mg 00 as needed Medical capsule for Branch Constipati on. Yes 1{tbl} Take 1 Tab U nivers vitamin 1-06 by mouth ity of w/FA 00:00: daily. [place] (PRENATABS 00 Medical RX) tablet Branch docusate Yes 240mg Take 1 Cap Un deb calcium 1-06 by mouth ity of (SURFAK) 00:00: once daily [place] 240 mg 00 as needed Medical capsule for Branch Constipati on. Yes 1{tbl} Take 1 Tab U nivers vitamin 1-06 by mouth ity of w/FA 00:00: daily. [place] (PRENATABS 00 Medical RX) tablet Branch docusate Yes 240mg Take 1 Cap Un deb calcium 1-06 by mouth ity of (SURFAK) 00:00: once daily [place] 240 mg 00 as needed Medical capsule for Branch Constipati on. Yes 1{tbl} Take 1 Tab U nivers vitamin 1-06 by mouth ity of w/FA 00:00: daily. [place] (PRENATABS 00 Medical RX) tablet Branch docusate Yes 240mg Take 1 Cap Un deb calcium 1-06 by mouth ity of (SURFAK) 00:00: once daily [place] 240 mg 00 as needed Medical capsule for Branch Constipati on. Yes 1{tbl} Take 1 Tab U nivers vitamin 1-06 by mouth ity of w/FA 00:00: daily. [place] (PRENATABS 00 Medical RX) tablet Branch docusate Yes 240mg Take 1 Cap Un deb calcium 1-06 by mouth ity of (SURFAK) 00:00: once daily [place] 240 mg 00 as needed Medical capsule for Branch Constipati on. Yes 1{tbl} Take 1 Tab U nivers vitamin 1-06 by mouth ity of w/FA 00:00: daily. [place] (PRENATABS 00 Medical RX) tablet Branch docusate Yes 240mg Take 1 Cap Un deb calcium 1-06 by mouth ity of (SURFAK) 00:00: once daily [place] 240 mg 00 as needed Medical capsule for Branch Constipati on. Yes 1{tbl} Take 1 Tab U nivers vitamin 1-06 by mouth ity of w/FA 00:00: daily. [place] (PRENATABS 00 Medical RX) tablet Branch docusate Yes 240mg Take 1 Cap Un deb calcium 1-06 by mouth ity of (SURFAK) 00:00: once daily [place] 240 mg 00 as needed Medical capsule for Branch Constipati on. Yes 1{tbl} Take 1 Tab U nivers vitamin 1-06 by mouth ity of w/FA 00:00: daily. [place] (PRENATABS 00 Medical RX) tablet Branch docusate Yes 240mg Take 1 Cap Un deb calcium 1-06 by mouth ity of (SURFAK) 00:00: once daily [place] 240 mg 00 as needed Medical capsule for Branch Constipati on. Yes 1{tbl} Take 1 Tab U nivers vitamin 1-06 by mouth ity of w/FA 00:00: daily. [place] (PRENATABS 00 Medical RX) tablet Branch docusate 2016-0 Yes 240mg Take 1 Cap Un deb calcium 1-06 by mouth ity of (SURFAK) 00:00: once daily Frank as 240 mg 00 as needed Medical capsule for Branch Constipati on. ibuprofen 2016-0 Yes 600mg Take 1 Tab U nivers (MOTRIN) 1-06 by mouth ity of 600 mg 00:00: every 6 [place] tablet 00 (six) Medical hours as Branch needed for Pain (scale 1-3) or Pain (scale 4-6). Take with food or milk. 2016-0 Yes 1{tbl} Take 1 Tab U nivers vitamin 1-06 by mouth ity of w/FA 00:00: daily. [place] (PRENATABS 00 Medical RX) tablet Branch docusate 0 Yes 240mg Take 1 Cap Un deb calcium 1-06 by mouth ity of (SURFAK) 00:00: once daily Frank as 240 mg 00 as needed Medical capsule for Branch Constipati on. ibuprofen 2015-0 Yes 600mg Take 1 Tab U nivers (MOTRIN) 1-06 by mouth ity of 600 mg 00:00: every 6 [place] tablet 00 (six) Medical hours as Branch needed for Pain (scale 1-3) or Pain (scale 4-6). Take with food or milk. 2015-0 Yes 1{tbl} Take 1 Tab U nivers vitamin 1-06 by mouth ity of w/FA 00:00: daily. [place] (PRENATABS 00 Medical RX) tablet Branch docusate 0 Yes 240mg Take 1 Cap Un deb calcium 1-06 by mouth ity of (SURFAK) 00:00: once daily Frank as 240 mg 00 as needed Medical capsule for Branch Constipati on. ibuprofen 2016-0 Yes 600mg Take 1 Tab U nivers (MOTRIN) 1-06 by mouth ity of 600 mg 00:00: every 6 [place] tablet 00 (six) Medical hours as Branch needed for Pain (scale 1-3) or Pain (scale 4-6). Take with food or milk. ibuprofen 2015-0 2020- No 600mg Take 1 Tab Univers (MOTRIN) 1-06 06-24 by mouth ity of 600 mg 00:00: 00:00 every 6 [place] tablet 00 :00 (six) Medical hours as Branch needed for Pain (scale 1-3) or Pain (scale 4-6). Take with food or milk. ibuprofen 2020- No 600mg Take 1 Tab Univers (MOTRIN) 03-29 06-24 by mouth ity of 600 mg 00:00: 00:00 every 6 [place] tablet 00 :00 (six) Medical hours as Branch needed for Pain (scale 1-3) or Pain (scale 4-6). Take with food or milk. Iron, Cbn & 2015- Yes [id number] 1{tbl} Take 1 Tab Univers Gluc-FA-B12 2-16 by mouth ity of -C-DSS 00:00: daily. [place] (FERRALET [address] [place] [address] Branch DUAL-IRON DELIVERY) 90-1-12-50 mg-mg-mcg-m g per tablet Iron, Cbn & 2014- Yes [id number] 1{tbl} Take 1 Tab Univers Gluc-FA-B12 2-16 by mouth ity of -C-DSS 00:00: daily. [place] (F[address] DUAL-IRON DELIVERY) 90-1-12-50 mg-mg-mcg-m g per tablet Iron, Cbn & 2014- Yes [id number] 1{tbl} Take 1 Tab Univers Gluc-FA-B12 2-16 by mouth ity of -C-DSS 00:00: daily. [place] (FERRALET [address] [place] [address] DUAL-IRON DELIVERY) 90-1-12-50 mg-mg-mcg-m g per tablet Iron, Cbn & 2014- Yes [id number] 1{tbl} Take 1 Tab Univers Gluc-FA-B12 2-16 by mouth ity of -C-DSS 00:00: daily. [place] (FERRALET [address] DUAL-IRON DELIVERY) 90-1-12-50 mg-mg-mcg-m g per tablet Iron, Cbn & 2014- Yes [id number] 1{tbl} Take 1 Tab Univers Gluc-FA-B12 2-16 by mouth ity of -C-DSS 00:00: daily. [place] (FERRALET [address] [place] [address] DUAL-IRON DELIVERY) 90-1-12-50 mg-mg-mcg-m g per tablet Iron, Cbn & 2014- Yes [id number] 1{tbl} Take 1 Tab Univers Gluc-FA-B12 2-16 by mouth ity of -C-DSS 00:00: daily. [place] (FERRALET [address] DUAL-IRON DELIVERY) 90-1-12-50 mg-mg-mcg-m g per tablet Iron, Cbn & 2015- Yes [id number] 1{tbl} Take 1 Tab Univers Gluc-FA-B12 2-16 by mouth ity of -C-DSS 00:00: daily. [place] (FERRALET [address] DUAL-IRON DELIVERY) 90-1-12-50 mg-mg-mcg-m g per tablet Iron, Cbn & 2015- Yes [id number] 1{tbl} Take 1 Tab Univers Gluc-FA-B12 2-16 by mouth ity of -C-DSS 00:00: daily. [place] (FERRALET [address] DUAL-IRON DELIVERY) 90-1-12-50 mg-mg-mcg-m g per tablet Iron, Cbn & 2014- Yes [id number] 1{tbl} Take 1 Tab Univers Gluc-FA-B12 2-16 by mouth ity of -C-DSS 00:00: daily. [place] (FERRALET [address] DUAL-IRON DELIVERY) 90-1-12-50 mg-mg-mcg-m g per tablet Iron, Cbn & 2014- Yes [id number] 1{tbl} Take 1 Tab Univers Gluc-FA-B12 2-16 by mouth ity of -C-DSS 00:00: daily. [place] (FERRALET [address] DUAL-IRON DELIVERY) 90-1-12-50 mg-mg-mcg-m g per tablet Iron, Cbn & 2014- Yes [id number] 1{tbl} Take 1 Tab Univers Gluc-FA-B12 2-16 by mouth ity of -C-DSS 00:00: daily. [place] (FERRALET [address] DUAL-IRON DELIVERY) 90-1-12-50 mg-mg-mcg-m g per tablet Immunizations Ordered Filled Immunization Date Status Comments [facility] e Immunization Name Name Varicella 2015-03-29 Completed [facility] (varivax)(chicken 00:00:00 [place] edical pox) Branch Varicella 2015-03-29 Completed [facility] (varivax)(chicken 00:00:00 [place] M edical pox) Branch Varicella 2015-03-29 Completed [facility] (varivax)(chicken 00:00:00 [place] M edical pox) Branch Varicella 2015-03-29 Completed [facility] of (varivax)(chicken 00:00:00 [place] M edical pox) Branch Varicella 2015-03-29 Completed University of (varivax)(chicken 00:00:00 [place] M [facility]ical pox) Branch Varicella 2015-03-29 Completed University of (varivax)(chicken 00:00:00 [place] M edical pox) Branch Varicella 2015-03-29 Completed University of (varivax)(chicken 00:00:00 [place] M edical pox) Branch Varicella 2015-03-29 Completed University of (varivax)(chicken 00:00:00 [place] M edical pox) Branch Varicella 2015-03-29 Completed University of (varivax)(chicken 00:00:00 [place] M edical pox) Branch Varicella 2015-03-29 Completed University of (varivax)(chicken 00:00:00 [place] M edical pox) Branch Varicella 2015-03-29 Completed University of (varivax)(chicken 00:00:00 [place] M edical pox) Branch TDAP 2015-01-03 Completed University of 00:00:00 [facility] TDAP 2015-01-03 Completed University of 00:00:00 [facility] TDAP 2015-01-03 Completed University of 00:00:00 [facility] TDAP 2015-01-03 Completed University of 00:00:00 [facility] TDAP 2015-01-03 Completed University of 00:00:00 [facility] TDAP 2015-01-03 Completed University of 00:00:00 [facility] TDAP 2015-01-03 Completed University of 00:00:00 [facility] TDAP 2015-01-03 Completed University of 00:00:00 [facility] Tdap 2015-01-03 Completed University of 00:00:00 [facility] Tdap 2015-01-03 Completed University of 00:00:00 [facility] Tdap 2015-01-03 Completed University of 00:00:00 [facility] Vital Signs Vital Name Observation Time Observation Value Comments Source HEIGHT 2019-11-15 00:00:00 167.6 cm WEIGHT 2019-11-15 00:00:00 73.211 kg Systolic blood 2020-09-21 20:58:00 120 mm[Hg] Univer sity of pressure [place] [facility] Diastolic blood 2020-09-21 20:58:00 85 mm[Hg] Unive rsity of pressure [place] [facility] Heart rate 2020-09-21 20:58:00 109 /min Universi ty of [place] [facility] Body temperature 2020-09-21 20:58:00 37.33 Shea Univ ersity of [place] [facility] Body height 2020-09-21 20:58:00 167.6 cm Universi ty of [place] [facility] Body weight 2020-09-21 20:58:00 66.588 kg Universi ty of [place] [facility] BMI 2020-09-21 20:58:00 23.69 kg/m2 Universi ty of [place] [facility] Oxygen saturation in 2020-09-21 20:58:00 100 /min University of Arterial blood by [facility] Pulse oximetry Branch Systolic blood 2020-09-14 13:00:00 104 mm[Hg] Univer sity of pressure [place] [facility] Diastolic blood 2020-09-14 13:00:00 46 mm[Hg] Unive rsity of pressure [place] [facility] Heart rate 2020-09-14 13:00:00 79 /min Universi ty of [place] [facility] Body temperature 2020-09-14 13:00:00 36.61 Shea Univ ersity of [place] [facility] Respiratory rate 2020-09-14 13:00:00 18 /min Univ ersity of [place] [facility] Oxygen saturation in 2020-09-14 13:00:00 92 /min University of Arterial blood by [facility] Pulse oximetry Branch Body height 2020-09-13 07:44:00 167.6 cm Universi ty of [place] [facility] Body weight 2020-09-13 07:44:00 68.04 kg Universi ty of [place] [facility] BMI 2020-09-13 07:44:00 24.21 kg/m2 Universi ty of [place] [facility] Systolic blood 2020-09-14 13:00:00 104 mm[Hg] Univer sity of pressure [place] [facility] Diastolic blood 2020-09-14 13:00:00 46 mm[Hg] Unive rsity of pressure [place] [facility] Heart rate 2020-09-14 13:00:00 79 /min Universi ty of [place] [facility] Body temperature 2020-09-14 13:00:00 36.61 Shea Univ ersity of [place] [facility] Respiratory rate 2020-09-14 13:00:00 18 /min Univ ersity of [place] [facility] Oxygen saturation in 2020-09-14 13:00:00 92 /min University of Arterial blood by [facility] leny Pulse oximetry Branch Body height 2020-09-13 07:44:00 167.6 cm Universi ty of [place] [facility] Body weight 2020-09-13 07:44:00 68.04 kg Universi ty of [place] [facility] BMI 2020-09-13 07:44:00 24.21 kg/m2 Universi ty of [place] [facility] Systolic blood 2020-09-13 20:00:00 112 mm[Hg] Univer sity of pressure [place] [facility] Diastolic blood 2020-09-13 20:00:00 72 mm[Hg] Unive rsity of pressure [place] [facility] Heart rate 2020-09-13 20:00:00 95 /min Universi ty [facility] [place] [facility] Respiratory rate 2020-09-13 20:00:00 13 /min Univ ersity of [place] [facility] Oxygen saturation in 2020-09-13 20:00:00 92 /min University of Arterial blood by [facility] Pulse oximetry Branch Body temperature 2020-09-13 19:54:00 36.28 Shea Univ ersity of [place] [facility] Body height 2020-09-13 07:44:00 167.6 cm Universi ty [facility] [place] [facility] Body weight 2020-09-13 07:44:00 68.04 kg Universi [facility] [place] [facility] BMI 2020-09-13 07:44:00 24.21 kg/m2 Universi ty of [place] [facility] Systolic blood 2020-09-13 20:00:00 112 mm[Hg] Univer sity of pressure [place] [facility] Diastolic blood 2020-09-13 20:00:00 72 mm[Hg] Unive rsity of pressure [place] [facility] Heart rate 2020-09-13 20:00:00 95 /min Universi ty [facility] [place] [facility] Respiratory rate 2020-09-13 20:00:00 13 /min Univ ersity of [place] [facility] Oxygen saturation in 2020-09-13 20:00:00 92 /min University of Arterial blood by [facility] leny Pulse oximetry Branch Body temperature 2020-09-13 19:54:00 36.28 Seha Univ ersity of [place] [facility] Body height 2020-09-13 07:44:00 167.6 cm Universi ty of [place] [facility] Body weight 2020-09-13 07:44:00 68.04 kg Universi ty [facility] [place] [facility] BMI 2020-09-13 07:44:00 24.21 kg/m2 Univers[facility] [place] [facility] WEIGHT 2020-07-03 18:12:00 47.628 kg WEIGHT 2020-07-03 18:12:00 47.628 kg HEIGHT 2019-11-15 00:00:00 167.6 cm WEIGHT 2019-11-15 00:00:00 73.211 kg Systolic blood 2018-11-19 23:33:00 115 mm[Hg] Univer sity of pressure [place] [facility] Diastolic blood 2018-11-19 23:33:00 68 mm[Hg] Unive rsity of pressure [place] [facility] Heart rate 2018-11-19 23:33:00 79 /min Universi ty of [place] [facility] Respiratory rate 2018-11-19 23:33:00 16 /min Univ ersity of [place] [facility] Oxygen saturation in 2018-11-19 23:33:00 99 /min University of Arterial blood by [employer] leny Pulse oximetry Branch Body temperature 2018-11-19 21:39:00 37.06 Shea Univ ersity of [place] [facility] Body height 2018-11-19 21:39:00 167.6 cm Universi ty of [place] [facility] Body weight 2018-11-19 21:39:00 63.504 kg Universi ty of [place] [facility] BMI 2018-11-19 21:39:00 22.60 kg/m2 Universi ty [facility] [place] [facility] Systolic blood 2018-11-19 23:33:00 115 mm[Hg] Univer sity of pressure [place] [facility] Diastolic blood 2018-11-19 23:33:00 68 mm[Hg] Unive rsity of pressure [place] [facility] Heart rate 2018-11-19 23:33:00 79 /min Universi ty of [place] [facility] Respiratory rate 2018-11-19 23:33:00 16 /min Univ ersity of [place] [facility] Oxygen saturation in 2018-11-19 23:33:00 99 /min University of Arterial blood by [employer] leny Pulse oximetry Branch Body temperature 2018-11-19 21:39:00 37.06 Shea Univ ersity of [place] [facility] Body height 2018-11-19 21:39:00 167.6 cm Universi ty of [place] [facility] Body weight 2018-11-19 21:39:00 63.504 kg Universi ty of [place] [facility] BMI 2018-11-19 21:39:00 22.60 kg/m2 Universi ty [facility] [place] [facility] Systolic blood 2018-11-10 19:37:00 118 mm[Hg] Univer sity of pressure [place] [facility] Diastolic blood 2018-11-10 19:37:00 79 mm[Hg] Unive rsity of pressure [place] [facility] Heart rate 2018-11-10 19:37:00 112 /min Universi ty of [facility] Branch Body temperature 2018-11-10 19:37:00 36.83 Shea Univ ersity of [place] [facility] Respiratory rate 2018-11-10 19:37:00 22 /min Univ ersity of [place] [facility] Body height 2018-11-10 19:37:00 167.6 cm Universi ty of [place] [facility] Body weight 2018-11-10 19:37:00 63.504 kg Universi ty of [place] [facility] BMI 2018-11-10 19:37:00 22.60 kg/m2 Universi ty of [place] [facility] Oxygen saturation in 2018-11-10 19:37:00 100 /min [facility] Arterial blood by [facility] Pulse oximetry Branch Systolic blood 2018-11-10 19:37:00 118 mm[Hg] Univer sity of pressure [place] [facility] Diastolic blood 2018-11-10 19:37:00 79 mm[Hg] Unive rsity of pressure [place] [facility] Heart rate 2018-11-10 19:37:00 112 /min Universi ty of [place] [facility] Body temperature 2018-11-10 19:37:00 36.83 Shea Univ ersity of [place] [facility] Respiratory rate 2018-11-10 19:37:00 22 /min Univ ersity of [place] [facility] Body height 2018-11-10 19:37:00 167.6 cm Universi ty [facility] [place] [facility] Body weight 2018-11-10 19:37:00 63.504 kg Universi ty of [place] [facility] BMI 2018-11-10 19:37:00 22.60 kg/m2 Universi ty of [facility] Branch Oxygen saturation in 2018-11-10 19:37:00 100 /min University of Arterial blood by [facility] Pulse oximetry Branch Procedures Procedure Date / Time Performing Clinician Source Performed CONSENT/REFUSAL FOR 2020-09-21 20:48:14 [facility] Name Medical Branch POCT GLUCOSE (AUTOMATED) 2020-09-14 09:30:[address] [facility] POCT GLUCOSE (AUTOMATED) 2020-09-14 09:30:[address] [facility] GRAM STAIN REPORT 2020-09-13 19:27:30 Rena Warner [facility] GRAM STAIN REPORT 2020-09-13 19:27:30 Rena Warner [facility] FACIAL ABSCESS INCISION 2020-09-13 18:39:00 [facility] TOOTH EXTRACTION 2020-09-13 18:39:00 Rena Warner [facility] TEST, SERUM 2020-09-13 13:10:00 Darci Srikanth [facility] TEST, SERUM 2020-09-13 13:10:00 Darci [facility] COVID-19 (ID NOW RAPID 2020-09-13 10:20:00 Jori Varghese [facility] TESTING) Medical Branch LAB ONLY COVID 2020-09-13 10:20:00 Jori Varghese [facility] INTERPRETATION [facility] COVID-19 (ID NOW RAPID 2020-09-13 10:20:00 Jori Varghese [facility] TESTING) Medical Branch LAB ONLY COVID 2020-09-13 10:20:00 Jori Varghese [facility] INTERPRETATION [facility] XR ORTHOPANTOGRAM TEETH 2020-09-13 09:44:12 Jori Varghese Un iversity of [facility] XR ORTHOPANTOGRAM TEETH 2020-09-13 09:44:12 [facility] PELVIS W 2018-11-19 23:18:39 Aubrey Membreno [facility] CONTRAST [facility] SUTURE REMOVAL 2018-11-19 23:07:17 Singer [facility] CREATININE 2018-11-19 22:08:00 Membreno, [facility] COMP. METABOLIC PANEL 2018-11-19 22:08:00 Aubrey Membreno [facility] ([id number]) [facility] CBC WITH DIFFERENTIAL 2018-11-19 22:08:00 Aubrey Membreno [facility] POCT TEST 2018-11-19 22:02:00 Aubrey Membreno [facility] NOTICE OF PRIVACY 2018-11-19 21:32:18 Doctor Unassigned, No [facility] CONSENT/REFUSAL FOR 2018-11-19 21:32:09 Doctor [facility]igned, [facility]AT[facility] Name [facility] NOTICE OF PRIVACY 2018-11-10 19:21:02 Doctor Unassigned, No [facility] PRACTICES Name [facility] Encounters Start End Encounter Admission Attending Care Care Encounter Source Date/Time Date/Time Type Type Clinicians Facility Department ID 2020-12-27 Inpatient ER CIVUNIGUNTA [facility] [id number] [facility]H 04:35:18 , TOAN 2020-09-13 [facility] [id number] Univers 02:26:00 EASTON sibley [facility] [place] [facility] 2020-09-21 2020-09-21 Office FREDDIE Warner [id number] Univers 15:49:17 16:01:20 Visit Rena [facility] [id number] ity of CL[place] [id number] [facility] 199 Branch 2020-09-21 2020-09-21 Outpatient R TIMMY [facility] [id number] Univers 15:30:00 15:30:00 RENA sibley [facility] [place] [facility] 2020-09-21 2020-09-21 Orders Doctor MARRERO [id number] Univers 00:00:00 00:00:00 Only Unassigned, SAURABH [id number] ity of [place] [facility] 4.2.7.2.686 [place] as [id number] [facility] 009 Branch 2020-09-16 2020-09-16 Case ELIDA Varghese [id number] Univers 00:00:00 00:00:00 Management Jori WILEY [id number] ity of HOSPITAL 4.2.7.2.686 [place] [id number] [facility] 010 Branch 2020-09-16 2020-09-16 Case ELIDA Varghese [id number] 00:00:00 00:00:00 Management Jori WILEY [id number] [facility] 4.2.7.2.686 [id number] 2020-09-15 2020-09-15 Transition Linda Perry [id number] Univers 00:00:00 00:00:00 of Care Ness Padillay [id number] ity [place]2.[place] [id number] [facility] 403 Branch 2020-09-15 2020-09-15 Transition Linda Perry [id number] 00:00:00 00:00:00 of Care Ness Padillay [id number] [place] 4.2.7.2.686 [id number] 2020-09-13 2020-09-14 [facility] 1.2.84 0.114 [id number] [facility] 02:26:00 09:58:00 Encounter Rena Warner [id number] 0 ity of Hospital [id number] [place] [id number] [facility] 097 Branch 2020-09-13 2020-09-14 [facility] Easton Cruz 1.2.84 0.114 [id number] 02:26:00 09:58:00 Encounter Rena Warner [id number] 0 Hospital 4.2.7.2.686 [id number] 2020-09-13 2020-09-13 Surgery Dee Warner [id number] Univers 13:30:00 15:01:00 Rena Wiley [id number] ity of Hospital 4.2.7.2.686 [place] [id number] [facility] 103 Branch 2020-09-13 2020-09-13 Surgery Dee [id number] 13:30:00 15:01:00 Saurabh [id number] [facility] 42.7.2.686 [id number] [facility] 2020-07-03 2020-07-03 Emergency ER [facility] Emergency [id number] SLE 19:08:00 19:08:00 2020-07-03 2020-07-03 Emergency ER [facility] Emergency [id number] SLE 18:03:00 18:03:00 2018-11-19 2018-11-19 Emergency , [facility] [id number] 16:42:19 18:58:00 Aubrey Holloway [id number] [place] 4.2.7.2.686 [place] [id number] [facility] 2018-11-19 2018-11-19 Emergency , [facility] [id number] [facility] 16:42:19 18:58:00 Aubrey Holloway [id number] i ty of [place] 4.2.7.2.686 [facility] [id number] [facility] 084 Branch 2018-11-19 2018-11-19 Orders Doctor ELIDA [id number] 00:00:00 00:00:00 Only Unassigned, SAURABH [id number] [place] [facility] 4.2.7.2.686 [id number] 2018-11-19 2018-11-19 Orders Doctor ELIDA [id number] Univers 00:00:00 00:00:00 Only Unassigned, SAURABH [id number] ity of [place] [facility] 4.2.7.2.686 Frank as [id number] [facility] 009 Branch 2018-11-10 2018-11-10 Emergency [facility] [id number] 14:58:26 15:00:00 Amie [id number] [place] 4.2.7.2.686 [place] [id number] 2018-11-10 2018-11-[address] [facility] [id number] Univers 14:58:26 15:00:00 Amie [id number] i ty of [place] 4.2.7.2.686 [facility] [id number] [place] 316084 Branch Results Test Description Test Time Test Comments Results Result Comments Source POCT GLUCOSE (AUTOMATED) 2020-09-14 09:31:44 Test Item Value Reference Range Interpretation Comme nts POCT GLU (test code = [id number]) 194 mg/dL 70-110 H Lab Interpretation (test code = 44280-2) [facility]14 09:31:44 Test Item Value Reference Range Interpretation Comments POCT GLU (test code = [id number]) 194 mg/dL 70-110 H Lab Interpretation (test code = Abnormal 74706-2) [facility] [id number] 02:41:47COVID DMT InterpretationInterpretation/Recommendations: Molecular NAAT Tests for Active Infection with the SARS-CoV-2 Virus: The patient has currently tested negative for the SARS-CoV-2 virus that causes COVID-19 illness. This most likely indicates that the patient does not have an active infection with the SARS-CoV-2 virus. However, infection is not completely ruled out as the false negative rate for molecular NAAT testing using a nasopharyngeal sample can be up to 30%, mostly dependent on the timing of sample collection in relation to illness onset and any deficiencies in sampling techniques. If the patient has symptoms concerning for COVID-19 illness, a repeat NAAT test (PCR, Rapid ID Now, etc.) should be performed, at which time the SARS-CoV-2 virus - if present - may have reached a detectable viral load (usually peaking by the end of the first week of symptoms). Tests for IgM and/or IgGAntibodies to the SARS-CoV-2 Virus: If the patient develops COVID-19 illness in the future, testingfor IgM and IgG antibodies approximately 3 weeks after illness onset will likely indicate if the patient has produced antibodies to the SARS-CoV-2 virus. However, some patients may take longer to develop detectable antibodies, while some patients who were infected with SARS-CoV-2 may never develop antibodies. While antibodies to SARS-CoV-2 may provide some degree of immunity, at this time the strength and duration of the antibody response is unknown. ? ? Interpretation Result Comments:These interpretation comments are basedupon all COVID-19 testing the patient has had at [facility], including molecular NAAT testing (more commonly known as PCR testing and Rapid ID Now testing) and antibody testing. It does not take into accountany testing that a patient has had outside of the [facility] medical record. [facility] LABORATORY SERVICESCOVID [id number] Rapid ID NOW (no units) ? ? Date ? Value ? 09/13/2020 ? Not Detected ? [facility] [id number] 02:41:47COVID DMT InterpretationInterpretation/Recommendations: Molecular NAAT Tests for Active Infection with the SARS-CoV-2 Virus: The patient has currently tested negative for the SARS-CoV-2 virus that causes COVID-19 illness. This most likely indicates that the patient does not have an active infection with the SARS-CoV-2 virus. However, infection is not completely ruled out as the false negative rate for molecular NAAT testing using a nasopharyngeal sample can be up to 30%, mostly dependent on the timing of sample collection in relation to illness onset and any deficiencies in sampling techniques. If the patient has symptoms concerning for COVID-19 illness, a repeat NAAT test (PCR, Rapid ID Now, etc.) should be performed, at which time the SARS-CoV-2 virus - if present - may have reached a detectable viral load (usually peaking by the end of the first week of symptoms). Tests for IgM and/or IgGAntibodies to the SARS-CoV-2 Virus: If the patient develops COVID-19 illness in the future, testingfor IgM and IgG antibodies approximately 3 weeks after illness onset will likely indicate if the patient has produced antibodies to the SARS-CoV-2 virus. However, some patients may take longer to develop detectable antibodies, while some patients who were infected with SARS-CoV-2 may never develop antibodies. While antibodies to SARS-CoV-2 may provide some degree of immunity, at this time the strength and duration of the antibody response is unknown. ? ? Interpretation Result Comments:These interpretation comments are basedupon all COVID-19 testing the patient has had at [facility], including molecular NAAT testing (more commonly known as PCR testing and Rapid ID Now testing) and antibody testing. It does not take into accountany testing that a patient has had outside of the [facility] medical record. [facility] LABORATORY SERVICESCOVID [id number] Rapid ID NOW (no units) ? ? Date ? Value ? 09/13/2020 ? Not Detected ? [facility] [id number] 00:29:15 Test Item Value Reference Range Interpretation Comments Gram stain (test Numerous Polymorphonuclear code = 664-3) leukocytes [facility] [id number] 00:29:15 Test Item Value Reference Range Interpretation Comments Gram stain (test Numerous Polymorphonuclear code = 664-3) leukocytes [facility]th[facility]ant[facility], [id number] 14:02:02 FINDINGS/IMPRESSION: Dental caries and periodontal disease identified involving the rightmaxillary molars with scattered dental caries also noted in the rightmandibular molars and the central maxillaryincisors. Root canals are notedin the left maxillary canine and first premolar. A radiopaque densityseen in the midline involving the nasal septum,possibly representing a piercing. Clinical correlation is recommended.Screws are noted in the region of the maxillary sinuses bilaterally. There is a questionable lucency involving the right mandibular body, closeto the angle. This would be better evaluated with a CT. The maxillarysinuses are clear. Preliminary Report Dictated by Resident: Rosalinda Tang MD., have reviewed this study and agree with the abovereport.EXAM: XR ORTHOPANTOGRAM TEETH HISTORY: 25 years-old Female dental exam COMPARISON: None. [facility], Radiant Results Inft User- 09/13/2020 9:03 AM CDT EXAM: XR ORTHOP ANTOGRAM TEETHHISTORY: 25 years-old Female dental exam COMPARISON: None.IMPRESSIONFINDINGS/IMPRESSION:Dental caries and periodontal disease identified involving the rightmaxillary molars with scattereddental caries also noted in the rightmandibular molars and the central maxillary incisors. Root canals are notedin the left maxillary canine and first premolar.A radiopaque density seen in the midline involving the nasal septum,possibly representing a piercing. Clinical correlation is recommended.Screws are noted in the region of the maxillary sinuses bilaterally.There is a questionable lucency involving the right mandibular body, closeto the angle. This would be better evaluated with a CT. The maxillarysinuses are clear.Preliminary Report Dictated by Resident: Rosalinda Hein MD., have reviewed this study and agree with the abovereport.[facility], [id number] 14:02:02FINDINGS/IMPRESSION: Dental caries and periodontal disease identified involving the rightmaxillary molars with scattered dental caries also noted in the rightmandibular molars and the central maxillaryincisors. Root canals are notedin the left maxillary canine and first premolar. A radiopaque densityseen in the midline involving the nasal septum,possibly representing a piercing. Clinical correlation is recommended.Screws are noted in the region of the maxillary sinuses bilaterally. There is a questionable lucency involving the right mandibular body, closeto the angle. This would be better evaluated with a CT. The maxillarysinuses are clear. Preliminary Report Dictated by Resident: Rosalinda Tang MD., have reviewed this study and agree with the abovereport.EXAM: XR ORTHOPANTOGRAM TEETH HISTORY: 25 years-old Female dental exam COMPARISON: None. [facility], Radiant Results Inft User- 09/13/2020 9:03 AM CDT EXAM: XR ORTHOP ANTOGRAM TEETHHISTORY: 25 years-old Female dental exam COMPARISON: None.IMPRESSIONFINDINGS/IMPRESSION:Dental caries and periodontal disease identified involving the rightmaxillary molars with scattereddental caries also noted in the rightmandibular molars and the central maxillary incisors. Root canals are notedin the left maxillary canine and first premolar.A radiopaque density seen in the midline involving the nasal septum,possibly representing a piercing. Clinical correlation is recommended.Screws are noted in the region of the maxillary sinuses bilaterally.There is a questionable lucency involving the right mandibular body, closeto the angle. This would be better evaluated with a CT. The maxillarysinuses are clear.Preliminary Report Dictated by Resident: Rosalinda Hein MD., have reviewed this study and agree with the abovereport.[facility] CenterP[facility]NCY TEST, [id number] 13:50:19 Test Item Value Reference Range Interpretation Comments PREG SERUM (test code Negative = 6788677657) SAPPHIRE (test code = SAPPHIRE) Less than 10 IU/L. ?If low titer or ectopic is suspected, resubmit specimen in 48-[address] [facility] CenterP[facility]Y TEST, [id number] 13:50:19 Test Item Value Reference Range Interpretation Comments PREG SERUM (test code Negative = 5138059692) SAPPHIRE (test code = SAPPHIRE) Less than 10 IU/L. ?If low titer or ectopic is suspected, resubmit specimen in 48-[address] [facility] CenterCOVID-[facility] (ID NOW RAPID TESTING)2020-09-13 10:43:32 Test Item Value Reference Range Interpretation Comments SARS-CoV-2 Rapid ID NOW Not Detected Not Detected (test code = 57402-0) SAPPHIRE (test code = SAPPHIRE) ID NOW COVID-19 Assay is an isothermal nucleic acid amplification test intended for the qualitative detection of nucleic acid from SARS-CoV-2 viral RNA in nasopharyngeal (BAKED AND GRAPHITE INSPECTOR) specimens. It is used under Emergency Use Authorization (EUA) by FDA. The limit of detection (LOD) of the assay is 125 Genome Equivalents/mL. A positive result is indicative of the presence of SARS-CoV-2 RNA. ?Clinical correlation with patient history and other diagnostic information is necessary to determine patient infection status. A negative (Not Detected) result does not preclude SARS-CoV-2 infection. In patients with clinical symptoms and other tests that are consistent with SARS-CoV-2 infection, negative results should be treated as presumptive negative and a new specimen should be tested with alternative PCR molecular test. Invalid: Please collect a new specimen for repeat patient testing if clinically indicated. Lab Interpretation Normal (test code = 17732-0) [facility] ([facility]APID TESTING)2020-09-13 10:43:32 Test Item Value Reference Range Interpretation Comments SARS-CoV-2 Rapid ID NOW Not Detected Not Detected (test code = 78105-1) SAPPHIRE (test code = SAPPHIRE) ID NOW COVID-19 Assay is an isothermal nucleic acid amplification test intended for the qualitative detection of nucleic acid from SARS-CoV-2 viral RNA in nasopharyngeal (BAKED AND GRAPHITE INSPECTOR) specimens. It is used under Emergency Use Authorization (EUA) by FDA. The limit of detection (LOD) of the assay is 125 Genome Equivalents/mL. A positive result is indicative of the presence of SARS-CoV-2 RNA. ?Clinical correlation with patient history and other diagnostic information is necessary to determine patient infection status. A negative (Not Detected) result does not preclude SARS-CoV-2 infection. In patients with clinical symptoms and other tests that are consistent with SARS-CoV-2 infection, negative results should be treated as presumptive negative and a new specimen should be tested with alternative PCR molecular test. Invalid: Please collect a new specimen for repeat patient testing if clinically indicated. Lab Interpretation Normal (test code = 59464-8) [facility]/ REFLEX URINE [id number] 18:40:00 Test Item Value Reference Range Interpretation [...] = 1663) SOURCE(BEAKER) (test code = 2795) SCREEN, [id number] 18:36:00 Test Item Value Reference Range Interpretation Comments TEST URINE (BEAKER) (test Negative code = 583) CT, [id number] 22:39:00Unlisted Reason for Exam - Click Yes and Enter Reason Below->NoPlease specify:->Renal Stone ProtocolFINAL REPORT EXAM: CT of the abdomen and pelvis, without contrast CLINICAL HIS TORY: Flank pain, kidney stone suspected TECHNIQUE: CT [...] Jean Driscoll MDReport Verified Date/Time: 11/19/2019 22:39:03 VANCOMYCIN LEVEL, [id number] 22:23:00 Test Item Value Reference Range Interpretation Comments VANCOMYCIN TROUGH (BEAKER) (test 18.2 ug/mL 10.0-20.0 code = 522) Nurse Practitioner Physicians Assistant ID - DBBASIC METABOLIC [id number] 19:16:00 Test Item Value Reference Range Interpretation [...] S NOT APPLICABLE FOR DIALYSIS PATIEN TS. Nurse Practitioner Physicians Assistant ID - NEREYDA BHEMOGLOBIN AND [id number] 18:58:00 Test Item Value Reference Range Interpretation Comments HEMOGLOBIN (BEAKER) (test code = 13.3 GM/DL 11.2-15.7 410) HEMATOCRIT (BEAKER) (test code = 41.7 % 34.1-44.9 411) Nurse Practitioner Physicians Assistant ID - [id number], FLUORO, NON-SPECIFIC, UP TO 1 [id number] 17:35:00 Reason for exam:->Percutaneous LithotripsyFluoroscopic unit utilized for a procedure performed in the OR. No interpretation was requested. Refer to the operative report for findings. Refer to PACS for patient radiation dose information.PROTHROMBIN TIME/[id number] 05:20:00 Test Item Value Reference Range Interpretation [...] INR is2.5-3.5 for patients wiht mechanical heart valves.[id number] 05:14:00 Test Item Value Reference Range Interpretation Comments PARTIAL THROMBOPLASTIN TIME 31.8 seconds 22.5-36.0 (BEAKER) (test code = 760) URINE [id number] 12:38:00 Test Item Value Reference Range Interpretation Comments CULTURE (BEAKER) (test code = 1095) No growth BASIC METABOLIC [id number] 06:53:00 Test Item Value Reference Range Interpretation [...] S NOT APPLICABLE FOR DIALYSIS PATIEN TS. Nurse Practitioner Physicians Assistant ID - NTPCBC W/PLT COUNT & AUTO [id number] 06:25:00 Test Item Value Reference Range Interpretation [...] (BEAKER) (test code = 2801) BASIC METABOLIC [id number] 05:53:00 Test Item Value Reference Range Interpretation [...] S NOT APPLICABLE FOR DIALYSIS PATIEN TS. Nurse Practitioner Physicians Assistant ID - PIAYA LCBC W/PLT COUNT & AUTO [id number] 05:18:00 Test Item Value Reference Range Interpretation [...] 0-1 PERCENT (BEAKER) (test code = 2801) SARS-COV2/RT-PCR ([facility])2019-11-16 17:16:00 Test Item Value Reference Range Interpretation Comments SARS-COV2/RT-PCR (test Negative Not Detected, Negative, code = 4509263) See external report for linked test SARS-COV-[address] [facility] (test code = 2176126) Negative result for this test determines that [...] individuals suspected of COVID-19 by their healthcare provider.This test [...] 564(g) of the Act.Fact Sheet for Healthcare Providers:https://www.[employer]Radius/sites/default/files/product/documents/Fact_Shee o_GS_Bsvmmbyai_Tqba_ZQWI-YsJ-7.pdfFact Sheet for Healthcare Patients:https://www.[employer].com/sites/default/files/product/ documents/Kinf_Taiif_Yqzzipis_Yhvr_VEMV-SsC-0.pdfPerforming Laboratory:[facility], [place] [address]WGU, NEPHROSTOMY, PERC, EXTERNAL [id number] 12:32:00Reason for exam:->Left Obstructing Kidney Stone - Recommend Left PCN placementFINAL REPORT Fluoroscopic guided left nephrostomy tube placement. Clinical History: Left UPJ obstructing stone. Modality: Sonography and fluoroscopy Title Camera Operator: Dio Elmore MD. Pyridine Recovery Operator: Luis Colby. Sedation: Versed 3.5 mg [...] soft tissue tract was dilated with 8 British dilators. A 8.5 British drainage catheter was placed into the left [...] MDReport Verified Date/Time: 11/16/2019 12:32:44 Reading Location: [place] [address] Angio Body Reading Room BASIC METABOLIC [id number] 06:52:00 Test Item Value Reference Range Interpretation [...] S NOT APPLICABLE FOR DIALYSIS PATIEN TS. Nurse Practitioner Physicians Assistant ID - JACIEL WCBC W/PLT COUNT & AUTO [id number] 05:59:00 Test Item Value Reference Range Interpretation [...] (BEAKER) (test code = 2801) BASIC METABOLIC [id number] 22:02:00 Test Item Value Reference Range Interpretation [...] S NOT APPLICABLE FOR DIALYSIS PATIEN TS. Nurse Practitioner Physicians Assistant ID - DBPT/[id number] 21:57:00 Test Item Value Reference Range Interpretation [...] is2.5-3.5 for patients wiht mechanical heart valves.PROTHROMBIN TIME/[id number] 21:57:00 Test Item Value Reference Range Interpretation [...] INR is2.5-3.5 for patients wiht mechanical heart valves. SCREEN, [id number] 21:46:00 Test Item Value Reference Range Interpretation Comments TEST URINE (BEAKER) (test Negative code = 583) CBC W/PLT COUNT & AUTO [id number] 21:41:00 Test Item Value Reference Range Interpretation [...] 0-1 PERCENT (BEAKER) (test code = 2801) Suture [id number] 23:07:17Aubrey Membreno DO? 11/19/2018?6:51 PMSuture RemovalDate/Time: 11/19/2018 6:08 PMPerformed by: Aubrey Membreno DOAuthorized by: Aubrey Membreno DO Consent: ?Consent obtained:?Verbal?Consent given by:? Patient?Risks discussed:?Bleeding and pain?Alternatives discussed:?No treatment and delayed treatmentLocation: ?Location:?Trunk?Trunk location:?AbdomenProcedure details: ?Wound appearance:?No signs of infection, good wound healing and clean?[facility] METABOLIC PANEL (45643)2018-11-19 22:55:00 Test Item Value Reference Range Interpretation Comments NA (test code = 144 mmol/L 135-145 3261418072) K (test code = 4.0 mmol/L 3.5-5 6029947402) CL (test code = 105 mmol/L 98-108 7010064684) CO2 TOTAL (test code = 27 mmol/L 23-31 0447656708) AGAP (test code = 2-16 4635970870) BUN (test code = 10 mg/dL 7-23 4948032910) GLUCOSE (test code = 104 mg/dL 70-110 5646885895) CREATININE (test code 0.72 mg/dL 0.5-1.04 = 8968012912) TOTAL BILI (test code 0.4 mg/dL 0.1-1.1 = 0987007831) CALCIUM (test code = 9.6 mg/dL 8.6-10.6 6322124420) T PROTEIN (test code = 8.1 g/dL 6.3-8.2 2136543160) ALBUMIN (test code = 4.5 g/dL 3.5-5 1141781861) ALK PHOS (test code = 49 U/L 34-122 2360384897) ALT(SGPT) (test code = 23 U/L 9-51 8295672447) AST(SGOT) (test code = 18 U/L 13-40 6431549868) eGFR Calculation mL/min/1.73m2 (Non-) (test code = 2200539822) eGFR Calculation mL/min/1.73m2 () (test code = 8774322589) SAPPHIRE (test code = SAPPHIRE) Association of Glomerular Filtration Rate (GFR) and Staging of Kidney Disease*+ ---------+ --------+ +| GFR (mL/min/1.73 m2)?| With Kidney Damage?|?Without Kidney Damage+ -------+ ------+ ---------+|?>90?|?Stage one?|? Normal?+ --------+ -------+ +|?60-89?|?St age two?|? Decreased GFR? + -+ + ---+|?30-59?|?Stage three?|? Stage three? + -+ + ---+|?15-29?|?Stage four? |? Stage four?+ ------+ -----+ --------+|?<15 (or dialysis)?|?Stage five? |? Stage five?+ ------+ -----+ --------+*Each stage assumes the associated GFR level has been in effect for at least three months.?Stages 1 to 5, with or without kidney disease, indicate chronic kidney disease.Notes: Determination of stages one and two (with eGFR >59mL/min/1.73 m2) requires estimation of kidney damage for at least three months as defined by structural or functional abnormalities of the kidney, manifested by either:Pathological abnormalities or Markers of kidney damage (including abnormalities in the composition of the blood or urine or abnormalities in imaging tests). [facility]2019-08-29 22:54:00 Test Item Value Reference Range Interpretation Comments CREATININE (test code 0.74 mg/dL 0.5-1.04 = 2982260358) eGFR Calculation mL/min/1.73m2 (Non-) (test code = 4560407903) eGFR Calculation mL/min/1.73m2 () (test code = 5780842034) SAPPHIRE (test code = SAPPHIRE) Association of Glomerular Filtration Rate (GFR) and Staging of Kidney Disease*+ ---------+ --------+ +| GFR (mL/min/1.73 m2)?| With Kidney Damage?|?Without Kidney Damage+ -------+ ------+ ---------+|?>90?|?Stage one?|? Normal?+ --------+ -------+ +|?60-89?|?St age two?|? Decreased GFR? + -+ + ---+|?30-59?|?Stage three?|? Stage three? + -+ + ---+|?15-29?|?Stage four? |? Stage four?+ ------+ -----+ --------+|?<15 (or dialysis)?|?Stage five? |? Stage five?+ ------+ -----+ --------+*Each stage assumes the associated GFR level has been in effect for at least three months.?Stages 1 to 5, with or without kidney disease, indicate chronic kidney disease.Notes: Determination of stages one and two (with eGFR >59mL/min/1.73 m2) requires estimation of kidney damage for at least three months as defined by structural or functional abnormalities of the kidney, manifested by either:Pathological abnormalities or Markers of kidney damage (including abnormalities in the composition of the blood or urine or abnormalities in imaging tests). [facility] WITH [id number] 22:38:00 Test Item Value Reference Range Interpretation Comments WBC (test code = See_Comment [Automated 6857-2) message] The sy stem which generated this result transmitted reference range : 4.30 - 11.10 10*3/?L. The reference range was not used to interpret this result as normal/abnormal . RBC (test code = See_Comment [Automated 532-8) message] The sy stem which generated this result transmitted reference range : 3.93 - 5.25 10*6/?L. The reference range was not used to interpret this result as normal/abnormal . HGB (test code = 13.3 g/dL 11.6-15 718-7) HCT (test code = 40.8 % 35.7-45.2 4544-3) MCV (test code = 88.9 fL 80.6-95.5 787-2) MCH (test code = 29.0 pg 25.9-32.8 785-6) MCHC (test code = 32.6 g/dL 31.6-35.1 786-4) RDW-SD (test code = 38.5 fL 39-49.9 L 72235-4) RDW-CV (test code = 11.9 % 12-15.5 L 788-0) PLT (test code = See_Comment [Automated 887-3) message] The sy stem which generated this result transmitted reference range : 166 - 358 10*3/ ?L. The reference r nichelle was not used to interpret this result as normal/abnormal . MPV (test code = 9.2 fL 9.5-12.9 L 08353-0) NRBC/100 WBC (test See_Comment [Automat ed code = 3614973761) message] The system which generated this result transmitted reference range : 0.0 - 10.0 /100 WBCs. The refer ence range was not u sed to interpret th is result as normal/abnormal . NRBC x10^3 (test code <0.01 See_Comment [Auto mated = 2234549354) message] The s ystem which generated this result transmitted reference range : 10*3/?L. The reference range was not used to interpret this result as normal/abnormal . GRAN MAT (NEUT) % 55.3 % (test code = 770-8) IMM GRAN % (test code 0.40 % = 5213796425) LYMPH % (test code = 32.9 % 736-9) MONO % (test code = 8.3 % 5905-5) EOS % (test code = 2.1 % 713-8) BASO % (test code = 1.0 % 706-2) GRAN MAT x10^3(ANC) 3.95 10*3/uL 1.88-7.09 (test code = 8986197484) IMM GRAN x10^3 (test 0.03 10*3/uL 0-0.06 code = 3857049978) LYMPH x10^3 (test code 2.35 10*3/uL 1.32-3.29 = 731-0) MONO x10^3 (test code 0.59 10*3/uL 0.33-0.92 = 742-7) EOS x10^3 (test code = 0.15 10*3/uL 0.03-0.39 711-2) BASO x10^3 (test code 0.07 10*3/uL 0.01-0.07 = 704-7) Lab Interpretation Abnormal (test code = 35776-2) [facility] [id number] 22:02:00 Test Item Value Reference Range Interpretation Comments POCT PREG (test code = 1605) Negative On board controls acceptable with Present C Line (test code = 3574) POCT PREG LOT # (test code = 3575) [id number] POCT PREG TEST DATE (test 03/23/2020 code = 3576) Lab Interpretation (test code = Normal 49629-5) [facility]"
[2021-03-15] MEDS ORDERED: BUPIVACAINE 0.5% PF 10 ML VIAL ONE (00:05)
--- NOTE | 2021-03-15 00:59 | EDPHYS ---
Physician Documentation [facility] Name: Jagruti Hill Age: 26 yrs Sex: Female : 1995 Arrival Date: 03/14/2021 Time: 23:12 Bed 11 Private MD: ED Physician Doug Rutledge HPI: 03/15 00:02 This 26 yrs old Female presents to ER via EMS with complaints of Dental Pain. m 00:02 The patient presents with pain, swelling. Onset: The symptoms/episode began/occurred jm gradually, 1 day(s) ago. Duration: The symptoms are continuous, and are steadily getting worse. Modifying factors: The symptoms are alleviated by nothing, the symptoms are aggravated by nothing. Associated signs and symptoms: Pertinent negatives: fever. This is a 26-year-old female currently 29 weeks that presents emerge department with complaints of right lower molar pain which radiates into the right ear. Patient denies fever or chills but states having progressively worsening pain since onset.. 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 - Social history:: Smoking status: Patient reports the use of cigarette tobacco products, denies chronic smoking, but will smoke occasionally, Patient/guardian denies using alcohol. ROS: 03/15 00:02 Constitutional: Negative for fever, chills, and weight loss. jmm Cardiovascular: Negative for chest pain, palpitations, and edema, Respiratory: Negative for shortness of breath, cough, wheezing, and pleuritic chest pain. ENT: Positive for ear pain. All other systems are negative. Exam: 00:02 Constitutional: This is a well developed, well nourished patient who is awake, alert, jmm and in no acute distress. Head/Face: atraumatic. Eyes: EOMI, no conjunctival erythema appreciated 00:02 Chest/axilla: Normal chest wall appearance and motion. Cardiovascular: Regular rate and rhythm. No edema appreciated Respiratory: Normal respirations, no respiratory distress appreciated Abdomen/GI: Non distended, soft Back: Normal ROM Skin: General appearance color normal 00:02 ENT: Dental exam: gum swelling, that is moderate, specifically in the lower right second molar (#31). 00:02 Musculoskeletal/extremity: ROM: intact in all extremities. 00:02 Skin: Appearance: Color: normal in color. 00:02 Neuro: Motor: is normal. 00:02 Psych: Behavior/mood is pleasant, cooperative. Vital Signs: 03/14 23:19 BP 136 / 89; Pulse 104; Resp 20; Temp 98.0(O); Pulse Ox 98% on R/A; Weight 90.72 kg; ld1 Height 5 ft. 6 in. (167.64 cm); Pain 8/10; 23:19 Body Mass Index 32.28 (90.72 kg, 167.64 cm) ld1 MDM: 03/15 00:02 Patient medically screened. [facility] 00:57 Data reviewed: vital signs, nurses notes. Counseling: I had a detailed discussion with ingrid the patient and/or guardian regarding: the historical points, exam findings, and any diagnostic results supporting the discharge/admit diagnosis, the need for outpatient follow up, to return to the emergency department if symptoms worsen or persist or if there are any questions or concerns that arise at home. ED course: 30 mL of 0.5% bupivacaine was injected into the right inferior alveolar region. Patient did receive relief. Patient still has some right ear pain. Patient given oral antibiotics and advised follow-up dentist and otherwise given strict return precautions. Patient understood agrees plan of care.. Administered Medications: 00:08 Drug: Marcaine (bupivacaine) (0.5 %) 20 ml Volume: 10 ml; Route: Infiltration; lp1 01:09 Drug: Augmentin (Amoxicillin-Clavulanate) 875 mg Route: PO; lp1 01:09 Follow up: Response: Medication administered at discharge. lp1 Disposition: 01:13 Co-signature as Attending Physician, Doug Rutledge MD. rn Disposition Summary: 03/15/21 00:59 Discharge Ordered Location: Home [facility] Condition: Stable [facility] Diagnosis - Dental Pain [facility] Followup: [facility] - With: Dany Leigh DDS - When: 2 - 3 days - Reason: Recheck today's complaints, Continuance of care, Re-evaluation by your physician Discharge Instructions: - Discharge Summary Sheet jmm - Dental Pain [facility] Forms: - Medication Reconciliation Form [facility] - Thank You Letter adria - Antibiotic Education ingrid - Prescription Opioid Use [facility] Prescriptions: - Augmentin 875-125 mg Oral Tablet - take 1 tablet by ORAL route every 12 hours for 10 days; 20 tablet; Refills: 0, jmm Product Selection Permitted Signatures: Jhonny Michele PA PA jmm Nieto, Roman, MD MD rn Estrella Perez RN RN lp1 Nabila Jacobs RN RN ld1
--- NOTE | 2021-03-15 00:59 | ER ---
Nurse's Notes [facility] Name: Jagruti Hill Age: 26 yrs Sex: Female : 1995 Arrival Date: 03/14/2021 Time: 23:12 Bed 11 Private MD: Diagnosis: Dental Pain Presentation: 03/14 23:15 Chief complaint: EMS states: Called for patient with right jaw pain, hx of dental lp1 abscess; patient is currently 29 weeks , took Tylenol at home. 23:15 Method Of Arrival: EMS: [facility] lp1 23:19 Coronavirus screen: At this time, the client does not indicate any symptoms associated ld1 with coronavirus-19. Ebola Screen: No symptoms or risks identified at this time. Initial Sepsis Screen: Does the patient meet any 2 criteria? No. Patient's initial sepsis screen is negative. Does the patient have a suspected source of infection? No. Patient's initial sepsis screen is negative. Risk Assessment: Do you want to hurt yourself or someone else? Patient reports no desire to harm self or others. Onset of symptoms was March 14, 2021. 23:19 Acuity: LISA 4 ld1 Triage Assessment: 23:20 General: Appears in no apparent distress. uncomfortable, Behavior is anxious. Pain: ld1 Complains of pain in lower right second molar and lower right third molar Pain does not radiate. Respiratory: Airway is patent Respiratory effort is even, unlabored. PHYSICIAN SPECIALIST: 23:20 LMP 06/22/2020 ld1 Historical: - Allergies: 23:21 No Known Allergies; ld1 - PMHx: 23:20 Anxiety; cystinuria; Depression; Kidney stones; ld1 - PSHx: 23:20 Appendectomy; Oral; Renal; ld1 - Immunization history:: Adult Immunizations not up to date, Client reports receiving the 2nd dose of the Covid vaccine. - Social history:: Smoking status: Patient reports the use of cigarette tobacco products, denies chronic smoking, but will smoke occasionally, Patient/guardian denies using alcohol. Screenin/23 01:09 Abuse screen: Denies threats or abuse. Denies injuries from another. Nutritional lp1 screening: No deficits noted. Tuberculosis screening: No symptoms or risk factors identified. Fall Risk None identified. Assessment: 00:00 General: Appears uncomfortable, Behavior is appropriate for age. Pain: Complains of lp1 pain in right jaw, right ear. Neuro: Level of Consciousness is awake, alert, obeys commands. Cardiovascular: Patient's skin is warm and dry. Respiratory: Respiratory effort is even, unlabored. EENT: Poor dentition noted. Derm: Skin is pink, warm \T\ dry. Musculoskeletal: No deficits noted. 01:12 Reassessment: Patient is alert, oriented x 3, equal unlabored respirations, skin lp1 warm/dry/pink. Patient states symptoms have improved. Vital Signs: 03/14 23:19 BP 136 / 89; Pulse 104; Resp 20; Temp 98.0(O); Pulse Ox 98% on R/A; Weight 90.72 kg; ld1 Height 5 ft. 6 in. (167.64 cm); Pain 8/10; 23:19 Body Mass Index 32.28 (90.72 kg, 167.64 cm) ld1 ED Course: 23:12 Patient arrived in ED. mw2 23:19 Triage completed. ld1 23:20 Arm band placed on right wrist. ld1 23:50 Jhonny Michele PA is PHCP. jmm 23:50 Doug Rutledge MD is Attending Physician. [facility] 03/15 00:03 Estrella Perez, JED is Primary Nurse. lp1 00:58 Dany Leigh DDS is Referral Physician. jmm 01:09 Patient has correct armband on for positive identification. lp1 01:09 No provider procedures requiring assistance completed. Patient did not have IV access lp1 during this emergency room visit. Administered Medications: 00:08 Drug: Marcaine (bupivacaine) (0.5 %) 20 ml Volume: 10 ml; Route: Infiltration; lp1 01:09 Drug: Augmentin (Amoxicillin-Clavulanate) 875 mg Route: PO; lp1 01:09 Follow up: Response: Medication administered at discharge. lp1 Outcome: 00:59 Discharge ordered by . [facility] 01:12 Discharged to home ambulatory, with significant other. lp1 01:12 Condition: good 01:12 Discharge instructions given to patient, Instructed on discharge instructions, follow up and referral plans. medication usage, Demonstrated understanding of instructions, follow-up care, medications, Prescriptions given X 1. 01:12 Patient left the ED. lp1 Signatures: Jhonny Michele PA PA jmm Pena, Laura, RN RN lp1 Bhargavi Massey mw2 Nabila Jacobs, RN RN ld1 Corrections: (The following items were deleted from the chart) 01:10 General: Appears uncomfortable, Behavior is appropriate for age, lp1 lp1 : 01:10 Pain: Complains of pain in right jaw, right ear 1 [facility] 01:10 Neuro: Level of Consciousness is awake, alert, obeys commands, 1 [facility] 01:10 Cardiovascular: Patient's skin is warm and dry. 1 [facility] 01:10 Respiratory: Respiratory effort is even, unlabored, [place] [id number] 01:10 Derm: Skin is pink, warm \T\ dry. 1 1 01:10 EENT: Poor dentition noted. [place] [id number] 01:10 Musculoskeletal: No deficits noted. 1 1
[2021-03-15] MEDS ORDERED: AMOX/K CLAV 875 MG TAB ONE (01:06)
[2021-03-15 01:18] VITALS: BP 136/89; TEMP 98; O2SAT 98
== END 2021-03-15 01:12 | disposition home or self-care (01) ==
LOC: ER 23:10
DX: O99.613 Diseases of the digestive system complicating pregnancy, third trimester (principal); K08.89 Other specified disorders of teeth and supporting structures; O99.333 Smoking (tobacco) complicating pregnancy, third trimester; F17.210 Nicotine dependence, cigarettes, uncomplicated; Z3A.29 29 weeks gestation of pregnancy
CPT/HCPCS: 99283

== ENCOUNTER 2022-01-13 20:27 | Emergency (ER) | payer OTHER ==
--- OUTSIDE RECORDS SUMMARY | 2022-01-13 20:31 | XMS REPORT | Continuity of Care Document ---
:1995 Author Organization [facility] t Address [address] [place] [address] Care Team Providers Name Role Phone SAKSHI CLARK Primary Care Physician Unavailable TOAN EDMONDS Attending Clinician Unavailable EASTON CRUZ Attending Clinician Unavailable GLADIS MARY Attending Clinician Unavailable Sakshi Clark MD Attending Clinician SAKSHI CLARK Attending Clinician Unavailable Doctor Unassigned, [place] Attending Clinician Unavailable Gladis Mary PA-C Attending Clinician Alhaji Harris CRNA Attending Clinician Filomena Kimball MD Attending Clinician 2, [facility] Attending Clinician Unavailable Rena Warner DDS Attending Clinician RENA WARNER Attending Clinician Unavailable Jori Varghese DMD Attending Clinician Ness Perry Attending Clinician Nancy MARROQUIN, Easton Bullock Attending Clinician CORWIN CONNER Attending Clinician Unavailable Aubrey Membreno DO Attending Clinician TOAN EDMONDS Admitting Clinician Unavailable EASTON CRUZ Admitting Clinician Unavailable SAKSHI CLARK Admitting Clinician Unavailable Sakshi Clark MD Admitting Clinician Easton Cruz DDS Admitting Clinician SONIYA HIGGINS Admitting Clinician Unavailable Payers Payer Name Policy Type Policy Number Effective Date Expiration Date Memo WARREN [id number] 2015 HEALTH 00:00:00 Problems Condition Condition Condition Status Onset Resolution Last Treating Co mments Source Name Details Category Date Date Treatment Clinician Date Obesity Obesity Disease Active Univers (BMI (BMI 4-25 ity of 30-39.9) 30-39.9) 00:00: [address] Anxiety Anxiety Disease Active Univers 3-31 ity of 00:: [address] Complaint Complaint Disease Active Uni vers of flank of flank 2-03 ity of pain pain 00:00: [address] Nephrolith Nephrolith Disease Active [facility] 00:[facility]: [address] Depression Depression Disease Active U nivers 2-03 ity of 00:00: [address] Allergies, Adverse Reactions, Alerts Allergy Allergy Status Severity Reaction(s) Onset Inactive Treating Comm ents Source Name Type Date Date Clinician NO KNOWN Drug Active Univers ALLERGIE Class ity of S [facility] NO KNOWN Allergy Active [facility] Social History Social Habit Start Date Stop Date Quantity Comments Source History of tobacco 2013-08-09 Cigarette Smoker University of use 00:00:00 [facility] History SDOH [facility] Alcohol Std Drinks Medica l Center History SDOH [facility] Alcohol Binge Medical [address] [facility] History SDOH [facility] Alcohol Comment Medical C enter Exposure to 2021-08-06 2021-08-16 Not sure University of SARS-CoV-2 (event) 00:00:00 08:57:00 [facility] Tobacco Comment 2021-04-26 2021-04-26 3 ciga a day Univers ity of 00:00:00 00:00:00 [facility] Education 2020-09-13 2020-09-13 8 University of 00:00:00 00:00:00 [facility] Cigarettes smoked 2020-09-13 2020-09-13 Univers ity of current (pack per 00:00:00 00:00:00 [facility] ) - Reported [place] Tobacco use and 2020-07-03 2020-07-[address] [facility] exposure 00:00:00 00:00:00 [facility] Alcohol intake 2020-07-03 2020-07-[address] [facility] 00:00:00 00:00:00 non-drinker Medical Cente r (finding) History SDOH 2020-07-03 2020-07-[address] [facility] Alcohol Frequency 00:00:00 00:00:00 [facility] Sex Assigned At [address] [facility] 00:00:00 00:00:00 [facility] Smoking Status Start Date Stop Date Source Current every day smoker 2020-09-13 00:00:00 Uni versity of [facility] Medications Ordered Filled Start Stop Current Ordering Indication Dosage Frequency Signature Comments Components Source Medication Medication Date Date Medication? Clinician (SIG) Name Name levonorgest 2021- No [id number] 1{devic Univers reL 08-16 e} ity of (MIRENA) 16:00: 15:23 [place] IUD 1 00 :00 Campaign Manager [place] levonorgest 2021- No [id number] 1{devic 1 Device, Univers reL 08-16 e} Intrauteri ity of (MIRENA) 16:00: 15:23 ne, ONCE, Frank as IUD 1 00 :00 1 dose, On Campaign Manager [facility] 08/16/21 at 1100, Routine Yes Take by [facility] vit37/iron/ 5-26 mouth. ity of folic acid 09:22: [place] (PRENATA 29 Medical ORAL) Branch Yes Take by [facility] vit37/iron/ 5-26 mouth. ity of folic acid 09:22: [place] (PRENATA 29 Medical ORAL) Branch miSOPROStoL 2021- No [id number] Take one Univers 200 mcg 4-25 05-26 tablet ity of tablet 00:00: 00:00 night [place] 00 :00 before Medical procedure, Branch then take one tablet morning of procedure busPIRone 5 Yes [id number] 5mg Take 1 Univers mg tablet 3-31 tablet by ity o f 00:00: mouth 2 (two) Medical times Branch daily. busPIRone 5 Yes [id number] 5mg Take 1 Univers mg tablet 3-31 tablet by ity o f 00:00: mouth 2 [place] (two) Medical times Branch daily. miSOPROStoL 2021- No [id number] 200ug Take 1 Univers 200 mcg 3-31 05-26 tablet by ity of tablet 00:00: 00:00 mouth [place] 00 :00 SEE-INSTRU Medical CTIONS. Branch Take one tab the night before and one tab the morning of procedure ibuprofen Yes [id number] 600mg Take 1 Univers 600 mg 3-05 102 tablet by ity of tablet 00:00: mouth [place] 00 every 6 Medical (six) Branch hours as needed (Pain). Take with food or milk. ibuprofen Yes [id number] 600mg Take 1 Univers 600 mg 3-05 102 tablet by ity of tablet 00:00: mouth [place] 00 every 6 Medical (six) Branch hours as needed (Pain). Take with food or milk. ferrous Yes [id number] 325mg Take 1 Un deb sulfate 2-18 tablet by ity of (IRON, 00:00: mouth 2 [place] FERROUS 00 (two) Medical SULFATE,) times Branch 325 mg (65 daily. mg iron) tablet ferrous Yes [id number] 325mg Take 1 Un deb sulfate 2-18 tablet by ity of (IRON, 00:00: mouth 2 [place] FERROUS 00 (two) Medical SULFATE,) times Branch 325 mg (65 daily. mg iron) tablet oxybutynin Yes 10mg Take [address] (DITROPAN-X 9-15 by mouth. Ambar es L) 10 MG 24 00:00: Medica l hr tablet 00 Center Immunizations Ordered Filled Immunization Date Status Comments [facility] Immunization Name Name Influenza Virus 2021-04-26 Completed Universit y of Vaccine Quad IM, 00:00:00 [place] Me dical Preserv and ABX Branch Free 6 MO-64 YRS TDAP 2021-04-26 Completed University of 00:00:00 [facility] Influenza Virus 2021-04-26 Completed Universit y of Vaccine Quad IM, 00:00:00 [facility] [place] [facility] dical Preserv and ABX Branch Free 6 MO-64 YRS TDAP 2021-04-26 Completed University of 00:00:00 [facility] Varicella 2015-03-29 Completed [facility] (varivax)(chicken 00:00:00 [facility] edical pox) [place] Varicella 2015-03-29 Completed [facility] (varivax)(chicken 00:00:00 [facility] edical pox) [place] TDAP 2015-01-03 Completed University of 00:00:00 [facility] 2015-01-03 Completed [facility] 00:00:00 [facility] Vital Signs Vital Name Observation Time Observation Value Comments Source HEIGHT 2019-11-15 00:00:00 167.6 cm WEIGHT 2019-11-15 00:00:00 73.211 kg Systolic blood 2021-08-16 14:20:00 121 mm[Hg] Univer sity of pressure [facility] Diastolic blood 2021-08-16 14:20:00 82 mm[Hg] Unive rsity of pressure [facility] Heart rate 2021-08-16 14:20:00 96 /min [facility] Body temperature 2021-08-16 14:20:00 37.06 Shea Univ ersity of [facility] Body height 2021-08-16 14:20:00 167.6 cm [facility] Body weight 2021-08-16 14:20:00 94.62 kg [facility] BMI 2021-08-16 14:20:00 33.67 kg/m2 [facility] WEIGHT 2020-07-03 18:12:00 47.628 kg WEIGHT 2020-07-03 18:12:00 47.628 kg HEIGHT 2019-11-15 00:00:00 167.6 cm WEIGHT 2019-11-15 00:00:00 73.211 kg Procedures Procedure Date / Time Performed Performing Clinician [facility] DISCLOSURE AND 2021-08-16 05:01:00 Doctor Unassigned, [facility] CONSENT, MEDICAL AND Name Medical Bra [facility] SURGICAL PROCEDURES POCT TEST 2021-08-16 00:00:00 Sakshi Clark [facility] Plan of Care Planned Activity Planned Date Details Comments Source Future Scheduled 2025-01-03 DTAP/TDAP/TD VACCINES [facility] Test 00:00:00 (2 - Td or Tdap) [code Medic al Center = DTAP/TDAP/TD VACCINES (2 - Td or Tdap)] Future Scheduled 2021-11-22 INFLUENZA VACCINE (#1) [facility] Test 00:00:00 [code = INFLUENZA Medical Ce nter VACCINE (#1)] Future Scheduled 2021-03-[address] [facility] Test 00:00:00 (12+) [code = Medical Center DEPRESSION SCREENING (12+)] Future Scheduled 2016-02-[address] [facility] Test 00:00:00 malignant neoplasm of Medica l Center cervix (procedure) [code = 509618353] Future Scheduled [address] [facility] Test 00:00:00 (procedure) [code = Medical Center [id number]] Future Scheduled 2013 HEPATITIS C SCREENING [facility] Test 00:00:00 [code = HEPATITIS C Medical Center SCREENING] Future Scheduled [address] [facility] Test 00:00:00 0-64 YRS (1 - PCV) Medical C enter [code = PNEUMOCOCCAL VACCINE 0-64 YRS (1 - PCV)] Future Scheduled 1995 COVID-19 VACCINE (#1) [facility] Test 00:00:00 [code = COVID-[address] VACCINE (#1)] Encounters Start End Encounter Admission Attending Care Care Encounter Source Date/Time Date/Time Type Type Clinicians Facility Department ID 2020-12-[address] [facility] Urology [id number] SLE 04:35:18 , TOAN 2020-09-13 Inpatient U NANCY [facility] CELIO [id number] Univers 02:26:00 EASTON maryjo [facility] 2021-10-23 2021-10-23 Outpatient Ara MARY [facility] [id number] Univers 11:00:00 11:00:00 GLADIS sibley [facility] 2021-08-16 2021-08-16 Office Eduardo [facility] [id number] Univers 09:00:00 09:57:07 Visit Mino CUELLAR [id number] i ty of [facility] [place] [phone] [address] 2021-08-16 2021-08-16 Outpatient R [facility] [id number] Univers 09:00:00 [facility]57[facility] 2021-[facility] 2021-08-16 Outpatient R SAKSHI CLARK [facility] [id number] Univers 09:00:00 09:00:00 ity [facility] 2021-08-16 2021-08-16 Orders Doctor ELIDA 1.2.840.114 [id number] Univers 00:00:00 00:00:00 Only Unassigned, SAURABH 350.1.13.10 ity of [place] [facility] 4.2.7.2.686 Frank as [phone] [address] 2021-07-16 2021-07-16 Office Radha [facility] [id number] Univers 13:30:00 14:16:53 Visit Gladis CUELLAR 350.1.13.10 i ty of [place] 4[place]2.7.2.[place] [phone] [address] 2021-07-16 2021-07-16 Outpatient Ara MARY [facility] [id number] Univers 13:30:00 14:16:53 GLADIS sibley [facility] 2021-07-16 2021-07-16 Outpatient Ara MARY [facility] [id number] Univers 13:30:00 13:30:00 GLADIS ity of [facility] 2021-06-21 2021-06-21 Outpatient R SAKSHI CLARK [facility] [id number] Univers 11:00:00 11:41:25 ity of [facility] 2021-06-21 2021-06-21 Routine Eduardo [facility] [id number] Univers 11:00:00 11:41:25 Cam POLO [id number] ity of Visit [place].7.2.[place] [phone] Il dical [address] 2021-05-25 2021-05-26 Inpatient P SAKSHI CLARK [facility] DANIEL [id number] Univers 03:57:00 18:30:00 ity of [facility] 2021-05-25 2021-05-26 Hospital Sakshi Clark [facility] 1.2.840.114 [id number] Univers 03:57:00 18:30:00 Encounter Mino CUELLAR [id number] ity of [place] 4.2.7.2.686 [facility] [place] [phone] [address] 2021-05-25 2021-05-25 Anesthesia Alhaji Harris [facility] 1.2.840.11 [id number] Univers 08:30:00 16:25:00 Event Filomena Kimball 350.1.13.10 ity of [facility] 4.2.7.2.686 [facility] [place] [phone] [address] 2021-05-25 2021-05-25 [facility] 1.2.840.114 [id number] Univers 08:30:00 08:30:00 Event Alhaji CUELLAR 350.1.13.10 i ty of [place] 4.2.7.2.686 [facility] [place] [phone] [address] 2021-05-25 2021-05-25 Orders Doctor MARRERO 1.2.840.114 [id number] Univers 00:00:00 00:00:00 Only Unassigned, SAURABH 350.1.13.10 ity of [place] [facility] 4.2.7.2.686 Frank as [phone] [address] 2021-05-17 2021-05-17 Outpatient R EDUARDO SAKSHI [facility] [id number] Univers 14:00:00 14:37:52 ity of [facility] 2021-05-17 2021-05-17 Routine Sakshi Clark [place] [id number] Univers 14:00:00 14:37:52 Cam ANGLESELINA 350.1.13.10 ity of Visit [place] 4[place]7.[place] [id number] [address] 2021-05-17 2021-05-17 Orders Doctor MARRERO 1.2.840.114 [id number] Univers 00:00:00 00:00:00 Only Unassigned, SAURABH 350.1.13.10 ity of [place] [facility] 4.2.7.2.686 [place] as [phone] [address] 2021-05-11 2021-05-11 Case Sakshi Clark [facility] 1.2.840.114 [id number] Univers 00:00:00 00:00:00 Management Cam DIVINA [id number] ity of [place] 4[place]2.7.2.[place] [phone] [address] 2021-05-10 2021-05-10 Outpatient R EDUARDO SAKSHI [facility] [id number] Univers 16:15:00 17:08:45 ity of [facility] 2021-05-10 2021-05-10 Routine Sakshi Clark [facility] [id number] Univers 16:15:00 17:08:45 Cam ANGLESELINA 350.1.13.10 ity of Visit [place] 4[place]2.7.2.[place] [phone] Il dic[address] 2021-05-10 2021-05-10 Outpatient R EDUARDO [facility] [id number] Univers 15:30:00 15:30:00 ity of [facility] 2021-05-10 2021-05-10 Stonecutter Hand 2, Adc Lab [facility] 1.2.840.114 [id number] Univers 15:30:00 15:30:00 Visit Sakshi Clark [place] 350.1.13.10 ity of [place] 4.2.7.2.[place] [phone] Il dical NAL 353 [facility] 2021-05-02 2021-05-02 [facility] Sakshi Clark [facility] 1.2.840.114 [id number] Univers 17:41:05 23:59:00 Encounter Cam [place] 350.1.13.10 ity of [facility] 4.2.7.2.[place] [phone] [facility] [address] [place] [address] 2021-05-02 2021-05-02 Outpatient R CLARK SAKSHI [facility] [id number] Univers 15:00:00 16:11:30 ity of [facility] 2021-05-02 2021-05-02 Routine Elyse Clarken [facility] [id number] Univers 15:00:00 16:11:30 Cam [place] 350.1.13.10 ity of Visit [place] 4.2.7.2.[place] [phone] Il dical NAL 134 [facility] 2021-04-27 2021-04-27 Telephone Sakshi Clark [facility] 1.2.840.114 [id number] Univers 00:00:00 00:00:00 Cam [place] 350.1.13.10 i ty of [facility] 4.2.7.2.[place] [phone] Il dical NAL 134 [facility] 2021-04-26 2021-04-26 Outpatient R CLARK [facility] [id number] Univers 14:30:00 16:10:53 ity of [facility] 2021-04-26 2021-04-26 Initial Sakshi Clark [facility] 1.2.315.101 [id number] Univers 14:30:00 16:10:53 Cam [place] 350.1.13.10 ity of [facility] 4.2.7.2.[place] [phone] Il dical [facility] 134 Branch [facility] 2021-04-26 2021-04-26 Letter Doctor ELIDA 1.2.840.114 [id number] Univers 00:00:00 00:00:00 (Out) Unassigned, SAURABH 350.1.13.10 ity of [place] [facility] 4.2.7.2.686 Frank as [phone] [facility] 044 Branch 2021-04-26 2021-04-26 Orders Doctor ELIDA 1.2.840.114 [id number] Univers 00:00:00 00:00:00 Only Unassigned, SAURABH 350.1.13.10 ity of [place] [facility]OS[facility]ITAL 4.2.7.2.686 Frank as [phone] [facility] 009 Branch 2020-09-21 2020-09-21 Office FREDDIE Warner 1.2.069.706 [id number] Univers 15:49:17 16:01:20 [facility] 350.1.13.10 ity of CLINICS 4.2.7.2.[place] [phone] [facility] 199 Branch 2020-09-21 2020-09-21 Outpatient R KTAE, [facility] [id number] [facility] 15:30:00 15:30:00 RENA sibley [facility] 2020-09-21 2020-09-21 Orders Doctor ELIDA 1.2.840.114 [id number] Univers 00:00:00 00:00:00 Only UnassignedSAURABH 350.1.13.10 ity of [place] [facility]OSPITAL 4.2.7.2.686 Frank as [phone] [facility] 009 Branch 2020-09-16 2020-09-16 Case ELIDA Varghese 1.2.840.114 [id number] Univers 00:00:00 00:00:00 Management Jori WILEY 350.1.13.10 ity of HOSPITAL 4.2.7.2.686 [place] as [phone] [facility] 010 Branch 2020-09-16 2020-09-16 Case ELIDA Varghese 1.2.840.114 [id number] 00:00:00 00:00:00 Management Jori WILEY 350.1.13.10 H HOSPITAL 4.2.7.2.686 [id number] 010 2020-09-15 2020-09-15 Transition Linda Perry 1.2.840.114 [id number] Univers 00:00:00 00:00:00 of Care Ness Padillay 350.1.13.10 ity of [place] 4.2.7.2.[place] [phone] [facility] 403 Branch 2020-09-15 2020-09-15 Transition Linda Perry 1.2.840.114 [id number] 00:00:00 00:00:00 of Care Ness Padillay 350.1.13.10 [place] 4.2.7.2.686 [id number] 2020-09-13 2020-09-14 [facility] Easton Cruz 1.2.84 0.114 [id number] [facility] 02:26:00 09:58:00 Encounter Rena Warner 350.1.13.1 0 ity of Hospital 4.2.7.2.686 [place] as [phone] [facility] 097 Branch 2020-09-13 2020-09-14 [facility] 1.2.84 0.114 [id number] 02:26:00 09:58:00 Encounter Rena Warner 350.1.13.1 0 Hospital 4.2.7.2.686 [id number] 2020-09-13 2020-09-13 Surgery Dee Warner 1.2.840.114 [id number] [facility] 13:30:00 15:01:00 Rena Wiley 350.1.13.10 ity of Hospital 4.2.7.2.686 [place] as [phone] [facility] 103 Branch 2020-09-13 2020-09-13 Surgery Dee 1.2.840.114 [id number] 13:30:00 15:01:00 Saurabh 350.1.13.10 Hospital 4.2.7.2.686 [id number] 2020-07-032020-07-[address] [facility] Emergency [id number] SLE 19:08:00 19:08:00 2020-07-03 2020-07-[address] [facility] Emergency [id number] SLE 18:03:00 18:03:00 2018-11-19 2018-11-19 Emergency [place] 1.2.215.288 [id number] [facility] 16:42:19 18:58:00 Aubrey Cuellar 350.1.13.10 i ty of [place] 4.2.7.2.686 [facility] [phone] [place] [address] Branch 2018-11-19 2018-11-19 Emergency Mem[place]ren[place], [facility] 1.2.098.402 [id number] 16:42:19 18:58:00 Aubrey Cuellar 350.1.13.10 [place] 4.2.7.2.686 [place] [id number] 084 2018-11-19 2018-11-19 Orders Doctor ELIDA 1.2.840.114 [id number] Univers 00:00:00 00:00:00 Only Unassigned, SAURABH 350.1.13.10 ity of [place] [facility]OSPITAL 4.2.7.2.686 [facility] [phone] [facility] 009 Branch 2018-11-19 2018-11-19 Orders Doctor ELIDA 1.2.840.114 [id number] 00:00:00 00:00:00 Only Unassigned, SAURABH 350.1.13.10 [place] [facility] 4.2.7.2.686 [id number] 2018-11-10 2018-11-10 Emergency [facility] 1.2.418.662 [id number] [facility] 14:58:26 15:00:00 [place] 350.1.13.10 i ty of [place] 4.2.7.2.686 [facility] [id number] [place] [address] Branch 2018-11-10 2018-11-10 Emergency [facility] 1.2.142.565 [id number] 14:58:26 15:00:00 [place] 350.1.13.10 [place] 4.2.7.2.686 [place] [phone] 084 Results Test Description Test Time Test Comments Results Result Comments Source POCT TEST 2021-08-16 14:33:00 Test Item Value Reference Range Interpretation Comme nts POCT PREG (test code = 1605) Negative On board controls acceptable with C Line (test code = 3574) Yes POCT PREG LOT # (test code = 3575) POCT PREG TEST DATE (test code = 3576) [facility] HR, GESTATIONAL, DIAGNOSTIC, 100 GM [id number] 04:47:32 Test Item Value Reference Range Interpretation Comments GLUCOSE, FASTING 88 MG/DL <95 (test code = 85022) GLUCOSE, 1 HR (test 149 MG/DL <180 code = ) GLUCOSE, 2 HR (test 108 MG/DL <155 code = ) GLUCOSE, 3 HR (test 125 MG/DL <140 CRITER IA FOR code = ) GESTATIONAL DI ABETES SAMPLE VICENTEENTE R/KARLO MISSAEL'L DIABETES DATA GROUP FASTING < 95 MG /DL 105 MG/DL 1 HOUR < 180 MG/DL 190 MG/DL 2 LISETH RS < 155 MG/DL 165 MG/DL 3 HOURS < 140 MG/DL 145 MG/DL (FROM ACOG PRAC ABDIEL BULLETIN NUMBER , 2000 ) UNLESS OTHERWISE INDIC ATED, ALL TESTING PERFORM ED ATCLINICAL PATH [facility]. [address] [place] [address] LABORATORY DIRE CTOR: Demetra RIOS CLIA NUMBER [id number] CAP ACCREDITATION N O. [id number] GLUCOSE, 1 HR, GESTATIONAL SCREEN, 50 GM [id number] 22:05:08 Test Item Value Reference Range Interpretation Comments GLUCOSE 1 HR POST 149 MG/DL <140 H UNLESS OT HERWISE 50 GM (test code = INDICATED , ALL TESTING 2005) PERFORMED ATCLI NICAL PATHOLOGY LABOR [facility] [address] [place] [address] [facility] DIRECTOR: Drea RIOSIA NUMBER [id number] CAP ACCREDITATION N O. [id number] URINALYSIS W/ REFLEX URINE [id number] 18:40:00 Test Item Value Reference Range Interpretation [...] 1663) SOURCE(BEAKER) (test code = 2795) SCREEN, [id number] 18:36:00 Test Item Value Reference Range Interpretation Comments TEST URINE (BEAKER) (test Negative code = 583) CT, [id number] 22:39:00Unlisted Reason for Exam - Click Yes and Enter Reason Below->NoPlease specify:->Renal Stone ProtocolFINAL REPORT EXAM: CT of the abdomen and pelvis, without contrast CLINICAL HISTO RY: Flank pain, kidney stone suspected TECHNIQUE: CT of the abdomen and pelvis was performed withoutthe intravenous administration of contrast. This exam was [...] stranding. Contrast is noted within the bilateral renalcollecting systems, due to recent fluoroscopy/nephrostomy placement. Small hyperdense fluid in the left pararenal space and left retroperitoneum, which may represent a urinoma and/or hematoma. Punctatenonobstructing left renal stones. URINARY BLADDER: Decompressed around a Nixon catheter balloon. Airin the urinary bladder may be due to Nixon instrumentation or infection. REPRODUCTIVE ORGANS: Intraut erine device in place. No adnexal mass. BOWEL/MESENTERY: [...] MDReport Verified Date/Time: 11/19/2019 22:39:03 VANCOMYCIN LEVEL, TROUGH 2019-11-19 22:23:00 Test Item Value Reference Range Interpretation Comments VANCOMYCIN TROUGH (BEAKER) (test 18.2 ug/mL 10.0-20.0 code = 522) Health Professor ID - DBBASIC METABOLIC [id number] 19:16:00 Test Item Value Reference Range Interpretation Comments SODIUM (BEAKER) 139 meq/L 136-145 (test code = 381) POTASSIUM (BEAKER) 4.0 meq/L 3.5-5.1 (test code = 379) CHLORIDE (BEAKER) 106 meq/L 98-107 (test code = 382) CO2 (BEAKER) (test 24 meq/L - code = 355) BLOOD UREA NITROGEN 6 [...] S NOT APPLICABLE FOR DIALYSIS PATIEN TS. Health Professor ID - NEREYDA BHEMOGLOBIN AND [id number] 18:58:00 Test Item Value Reference Range Interpretation Comments HEMOGLOBIN (BEAKER) (test code = 13.3 GM/DL 11.2-15.7 410) HEMATOCRIT (BEAKER) (test code = 41.7 % 34.1-44.9 411) Health Professor ID - [id number], FLUORO, NON-SPECIFIC, UP TO 1 [id number] 17:35:00 Reason for exam:->Percutaneous LithotripsyFluoroscopic unit utilized for a procedure performed in the OR. No interpretation was requested. Refer to the operative report for findings. Refer to PACS for patient radiation dose information.PROTHROMBIN TIME/[id number] 05:20:00 Test Item Value Reference Range Interpretation [...] is 2.5-3.5 for patients wiht mechanical heart valves.[id number] 05:14:00 Test Item Value Reference Range Interpretation Comments PARTIAL THROMBOPLASTIN TIME 31.8 seconds 22.5-36.0 (BEAKER) (test code = 760) URINE [id number] 12:38:00 Test Item Value Reference Range Interpretation Comments CULTURE (BEAKER) (test code = 1095) No growth BASIC METABOLIC [id number] 06:53:00 Test Item Value Reference Range Interpretation [...] S NOT APPLICABLE FOR DIALYSIS PATIEN TS. Health Professor ID - NTPCBC W/PLT COUNT & AUTO [id number] 06:25:00 Test Item Value Reference Range Interpretation [...] (BEAKER) (test code = 2801) BASIC METABOLIC [id number] 05:53:00 Test Item Value Reference Range Interpretation [...] S NOT APPLICABLE FOR DIALYSIS PATIEN TS. Health Professor ID - PIAYA LCBC W/PLT COUNT & AUTO [id number] 05:18:00 Test Item Value Reference Range Interpretation [...] PERCENT (BEAKER) (test code = 2801) SARS-COV2/RT-PCR ([facility])2019-11-16 17:16:00 Test Item Value Reference Range Interpretation Comments SARS-COV2/RT-PCR (test Negative Not Detected, Negative, code = 0029581) See external report for linked test SARS-COV-2 PERFORMING LAB [facility] (test code = 8378189) Negative result for this test determines that [...] justifying the authorization of the emergency use ofin vitro diagnostic tests for detection and/or diagnosis of COVID-19 is terminated under Section 564(b)(2) of the Act or the EUA is revoked under Section 564(g) of the Act.Fact Sheet for Healthcare Prov iders:https://www.[employer]/sites/default/files/product/documents/Fact_Sheet_HC _Jymaaqrvs_Xanm_NUAH-FtN-8.pdfFact Sheet for Healthcare Patients:https://www.[employer]/sites/default/files/product/docume nts/Ckqt_Oihea_Rpdxxujh_Zrho_RXKI-RxQ-2.pdfPerforming Laboratory:[facility], [place] [address]WNA, NEPHROSTOMY, PERC, EXTERNAL [id number] 12:32:00Reason for exam:->Left Obstructing Kidney Stone - Recommend Left PCN placementFINAL REPORT Fluoroscopic guided left nephrostomy tube placement. Clinical History: Left UPJ obstructing stone. Modality: Sonography and fluoroscopy Public Health Worker: Dio Elmore MD. Desktop Support Engineer: Luis Colby. Sedation: Versed 3.5 mg and fentanyl 75 mcg was given intravenously for conscious sedation. Vital signs were monitored throughout the procedure by a nurse, and remained stable. Physician intra-service time was 30 minutes. Estimated Blood Loss: Less than 5 cc. Specime n: None. Fluoroscopy Time: 5.5 min.Reference Air Kerma [...] not prepped, and hand hygiene, mask, head covering,and sterile gown for performing radiologist and scrub technologist. Local anesthesia was achieved with 1% lidocaine, the left lower lower pole calyx was visualized with ultrasound. Using ultrasound guidance, a 21-gauge Accustick needle was advanced into the calyx. Contrast injection confirmed placement within the calyx. A 0.018 inch wire was advanced through the needle a curled within the pelvis. TheAccustick sheath was advanced over the wire and an Amplatz wire was advanced down the ureter. After a small skin incision was made, the soft tissue tract was dilated with 8 Syrian dilators. A 8.5 Syrian drainage catheter was placed into the left renal pelvis. The wire was then removed, and the pigtailof the catheter was locked. The catheter was then secured onto the skin with 2-0 Prolene. The patient tolerated the procedure well, without immediate complications. The patient's vital signs remained stable throughout the procedure. Patient disposition: The patient was discharged from the department in stable condition. Impression:Successful and uncomplicated fluoroscopic guided left nephrostomy tubeplacement. Signed: Dio Elmore MDReport Verified Date/Time: 11/16/2019 12:32:44 Reading Location: [place] [id number] Angio Body Reading Room BASIC METABOLIC [id number] 06:52:00 Test Item Value Reference Range Interpretation [...] S NOT APPLICABLE FOR DIALYSIS PATIEN TS. Health Professor ID - JACIEL WCBC W/PLT COUNT & AUTO [id number] 05:59:00 Test Item Value Reference Range Interpretation [...] (BEAKER) (test code = 2801) BASIC METABOLIC [id number] 22:02:00 Test Item Value Reference Range Interpretation [...] S NOT APPLICABLE FOR DIALYSIS PATIEN TS. Health Professor ID - DBPT/[id number] 21:57:00 Test Item Value Reference Range Interpretation [...] is 2.5-3.5 for patients wiht mechanical heart valves.PROTHROMBIN TIME/[id number] 21:57:00 Test Item Value Reference Range Interpretation [...] 2.5-3.5 for patients wiht mechanical heart valves. SCREEN, [id number] 21:46:00 Test Item Value Reference Range Interpretation Comments TEST URINE (BEAKER) (test Negative code = 583) CBC W/PLT COUNT & AUTO [id number] 21:41:00 Test Item Value Reference Range Interpretation [...]
[2022-01-13] MEDS ORDERED: HYDROMORPHONE HCL 1 MG/ML INJ ONE ×2 (21:06→21:54)
[2022-01-13] MEDS ORDERED: NA CHLORIDE 0.9% 1,000 ML ONE ×2 (21:06→22:45)
[2022-01-13 21:34] LABS: Lymphocytes % 20.4 % (15.3-44.8); MCV 78.2 fL (80-100); MPV 7.6 fL (7.6-11.3); RBC Red Blood Cell Count 4.73 M/uL (3.86-4.86)
[2022-01-13 21:42] LABS: Potassium 3.7 mmol/L (3.5-5.1)
--- NOTE | 2022-01-13 22:17 | RAD REPORT ---
EXAM DESCRIPTION: RAD - Wrist Right 3 View - 01/13/2022 10:01 pm CLINICAL HISTORY: PAIN COMPARISON: None FINDINGS/IMPRESSION: No acute fracture. No malalignment. No significant focal degenerative changes.
--- NOTE | 2022-01-13 22:19 | RAD REPORT ---
EXAM DESCRIPTION: RAD - Elbow Right 3 View - 01/13/2022 10:01 pm CLINICAL HISTORY: PAIN COMPARISON: No comparisons FINDINGS/IMPRESSION: Posterior elbow dislocation. Fragment distal to the humeral head on the lateral view. This is from uncertain donor site. Coronoid fracture difficult to exclude.
--- NOTE | 2022-01-13 22:19 | RAD REPORT ---
EXAM DESCRIPTION: RAD - Humerus Right - 01/13/2022 10:01 pm CLINICAL HISTORY: PAIN COMPARISON: No comparisons FINDINGS/IMPRESSION: No acute fracture. No malalignment. No significant focal degenerative changes.
[2022-01-13] MEDS ORDERED: ETOMIDATE 20 MG/10 ML VIAL IV ONE (22:29)
[2022-01-13] MEDS ORDERED: MIDAZOLAM HCL 2 MG/2 ML INJ ONE (22:29)
--- NOTE | 2022-01-14 00:12 | EDPHYS ---
Physician Documentation [facility] Name: Jagruti Hill Age: 26 yrs Sex: Female : 1995 Arrival Date: 01/13/2022 Time: 20:32 Bed 25 Private MD: ED Physician Mac Vang HPI: 01/13 21:00 This 26 yrs old Female presents to ER via EMS with complaints of Right Elbow Pain. cp 21:00 The patient or guardian complains of decreased range of motion, deformity, injury, cp pain, that is acute, tenderness. The complaints affect the right elbow. Context: The problem was sustained at home, resulted from a fall, from bed. Onset: The symptoms/episode began/occurred just prior to arrival. Treatment prior to arrival includes: sling. Associated signs and symptoms: The patient has no apparent associated signs or symptoms. INTEGRATION LEAD: 20:35 LMP N/A - control method tw5 Historical: - Allergies: 20:34 No Known Allergies; tw5 - PMHx: 20:34 Anxiety; cystinuria; Depression; Kidney stones; tw5 - PSHx: 20:34 Appendectomy; Renal; Oral; tw5 - Immunization history:: Client reports receiving the 2nd dose of the Covid vaccine, pfizer. - Social history:: Smoking status: Patient reports the use of cigarette tobacco products, smokes one-half pack cigarettes per day. ROS: 21:05 MS/extremity: Positive for injury or acute deformity, decreased range of motion, pain, cp of the right elbow. 21:05 Eyes: Negative for injury, pain, redness, and discharge. cp 21:05 Constitutional: Negative for body aches, chills, fever. 21:05 Neck: Negative for pain with movement, pain at rest. 21:05 Cardiovascular: Negative for chest pain. 21:05 Respiratory: Negative for cough, shortness of breath, wheezing. 21:05 Abdomen/GI: Negative for abdominal pain, nausea, vomiting, and diarrhea. 21:05 Back: Negative for pain at rest, pain with movement. 21:05 Neuro: Negative for altered mental status, dizziness, headache, syncope. 21:05 All other systems are negative. Exam: 21:10 Constitutional: The patient appears in no acute distress, alert, awake, cp non-diaphoretic, non-toxic, well developed, well nourished, in obvious pain, uncomfortable. 21:10 Head/Face: Normocephalic, atraumatic. cp 21:10 Eyes: Periorbital structures: appear normal, Conjunctiva: normal, no exudate, no cp injection, Sclera: no appreciated abnormality, Lids and lashes: appear normal, bilaterally. 21:10 ENT: External ear(s): are unremarkable, Nose: is normal, Mouth: Lips: moist, Oral mucosa: pink and intact, moist, Posterior pharynx: Airway: no evidence of obstruction, patent. 21:10 Neck: C-spine: vertebral tenderness, is not appreciated, crepitus, is not appreciated, ROM/movement: is normal, is supple, without pain, no range of motions limitations. 21:10 Chest/axilla: Inspection: normal. 21:10 Cardiovascular: Rate: normal, Rhythm: regular. 21:10 Respiratory: the patient does not display signs of respiratory distress, Respirations: normal, no use of accessory muscles, no retractions, labored breathing, is not present, Breath sounds: are clear throughout, no decreased breath sounds, no stridor, no wheezing. 21:10 Abdomen/GI: Inspection: abdomen appears normal, Bowel sounds: active, all quadrants, Palpation: soft, in all quadrants. 21:10 Back: pain, is absent, ROM is normal. 21:10 Musculoskeletal/extremity: Extremities: grossly normal except: noted in the right arm: pain, deformity and swelling noted right elbow, ROM: limited passive range of motion, in the right elbow, limited passive range of motion due to pain, in the right elbow, Pulses: noted to be 2+ in the right radial artery, the right elbow Severe pain noted. 21:10 Neuro: Orientation: to person, place \T\ time. Mentation: is normal. Vital Signs: 20:32 BP 120 / 91; Pulse 112; Resp 20 S; Temp 98.2(O); Pulse Ox 98% on R/A; Weight 94.35 kg tw5 (R); Height 5 ft. 6 in. (167.64 cm) (R); Pain 10/10; 21:55 BP 110 / 78; Pulse 104; Resp 20; Pulse Ox 96% ; kb3 22:00 BP 121 / 84; Pulse 97; Resp 20; Pulse Ox 99% ; kb3 01/14 00:16 BP 117 / 78; Pulse 92; Resp 18; Pulse Ox 99% ; kb3 01/13 20:32 Body Mass Index 33.57 (94.35 kg, 167.64 cm) tw5 Procedures: 00:00 Moderate sedation: Pre-procedure assessment: the patient has been NPO 3 hour(s) prior cp to arrival, Airway assessment: able to hyperextend neck, able to maintain airway, can open mouth without difficulty, Monitoring during procedure: nurse monitoring, continuous pulse oximetry, nurse at bedside at all times, Medications employed: Etomidate, 18 mg(s), Versed, 4 mg(s), Post-procedure assessment: the patient is moderately sedated, a reversal agent was not used. 00:00 Reduction: of the right elbow, using manipulation, Immobilized with posterior long arm cp orthoglass. Patient tolerated well. Post reduction film - reveals improved alignment. MDM: 01/13 20:46 Patient medically screened. humberto 22:00 Differential diagnosis: dislocation, open fracture, closed fracture, contusion. cp 01/14 00:10 Data reviewed: vital signs, nurses notes, lab test result(s), radiologic studies, plain cp films, I have discussed the patient's presentation/case with the attending Emergency Department Physician; and as a result, I will discharge patient. 00:10 Test interpretation: by ED physician or midlevel provider: plain radiologic studies. cp Counseling: I had a detailed discussion with the patient and/or guardian regarding: the historical points, exam findings, and any diagnostic results supporting the discharge/admit diagnosis, radiology results, the need for outpatient follow up, for definitive care, a orthopedic surgeon, to return to the emergency department if symptoms worsen or persist or if there are any questions or concerns that arise at home. Response to treatment: the patient's symptoms have markedly improved after treatment, and as a result, I will discharge patient. 01/13 20:54 Order name: Basic Metabolic Panel; Complete Time: 23:48 cp 01/13 23:48 Interpretation: Normal except: GLUC 120; GFR 82. cp 01/13 20:54 Order name: CBC with Diff; Complete Time: 23:48 cp 01/13 23:48 Interpretation: Normal except: MCV 78.2; MCH 25.9. cp 01/13 20:54 Order name: Type And Screen; Complete Time: 23:48 cp 01/13 21:17 Order name: XRAY Humerus RIGHT; Complete Time: 23:48 cp 01/13 21:17 Order name: XRAY Elbow RIGHT 3 view; Complete Time: 23:48 cp 01/13 23:48 Interpretation: Report reviewed. cp 01/13 21:17 Order name: XRAY Wrist RIGHT 3 view; Complete Time: 23:48 cp 01/13 22:52 Order name: Elbow Right 2 View XRAY wm 01/13 20:54 Order name: IV; Complete Time: 21:20 cp 01/13 20:54 Order name: Labs collected and sent; Complete Time: 21:20 cp 01/13 21:59 Order name: Splint - Elbow - Posterior cp 01/13 21:59 Order name: Sling cp 01/13 23:47 Order name: Misc. Order: ambulate patient; Complete Time: 00:18 cp Administered Medications: 01/13 21:15 Drug: NS 0.9% 1000 ml Route: IV; Rate: 1 bolus; Site: left antecubital; kb3 22:05 Follow up: Response: No adverse reaction; IV Status: Completed infusion; IV Intake: kb3 1000ml 21:15 Drug: Dilaudid (HYDROmorphone) 1 mg Route: IVP; Site: left antecubital; kb3 21:45 Follow up: Response: No adverse reaction; No change in condition kb3 21:55 Drug: Dilaudid (HYDROmorphone) 1 mg Route: IVP; Site: left antecubital; kb3 22:35 Follow up: Response: No adverse reaction; Pain is decreased kb3 22:42 Drug: Midazolam 4 mg Route: IVP; Site: left antecubital; kb3 22:42 Drug: NS 0.9% 1000 ml Route: IV; Rate: 1 bolus; Site: left antecubital; kb3 23:40 Follow up: Response: No adverse reaction; IV Status: Completed infusion; IV Intake: kb3 750ml 22:43 Drug: Etomidate 10 mg Route: IVP; Site: left antecubital; kb3 22:45 Drug: Etomidate 10 mg {Note: 6mg IVP given. MD at bedside.} Route: IVP; Site: left kb3 antecubital; Disposition Summary: 01/14/22 00:11 Discharge Ordered Location: Home cp Problem: new cp Symptoms: have improved cp Condition: Stable cp Diagnosis - Right Elbow posterior Dislocation with fracture cp Followup: cp - With: Sadiq Mccrary MD - When: 2 - 3 days - Reason: Recheck today's complaints Discharge Instructions: - Discharge Summary Sheet cp - Elbow Dislocation cp - Elbow Fracture Treated With ORIF cp Forms: - Medication Reconciliation Form cp - Thank You Letter cp - Antibiotic Education cp - Prescription Opioid Use cp Prescriptions: - Ibuprofen 800 mg Oral Tablet - take 1 tablet by ORAL route every 8 hours As needed take with food; 30 tablet; cp Refills: 0, Product Selection Permitted - Tylenol-Codeine #3 300 mg-30 mg Oral - take 2 tablet by ORAL route every 6-8 hours; 20 tablet; Refills: 0, Product cp Selection Permitted Addendum: 01/15/2022 04:15 Co-signature as Attending Physician, Mac Vang MD I agree with the assessment and c dhillon plan of care. Signatures: Dispatcher [employer] EDMac Guerin MD MD cha Page, Corey, PA Jagruti Galarza cp tw5 Shraddha Piper, RN RN kb3
--- NOTE | 2022-01-14 00:12 | ER ---
Nurse's Notes [facility] Name: Jagruti Hill Age: 26 yrs Sex: Female : 1995 Arrival Date: 01/13/2022 Time: 20:32 Bed 25 Private MD: Diagnosis: Right Elbow posterior Dislocation with fracture Presentation: 01/13 20:32 Chief complaint: EMS states: pt was adjusting shoe on bed and fell to the side and hit tw5 her right elbow. pain and swelling to extremity. Coronavirus screen: At this time, the client does not indicate any symptoms associated with coronavirus-19. Ebola Screen: No symptoms or risks identified at this time. Initial Sepsis Screen: Does the patient meet any 2 criteria? No. Patient's initial sepsis screen is negative. Does the patient have a suspected source of infection? No. Patient's initial sepsis screen is negative. Risk Assessment: Do you want to hurt yourself or someone else? Patient reports no desire to harm self or others. Onset of symptoms was January 13, 2022. Care prior to arrival: Medication(s) given: Toradol IV initiated. 20 GA, in the left antecubital area. 20:32 Method Of Arrival: EMS: [facility] tw5 20:32 Acuity: LISA 3 tw5 Triage Assessment: 21:34 General: Appears distressed, uncomfortable, Behavior is anxious, crying. Pain: kb3 Complains of pain in right bicep, right antecubital area, dorsal aspect of right forearm, right wrist, right tricep, right elbow and palmar aspect of right forearm Pain does not radiate. Pain currently is 10 out of 10 on a pain scale. Quality of pain is described as aching, sharp, shooting, stabbing, throbbing, Pain began suddenly, 2 hours ago. Is continuous. Musculoskeletal: Reports pain in right bicep, right antecubital area, dorsal aspect of right forearm, right wrist, right tricep, right elbow and palmar aspect of right forearm. HOME LIGHTING ADVISER: 20:35 LMP N/A - control method tw5 Historical: - Allergies: 20:34 No Known Allergies; tw5 - PMHx: 20:34 Anxiety; cystinuria; Depression; Kidney stones; tw5 - PSHx: 20:34 Appendectomy; Renal; Oral; tw5 - Immunization history:: Client reports receiving the 2nd dose of the Covid vaccine, pfizer. - Social history:: Smoking status: Patient reports the use of cigarette tobacco products, smokes one-half pack cigarettes per day. Screenin:33 Abuse screen: Denies threats or abuse. Denies injuries from another. Nutritional kb3 screening: No deficits noted. Tuberculosis screening: No symptoms or risk factors identified. Fall Risk None identified. Assessment: 21:00 Reassessment: Patient appears in no apparent distress at this time. No changes from kb3 previously documented assessment. General: Appears in no apparent distress. uncomfortable, Behavior is calm, cooperative, Received care of pt from RN. 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 Pt c/o pain in the right elbow, forearm, wrist and upper arm. Denies pain in the right shoulder. 22:35 General: See IV conscious sedation procedure flow sheet. kb3 Vital Signs: 20:32 BP 120 / 91; Pulse 112; Resp 20 S; Temp 98.2(O); Pulse Ox 98% on R/A; Weight 94.35 kg tw5 (R); Height 5 ft. 6 in. (167.64 cm) (R); Pain 10/10; 21:55 BP 110 / 78; Pulse 104; Resp 20; Pulse Ox 96% ; kb3 22:00 BP 121 / 84; Pulse 97; Resp 20; Pulse Ox 99% ; kb3 01/14 00:16 BP 117 / 78; Pulse 92; Resp 18; Pulse Ox 99% ; kb3 01/13 20:32 Body Mass Index 33.57 (94.35 kg, 167.64 cm) tw5 ED Course: 01/13 20:32 Patient arrived in ED. tw5 20:34 Mac Medina PA is PHCP. cp 20:34 Mac Vang MD is Attending Physician. cp 20:34 Triage completed. tw5 20:35 Arm band placed on. tw5 21:00 Shraddha Piper, JED is Primary Nurse. kb3 21:00 No provider procedures requiring assistance completed. Maintain EMS IV. Dressing kb3 intact. Good blood return noted. Site clean \T\ dry. Gauge \T\ site: 20G Left AC. 21:33 Patient has correct armband on for positive identification. Bed in low position. Call kb3 light in reach. Side rails up X2. Adult w/ patient. Warm blanket given. 22:03 XRAY Humerus RIGHT In Process Unspecified. EDMS 22:03 XRAY Elbow RIGHT 3 view In Process Unspecified. EDMS 22:03 XRAY Wrist RIGHT 3 view In Process Unspecified. EDMS 23:27 Elbow Right 2 View XRAY In Process Unspecified. EDMS 01/14 00:07 Sadiq Mccrary MD is Referral Physician. cp 00:20 IV discontinued, intact, bleeding controlled, No redness/swelling at site. kb3 Administered Medications: 01/13 21:15 Drug: NS 0.9% 1000 ml Route: IV; Rate: 1 bolus; Site: left antecubital; kb3 22:05 Follow up: Response: No adverse reaction; IV Status: Completed infusion; IV Intake: kb3 1000ml 21:15 Drug: Dilaudid (HYDROmorphone) 1 mg Route: IVP; Site: left antecubital; kb3 21:45 Follow up: Response: No adverse reaction; No change in condition kb3 21:55 Drug: Dilaudid (HYDROmorphone) 1 mg Route: IVP; Site: left antecubital; kb3 22:35 Follow up: Response: No adverse reaction; Pain is decreased kb3 22:42 Drug: Midazolam 4 mg Route: IVP; Site: left antecubital; kb3 22:42 Drug: NS 0.9% 1000 ml Route: IV; Rate: 1 bolus; Site: left antecubital; kb3 23:40 Follow up: Response: No adverse reaction; IV Status: Completed infusion; IV Intake: kb3 750ml 22:43 Drug: Etomidate 10 mg Route: IVP; Site: left antecubital; kb3 22:45 Drug: Etomidate 10 mg {Note: 6mg IVP given. MD at bedside.} Route: IVP; Site: left kb3 antecubital; Medication: 21:00 VIS not applicable for this client. kb3 Intake: 22:05 IV: 1000ml; Total: 1000ml. kb3 23:40 IV: 750ml; Total: 1750ml. kb3 Outcome: 01/14 00:11 Discharge ordered by . cp 00:30 Discharged to home ambulatory, with family. kb3 00:30 Condition: improved 00:30 Discharge instructions given to patient, family, Instructed on discharge instructions, follow up and referral plans. medication usage, Splint care Demonstrated understanding of instructions, follow-up care, medications, splint care, Prescriptions given X 2. 00:31 Patient left the ED. kb3 Signatures: Dispatcher [employer] EDMS Mac Medina PA PA cp Wood, Tiffany tw5 Shraddha Piper, RN RN kb3
[2022-01-14 00:36] VITALS: TEMP 98.2
[2022-01-14 00:38] VITALS: O2SAT 99
[2022-01-14 00:40] VITALS: BP 117/78
--- NOTE | 2022-01-14 15:47 | RAD REPORT ---
EXAM DESCRIPTION: XR Right Elbow, 2 Views CLINICAL HISTORY: The patient is 26 years old and is Female; PAIN POST REDUCTION TECHNIQUE: Frontal and lateral views of the right elbow. COMPARISON: Radiographs performed the same day at 2149 hours FINDINGS: BONES/JOINTS: Successful reduction of previously demonstrated elbow dislocation. 2 small fracture fragments are noted anterior to the distal humerus, unsure of the donor site. SOFT TISSUES: Unremarkable. IMPRESSION: 1. Interval successful reduction of the previously demonstrated elbow dislocation. 2. 2 small fracture fragments again noted. Electronically signed by: Kinrda Kirkland MD 01/13/2022 11:49 PM CDT Due to temporary technical issues with the PACS/Fluency reporting system, reports are being signed by the in house radiologists without review as a courtesy to insure prompt reporting. The interpreting radiologist is fully responsible for the content of the report.
== END 2022-01-14 00:31 | disposition home or self-care (01) ==
LOC: ER 20:27
PROC: 0RSLXZZ Reposition Right Elbow Joint, External Approach (ICD-10-PCS; principal; 2022-01-14)
DX: S42.401A Unspecified fracture of lower end of right humerus, initial encounter for closed fracture (principal); F17.210 Nicotine dependence, cigarettes, uncomplicated
CPT/HCPCS: 24999; 96361; 85025; 80048; 36415; 86900; 86850; 86901; 73080; 73070; 73060; 73110; 96375; 96374; 99284; J2250; J1170 ×2; J7030 ×2